=== PATIENT | male | born 1950 | race American Indian/Alaskan Native ===

== ENCOUNTER 2018-12-19 00:31 | Inpatient (IN) | payer MEDICARE ==
[2018-12-19 01:25] LABS: Basophils % (Auto) 0.4 % (0.0-1.8); Hematocrit 41.3 % (35.5-45.6); Hemoglobin 13.7 gm/dl (11.8-15.2); Lymphocytes # (Auto) 0.9 K/mm3 (1.2-5.4); Lymphocytes % (Auto) 10.7 % (13.4-35.0); Mean Corpuscular HGB Conc 33 % (32-34); Mean Corpuscular Volume 82 fl (84-94); Monocytes # (Auto) 0.4 K/mm3 (0.0-0.8); Monocytes % (Auto) 4.8 % (0.0-7.3); Platelet Count 153 K/mm3 (140-440); Red Blood Count 5.05 M/mm3 (3.65-5.03); Red Cell Distribution Width 17.5 % (13.2-15.2)
--- NOTE | 2018-12-19 01:34 | Cat Scan Report ---
FINAL REPORT PROCEDURE: CT HEAD/BRAIN WO CON TECHNIQUE: Computerized tomography of the head was performed without contrast material. HISTORY: ams htn COMPARISON: No prior studies are available for comparison. FINDINGS: Skull and scalp: Normal. Paranasal sinuses: Normal. Ventricles and subarachnoid spaces: There is age-appropriate central and cortical atrophy. There is n o hydrocephalus. There is a cavum septum pellucidum.. Cerebrum: No evidence of hemorrhage, acute infarction or mass. There is chronic periventricular deep white matter ischemic gliosis. Cerebellum and brainstem: No evidence of hemorrhage, acute infarction or mass. Vasculature: Normal. 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 IMPRESSION: There is age-appropriate central and cortical atrophy. There is no hydrocephalus. There is a cavum se ptum pellucidum.. There is no intracranial hemorrhage, edema, mass effect or midline shift. There is chronic periventri cular deep white matter ischemic gliosis. 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
--- NOTE | 2018-12-19 01:36 | XRay Report ---
FINAL REPORT PROCEDURE: XR CHEST 1V AP TECHNIQUE: Chest radiograph anteroposterior view. CPT 83740 HISTORY: ams htn COMPARISON: No prior studies are available for comparison. FINDINGS: Heart: Normal. Mediastinum/Vessels: Normal. Lungs/Pleural space: Lungs are expanded. There are mild fibrotic changes. There are no acute infiltra kelton. There is no pleural effusion or pneumothorax.. Bony thorax: No acute osseous abnormality. Life support devices: None. IMPRESSION: No acute cardiopulmonary abnormality.
--- NOTE | 2018-12-19 01:48 | Emergency Department Report ---
ED General Adult HPI - General Chief complaint: Altered Mental Status Stated complaint: DISORIENTED WEIGHT LOSS Time Seen by Provider: 12/19/18 01:47 Source: patient, family Mode of arrival: Ambulatory Limitations: Other (patient is a poor historian) - History of Present Illness Initial comments: This is a 68-year-old gentleman who is not known to this provider previously. He is accompanied by his brother Joshua Hauser; [phone] History is obtained by speaking to the brother and the brother's . The patient has no complaints. As per the patient's brother, the patient has been experiencing a gradual cognitive decline since June. There is no trauma, and the patient is forgetful, and sometimes acts bizarrely. Yesterday, the zara ent's brother went to the patient's house and knocked on his door, and noted the patient to be sitting on a couch, not answering questions, and not moving. He was making bizarre gestures. Apparently, the patient's house was filled with refuse and garbage, and the patient has on more than one occasion urinated or defecated on himself. The patient will not go to a doctor as per the family. There is no headache, loss of consciousness, chest pain, abdominal pain, or urinary symptoms. The patient has no complaints at this point in time. Apparently, the patient has 2 other siblings, and 2 children, one apparently in [facility], and one living in the [facility]. Power of trust and estates attorney thus far has not been established as far as the family knows. Goals of care, care home care, advanced directives also not established. -: Gradual, month(s) Severity scale (0 -10): 0 Consistency: constant Improves with: none Worsens with: none Associated Symptoms: confusion - Related Data Home Medications Medication Instructions Recorded Confirmed Last Taken No Known Home Medications [No 12/19/18 12/19/18 Unknown Reported Home Medications] Allergies Allergy/AdvReac Type Severity Reaction Status Date / Time No Known Allergies Allergy Unverified 12/19/18 00:49 ED Review of Systems ROS: Stated complaint: DISORIENTED WEIGHT LOSS Other details as noted in HPI Comment: as per family Constitutional: denies: fever Eyes: denies: eye discharge ENT: denies: epistaxis Respiratory: denies: cough Cardiovascular: denies: chest pain Gastrointestinal: denies: abdominal pain Genitourinary: denies: dysuria Musculoskeletal: denies: back pain Skin: denies: lesions Neurological: weakness, confusion ED Past Medical Hx - Past Medical History Hx Hypertension: Yes - Surgical History Past Surgical History?: No - Social History Smoking Status: Never Smoker Substance Use Type: Marijuana - Medications Home Medications: Home Medications Medication Instructions Recorded Confirmed Last Taken Type No Known Home Medications [No 12/19/18 12/19/18 Unknown History Reported Home Medications] ED Physical Exam - General Limitations: Other (patient is a poor historian. Questionable dementia) General appearance: alert, in no apparent distress - Head Head exam: Present: atraumatic, normocephalic - Eye Eye exam: Present: normal appearance, EOMI, other (visual acuity intact to finger counting, color perception, reading at a close distance). Absent: nystagmus - ENT ENT exam: Present: normal exam, normal orophraynx, mucous membranes moist, normal external ear exam - Neck Neck exam: Present: normal inspection, full ROM. Absent: tenderness, meningismus - Respiratory Respiratory exam: Present: normal lung sounds bilaterally. Absent: respiratory distress - Cardiovascular Cardiovascular Exam: Present: regular rate, normal rhythm, normal heart sounds. Absent: bradycardia, tachycardia, irregular rhythm, systolic murmur, diastolic murmur, rubs, gallop - GI/Abdominal GI/Abdominal exam: Present: soft. Absent: distended, tenderness, guarding, rebound, rigid, pulsatile mass - Rectal Rectal exam: Present: deferred - Extremities Exam Extremities exam: Present: normal inspection, full ROM, other (2+ pulses noted in the bilateral upper, lower extremities. Compartments soft. No long bony tenderness. The pelvis is stable.). Absent: pedal edema, joint swelling, calf tenderness - Back Exam Back exam: Present: normal inspection, full ROM. Absent: tenderness, CVA tenderness (R), paraspinal tenderness, vertebral tenderness - Neurological Exam Neurological exam: Present: alert (patient able to recall 2 out of 3 words at 0 minutes and 5 minutes. Alert to name, location, and is able to recognize family members.), normal gait, other (Extraocular movements intact. Tongue midline. No facial droop. Facial sensation intact to light touch in the V1, V2, V3 distribution bilaterally. 5 and 5 strength in 4 extremities.. Sensation is intact to light touch in 4 extremities.). Absent: motor sensory deficit - Psychiatric Psychiatric exam: Present: flat affect - Skin Skin exam: Present: warm, dry, intact, normal color. Absent: rash ED Course Vital Signs 12/19/18 12/19/18 00:38 01:42 Temperature 97.9 F 98.3 F Pulse Rate 81 75 Respiratory 16 18 Rate Blood Pressure 218/133 Blood Pressure 226/139 [Right] O2 Sat by Pulse 96 98 Oximetry - Reevaluation(s) Reevaluation #1: 12/19/18 02:28 Differential diagnosis, including but not limited to: Thyroid derangement, pneumonia, urinary tract infection, dementia, anemia Assessment and plan: 68-year-old gentleman brought to the hospital by family for gradual cognitive decline over a span of months. The patient does not see a primary care doctor, and does not have formal medical conditions that he or the family is aware. Patient most likely experiencing early onset dementia. He is afebrile, with reassuring vital signs with the exception of hypertension and elevated blood pressure. He is pleasant, calm and cooperative, and makes no complaint of homicidality or suicidality. CT scan of the brain was negative, x-ray of the chest unremarkable, screening laboratory studies pending at this time. Elevated blood pressure reviewed and appreciated, this is most likely a chronic medical condition, poorly managed secondary to lack of outpatient follow-up. Patient will be given IV fluids, hydralazine, and we will await for laboratory studies to result. Reevaluation #2: 12/19/18 02:46 Laboratory studies show renal insufficiency, lactic acidosis, and bacteriuria. Patient also has glucose urea. Based off of the history and physical, I do not suspect invasive or systemic bacterial illness, lactic acidosis may be secondary to renal insufficiency, and or tourniquet time. We will give the patient IV fluids, hydralazine for blood pressure control, and start on Macrobid for bacteriuria. Case presented to the Hospital physician, Dr. Stevens, who accepts the patient to the medical service. Discussed laboratory findings with patient's family, who verbalized understanding. ED Medical Decision Making - Lab Data Result diagrams: 12/19/18 00:57 12/19/18 00:57 Vital Signs 12/19/18 12/19/18 00:38 01:42 Temperature 97.9 F 98.3 F Pulse Rate 81 75 Respiratory 16 18 Rate Blood Pressure 218/133 Blood Pressure 226/139 [Right] O2 Sat by Pulse 96 98 Oximetry Lab Results 12/19/18 12/19/18 12/19/18 Range/Units 00:57 00:57 00:57 WBC 8.5 (4.5-11.0) K/mm3 RBC 5.05 H (3.65-5.03) M/mm3 Hgb 13.7 (11.8-15.2) gm/dl Hct 41.3 (35.5-45.6) % MCV 82 L (84-94) fl MCH 27 L (28-32) pg MCHC 33 (32-34) % RDW 17.5 H (13.2-15.2) % Plt Count 153 (140-440) K/mm3 Lymph % (Auto) 10.7 L (13.4-35.0) % [place] % (Auto) 4.8 (0.0-7.3) % Eos % (Auto) 0.0 (0.0-4.3) % Baso % (Auto) 0.4 (0.0-1.8) % Lymph # 0.9 L (1.2-5.4) K/mm3 [place] # 0.4 (0.0-0.8) K/mm3 Eos # 0.0 (0.0-0.4) K/mm3 Baso # 0.0 (0.0-0.1) K/mm3 Seg Neutrophils % 84.1 H (40.0-70.0) % Seg Neutrophils # 7.1 (1.8-7.7) K/mm3 POC Glucose (70-105) Ammonia 23.0 L (25-60) umol/L Plasma/Serum Alcohol < 0.01 (0-0.07) % 12/19/18 Range/Units 00:58 WBC (4.5-11.0) K/mm3 RBC (3.65-5.03) M/mm3 Hgb (11.8-15.2) gm/dl Hct (35.5-45.6) % MCV (84-94) fl MCH (28-32) pg MCHC (32-34) % RDW (13.2-15.2) % Plt Count (140-440) K/mm3 Lymph % (Auto) (13.4-35.0) % [place] % (Auto) (0.0-7.3) % Eos % (Auto) (0.0-4.3) % Baso % (Auto) (0.0-1.8) % Lymph # (1.2-5.4) K/mm3 [place] # (0.0-0.8) K/mm3 Eos # (0.0-0.4) K/mm3 Baso # (0.0-0.1) K/mm3 Seg Neutrophils % (40.0-70.0) % Seg Neutrophils # (1.8-7.7) K/mm3 POC Glucose 110 H (70-105) Ammonia (25-60) umol/L Plasma/Serum Alcohol (0-0.07) % Lab Results 12/19/18 12/19/18 12/19/18 Range/Units 00:57 00:57 00:57 WBC 8.5 (4.5-11.0) K/mm3 RBC 5.05 H (3.65-5.03) M/mm3 Hgb 13.7 (11.8-15.2) gm/dl Hct 41.3 (35.5-45.6) % MCV 82 L (84-94) fl MCH 27 L (28-32) pg MCHC 33 (32-34) % RDW 17.5 H (13.2-15.2) % Plt Count 153 (140-440) K/mm3 Lymph % (Auto) 10.7 L (13.4-35.0) % [place] % (Auto) 4.8 (0.0-7.3) % Eos % (Auto) 0.0 (0.0-4.3) % Baso % (Auto) 0.4 (0.0-1.8) % Lymph # 0.9 L (1.2-5.4) K/mm3 [place] # 0.4 (0.0-0.8) K/mm3 Eos # 0.0 (0.0-0.4) K/mm3 Baso # 0.0 (0.0-0.1) K/mm3 Seg Neutrophils % 84.1 H (40.0-70.0) % Seg Neutrophils # 7.1 (1.8-7.7) K/mm3 POC Glucose (70-105) Lactic Acid (0.7-2.0) mmol/L Ammonia (25-60) umol/L TSH 3.190 (0.270-4.200) mlU/mL Salicylates (2.8-20.0) mg/dL Acetaminophen (10.0-30.0) ug/mL Plasma/Serum Alcohol < 0.01 (0-0.07) % 12/19/18 12/19/18 12/19/18 Range/Units 00:57 00:57 00:57 WBC (4.5-11.0) K/mm3 RBC (3.65-5.03) M/mm3 Hgb (11.8-15.2) gm/dl Hct (35.5-45.6) % MCV (84-94) fl MCH (28-32) pg MCHC (32-34) % RDW (13.2-15.2) % Plt Count (140-440) K/mm3 Lymph % (Auto) (13.4-35.0) % [place] % (Auto) (0.0-7.3) % Eos % (Auto) (0.0-4.3) % Baso % (Auto) (0.0-1.8) % Lymph # (1.2-5.4) K/mm3 [place] # (0.0-0.8) K/mm3 Eos # (0.0-0.4) K/mm3 Baso # (0.0-0.1) K/mm3 Seg Neutrophils % (40.0-70.0) % Seg Neutrophils # (1.8-7.7) K/mm3 POC Glucose (70-105) Lactic Acid 2.30 H* (0.7-2.0) mmol/L Ammonia 23.0 L (25-60) umol/L TSH (0.270-4.200) mlU/mL Salicylates < 0.3 L (2.8-20.0) mg/dL Acetaminophen (10.0-30.0) ug/mL Plasma/Serum Alcohol (0-0.07) % 12/19/18 12/19/18 Range/Units 00:57 00:58 WBC (4.5-11.0) K/mm3 RBC (3.65-5.03) M/mm3 Hgb (11.8-15.2) gm/dl Hct (35.5-45.6) % MCV (84-94) fl MCH (28-32) pg MCHC (32-34) % RDW (13.2-15.2) % Plt Count (140-440) K/mm3 Lymph % (Auto) (13.4-35.0) % [place] % (Auto) (0.0-7.3) % Eos % (Auto) (0.0-4.3) % Baso % (Auto) (0.0-1.8) % Lymph # (1.2-5.4) K/mm3 [place] # (0.0-0.8) K/mm3 Eos # (0.0-0.4) K/mm3 Baso # (0.0-0.1) K/mm3 Seg Neutrophils % (40.0-70.0) % Seg Neutrophils # (1.8-7.7) K/mm3 POC Glucose 110 H (70-105) Lactic Acid (0.7-2.0) mmol/L Ammonia (25-60) umol/L TSH (0.270-4.200) mlU/mL Salicylates (2.8-20.0) mg/dL Acetaminophen < 5.0 L (10.0-30.0) ug/mL Plasma/Serum Alcohol (0-0.07) % - EKG Data EKG shows normal: sinus rhythm Rate: normal - EKG Data When compared to previous EKG there are: previous EKG unavailable 12/19/18 02:30 Sinus, 72 bpm, borderline leftward axis, left anterior fascicular block, left v entricular hypertrophy, atrial enlargement, not having chest pain, abnormal EKG, not consistent with ST elevation myocardial infarction. - Radiology Data Radiology results: report reviewed, image reviewed Referring Physician: GLO HERNANDEZ Patient Name: YULI HAUSER Date of : 1950 Sex: Male Report Date: 2018-12-19 Report Status: [place] [address] Cat Scan Report Signed Patient: YULI HAUSER MR#: [id number] : 1950 Acct:[id number] Age/Sex: 68 / M ADM Date: 12/19/18 Loc: ED Attending Dr: Ordering Physician: GLO HERNANDEZ MD Date of Service: 12/19/18 Procedure(s): CT head/brain wo con Accession Number(s): [id number] cc: GLO HERNANDEZ MD FINAL REPORT PROCEDURE: CT HEAD/BRAIN WO CON TECHNIQUE: Computerized tomography of the head was performed without contrast material. HISTORY: ams htn COMPARISON: No prior studies are available for comparison. FINDINGS: Skull and scalp: Normal. Paranasal sinuses: Normal. Ventricles and subarachnoid spaces: There is age-appropriate central and cortical atrophy. There is no hydrocephalus. There is a cavum septum pellucidum.. Cerebrum: No evidence of hemorrhage, acute infarction or mass. There is chronic periventricular deep white matter ischemic gliosis. Cerebellum and brainstem: No evidence of hemorrhage, acute infarction or mass. Vasculature: Normal. 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 IMPRESSION: There is age-appropriate central and cortical atrophy. There is no hydrocephalus. There is a cavum septum pellucidum.. There is no intracranial hemorrhage, edema, mass effect or midline shift. There is chronic periventricular deep white matter ischemic gliosis. 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 Transcribed By: CO Dictated By: LIZETH SWANSON MD Electronically Authenticated By: LIZETH SWANSON MD Signed Date/Time: 12/19/18 0134 Critical care attestation.: If time is entered above; I have spent that time in minutes in the direct care of this critically ill patient, excluding procedure time. ED Disposition Clinical Impression: CATRACHITO (acute kidney injury), Hypertensive urgency, Cognitive decline Disposition: OP ADMIT IP TO THIS HOSP Is pt being admited?: Yes Does the pt Need Aspirin: No Condition: Good Referrals: TRICIA BISHOP MD [Primary Care Provider] - 3-5 Days
[2018-12-19] MEDS ORDERED: APRESOLINE IV ONE ×2 (02:20→03:04)
[2018-12-19] MEDS ORDERED: NACL 0.9% 500 ML 500 ML IV ONE (02:20)
[2018-12-19 02:36] LABS: Albumin 4.9 g/dL (3.9-5); Calcium 10.1 mg/dL (8.4-10.2)
[2018-12-19 02:41] LABS: Amorphous Crystals,Urine 1+; Bacteria,Urine 1+ /HPF (Negative); Bilirubin,Urine NEG (Negative); Blood,Urine NEG (Negative); Color,Urine Amber (Yellow); Hyaline Casts,Urine 8 /LPF; Mucus,Urine FEW /HPF
[2018-12-19 02:42] LABS: Protein,Urine >500 mg/dL (Negative)
[2018-12-19 02:43] LABS: Amphetamine Screen,Urine PRESUMPTIVE NEGATIVE; Benzodiazepines Screen,Urine PRESUMPTIVE NEGATIVE; Cocaine Screen,Urine PRESUMPTIVE NEGATIVE; Methadone Screen,Urine PRESUMPTIVE NEGATIVE; Opiate Screen,Urine PRESUMPTIVE NEGATIVE
[2018-12-19] MEDS ORDERED: NACL 0.9% 1000 ML 1,000 ML IV ONE (02:45)
[2018-12-19] MEDS ORDERED: MACROBID PO ONE (02:46)
[2018-12-19 03:01] LABS: Cannabinoid Screen,Urine PRESUMPTIVE POSITIVE
[2018-12-19] MEDS ORDERED: TYLENOL PO PRN (03:06)
[2018-12-19] MEDS ORDERED: SODIUM CHLORIDE FLUSH SYRINGE 10 ML IV PRN (03:06)
[2018-12-19] MEDS ORDERED: ZOFRAN IV PRN (03:06)
--- NOTE | 2018-12-19 03:06 | History and Physical Report ---
History of Present Illness Date of examination: 12/19/18 History of present illness: 68-year-old man with history of hypertension, have not seen a physician in over a year, heavy alcohol use was brought to the emergency room by family for evaluation. He's been having memory decline over the last 6 months but it has worsened over the last 2 months. They usually take him out to eat 3 times a week, this evening the left is swollen in the car, the family went to return it. They saw the patient fidgeting with the couch, took him 45 minutes to the door, he had urinated on himself. His refrigerator as Sudafed and it that day is given to him, he has not even it. Family thinks that he's been drinking too much to eat, he has lost weight. They're concerned about him living alone Review of systems Constitutional: no weight loss, chills, fever Ears, eyes, nose, mouth and throat: no nasal congestion, no nasal discharge, no sinus pressure, no vision change, no red eye. Neck: No neck pain or rigidity. Cardiovascular: no palpitations, chest pain Respiratory: no cough, shortness of breath Gastrointestinal: no hematochezia, abdominal pain Genitourinary : no frequency , no hematuria Musculoskeletal: no joint swelling or muscle ache Integumentary: no rash, no pruritis Neurological: no parathesias, no focal weakness Endocrine: no cold or heat intolerance, no polyuria or polydipsia Hematologic/Lymphatic: no easy bruising, no easy bleeding, no gland swelling Allergic/Immunologic: no urticaria, no angioedema. PAST MEDICAL HISTORY:hypertension, PAST SURGICAL HISTORY: None SOCIAL HISTORY:+alcohol, + marijuana, no tobacco FAMILY HISTORY: Hypertension Medications and Allergies Allergies Allergy/AdvReac Type Severity Reaction Status Date / Time No Known Allergies Allergy Verified 12/19/18 03:17 Home Medications Medication Instructions Recorded Confirmed Last Taken Type No Known Home Medications [No 12/19/18 12/19/18 Unknown History Reported Home Medications] Active Meds: Active Medications Sodium Chloride (Nacl 0.9% 1000 Ml) 1,000 mls @ 999 mls/hr IV BOLUS ONE Stop: 12/19/18 03:45 Exam - Physical Exam Narrative exam: General Apperance: The patient lying in bed, breathing comfortable HEENT: Normocephalic, atraumatic. Pupils equally round and reactive to light, EOMI, no sclericterus or JVD or thyromegaly or nodule. , no carotid bruit, mucous membranes moist, no exudate or erythema Heart: S1-S2, regular is rhythm Lungs: Clear to auscultation bilaterally, breathing comfortable Abdomen: Positive bowel sounds, soft, nontender, nondistended, no organomegaly Extremities: No edema cyanosis clubbing Skin: no rash, nodule, warm and dry Neuro: cranial nerves 2-12 intact, speech is fluent, motor/sensory intact - Constitutional Vitals: Temp Pulse Resp BP Pulse Ox 98.3 F 80 18 215/139 96 12/19/18 01:42 12/19/18 02:46 12/19/18 01:42 12/19/18 02:46 12/19/18 02:00 Results - Labs CBC & Chem 7: 01/03/19 05:50 01/03/19 05:50 Labs: Abnormal lab results 12/19/18 12/19/18 12/19/18 Range/Units 00:57 00:57 00:57 RBC 5.05 H (3.65-5.03) M/mm3 MCV 82 L (84-94) fl MCH 27 L (28-32) pg RDW 17.5 H (13.2-15.2) % Lymph % (Auto) 10.7 L (13.4-35.0) % Lymph # 0.9 L (1.2-5.4) K/mm3 Seg Neutrophils % 84.1 H (40.0-70.0) % Creatinine 2.2 H (0.8-1.5) mg/dL POC Glucose (70-105) Lactic Acid 2.30 H* (0.7-2.0) mmol/L Total Bilirubin 1.60 H (0.1-1.2) mg/dL Ammonia (25-60) umol/L Salicylates (2.8-20.0) mg/dL Acetaminophen (10.0-30.0) ug/mL 12/19/18 12/19/18 12/19/18 Range/Units 00:57 00:57 00:57 RBC (3.65-5.03) M/mm3 MCV (84-94) fl MCH (28-32) pg RDW (13.2-15.2) % Lymph % (Auto) (13.4-35.0) % Lymph # (1.2-5.4) K/mm3 Seg Neutrophils % (40.0-70.0) % Creatinine (0.8-1.5) mg/dL POC Glucose (70-105) Lactic Acid (0.7-2.0) mmol/L Total Bilirubin (0.1-1.2) mg/dL Ammonia 23.0 L (25-60) umol/L Salicylates < 0.3 L (2.8-20.0) mg/dL Acetaminophen < 5.0 L (10.0-30.0) ug/mL 12/19/18 Range/Units 00:58 RBC (3.65-5.03) M/mm3 MCV (84-94) fl MCH (28-32) pg RDW (13.2-15.2) % Lymph % (Auto) (13.4-35.0) % Lymph # (1.2-5.4) K/mm3 Seg Neutrophils % (40.0-70.0) % Creatinine (0.8-1.5) mg/dL POC Glucose 110 H (70-105) Lactic Acid (0.7-2.0) mmol/L Total Bilirubin (0.1-1.2) mg/dL Ammonia (25-60) umol/L Salicylates (2.8-20.0) mg/dL Acetaminophen (10.0-30.0) ug/mL - Imaging and Cardiology Chest x-ray: report reviewed CT Scan - head: report reviewed Assessment and Plan Assessment Acute renal failure Hypertension malignant Memory decline most likely dementia Alcohol abuse Plan Start IV hydralazine, Lopressor Start IV hydration, monitor kidney function Start CIWA protocol with IV Ativan DVT prophylaxis
[2018-12-19] MEDS ORDERED: ATIVAN IV PRN ×2 (03:09)
[2018-12-19] MEDS: LOPRESSOR PO SCH ×2 (04:00→09:25)
[2018-12-19] MEDS: APRESOLINE IV PRN ×2 (05:26→13:40)
[2018-12-19 07:04] LABS: Basophils # (Auto) 0.1 K/mm3 (0.0-0.1); Basophils % (Auto) 0.7 % (0.0-1.8); Hematocrit 37.9 % (35.5-45.6); Hemoglobin 12.6 gm/dl (11.8-15.2); Lymphocytes # (Auto) 1.2 K/mm3 (1.2-5.4); Lymphocytes % (Auto) 10.5 % (13.4-35.0); Mean Corpuscular HGB Conc 33 % (32-34); Mean Corpuscular Volume 81 fl (84-94); Monocytes # (Auto) 0.6 K/mm3 (0.0-0.8); Platelet Count 144 K/mm3 (140-440); Red Blood Count 4.67 M/mm3 (3.65-5.03)
[2018-12-19 07:29] LABS: Calcium 9.1 mg/dL (8.4-10.2)
[2018-12-19] MEDS: LOVENOX SUB-Q SCH (09:25)
[2018-12-19] MEDS: NACL 0.45% 1000 ML 1,000 ML IV SCH ×2 (09:26→19:29)
[2018-12-19] MEDS: SODIUM CHLORIDE FLUSH SYRINGE 10 ML IV SCH ×2 (09:26→22:50)
--- NOTE | 2018-12-19 10:40 | Consultation ---
History of Present Illness - Reason for Consult Consult date: 12/19/18 acute renal failure, hypokalemia, accelerated hypertension Requesting physician: PATRICIA CABALLERO - History of Present Illness History is obtained by speaking to the brother and the brother's . The patient has no complaints. As per the patient's brother, the patient has been experiencing a gradual cognitive decline since June. There is no trauma, and the patient is forgetful, and sometimes acts bizarrely. Yesterday, the patient's brother went to the patient's house and knocked on his door, and noted the patient to be sitting on a couch, not answering questions, and not moving. He was making bizarre gestures. Apparently, the patient's house was filled with refuse and garbage, and the patient has on more than one occasion urinated or defecated on himself. The patient will not go to a doctor as per the family. There is no headache, loss of consciousness, chest pain, abdominal pain, or urinary symptoms. The patient has no complaints at this point in time. Apparently, the patient has 2 other siblings, and 2 children, one apparently in [facility], and one living in the [facility]. Power of civil litigation attorney thus far has not been established as far as the family knows. Goals of care, group home care, advanced directives also not established. -: Gradual, month(s) Severity scale (0 -10): 0 Consistency: constant Improves with: none Worsens with: none Associated Symptoms: confusion ROS: Stated complaint: DISORIENTED WEIGHT LOSS Other details as noted in HPI Comment: as per family Constitutional: denies: fever Eyes: denies: eye discharge ENT: denies: epistaxis Respiratory: denies: cough Cardiovascular: denies: chest pain Gastrointestinal: denies: abdominal pain Genitourinary: denies: dysuria Musculoskeletal: denies: back pain Skin: denies: lesions Neurological: weakness, confusion - Past Medical History Hx Hypertension: Yes - Surgical History Past Surgical History?: No - Social History Smoking Status: Never Smoker Substance Use Type: Marijuana Medications and Allergies Allergies Allergy/AdvReac Type Severity Reaction Status Date / Time No Known Allergies Allergy Verified 12/19/18 03:17 Home Medications Medication Instructions Recorded Confirmed Last Taken Type No Known Home Medications [No 12/19/18 12/19/18 Unknown History Reported Home Medications] Active Meds: Active Medications Acetaminophen (Tylenol) 650 mg PO Q4H PRN PRN Reason: Pain MILD(1-3)/Fever >100.5/M[place]OUGH Enoxaparin Sodium (Lovenox) 30 mg SUB-Q QDAY [facility] Last Admin: 12/19/18 09:25 Dose: 30 mg Documented by: Hydralazine HCl (Apresoline) 5 mg IV Q6H PRN PRN Reason: Hypertension Last Admin: 12/19/18 05:26 Dose: 5 mg Documented by: Sodium Chloride (Nacl 0.45% 1000 Ml) 1,000 mls @ 100 mls/hr IV DIRECT [facility] Last Admin: 12/19/18 09:26 Dose: 100 mls/hr Documented by: Lorazepam (Ativan) 2 mg IV Q1HR PRN PRN Reason: CIWA-Ar 8-15 Lorazepam (Ativan) 4 mg IV Q1HR PRN PRN Reason: CIWA-Ar 16-25 Metoprolol Tartrate (Lopressor) 25 mg PO BID [facility] Last Admin: 12/19/18 09:25 Dose: 25 mg Documented by: Ondansetron HCl (Zofran) 4 mg IV Q8H PRN PRN Reason: Nausea And Vomiting Sodium Chloride (Sodium Chloride Flush Syringe 10 Ml) 10 ml IV BID [facility] Last Admin: 12/19/18 09:26 Dose: 10 ml Documented by: Sodium Chloride (Sodium Chloride Flush Syringe 10 Ml) 10 ml IV PRN PRN PRN Reason: LINE FLUSH Exam - Vital Signs Vital signs: Vital Signs Temp Pulse Resp BP Pulse Ox 97.9 F 81 16 218/133 96 12/19/18 00:38 12/19/18 00:38 12/19/18 00:38 12/19/18 00:38 12/19/18 00:38 - Physical Exam Narrative exam: - General Limitations: Other (patient is a poor historian. Questionable dementia) General appearance: alert, in no apparent distress - Head Head exam: Present: atraumatic, normocephalic - Eye Eye exam: Present: normal appearance, EOMI, other (visual acuity intact to finger counting, color perception, reading at a close distance). Absent: nystagmus - ENT ENT exam: Present: normal exam, normal orophraynx, mucous membranes moist, normal external ear exam - Neck Neck exam: Present: normal inspection, full ROM. Absent: tenderness, meningismus - Respiratory Respiratory exam: Present: normal lung sounds bilaterally. Absent: respiratory distress - Cardiovascular Cardiovascular Exam: Present: regular rate, normal rhythm, normal heart sounds. Absent: bradycardia, tachycardia, irregular rhythm, systolic murmur, diastolic murmur, rubs, gallop - GI/Abdominal GI/Abdominal exam: Present: soft. Absent: distended, tenderness, guarding, rebound, rigid, pulsatile mass - Rectal Rectal exam: Present: deferred - Extremities Exam Extremities exam: Present: normal inspection, full ROM, other (2+ pulses noted in the bilateral upper, lower extremities. Compartments soft. No long bony tenderness. The pelvis is stable.). Absent: pedal edema, joint swelling, calf tenderness - Back Exam Back exam: Present: normal inspection, full ROM. Absent: tenderness, CVA tenderness (R), paraspinal tenderness, vertebral tenderness - Neurological Exam Neurological exam: Present: alert (patient able to recall 2 out of 3 words at 0 minutes and 5 minutes. Alert to name, location, and is able to recognize family members.), normal gait, other (Extraocular movements intact. Tongue midline. No facial droop. Facial sensation intact to light touch in the V1, V2, V3 distribution bilaterally. 5 and 5 strength in 4 extremities.. Sensation is intact to light touch in 4 extremities.). Absent: motor sensory deficit - Psychiatric Psychiatric exam: Present: flat affect - Skin Skin exam: Present: warm, dry, intact, normal color. Absent: rash Results - Lab Results 12/19/18 06:49 12/19/18 06:49 Most recent lab results Calcium 9.1 mg/dL (8.4-10.2) 12/19/18 06:49 Assessment and Plan Assessment * Acute renal failure * Hypertension malignant * Hypokalemia--r/o hyperaldosteronism * Alcohol abuse Plan: * madalyn with likely ckd due to htn, rule out hyperaldosteronism * control bp, amends meds prn * follow renal us * avoid nephrotoxins * strict i/os, daily lytes * no indication for drafter cartographic
--- NOTE | 2018-12-19 11:22 | Event Note ---
Date: 12/19/18 Patient seen and examined. This is a follow-up from an admission earlier this morning. Nephrology has been consulted. We will continue the plan as outlined in H&P. Total time equals 25 minutes with greater than 50% spent on correlation of care and counseling.
[2018-12-19] MEDS: NORMODYNE PO SCH ×2 (12:24→22:50)
--- NOTE | 2018-12-19 15:37 | Ultrasound Report ---
ULTRASOUND RENAL BILATERAL HISTORY: Renal failure. TECHNIQUE: transabdominal ultrasound with color Doppler interrogation. FINDINGS: The right kidney measures 11.7 x 6.2 x 4.8cm. Right renal cortex: 1.2cm. The left kidney measures 10.2 x 6.8 x 6.2cm. Left renal cortex: 1.4cm. The renal parenchyma is echogenic bilaterally consistent with nonspecific renal parenchymal disease. There is moderate right hydronephrosis. No left hydronephrosis. A 2.3 x 2.7 cm cyst is identified at the inferior pole left kidney. No evidence for renal mass or shadowing calculus. The bladder is partially empty but unremarkable. IMPRESSION: Echogenic kidneys consistent with nonspecific renal parenchymal disease. Right hydronephrosis. Left renal cyst.
[2018-12-19] MEDS: CATAPRES PO SCH ×2 (17:16→22:50)
[2018-12-19] MEDS: APRESOLINE PO SCH (19:28)
[2018-12-19] MEDS: ALDACTONE PO SCH (22:50)
[2018-12-20 01:32] LABS: Creatinine,Urine 157.1 mg/dL (0.1-20.0); Protein/Creatinine Ratio,Urine 0.36
[2018-12-20 05:44] LABS: Basophils % (Auto) 0.3 % (0.0-1.8); Eosinophils % (Auto) 0.4 % (0.0-4.3); Hematocrit 36.3 % (35.5-45.6); Lymphocytes # (Auto) 1.9 K/mm3 (1.2-5.4); Lymphocytes % (Auto) 23.1 % (13.4-35.0); Mean Corpuscular HGB Conc 33 % (32-34); Mean Corpuscular Volume 82 fl (84-94); Monocytes # (Auto) 0.7 K/mm3 (0.0-0.8); Monocytes % (Auto) 7.8 % (0.0-7.3); Platelet Count 133 K/mm3 (140-440); Red Blood Count 4.45 M/mm3 (3.65-5.03); Red Cell Distribution Width 17.5 % (13.2-15.2)
[2018-12-20 06:41] LABS: Albumin 3.8 g/dL (3.9-5); Calcium 9.4 mg/dL (8.4-10.2)
[2018-12-20] MEDS: NORMODYNE PO SCH ×2 (10:04→21:09)
[2018-12-20] MEDS: CATAPRES PO SCH ×2 (10:04→21:09)
[2018-12-20] MEDS: LOVENOX SUB-Q SCH (10:05)
[2018-12-20] MEDS: SODIUM CHLORIDE FLUSH SYRINGE 10 ML IV SCH ×2 (10:05→21:16)
[2018-12-20] MEDS: APRESOLINE PO SCH ×3 (10:05→21:08)
[2018-12-20] MEDS: ALDACTONE PO SCH ×2 (10:05→21:08)
[2018-12-20] MEDS ORDERED: MAGNESIUM SULFATE 2GM/50ML 2 GM/50 ML BAG IV PRN (10:11)
--- NOTE | 2018-12-20 10:12 | Progress Note ---
Assessment and Plan Assessment * Acute renal failure * right hydronephrosis * obstructive uropathy * Hypertension malignant * Hypokalemia--r/o hyperaldosteronism * Alcohol abuse Plan: * madalyn with likely ckd due to htn, rule out hyperaldosteronism * ?baseline cr * control bp, amends meds prn * replete k and mag prn * follow up renal us noted--right hydronephrosis * rec urology consultation * place raza cath * avoid nephrotoxins * strict i/os, daily lytes * no indication for pharmacy technician trainee Subjective Date of service: 12/20/18 Principal diagnosis: madalyn on ckd Interval history: resting in bed today Objective - Exam Narrative Exam: - General Limitations: Other (patient is a poor historian. Questionable dementia) General appearance: alert, in no apparent distress - Head Head exam: Present: atraumatic, normocephalic - Eye Eye exam: Present: normal appearance, EOMI, other (visual acuity intact to finger counting, color perception, reading at a close distance). Absent: nystagmus - ENT ENT exam: Present: normal exam, normal orophraynx, mucous membranes moist, normal external ear exam - Neck Neck exam: Present: normal inspection, full ROM. Absent: tenderness, meningismus - Respiratory Respiratory exam: Present: normal lung sounds bilaterally. Absent: respiratory distress - Cardiovascular Cardiovascular Exam: Present: regular rate, normal rhythm, normal heart sounds. Absent: bradycardia, tachycardia, irregular rhythm, systolic murmur, diastolic murmur, rubs, gallop - GI/Abdominal GI/Abdominal exam: Present: soft. Absent: distended, tenderness, guarding, rebound, rigid, pulsatile mass - Rectal Rectal exam: Present: deferred - Extremities Exam Extremities exam: Present: normal inspection, full ROM, other (2+ pulses noted in the bilateral upper, lower extremities. Compartments soft. No long bony tenderness. The pelvis is stable.). Absent: pedal edema, joint swelling, calf tenderness - Back Exam Back exam: Present: normal inspection, full ROM. Absent: tenderness, CVA tenderness (R), paraspinal tenderness, vertebral tenderness - Neurological Exam Neurological exam: Present: alert (patient able to recall 2 out of 3 words at 0 minutes and 5 minutes. Alert to name, location, and is able to recognize family members.), normal gait, other (Extraocular movements intact. Tongue midline. No facial droop. Facial sensation intact to light touch in the V1, V2, V3 distribution bilaterally. 5 and 5 strength in 4 extremities.. Sensation is intact to light touch in 4 extremities.). Absent: motor sensory deficit - Psychiatric Psychiatric exam: Present: flat affect - Skin Skin exam: Present: warm, dry, intact, normal color. Absent: rash - Vital Signs Vital signs: Vital Signs - 12hr 12/19/18 12/19/18 12/19/18 22:50 23:42 23:45 Temperature 98.6 F Pulse Rate 69 73 77 Respiratory 16 Rate Blood Pressure 175/98 159/103 O2 Sat by Pulse 97 100 Oximetry 12/20/18 12/20/18 12/20/18 04:00 04:28 05:29 Temperature 98.2 F Pulse Rate 66 66 Respiratory 20 Rate Blood Pressure 149/95 O2 Sat by Pulse 97 Oximetry 12/20/18 07:21 Temperature 98.3 F Pulse Rate Respiratory 19 Rate Blood Pressure 177/104 O2 Sat by Pulse Oximetry - Lab 12/20/18 05:15 12/20/18 05:15 Most recent lab results Calcium 9.4 mg/dL (8.4-10.2) 12/20/18 05:15 Urine Creatinine 157.1 mg/dL (0.1-20.0) H 12/20/18 00:30 Urine Sodium 105 mmol/L 12/20/18 00:30 Urine Total Protein 57 mg/dL (5-11.8) H 12/20/18 00:30 Medications & Allergies - Medications Allergies/Adverse Reactions: Allergies No Known Allergies Allergy (Verified 12/19/18 03:17) Home Medications: Home Medications Medication Instructions Recorded Confirmed Last Taken Type No Known Home Medications [No 12/19/18 12/19/18 Unknown History Reported Home Medications] Active Medications: Generic Name Dose Route Start Last Admin Trade Name Freq PRN Reason Stop Dose Admin Acetaminophen 650 mg 12/19/18 03:06 Tylenol PO Q4H PRN Pain MILD(1-3)/Fever >100.5/[place]OUGH Clonidine HCl 0.1 mg 12/19/18 16:00 12/20/18 10:04 Catapres PO 0.1 mg Q12HR MANOJ Administration Enoxaparin Sodium 30 mg 12/19/18 10:00 02/22/19 10:05 Lovenox SUB-Q 30 mg QDAY MANOJ Administration Hydralazine HCl 5 mg 12/19/18 03:12 12/19/18 13:40 Apresoline IV 5 mg Q6H PRN Administration Hypertension Hydralazine HCl 100 mg 12/19/18 20:00 12/20/18 10:05 Apresoline PO 100 mg TID MANOJ Administration Sodium Chloride 1,000 mls @ 100 mls/hr 12/19/18 04:00 12/19/18 19:29 Nacl 0.45% 1000 Ml IV 100 mls/hr DIRECT MANOJ Administration Labetalol HCl 200 mg 12/19/18 12:00 12/20/18 10:04 Normodyne PO 200 mg BID MANOJ Administration Lorazepam 2 mg 12/19/18 03:09 Ativan IV Q1HR PRN CIWA-Ar 8-15 Lorazepam 4 mg 12/19/18 03:09 Ativan IV Q1HR PRN CIWA-Ar 16-25 Ondansetron HCl 4 mg 12/19/18 03:06 Zofran IV Q8H PRN Nausea And Vomiting Sodium Chloride 10 ml 12/19/18 10:00 12/20/18 10:05 Sodium Chloride Flush Syringe 10 Ml IV 10 ml BID MANOJ Administration Sodium Chloride 10 ml 12/19/18 03:06 Sodium Chloride Flush Syringe 10 Ml IV PRN PRN LINE FLUSH Spironolactone 50 mg 12/19/18 22:00 12/20/18 10:05 Aldactone PO 50 mg BID MANOJ Administration
[2018-12-20] MEDS: NACL 0.45% 1000 ML 1,000 ML IV SCH (12:53)
--- NOTE | 2018-12-20 15:42 | Progress Note ---
Assessment and Plan Assessment and plan: Acute renal failure. Etiology secondary to madalyn with likely ckd due to htn, rule out hyperaldosteronism. Baseline Cr unknown. Right hydronephrosis. Obstructive uropathy. CT scan. Peraza placed. Urology consult. Accel Htn. Cont meds ETOH abuse. Cont. CIWA Acute encephalopathy. History Interval history: No new issues overnight Hospitalist Physical - Constitutional Vitals: Temp Pulse Resp BP Pulse Ox 98.6 F 66 18 154/88 100 12/20/18 11:43 12/20/18 05:29 12/20/18 11:43 12/20/18 11:43 12/20/18 11:18 General appearance: Present: no acute distress, well-nourished - EENT Eyes: Present: PERRL, EOM intact ENT: hearing intact, clear oral mucosa, dentition normal - Neck Neck: Present: supple, normal ROM - Respiratory Respiratory effort: normal Respiratory: bilateral: CTA - Cardiovascular Rhythm: regular Heart Sounds: Present: S1 & S2. Absent: gallop, rub - Extremities Extremities: no ischemia, No edema, Full ROM - Abdominal General gastrointestinal: soft, non-tender, non-distended, normal bowel sounds - Integumentary Integumentary: Present: clear, warm, dry - Neurologic Neurologic: CNII-XII intact, moves all extremities Results - Labs CBC & Chem 7: 12/20/18 05:15 12/20/18 05:15 Labs: Laboratory Last Values WBC 8.4 K/mm3 (4.5-11.0) 12/20/18 05:15 RBC 4.45 M/mm3 (3.65-5.03) 12/20/18 05:15 Hgb 12.0 gm/dl (11.8-15.2) 12/20/18 05:15 Hct 36.3 % (35.5-45.6) 12/20/18 05:15 MCV 82 fl (84-94) L 12/20/18 05:15 MCH 27 pg (28-32) L 12/20/18 05:15 MCHC 33 % (32-34) 12/20/18 05:15 RDW 17.5 % (13.2-15.2) H 12/20/18 05:15 Plt Count 133 K/mm3 (140-440) L 12/20/18 05:15 Lymph % (Auto) 23.1 % (13.4-35.0) 12/20/18 05:15 [place] % (Auto) 7.8 % (0.0-7.3) H 12/20/18 05:15 Eos % (Auto) 0.4 % (0.0-4.3) 12/20/18 05:15 Baso % (Auto) 0.3 % (0.0-1.8) 12/20/18 05:15 Lymph # 1.9 K/mm3 (1.2-5.4) 12/20/18 05:15 [place] # 0.7 K/mm3 (0.0-0.8) 12/20/18 05:15 Eos # 0.0 K/mm3 (0.0-0.4) 12/20/18 05:15 Baso # 0.0 K/mm3 (0.0-0.1) 12/20/18 05:15 Seg Neutrophils % 68.4 % (40.0-70.0) 12/20/18 05:15 Seg Neutrophils # 5.7 K/mm3 (1.8-7.7) 12/20/18 05:15 Sodium 143 mmol/L (137-145) 12/20/18 05:15 Potassium 3.5 mmol/L (3.6-5.0) L 12/20/18 05:15 Chloride 102.8 mmol/L (98-107) 12/20/18 05:15 Carbon Dioxide 26 mmol/L (22-30) 12/20/18 05:15 Anion Gap 18 mmol/L 12/20/18 05:15 BUN 15 mg/dL (9-20) 12/20/18 05:15 Creatinine 2.1 mg/dL (0.8-1.5) H 12/20/18 05:15 Estimated GFR 38 ml/min 12/20/18 05:15 BUN/Creatinine Ratio 7 % 12/20/18 05:15 Glucose 109 mg/dL (75-100) H 12/20/18 05:15 POC Glucose 101 (70-105) 12/20/18 11:45 Lactic Acid 1.30 mmol/L (0.7-2.0) 12/19/18 06:49 Calcium 9.4 mg/dL (8.4-10.2) 12/20/18 05:15 Magnesium 1.60 mg/dL (1.7-2.3) L 12/20/18 05:15 Total Bilirubin 1.50 mg/dL (0.1-1.2) H 12/20/18 05:15 AST 17 units/L (5-40) 12/20/18 05:15 ALT 7 units/L (7-56) 12/20/18 05:15 Alkaline Phosphatase 72 units/L (35-129) 12/20/18 05:15 Ammonia 23.0 umol/L (25-60) L 12/19/18 00:57 Total Protein 6.2 g/dL (6.3-8.2) L D 12/20/18 05:15 Albumin 3.8 g/dL (3.9-5) L 12/20/18 05:15 Albumin/Globulin Ratio 1.6 % 12/20/18 05:15 TSH 3.190 mlU/mL (0.270-4.200) 12/19/18 00:57 Urine Color Carmen (Yellow) 12/19/18 02:27 Urine Turbidity Slightly-cloudy (Clear) 12/19/18 02:27 Urine pH 5.0 (5.0-7.0) 12/19/18 02:27 Ur Specific [place] 1.024 (1.003-1.030) 12/19/18 02:27 Urine Protein >500 mg/dL (Negative) 12/19/18 02:27 Urine Glucose (UA) Neg mg/dL (Negative) 12/19/18 02:27 Urine Ketones Neg mg/dL (Negative) 12/19/18 02:27 Urine Blood Neg (Negative) 12/19/18 02:27 Urine Nitrite Neg (Negative) 12/19/18 02:27 Urine Bilirubin Neg (Negative) 12/19/18 02:27 Urine Urobilinogen 4.0 mg/dL (<2.0) 12/19/18 02:27 Ur Leukocyte Esterase Neg (Negative) 12/19/18 02:27 Urine WBC (Auto) 4.0 /HPF (0.0-6.0) 12/19/18 02:27 Urine RBC (Auto) 2.0 /HPF (0.0-6.0) 12/19/18 02:27 U Epithel Cells (Auto) < 1.0 /HPF (0-13.0) 12/19/18 02:27 Urine Bacteria (Auto) 1+ /HPF (Negative) 12/19/18 02:27 Amorphous Crystals 1+ 12/19/18 02:27 Hyaline Casts 8 /LPF 12/19/18 02:27 Urine Mucus Few /HPF 12/19/18 02:27 Urine Eosinophils None seen (None Seen) 12/20/18 00:30 Urine Creatinine 157.1 mg/dL (0.1-20.0) H 12/20/18 00:30 Protein/Creatinin Ratio 0.36 12/20/18 00:30 Urine Sodium 105 mmol/L 12/20/18 00:30 Urine Total Protein 57 mg/dL (5-11.8) H 12/20/18 00:30 Salicylates < 0.3 mg/dL (2.8-20.0) L 12/19/18 00:57 Urine Opiates Screen Presumptive negative 12/19/18 02:27 Urine Methadone Screen Presumptive negative 12/19/18 02:27 Acetaminophen < 5.0 ug/mL (10.0-30.0) L 12/19/18 00:57 Ur Barbiturates Screen Presumptive negative 12/19/18 02:27 Ur Phencyclidine Scrn Presumptive negative 12/19/18 02:27 Ur Amphetamines Screen Presumptive negative 12/19/18 02:27 U Benzodiazepines Scrn Presumptive negative 12/19/18 02:27 Urine Cocaine Screen Presumptive negative 12/19/18 02:27 U Marijuana (THC) Screen Presumptive positive 12/19/18 02:27 Drugs of Abuse Note Disclamer 12/19/18 02:27 Plasma/Serum Alcohol < 0.01 % (0-0.07) 12/19/18 00:57
[2018-12-20] MEDS ORDERED: SODIUM CHLORIDE FLUSH SYRINGE 10 ML IV PRN (16:47)
[2018-12-20] MEDS ORDERED: ASPIRIN PO ONE (17:00)
--- NOTE | 2018-12-20 17:34 | Cat Scan Report ---
FINAL REPORT EXAM: CT HEAD/BRAIN WO CON HISTORY: possible stroke TECHNIQUE: CT of the head was performed without intravenous contrast. PRIORS: 12/18/2018. FINDINGS: The ventricles are normal in shape and position. The ventricles are nondilated. No intracranial hemo rrhage, mass, mass effect, midline shift or evidence of acute ischemic infarct. The basilar cisterns are patent. Unchanged colloid cyst. Unchanged diffuse cerebral volume loss and findings of chronic mi crovascular ischemic disease. The paranasal sinuses are clear. The extracranial soft tissues demonstrate no abnormality. The calvar ium is intact. The orbits are intact. The mastoid air cells are clear. IMPRESSION: No acute intracranial abnormality.
--- NOTE | 2018-12-20 17:46 | Consultation ---
History of Present Illness - Reason for Consult Consult date: 12/20/18 - History of Present Illness This is a 68-year-old gentleman who is not known to this provider previously. He is accompanied by his brother Joshua Rojo; [phone] History from chart review. ( As per the patient's brother) the patient has been experiencing a gradual cognitive decline since June. There is no trauma, and the patient is forgetful, and sometimes acts bizarrely. Yesterday, the patient's brother went to the patient's house and knocked on his door, and noted the patient to be sitting on a couch, not answering questions, and not moving. He was making bizarre gestures. Apparently, the patient's house was filled with refuse and garbage, and the patient has on more than one occasion urinated or defecated on himself. brother & female at bedside pt not responsive (in no acute distress) abd soft 16F raza placed by me---no problem---charlee colored urine CTAP (12-20-18) A/P renal insuff left renal cyst---simple rt hydro (appears chronic---creatinine 2.1) no further gu intervention at this time Medications and Allergies Allergies Allergy/AdvReac Type Severity Reaction Status Date / Time No Known Allergies Allergy Verified 12/19/18 03:17 Home Medications Medication Instructions Recorded Confirmed Last Taken Type No Known Home Medications [No 12/19/18 12/19/18 Unknown History Reported Home Medications] Active Meds: Active Medications Acetaminophen (Tylenol) 650 mg PO Q4H PRN PRN Reason: Pain MILD(1-3)/Fever >100.5/[place]OUGH Atorvastatin Calcium (Lipitor) 40 mg PO QHS MANOJ Clonidine HCl (Catapres) 0.1 mg PO Q12HR [facility] Last Admin: 12/20/18 10:04 Dose: 0.1 mg Documented by: Enoxaparin Sodium (Lovenox) 30 mg SUB-Q QDAY MANOJ Last Admin: 12/20/18 10:05 Dose: 30 mg Documented by: Hydralazine HCl (Apresoline) 5 mg IV Q6H PRN PRN Reason: Hypertension Last Admin: 12/19/18 13:40 Dose: 5 mg Documented by: Hydralazine HCl (Apresoline) 100 mg PO TID [facility] Last Admin: 12/20/18 10:05 Dose: 100 mg Documented by: Sodium Chloride (Nacl 0.45% 1000 Ml) 1,000 mls @ 100 mls/hr IV DIRECT [facility] Last Admin: 12/20/18 12:53 Dose: 100 mls/hr Documented by: Magnesium Sulfate (Magnesium Sulfate 2gm/50ml) 2 gm in 50 mls @ 25 mls/hr IV ONCE PRN PRN Reason: SEE COMMENTS Stop: 12/20/18 23:00 Labetalol HCl (Normodyne) 200 mg PO BID [facility] Last Admin: 12/20/18 10:04 Dose: 200 mg Documented by: Lorazepam (Ativan) 2 mg IV Q1HR PRN PRN Reason: CIWA-Ar 8-15 Lorazepam (Ativan) 4 mg IV Q1HR PRN PRN Reason: CIWA-Ar 16-25 Ondansetron HCl (Zofran) 4 mg IV Q8H PRN PRN Reason: Nausea And Vomiting Sodium Chloride (Sodium Chloride Flush Syringe 10 Ml) 10 ml IV BID [facility] Last Admin: 12/20/18 10:05 Dose: 10 ml Documented by: Sodium Chloride (Sodium Chloride Flush Syringe 10 Ml) 10 ml IV PRN PRN PRN Reason: LINE FLUSH Sodium Chloride (Sodium Chloride Flush Syringe 10 Ml) 10 ml IV PRN PRN PRN Reason: LINE FLUSH Spironolactone (Aldactone) 50 mg PO BID [facility] Last Admin: 12/20/18 10:05 Dose: 50 mg Documented by: Exam - Constitutional Vitals: Temp Pulse Resp BP Pulse Ox 98.3 F 66 18 176/93 100 12/20/18 15:49 12/20/18 05:29 12/20/18 15:49 12/20/18 15:49 12/20/18 11:18 Results - Labs CBC & Chem 7: 12/20/18 05:15 12/20/18 05:15 Labs: Abnormal lab results 12/20/18 12/20/18 12/20/18 Range/Units 00:30 05:15 05:15 MCV 82 L (84-94) fl MCH 27 L (28-32) pg RDW 17.5 H (13.2-15.2) % Plt Count 133 L (140-440) K/mm3 [place] % (Auto) 7.8 H (0.0-7.3) % Potassium 3.5 L (3.6-5.0) mmol/L Creatinine 2.1 H (0.8-1.5) mg/dL Glucose 109 H (75-100) mg/dL POC Glucose (70-105) Magnesium (1.7-2.3) mg/dL Total Bilirubin 1.50 H (0.1-1.2) mg/dL Total Protein 6.2 L D (6.3-8.2) g/dL Albumin 3.8 L (3.9-5) g/dL Urine Creatinine 157.1 H (0.1-20.0) mg/dL Urine Total Protein 57 H (5-11.8) mg/dL 12/20/18 12/20/18 Range/Units 05:15 16:46 MCV (84-94) fl MCH (28-32) pg RDW (13.2-15.2) % Plt Count (140-440) K/mm3 [place] % (Auto) (0.0-7.3) % Potassium (3.6-5.0) mmol/L Creatinine (0.8-1.5) mg/dL Glucose (75-100) mg/dL POC Glucose 109 H (70-105) Magnesium 1.60 L (1.7-2.3) mg/dL Total Bilirubin (0.1-1.2) mg/dL Total Protein (6.3-8.2) g/dL Albumin (3.9-5) g/dL Urine Creatinine (0.1-20.0) mg/dL Urine Total Protein (5-11.8) mg/dL
--- NOTE | 2018-12-20 17:50 | Cat Scan Report ---
FINAL REPORT EXAM: CT ABDOMEN PELVIS WO CON HISTORY: hydronephrosis TECHNIQUE: CT of the abdomen and pelvis was performed without intravenous contrast. Reconstructions were included in the coronal and sagittal planes. PRIORS: None. FINDINGS: Lower thorax: Small bilateral pleural effusions. Ground-glass opacities are seen within both lower lo bes. Mild coronary artery calculi are seen. Multi chamber cardiac enlargement is seen. Liver: The liver is normal in attenuation. No intrahepatic biliary duct dilation. Multiple simple and probable simple hepatic cysts are seen. Gallbladder/ biliary system: No cholelithiasis. The common bile duct appears nondilated. Spleen: No splenic lesions are seen. Pancreas: No pancreatic lesions are seen. No pancreatic duct dilation. Kidneys: There is severe right hydronephrosis. No hydroureter. There is a simple left superior pole r enal cyst. There is a simple left inferior pole renal cyst. No renal or ureteral calcifications. Adrenal glands: No adrenal masses. Vasculature: The abdominal aorta is nondilated. Aortic calculi are seen. Lymph nodes: No enlarged lymph nodes are seen in the abdomen or pelvis. Bowel, mesentery, peritoneum: No bowel obstruction. No free fluid or free air. The appendix was not s een. No colonic diverticulosis. No bowel wall thickening. Urinary bladder: No filling defects are seen. Pelvis: There is a small volume of free fluid in the pelvis. Abdominal wall: There is a small fat containing anterior abdominal wall hernia. Bones: Degenerative changes are seen in the spine. Dextroconvex scoliosis of the lumbar spine is seen . IMPRESSION: 1. Severe right hydronephrosis without hydroureter may represent ureteropelvic junction obstruction. 2. Simple left renal cysts. 3. Several simple and probable simple hepatic cysts. 4. Small bilateral pleural effusions with bibasilar opacities which may reflect atelectasis versus pn eumonia. 5. Small volume of free fluid in the pelvis. 6. Cardiomegaly. Mild coronary artery calculi.
--- NOTE | 2018-12-20 18:31 | Vascular Lab Report ---
FINAL REPORT EXAM: VL CAROTID DUPLEX BILAT HISTORY: stroke TECHNIQUE: Ultrasound carotid arteries with pulsed and color Doppler evaluation PRIORS: None. FINDINGS: Right common carotid artery demonstrates normal sonographic appearance and flow velocity peak systoli c velocity 80 centimeters/second and end-diastolic velocity 15 centimeters/second There is some plaque at the right carotid bulb and proximal ICA with peak systolic velocity 98 centim eters/second and end-diastolic velocity 21 centimeters/second. Distal right ICA demonstrates peak sys tolic velocity 46 centimeters/second with end-diastolic velocity 14 centimeters/second. The right ECA is patent. The right vertebral artery demonstrates antegrade flow Normal sonographic appearance of the left common carotid artery peak systolic velocity 56 centimeters /second end-diastolic velocity 13 centimeters/second There is some plaque seen at the proximal left ICA. Peak systolic velocity 105 centimeters/second end -diastolic velocity 34 centimeters/second There is antegrade flow within the left vertebral artery. Left ECA is patent. IMPRESSION: Some plaque seen within the proximal ICAs bilaterally estimated degree of stenosis less than 50 perce nt
[2018-12-20] MEDS ORDERED: ASPIRIN ONE (21:00)
[2018-12-21] MEDS: NACL 0.45% 1000 ML 1,000 ML IV SCH ×3 (05:17→21:43)
[2018-12-21 06:27] LABS: Basophils % (Auto) 0.3 % (0.0-1.8); Eosinophils % (Auto) 0.5 % (0.0-4.3); Hematocrit 34.2 % (35.5-45.6); Hemoglobin 11.4 gm/dl (11.8-15.2); Lymphocytes # (Auto) 1.4 K/mm3 (1.2-5.4); Lymphocytes % (Auto) 18.4 % (13.4-35.0); Mean Corpuscular HGB Conc 33 % (32-34); Mean Corpuscular Volume 82 fl (84-94); Monocytes # (Auto) 0.6 K/mm3 (0.0-0.8); Monocytes % (Auto) 7.5 % (0.0-7.3); Platelet Count 130 K/mm3 (140-440); Red Blood Count 4.18 M/mm3 (3.65-5.03); Red Cell Distribution Width 17.8 % (13.2-15.2)
[2018-12-21 06:46] LABS: Albumin 3.4 g/dL (3.9-5); Calcium 8.8 mg/dL (8.4-10.2)
[2018-12-21] MEDS: CATAPRES PO SCH ×2 (10:54→21:45)
[2018-12-21] MEDS: LOVENOX SUB-Q SCH (10:55)
[2018-12-21] MEDS: APRESOLINE PO SCH ×3 (10:55→21:47)
[2018-12-21] MEDS: NORMODYNE PO SCH ×2 (10:55→21:47)
[2018-12-21] MEDS: SODIUM CHLORIDE FLUSH SYRINGE 10 ML IV SCH ×2 (10:56→21:49)
[2018-12-21] MEDS: ALDACTONE PO SCH ×2 (10:56→21:48)
--- NOTE | 2018-12-21 12:56 | Progress Note ---
Subjective Date of service: 12/21/18 Principal diagnosis: madalyn on ckd Interval history: see my dicated note on this patient suspect kidney issues and possible Wernicke Krsakoff based on briother hx of very heavy vodka drinking thiamine ordered I have reviewed the CT's of head please see my comments in the dictated note- see orders spoke to the brother Objective - Vital Sign Vital Signs - 12hr 12/21/18 12/21/18 12/21/18 04:58 07:47 10:54 Temperature 97.5 F L 97.0 F L Pulse Rate 55 L 57 L 63 Respiratory 18 20 Rate Blood Pressure 157/94 164/99 195/116 O2 Sat by Pulse 100 100 Oximetry 12/21/18 12/21/18 10:55 10:56 Temperature Pulse Rate 63 63 Respiratory Rate Blood Pressure 195/116 195/116 O2 Sat by Pulse Oximetry - Laboratory Findings CBC and BMP: 12/21/18 04:27 12/21/18 04:27 Abnormal Lab Findings: Abnormal Labs 12/19/18 12/19/18 12/19/18 00:57 00:57 00:57 WBC RBC 5.05 H Hgb Hct MCV 82 L MCH 27 L RDW 17.5 H Plt Count Lymph % (Auto) 10.7 L Green % (Auto) Lymph # 0.9 L Seg Neutrophils % 84.1 H Seg Neutrophils # Potassium Creatinine 2.2 H Glucose POC Glucose Lactic Acid 2.30 H* Magnesium Total Bilirubin 1.60 H ALT Ammonia Total Protein Albumin Urine Creatinine Urine Total Protein Salicylates Acetaminophen 12/19/18 12/19/18 12/19/18 00:57 00:57 00:57 WBC RBC Hgb Hct MCV MCH RDW Plt Count Lymph % (Auto) Green % (Auto) Lymph # Seg Neutrophils % Seg Neutrophils # Potassium Creatinine Glucose POC Glucose Lactic Acid Magnesium Total Bilirubin ALT Ammonia 23.0 L Total Protein Albumin Urine Creatinine Urine Total Protein Salicylates < 0.3 L Acetaminophen < 5.0 L 12/19/18 12/19/18 12/19/18 00:58 06:49 06:49 WBC 11.7 H RBC Hgb Hct MCV 81 L MCH 27 L RDW 18.0 H Plt Count Lymph % (Auto) 10.5 L Green % (Auto) Lymph # Seg Neutrophils % 83.8 H Seg Neutrophils # 9.8 H Potassium 3.4 L Creatinine 2.0 H Glucose 105 H POC Glucose 110 H Lactic Acid Magnesium Total Bilirubin ALT Ammonia Total Protein Albumin Urine Creatinine Urine Total Protein Salicylates Acetaminophen 12/20/18 12/20/18 12/20/18 00:30 05:15 05:15 WBC RBC Hgb Hct MCV 82 L MCH 27 L RDW 17.5 H Plt Count 133 L Lymph % (Auto) Green % (Auto) 7.8 H Lymph # Seg Neutrophils % Seg Neutrophils # Potassium 3.5 L Creatinine 2.1 H Glucose 109 H POC Glucose Lactic Acid Magnesium Total Bilirubin 1.50 H ALT Ammonia Total Protein 6.2 L D Albumin 3.8 L Urine Creatinine 157.1 H Urine Total Protein 57 H Salicylates Acetaminophen 12/20/18 12/20/18 12/20/18 05:15 16:46 20:38 WBC RBC Hgb Hct MCV MCH RDW Plt Count Lymph % (Auto) Green % (Auto) Lymph # Seg Neutrophils % Seg Neutrophils # Potassium Creatinine Glucose POC Glucose 109 H 110 H Lactic Acid Magnesium 1.60 L Total Bilirubin ALT Ammonia Total Protein Albumin Urine Creatinine Urine Total Protein Salicylates Acetaminophen 12/21/18 12/21/18 04:27 04:27 WBC RBC Hgb 11.4 L Hct 34.2 L MCV 82 L MCH 27 L RDW 17.8 H Plt Count 130 L Lymph % (Auto) Green % (Auto) 7.5 H Lymph # Seg Neutrophils % 73.3 H Seg Neutrophils # Potassium Creatinine 1.9 H Glucose 102 H POC Glucose Lactic Acid Magnesium Total Bilirubin 1.30 H ALT 6 L Ammonia Total Protein 5.7 L Albumin 3.4 L Urine Creatinine Urine Total Protein Salicylates Acetaminophen
[2018-12-21] MEDS ORDERED: VITAMIN B-1 100 MG in NACL 0.9% 50 ML IV SCH (14:00)
[2018-12-21] MEDS: VITAMIN B-1 PO SCH (14:20)
--- NOTE | 2018-12-21 15:05 | Progress Note ---
Assessment and Plan Assessment * Acute kidney injury secondary obstructive uropathy vs underlying CKD secondary to hypertensive nephrosclerosis * Right hydronephrosis * Hypertension malignant * Hypokalemia--r/o hyperaldosteronism * Alcohol abuse Plan: * Renal function is stable * Titrate antiHTN medications as needed * Continue Aldactone 50mg BID - monitor SCr and K * Urology recommendations noted * Continue raza catheter * Avoid nephrotoxins * Dose medications for renal function * Replete lytes prn Subjective Date of service: 12/21/18 Principal diagnosis: madalyn on ckd Interval history: No acute events overnight. Objective - Vital Signs Vital signs: Vital Signs - 12hr 12/21/18 12/21/18 12/21/18 04:58 07:47 10:54 Temperature 97.5 F L 97.0 F L Pulse Rate 55 L 57 L 63 Respiratory 18 20 Rate Blood Pressure 157/94 164/99 195/116 Blood Pressure [Left] O2 Sat by Pulse 100 100 Oximetry 12/21/18 12/21/18 12/21/18 10:55 10:56 14:00 Temperature 97.8 F Pulse Rate 63 63 59 L Respiratory 20 Rate Blood Pressure 195/116 195/116 Blood Pressure 141/77 [Left] O2 Sat by Pulse 99 Oximetry - General Appearance General appearance: well-developed EENT: ATNC Respiratory: Present: Clear to Ascultation Cardiology: regular, S1S2 Gastrointestinal: no tenderness, no distended Integumentary: warm and dry Musculoskeletal: other (no edema) Psychiatric: cooperative - Lab 12/21/18 04:27 12/21/18 04:27 Most recent lab results Calcium 8.8 mg/dL (8.4-10.2) 12/21/18 04:27 Magnesium 2.20 mg/dL (1.7-2.3) 12/21/18 04:27 Urine Creatinine 157.1 mg/dL (0.1-20.0) H 12/20/18 00:30 Urine Sodium 105 mmol/L 12/20/18 00:30 Urine Total Protein 57 mg/dL (5-11.8) H 12/20/18 00:30 Medications & Allergies - Medications Allergies/Adverse Reactions: Allergies No Known Allergies Allergy (Verified 12/19/18 03:17) Home Medications: Home Medications Medication Instructions Recorded Confirmed Last Taken Type No Known Home Medications [No 12/19/18 12/19/18 Unknown History Reported Home Medications] Active Medications: Generic Name Dose Route Start Last Admin Trade Name Freq PRN Reason Stop Dose Admin Acetaminophen 650 mg 12/19/18 03:06 Tylenol PO Q4H PRN Pain MILD(1-3)/Fever >100.5/MCC[place]OUGH Atorvastatin Calcium 40 mg 12/20/18 22:00 12/20/18 21:08 Lipitor PO 40 mg QHS MANOJ Administration Clonidine HCl 0.1 mg 12/19/18 16:00 12/21/18 10:54 Catapres PO 0.1 mg Q12HR MANOJ Administration Enoxaparin Sodium 30 mg 12/19/18 10:00 12/21/18 10:55 Lovenox SUB-Q 30 mg QDAY MANOJ Administration Hydralazine HCl 5 mg 12/19/18 03:12 12/19/18 13:40 Apresoline IV 5 mg Q6H PRN Administration Hypertension Hydralazine HCl 100 mg 12/19/18 20:00 12/21/18 14:20 Apresoline PO 100 mg TID MANOJ Administration Sodium Chloride 1,000 mls @ 100 mls/hr 12/19/18 04:00 12/21/18 10:52 Nacl 0.45% 1000 Ml IV 100 mls/hr DIRECT MANOJ Administration Labetalol HCl 200 mg 12/19/18 12:00 12/21/18 10:55 Normodyne PO 200 mg BID MANOJ Administration Lorazepam 2 mg 12/19/18 03:09 Ativan IV Q1HR PRN CIWA-Ar 8-15 Lorazepam 4 mg 12/19/18 03:09 Ativan IV Q1HR PRN CIWA-Ar 16-25 Ondansetron HCl 4 mg 12/19/18 03:06 Zofran IV Q8H PRN Nausea And Vomiting Sodium Chloride 10 ml 12/19/18 10:00 12/21/18 10:56 Sodium Chloride Flush Syringe 10 Ml IV 10 ml BID MANOJ Administration Sodium Chloride 10 ml 12/19/18 03:06 Sodium Chloride Flush Syringe 10 Ml IV PRN PRN LINE FLUSH Sodium Chloride 10 ml 12/20/18 16:47 Sodium Chloride Flush Syringe 10 Ml IV PRN PRN LINE FLUSH Spironolactone 50 mg 12/19/18 22:00 12/21/18 10:56 Aldactone PO 50 mg BID MANOJ Administration Thiamine HCl 100 mg 12/21/18 14:00 12/21/18 14:20 Vitamin B-1 PO 100 mg QDAY MANOJ Administration
--- NOTE | 2018-12-21 15:19 | Progress Note ---
Assessment and Plan Assessment and plan: Acute renal failure. Etiology secondary to madalyn with likely ckd due to htn, rule out hyperaldosteronism. Baseline Cr unknown. Right hydronephrosis. Obstructive uropathy. CT scan. Peraza placed. Urology consulted Accel Htn. Cont meds ETOH abuse. Cont. CIWA Acute encephalopathy. ? Wernicke Krsakoff, neuro following History Interval history: No new issues overnight Hospitalist Physical - Constitutional Vitals: Temp Pulse Resp BP Pulse Ox 97.8 F 59 L 20 141/77 99 12/21/18 14:00 12/21/18 14:00 12/21/18 14:00 12/21/18 14:00 12/21/18 14:00 General appearance: Present: no acute distress, well-nourished - EENT Eyes: Present: PERRL, EOM intact ENT: hearing intact, clear oral mucosa, dentition normal - Neck Neck: Present: supple, normal ROM - Respiratory Respiratory effort: normal Respiratory: bilateral: CTA - Cardiovascular Rhythm: regular Heart Sounds: Present: S1 & S2. Absent: gallop, rub - Extremities Extremities: no ischemia, No edema, Full ROM - Abdominal General gastrointestinal: soft, non-tender, non-distended, normal bowel sounds - Integumentary Integumentary: Present: clear, warm, dry - Neurologic Neurologic: CNII-XII intact, moves all extremities Results - Labs CBC & Chem 7: 12/21/18 04:27 12/21/18 04:27 Labs: Laboratory Last Values WBC 7.5 K/mm3 (4.5-11.0) 12/21/18 04:27 RBC 4.18 M/mm3 (3.65-5.03) 12/21/18 04:27 Hgb 11.4 gm/dl (11.8-15.2) L 12/21/18 04:27 Hct 34.2 % (35.5-45.6) L 12/21/18 04:27 MCV 82 fl (84-94) L 12/21/18 04:27 MCH 27 pg (28-32) L 12/21/18 04:27 MCHC 33 % (32-34) 12/21/18 04:27 RDW 17.8 % (13.2-15.2) H 12/21/18 04:27 Plt Count 130 K/mm3 (140-440) L 12/21/18 04:27 Lymph % (Auto) 18.4 % (13.4-35.0) 12/21/18 04:27 Reagan % (Auto) 7.5 % (0.0-7.3) H 12/21/18 04:27 Eos % (Auto) 0.5 % (0.0-4.3) 12/21/18 04:27 Baso % (Auto) 0.3 % (0.0-1.8) 12/21/18 04:27 Lymph # 1.4 K/mm3 (1.2-5.4) 12/21/18 04:27 Reagan # 0.6 K/mm3 (0.0-0.8) 12/21/18 04:27 Eos # 0.0 K/mm3 (0.0-0.4) 12/21/18 04:27 Baso # 0.0 K/mm3 (0.0-0.1) 12/21/18 04:27 Seg Neutrophils % 73.3 % (40.0-70.0) H 12/21/18 04:27 Seg Neutrophils # 5.5 K/mm3 (1.8-7.7) 12/21/18 04:27 Sodium 137 mmol/L (137-145) 12/21/18 04:27 Potassium 3.7 mmol/L (3.6-5.0) 12/21/18 04:27 Chloride 102.3 mmol/L (98-107) 12/21/18 04:27 Carbon Dioxide 23 mmol/L (22-30) 12/21/18 04:27 Anion Gap 15 mmol/L 12/21/18 04:27 BUN 13 mg/dL (9-20) 12/21/18 04:27 Creatinine 1.9 mg/dL (0.8-1.5) H 12/21/18 04:27 Estimated GFR 43 ml/min 12/21/18 04:27 BUN/Creatinine Ratio 7 % 12/21/18 04:27 Glucose 102 mg/dL (75-100) H 12/21/18 04:27 POC Glucose 95 (70-105) 12/21/18 07:52 Lactic Acid 1.30 mmol/L (0.7-2.0) 12/19/18 06:49 Calcium 8.8 mg/dL (8.4-10.2) 12/21/18 04:27 Magnesium 2.20 mg/dL (1.7-2.3) 12/21/18 04:27 Total Bilirubin 1.30 mg/dL (0.1-1.2) H 12/21/18 04:27 AST 13 units/L (5-40) 12/21/18 04:27 ALT 6 units/L (7-56) L 12/21/18 04:27 Alkaline Phosphatase 64 units/L (35-129) 12/21/18 04:27 Ammonia 23.0 umol/L (25-60) L 12/19/18 00:57 Total Protein 5.7 g/dL (6.3-8.2) L 12/21/18 04:27 Albumin 3.4 g/dL (3.9-5) L 12/21/18 04:27 Albumin/Globulin Ratio 1.5 % 12/21/18 04:27 TSH 3.190 mlU/mL (0.270-4.200) 12/19/18 00:57 Urine Color Carmen (Yellow) 12/19/18 02:27 Urine Turbidity Slightly-cloudy (Clear) 12/19/18 02:27 Urine pH 5.0 (5.0-7.0) 12/19/18 02:27 Ur Specific Costa 1.024 (1.003-1.030) 12/19/18 02:27 Urine Protein >500 mg/dL (Negative) 12/19/18 02:27 Urine Glucose (UA) Neg mg/dL (Negative) 12/19/18 02:27 Urine Ketones Neg mg/dL (Negative) 12/19/18 02:27 Urine Blood Neg (Negative) 12/19/18 02:27 Urine Nitrite Neg (Negative) 12/19/18 02:27 Urine Bilirubin Neg (Negative) 12/19/18 02:27 Urine Urobilinogen 4.0 mg/dL (<2.0) 12/19/18 02:27 Ur Leukocyte Esterase Neg (Negative) 12/19/18 02:27 Urine WBC (Auto) 4.0 /HPF (0.0-6.0) 12/19/18 02:27 Urine RBC (Auto) 2.0 /HPF (0.0-6.0) 12/19/18 02:27 U Epithel Cells (Auto) < 1.0 /HPF (0-13.0) 12/19/18 02:27 Urine Bacteria (Auto) 1+ /HPF (Negative) 12/19/18 02:27 Amorphous Crystals 1+ 12/19/18 02:27 Hyaline Casts 8 /LPF 12/19/18 02:27 Urine Mucus Few /HPF 12/19/18 02:27 Urine Eosinophils None seen (None Seen) 12/20/18 00:30 Urine Creatinine 157.1 mg/dL (0.1-20.0) H 12/20/18 00:30 Protein/Creatinin Ratio 0.36 12/20/18 00:30 Urine Sodium 105 mmol/L 12/20/18 00:30 Urine Total Protein 57 mg/dL (5-11.8) H 12/20/18 00:30 Salicylates < 0.3 mg/dL (2.8-20.0) L 12/19/18 00:57 Urine Opiates Screen Presumptive negative 12/19/18 02:27 Urine Methadone Screen Presumptive negative 12/19/18 02:27 Acetaminophen < 5.0 ug/mL (10.0-30.0) L 12/19/18 00:57 Ur Barbiturates Screen Presumptive negative 12/19/18 02:27 Ur Phencyclidine Scrn Presumptive negative 12/19/18 02:27 Ur Amphetamines Screen Presumptive negative 12/19/18 02:27 U Benzodiazepines Scrn Presumptive negative 12/19/18 02:27 Urine Cocaine Screen Presumptive negative 12/19/18 02:27 U Marijuana (THC) Screen Presumptive positive 12/19/18 02:27 Drugs of Abuse Note Disclamer 12/19/18 02:27 Plasma/Serum Alcohol < 0.01 % (0-0.07) 12/19/18 00:57
--- NOTE | 2018-12-21 21:43 | Consultation ---
HISTORY OF PRESENT ILLNESS: A 68-year-old black male admitted to [facility] on 12/19/2018. This patient was admitted initially with a history of acute confusion, disorientation. He presented to the Emergency Room after being brought by his brother, Joshua, I spoke with at length. Joshua stated that he had gone out with his brother. He apparently had been drinking quite heavily. He found almost a quart of vodka that has been drunk by the patient in the intervening several days. At the time of presentation to the Emergency Room, blood pressure was markedly elevated at 218/133. His hematocrit on presentation was 41, his white blood count 8500. His glucose is 110. He was initially felt to have acute kidney injury with hypertensive cognitive decline, had renal insufficiency with a creatinine of 2.2. He was profoundly confused at the time of admission, not speaking and TSH level is 3.1. Blood alcohol level on admission was 0.01. 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 The remainder of the repeat CAT scan done the following day showed no acute abnormalities or shift. I reviewed the studies and there is to my view an old small stroke in the internal capsule adjacent to the globus pallidus in the right hemisphere. This is extremely chronic, does not any way appear to be acute. PHYSICAL EXAMINATION: Reveals the patient to be completely alert with his gaze to the right. He moves both upper extremities entirely normal. No focal weakness is otherwise noted. He moves both legs well. Motor and sensory examination otherwise unremarkable. No focal weaknesses is otherwise present. Motor and sensory examination otherwise did not show any abnormalities. Face is symmetrical. He does not speak at all. Does not agitated, does not have any tremulousness, does not have any focal seizure activity. IMPRESSION: There is certainly an old area in the right hemisphere adjacent to the caudate nucleus, which is present on two sets of CT scans, this may represent an area of atrophy and/or an old ischemic stroke, getting an MRI might be useful. I do not think this is in any way is related to the reported colloid cyst in the third ventricle or more importantly, the issue with alcohol intake is interesting, he may have Wernicke-Korsakoff syndrome acutely, I would recommend giving IV thiamine. There is no evidence of any abnormality surgically on his carotid artery ultrasound, which I did review. PLAN: Followup, start on thiamine therapy. JOB# [id number] JESSICA/NTS
[2018-12-22] MEDS ORDERED: NORMODYNE IV ONE (05:01)
[2018-12-22 05:47] LABS: Basophils % (Auto) 0.4 % (0.0-1.8); Eosinophils # (Auto) 0.1 K/mm3 (0.0-0.4); Eosinophils % (Auto) 0.8 % (0.0-4.3); Hematocrit 34.3 % (35.5-45.6); Hemoglobin 11.3 gm/dl (11.8-15.2); Lymphocytes # (Auto) 1.5 K/mm3 (1.2-5.4); Lymphocytes % (Auto) 20.6 % (13.4-35.0); Mean Corpuscular HGB Conc 33 % (32-34); Mean Corpuscular Volume 83 fl (84-94); Monocytes # (Auto) 0.5 K/mm3 (0.0-0.8); Monocytes % (Auto) 7.7 % (0.0-7.3); Platelet Count 147 K/mm3 (140-440); Red Blood Count 4.12 M/mm3 (3.65-5.03)
[2018-12-22 06:03] LABS: Calcium 9.1 mg/dL (8.4-10.2)
[2018-12-22 06:09] LABS: Albumin 3.4 g/dL (3.9-5); Calcium 8.8 mg/dL (8.4-10.2)
[2018-12-22] MEDS ORDERED: CALAN IV ONE (06:29)
[2018-12-22] MEDS ORDERED: CATAPRES-TTS PATCH TD NR (06:30)
[2018-12-22] MEDS: NACL 0.45% 1000 ML 1,000 ML IV SCH (08:10)
[2018-12-22] MEDS: APRESOLINE IV PRN ×2 (12:02→17:51)
[2018-12-22] MEDS: SODIUM CHLORIDE FLUSH SYRINGE 10 ML IV SCH ×2 (12:11→22:53)
--- NOTE | 2018-12-22 14:16 | Progress Note ---
Assessment and Plan Assessment * Acute kidney injury secondary obstructive uropathy vs underlying CKD secondary to hypertensive nephrosclerosis * Right hydronephrosis * Hypertension malignant * Hypokalemia--r/o hyperaldosteronism * Alcohol abuse Plan: * Note increase in SCr - monitor closely * Adjust antiHTN medications as needed - will add Amlodipine * Continue Aldactone 50mg BID - monitor SCr and K * Urology recommendations noted * Continue raza catheter - mgmt per urology * Avoid nephrotoxins * Dose medications for renal function * Replete lytes prn * Brother at bedside Subjective Date of service: 12/22/18 Principal diagnosis: madalyn on ckd Interval history: No acute events overnight Objective - Vital Signs Vital signs: Vital Signs - 12hr 12/22/18 12/22/18 12/22/18 03:30 04:49 05:20 Temperature 98.7 F Pulse Rate 65 65 65 Respiratory 17 Rate Blood Pressure 180/118 180/118 O2 Sat by Pulse 98 Oximetry 12/22/18 12/22/18 12/22/18 06:41 06:42 08:11 Temperature 97.6 F Pulse Rate 65 65 73 Respiratory 18 Rate Blood Pressure 188/118 188/118 123/92 O2 Sat by Pulse 100 Oximetry 12/22/18 12/22/18 08:59 12:02 Temperature 98.5 F Pulse Rate 64 62 Respiratory Rate Blood Pressure 198/117 O2 Sat by Pulse 97 Oximetry - General Appearance General appearance: well-developed, well-nourished EENT: ATNC Respiratory: Present: Clear to Ascultation Cardiology: regular, S1S2 Gastrointestinal: normal, no tenderness, no distended Integumentary: warm and dry Musculoskeletal: other (no edema) Psychiatric: cooperative - Lab 12/22/18 04:25 12/22/18 04:25 Most recent lab results Calcium 9.1 mg/dL (8.4-10.2) 12/22/18 04:25 Magnesium 2.20 mg/dL (1.7-2.3) 12/21/18 04:27 Urine Creatinine 157.1 mg/dL (0.1-20.0) H 12/20/18 00:30 Urine Sodium 105 mmol/L 12/20/18 00:30 Urine Total Protein 57 mg/dL (5-11.8) H 12/20/18 00:30 Medications & Allergies - Medications Allergies/Adverse Reactions: Allergies No Known Allergies Allergy (Verified 12/19/18 03:17) Home Medications: Home Medications Medication Instructions Recorded Confirmed Last Taken Type No Known Home Medications [No 12/19/18 12/19/18 Unknown History Reported Home Medications] Active Medications: Generic Name Dose Route Start Last Admin Trade Name Freq PRN Reason Stop Dose Admin Acetaminophen 650 mg 12/19/18 03:06 Tylenol PO Q4H PRN Pain MILD(1-3)/Fever >100.5/[place] Atorvastatin Calcium 40 mg 12/20/18 22:00 12/21/18 21:48 Lipitor PO Not Given QHS MANOJ Clonidine HCl 0.1 mg 12/19/18 16:00 12/21/18 21:45 Catapres PO Not Given Q12HR MANOJ Enoxaparin Sodium 30 mg 12/19/18 10:00 12/21/18 10:55 Lovenox SUB-Q 30 mg QDAY MANOJ Administration Hydralazine HCl 5 mg 12/19/18 03:12 12/22/18 12:02 Apresoline IV 5 mg Q6H PRN Administration Hypertension Hydralazine HCl 100 mg 12/19/18 20:00 12/21/18 21:47 Apresoline PO Not Given TID MANOJ Sodium Chloride 1,000 mls @ 100 mls/hr 12/19/18 04:00 12/22/18 08:10 Nacl 0.45% 1000 Ml IV 100 mls/hr DIRECT MANOJ Administration Labetalol HCl 200 mg 12/19/18 12:00 12/21/18 21:47 Normodyne PO Not Given BID MANOJ Lorazepam 2 mg 12/19/18 03:09 Ativan IV Q1HR PRN CIWA-Ar 8-15 Lorazepam 4 mg 12/19/18 03:09 Ativan IV Q1HR PRN CIWA-Ar 16-25 Ondansetron HCl 4 mg 12/19/18 03:06 Zofran IV Q8H PRN Nausea And Vomiting Sodium Chloride 10 ml 12/19/18 10:00 12/22/18 12:11 Sodium Chloride Flush Syringe 10 Ml IV 10 ml BID MANOJ Administration Sodium Chloride 10 ml 12/19/18 03:06 Sodium Chloride Flush Syringe 10 Ml IV PRN PRN LINE FLUSH Sodium Chloride 10 ml 02/22/19 16:47 Sodium Chloride Flush Syringe 10 Ml IV PRN PRN LINE FLUSH Spironolactone 50 mg 12/19/18 22:00 12/21/18 21:48 Aldactone PO Not Given BID MANOJ Thiamine HCl 100 mg 12/21/18 14:00 12/21/18 14:20 Vitamin B-1 PO 100 mg QDAY MANOJ Administration
--- NOTE | 2018-12-22 15:22 | Progress Note ---
Assessment and Plan Assessment and plan: Acute encephalopathy. ? Wernicke Korsakoff, neuro following. F/U EEG and MRI. Acute renal failure. Etiology secondary to madalyn with likely ckd due to htn, Baseline Cr unknown. Hypokalemia. rule out hyperaldosteronism. Right hydronephrosis. Urology consulted and believes it is chronic. Peraza p laced. Obstructive uropathy. Accel Htn. Increase Labetalol, cont clonidine and hydralazine ETOH abuse. Cont. CIWA History Interval history: No new issues overnight Hospitalist Physical - Constitutional Vitals: Temp Pulse Resp BP Pulse Ox 98.5 F 62 18 198/117 97 12/22/18 08:59 12/22/18 12:02 12/22/18 08:11 12/22/18 12:02 12/22/18 08:59 General appearance: Present: no acute distress, well-nourished - EENT Eyes: Present: PERRL, EOM intact ENT: hearing intact, clear oral mucosa, dentition normal - Neck Neck: Present: supple, normal ROM - Respiratory Respiratory effort: normal Respiratory: bilateral: CTA - Cardiovascular Rhythm: regular Heart Sounds: Present: S1 & S2. Absent: gallop, rub - Extremities Extremities: no ischemia, No edema, Full ROM - Abdominal General gastrointestinal: soft, non-tender, non-distended, normal bowel sounds - Integumentary Integumentary: Present: clear, warm, dry - Neurologic Neurologic: CNII-XII intact, moves all extremities Results - Labs CBC & Chem 7: 12/22/18 04:25 12/22/18 04:25 Labs: Laboratory Last Values WBC 7.1 K/mm3 (4.5-11.0) 12/22/18 04:25 RBC 4.12 M/mm3 (3.65-5.03) 12/22/18 04:25 Hgb 11.3 gm/dl (11.8-15.2) L 12/22/18 04:25 Hct 34.3 % (35.5-45.6) L 12/22/18 04:25 MCV 83 fl (84-94) L 12/22/18 04:25 MCH 27 pg (28-32) L 12/22/18 04:25 MCHC 33 % (32-34) 12/22/18 04:25 RDW 18.0 % (13.2-15.2) H 12/22/18 04:25 Plt Count 147 K/mm3 (140-440) 12/22/18 04:25 Lymph % (Auto) 20.6 % (13.4-35.0) 12/22/18 04:25 [place] % (Auto) 7.7 % (0.0-7.3) H 12/22/18 04:25 Eos % (Auto) 0.8 % (0.0-4.3) 12/22/18 04:25 Baso % (Auto) 0.4 % (0.0-1.8) 12/22/18 04:25 Lymph # 1.5 K/mm3 (1.2-5.4) 12/22/18 04:25 [place] # 0.5 K/mm3 (0.0-0.8) 12/22/18 04:25 Eos # 0.1 K/mm3 (0.0-0.4) 12/22/18 04:25 Baso # 0.0 K/mm3 (0.0-0.1) 12/22/18 04:25 Seg Neutrophils % 70.5 % (40.0-70.0) H 12/22/18 04:25 Seg Neutrophils # 5.0 K/mm3 (1.8-7.7) 12/22/18 04:25 Sodium 137 mmol/L (137-145) 12/22/18 04:25 Potassium 3.7 mmol/L (3.6-5.0) 12/22/18 04:25 Chloride 100.8 mmol/L (98-107) 12/22/18 04:25 Carbon Dioxide 22 mmol/L (22-30) 12/22/18 04:25 Anion Gap 18 mmol/L 12/22/18 04:25 BUN 14 mg/dL (9-20) 12/22/18 04:25 Creatinine 2.4 mg/dL (0.8-1.5) H 12/22/18 04:25 Estimated GFR 33 ml/min 12/22/18 04:25 BUN/Creatinine Ratio 6 % 12/22/18 04:25 Glucose 93 mg/dL (75-100) 12/22/18 04:25 POC Glucose 84 (70-105) 12/22/18 04:54 Lactic Acid 1.30 mmol/L (0.7-2.0) 12/19/18 06:49 Calcium 9.1 mg/dL (8.4-10.2) 12/22/18 04:25 Magnesium 2.20 mg/dL (1.7-2.3) 12/21/18 04:27 Total Bilirubin 1.20 mg/dL (0.1-1.2) 12/22/18 04:25 AST 12 units/L (5-40) 12/22/18 04:25 ALT 6 units/L (7-56) L 12/22/18 04:25 Alkaline Phosphatase 68 units/L (35-129) 12/22/18 04:25 Ammonia 23.0 umol/L (25-60) L 12/19/18 00:57 Total Protein 6.0 g/dL (6.3-8.2) L 12/22/18 04:25 Albumin 3.4 g/dL (3.9-5) L 12/22/18 04:25 Albumin/Globulin Ratio 1.3 % 12/22/18 04:25 TSH 3.190 mlU/mL (0.270-4.200) 12/19/18 00:57 Urine Color [place] (Yellow) 12/19/18 02:27 Urine Turbidity Slightly-cloudy (Clear) 12/19/18 02:27 Urine pH 5.0 (5.0-7.0) 12/19/18 02:27 Ur Specific [place] 1.024 (1.003-1.030) 12/19/18 02:27 Urine Protein >500 mg/dL (Negative) 12/19/18 02:27 Urine Glucose (UA) Neg mg/dL (Negative) 12/19/18 02:27 Urine Ketones Neg mg/dL (Negative) 12/19/18 02:27 Urine Blood Neg (Negative) 12/19/18 02:27 Urine Nitrite Neg (Negative) 12/19/18 02:27 Urine Bilirubin Neg (Negative) 12/19/18 02:27 Urine Urobilinogen 4.0 mg/dL (<2.0) 12/19/18 02:27 Ur Leukocyte Esterase Neg (Negative) 12/19/18 02:27 Urine WBC (Auto) 4.0 /HPF (0.0-6.0) 12/19/18 02:27 Urine RBC (Auto) 2.0 /HPF (0.0-6.0) 12/19/18 02:27 U Epithel Cells (Auto) < 1.0 /HPF (0-13.0) 12/19/18 02:27 Urine Bacteria (Auto) 1+ /HPF (Negative) 12/19/18 02:27 Amorphous Crystals 1+ 12/19/18 02:27 Hyaline Casts 8 /LPF 12/19/18 02:27 Urine Mucus Few /HPF 12/19/18 02:27 Urine Eosinophils None seen (None Seen) 12/20/18 00:30 Urine Creatinine 157.1 mg/dL (0.1-20.0) H 12/20/18 00:30 Protein/Creatinin Ratio 0.36 12/20/18 00:30 Urine Sodium 105 mmol/L 12/20/18 00:30 Urine Total Protein 57 mg/dL (5-11.8) H 12/20/18 00:30 Salicylates < 0.3 mg/dL (2.8-20.0) L 12/19/18 00:57 Urine Opiates Screen Presumptive negative 12/19/18 02:27 Urine Methadone Screen Presumptive negative 12/19/18 02:27 Acetaminophen < 5.0 ug/mL (10.0-30.0) L 12/19/18 00:57 Ur Barbiturates Screen Presumptive negative 12/19/18 02:27 Ur Phencyclidine Scrn Presumptive negative 12/19/18 02:27 Ur Amphetamines Screen Presumptive negative 12/19/18 02:27 U Benzodiazepines Scrn Presumptive negative 12/19/18 02:27 Urine Cocaine Screen Presumptive negative 12/19/18 02:27 U Marijuana (THC) Screen Presumptive positive 12/19/18 02:27 Drugs of Abuse Note Disclamer 12/19/18 02:27 Plasma/Serum Alcohol < 0.01 % (0-0.07) 12/19/18 00:57
[2018-12-22] MEDS: VITAMIN B-1 PO SCH (15:51)
[2018-12-22] MEDS: APRESOLINE PO SCH ×3 (15:51→22:45)
[2018-12-22] MEDS: ALDACTONE PO SCH ×2 (15:51→22:45)
[2018-12-22] MEDS: LOVENOX SUB-Q SCH (17:50)
[2018-12-22] MEDS: CATAPRES PO SCH ×2 (17:50→22:45)
[2018-12-22] MEDS: NORVASC PO SCH (17:57)
[2018-12-22] MEDS: D5/0.45NS 1,000 ML IV SCH (20:00)
[2018-12-22] MEDS: NORMODYNE PO SCH ×2 (20:20→22:45)
[2018-12-22] MEDS: NORMODYNE IV PRN (22:53)
[2018-12-22] MEDS: LOPRESSOR IV PRN (23:55)
[2018-12-23] MEDS ORDERED: CARDIZEM IV ONE (00:36)
[2018-12-23] MEDS: NORMODYNE IV PRN ×2 (04:51→11:02)
[2018-12-23 05:40] LABS: Basophils % (Auto) 0.5 % (0.0-1.8); Eosinophils # (Auto) 0.1 K/mm3 (0.0-0.4); Eosinophils % (Auto) 1.1 % (0.0-4.3); Hematocrit 33.7 % (35.5-45.6); Hemoglobin 11.3 gm/dl (11.8-15.2); Lymphocytes # (Auto) 1.3 K/mm3 (1.2-5.4); Lymphocytes % (Auto) 18.8 % (13.4-35.0); Mean Corpuscular HGB Conc 33 % (32-34); Mean Corpuscular Volume 83 fl (84-94); Monocytes # (Auto) 0.6 K/mm3 (0.0-0.8); Monocytes % (Auto) 8.2 % (0.0-7.3); Platelet Count 155 K/mm3 (140-440); Red Blood Count 4.09 M/mm3 (3.65-5.03); Red Cell Distribution Width 17.5 % (13.2-15.2)
[2018-12-23 05:59] LABS: Albumin 3.3 g/dL (3.9-5)
[2018-12-23] MEDS: LOPRESSOR IV PRN ×2 (06:32→16:44)
--- NOTE | 2018-12-23 10:06 | Progress Note ---
Subjective Principal diagnosis: madalyn on ckd Interval history: Patient was seen today for follow-up on multiple renal related issues Events of this hospitalization noted Family at bedside Patient denies having any chest pain pressure or shortness of breath Vitals labs intake output medications were reviewed Social history: Reviewed Allergies: Reviewed Family history: Reviewed Physical examination HEENT: Oral mucosa moist no pallor or icterus Neck: Supple no JVD Chest: Clear to auscultation anteriorly CVS: Regular rate and rhythm S1 and S2 heard Abdomen: Soft nontender no suprapubic masses no organomegaly appreciable Extremity: Dry skin less than 1+ peripheral edema Musculoskeletal: No joint effusion noted in knees and ankle Neurological: Alert awake Dermatology: No petechial rashes Psychiatry: No evidence of any agitation and aggression noted Assessment and plan Acute kidney injury, in a patient who has been admitted here with uncontrolled hypertension right-sided hydronephrosis and has been noted to have obstructive uropathy Patient does have some risk factors for underlying chronic kidney disease and hence will need to be monitored, creatinine is currently stable at 2.4 which was 2.2 upon arrival Will order for 24-hour urinary studies today Will order for immunofixation/follow-up on aldosteronoma and plasma renin level Uncontrolled hypertension with hypokalemia suspicious for secondary hyper tension: Rule out syndromes of aldosteronoma excess Alcohol abuse: Patient does need counseling and ongoing follow-up Blood pressure remains uncontrolled, will place the patient on clonidine patch 0.3, discontinue labetalol, start the patient on minoxidil Obstructive uropathy continue with [place] catheter patient needs to be seen and followed by urology Renal ultrasonogram obtained December 19 shows evidence of echogenic kidney with right-sided hydronephrosis Left renal cyst: Will need a follow-up ultrasonogram in 3-6 months and urological follow-up Renal prognosis in general appears to be guarded to poor Patient was adequately counseled and educated regarding multiple renal related issues Pertinent lab findings were discussed with patient, patient does exhibit good understanding of renal issues We'll continue to follow and make recommendation from renal standpoint Objective - Vital Signs Vital signs: Vital Signs - 12hr 12/22/18 12/22/18 12/22/18 22:52 22:53 23:29 Temperature Pulse Rate 68 82 73 Respiratory Rate Blood Pressure 205/113 191/107 205/122 O2 Sat by Pulse 100 99 Oximetry 12/22/18 12/23/1812/23/19 23:55 00:28 00:30 Temperature Pulse Rate 68 69 Respiratory Rate Blood Pressure 205/122 215/135 211/127 O2 Sat by Pulse 99 Oximetry 12/23/18 12/23/18 12/23/18 00:54 01:37 02:31 Temperature Pulse Rate 68 68 67 Respiratory Rate Blood Pressure 205/122 181/120 194/117 O2 Sat by Pulse 98 96 Oximetry 12/23/18 12/23/18 12/23/18 04:37 04:51 06:32 Temperature 98.7 F Pulse Rate 68 68 71 Respiratory 17 Rate Blood Pressure 206/123 206/123 203/123 O2 Sat by Pulse 100 Oximetry - Lab 12/24/18 06:25 12/24/18 06:25 Most recent lab results Calcium 9.0 mg/dL (8.4-10.2) 12/23/18 04:41 Magnesium 2.20 mg/dL (1.7-2.3) 12/21/18 04:27 Urine Creatinine 157.1 mg/dL (0.1-20.0) H 12/20/18 00:30 Urine Sodium 105 mmol/L 12/20/18 00:30 Urine Total Protein 57 mg/dL (5-11.8) H 12/20/18 00:30 Medications & Allergies - Medications Allergies/Adverse Reactions: Allergies No Known Allergies Allergy (Verified 12/19/18 03:17) Home Medications: Home Medications Medication Instructions Recorded Confirmed Last Taken Type No Known Home Medications [No 12/19/18 12/19/18 Unknown History Reported Home Medications] Active Medications: Generic Name Dose Route Start Last Admin Trade Name Freq PRN Reason Stop Dose Admin Acetaminophen 650 mg 12/19/18 03:06 Tylenol PO Q4H PRN Pain MILD(1-3)/Fever >100.5/[place]OUGH Amlodipine Besylate 10 mg 12/22/18 16:00 12/22/18 17:57 Norvasc PO Not Given QDAY [facility] Atorvastatin Calcium 40 mg 12/20/18 22:00 12/22/18 22:46 Lipitor PO Not Given QHS MANOJ Clonidine HCl 0.3 mg 12/30/18 10:00 Catapres-Tts Patch TD QWEEK [facility] Enoxaparin Sodium 30 mg 12/19/18 10:00 12/22/18 17:50 Lovenox SUB-Q 30 mg QDAY MANOJ Administration Hydralazine HCl 100 mg 12/19/18 20:00 12/22/18 22:45 Apresoline PO Not Given TID [facility] Dextrose/Sodium Chloride 1,000 mls @ 75 mls/hr 12/22/18 20:00 12/22/18 20:00 D5/0.45ns IV 75 mls/hr DIRECT MANOJ Administration Labetalol HCl 10 mg 12/22/18 18:30 12/23/18 04:51 Normodyne IV 10 mg Q6HR PRN Administration Blood Pressure Lorazepam 2 mg 12/19/18 03:09 Ativan IV Q1HR PRN CIWA-Ar 8-15 Lorazepam 4 mg 12/19/18 03:09 Ativan IV Q1HR PRN CIWA-Ar 16-25 Metoprolol Tartrate 5 mg 12/22/18 23:38 12/23/18 06:32 Lopressor IV 5 mg Q6H PRN Administration elevated BP. Hold for HR <60 Minoxidil 5 mg 12/23/18 22:00 Loniten PO BID [facility] Ondansetron HCl 4 mg 12/19/18 03:06 Zofran IV Q8H PRN Nausea And Vomiting Sodium Chloride 10 ml 12/19/18 10:00 12/22/18 22:53 Sodium Chloride Flush Syringe 10 Ml IV 10 ml BID MANOJ Administration Sodium Chloride 10 ml 12/19/18 03:06 Sodium Chloride Flush Syringe 10 Ml IV PRN PRN LINE FLUSH Sodium Chloride 10 ml 12/20/18 16:47 Sodium Chloride Flush Syringe 10 Ml IV PRN PRN LINE FLUSH Spironolactone 50 mg 12/19/18 22:00 12/22/18 22:45 Aldactone PO Not Given BID [facility] Thiamine HCl 100 mg 12/21/18 14:00 12/22/18 15:51 Vitamin B-1 PO Not Given QDAY [facility]
[2018-12-23] MEDS: LOVENOX SUB-Q SCH (10:54)
[2018-12-23] MEDS: APRESOLINE PO SCH ×3 (10:54→21:48)
[2018-12-23] MEDS: ALDACTONE PO SCH ×2 (10:54→21:47)
[2018-12-23] MEDS: NORVASC PO SCH (10:54)
[2018-12-23] MEDS: VITAMIN B-1 PO SCH (10:54)
[2018-12-23] MEDS: SODIUM CHLORIDE FLUSH SYRINGE 10 ML IV SCH ×2 (10:54→21:49)
[2018-12-23] MEDS ORDERED: LONITEN PO ONE (12:30)
[2018-12-23] MEDS: NORMODYNE PO SCH (13:30)
[2018-12-23] MEDS: CATAPRES PO SCH (13:31)
--- NOTE | 2018-12-23 14:01 | Magnetic Resonance Report ---
MRI OF THE BRAIN WITHOUT CONTRAST: HISTORY: Stroke PROCEDURE: Multiplanar, multisequence MR imaging of the brain without IV contrast was performed. FINDINGS: Compared to the CT scan dated 12/20/16. MRI demonstrates numerous tiny foci of fusion restriction throughout both cerebral hemispheres. These foci measure less than 1 cm in diameter and appear to follow the watershed distributions of both cerebral hemispheres. There are approximately 10-15 foci of diffusion restriction bilaterally. Mild cortical volume loss and severe abnormal T2 signal in the white matter is identified. Pericallosal lesions are identified in the body of the corpus callosum which may represent areas of demyelination. Please correlate with the patient's clinical history. Chronic focal infarct in the right anterior basal ganglia measures 1 cm. The midline structures are central. The basal cisterns are patent. Normal ventricular size. The orbital cavities and sella turcica demonstrate no abnormality. The visualized paranasal sinuses and mastoid air cells are adequately aerated. IMPRESSION: There are numerous foci of diffusion restriction throughout both cerebral hemispheres as described. This pattern suggests an embolic process or hypoperfusion episode such as cardiac arrest. Please correlate with the patient's clinical presentation. Volume loss. Severe, advanced chronic white matter changes. Pericallosal lesions are identified which could be related to ischemia or demyelination.
--- NOTE | 2018-12-23 14:01 | Magnetic Resonance Report ---
MRA HEAD WITHOUT CONTRAST HISTORY: Stroke. [id number] imaging with MIP reformations of the [place] of [place] is submitted. The arteries appear widely patent and free of hemodynamically significant stenosis, aneurysm or dissection. IMPRESSION: Unremarkable MRA head.
--- NOTE | 2018-12-23 16:05 | Progress Note ---
Assessment and Plan Assessment and plan: Acute Metabolic encephalopathy. ? Wernicke Korsakoff, neuro following. F/U EEG and MRI. Acute on chronic renal failure likely vasomotor. Hypokalemia; corrected Right hydronephrosis. Urology consulted and believes it is chronic. Peraza placed. Obstructive uropathy. Hypertensive urgency; continue minoxidil, clonidine, hydralazine, Norvasc. Monitor and adjusted as needed ETOH abuse. Cont. CIWA History Interval history: Patient was seen and evaluated this morning, have discussed with his family members and answered all the questions. Hospitalist Physical - Physical exam Narrative exam: Not in cardiopulmonary distress. The patient appeared well nourished and normally developed. Vital signs as documented. Head exam is unremarkable. No scleral icterus . Neck is without jugular venous distension, thyromegaly, or carotid bruits. Lungs are clear to auscultation. Cardiac exam reveals regular rate and Rhythm. First and second heart sounds normal. No murmurs, rubs or gallops. Abdominal exam reveals normal bowel sounds, no masses, no organomegaly and no aortic enlargement. Extremities are nonedematous and both femoral and pedal pulses are normal. [employer]: lethargic. - Constitutional Vitals: Temp Pulse Resp BP Pulse Ox 98.7 F 71 17 227/131 100 12/23/18 04:37 12/23/18 06:32 12/23/18 04:37 12/23/18 11:02 12/23/18 04:37 General appearance: Present: no acute distress, well-nourished Results - Labs CBC & Chem 7: 12/23/18 04:41 12/23/18 04:41 Labs: Laboratory Last Values WBC 6.9 K/mm3 (4.5-11.0) 12/23/18 04:41 RBC 4.09 M/mm3 (3.65-5.03) 12/23/18 04:41 Hgb 11.3 gm/dl (11.8-15.2) L 12/23/18 04:41 Hct 33.7 % (35.5-45.6) L 12/23/18 04:41 MCV 83 fl (84-94) L 12/23/18 04:41 MCH 28 pg (28-32) 12/23/18 04:41 MCHC 33 % (32-34) 12/23/18 04:41 RDW 17.5 % (13.2-15.2) H 12/23/18 04:41 Plt Count 155 K/mm3 (140-440) 12/23/18 04:41 Lymph % (Auto) 18.8 % (13.4-35.0) 12/23/18 04:41 [place] % (Auto) 8.2 % (0.0-7.3) H 12/23/18 04:41 Eos % (Auto) 1.1 % (0.0-4.3) 12/23/18 04:41 Baso % (Auto) 0.5 % (0.0-1.8) 12/23/18 04:41 Lymph # 1.3 K/mm3 (1.2-5.4) 12/23/18 04:41 [place] # 0.6 K/mm3 (0.0-0.8) 12/23/18 04:41 Eos # 0.1 K/mm3 (0.0-0.4) 12/23/18 04:41 Baso # 0.0 K/mm3 (0.0-0.1) 12/23/18 04:41 Seg Neutrophils % 71.4 % (40.0-70.0) H 12/23/18 04:41 Seg Neutrophils # 4.9 K/mm3 (1.8-7.7) 12/23/18 04:41 Sodium 140 mmol/L (137-145) 12/23/18 04:41 Potassium 3.9 mmol/L (3.6-5.0) 12/23/18 04:41 Chloride 105.6 mmol/L (98-107) 12/23/18 04:41 Carbon Dioxide 24 mmol/L (22-30) 12/23/18 04:41 Anion Gap 14 mmol/L 12/23/18 04:41 BUN 15 mg/dL (9-20) 12/23/18 04:41 Creatinine 2.4 mg/dL (0.8-1.5) H 12/23/18 04:41 Estimated GFR 33 ml/min 12/23/18 04:41 BUN/Creatinine Ratio 6 % 12/23/18 04:41 Glucose 98 mg/dL (75-100) 12/23/18 04:41 POC Glucose 98 (70-105) 12/23/18 04:40 Lactic Acid 1.30 mmol/L (0.7-2.0) 12/19/18 06:49 Calcium 9.0 mg/dL (8.4-10.2) 12/23/18 04:41 Magnesium 2.20 mg/dL (1.7-2.3) 12/21/18 04:27 Total Bilirubin 1.00 mg/dL (0.1-1.2) 12/23/18 04:41 AST 12 units/L (5-40) 12/23/18 04:41 ALT 6 units/L (7-56) L 12/23/18 04:41 Alkaline Phosphatase 69 units/L (35-129) 12/23/18 04:41 Ammonia 23.0 umol/L (25-60) L 12/19/18 00:57 Total Protein 6.1 g/dL (6.3-8.2) L 12/23/18 04:41 Albumin 3.3 g/dL (3.9-5) L 12/23/18 04:41 Albumin/Globulin Ratio 1.2 % 12/23/18 04:41 TSH 3.190 mlU/mL (0.270-4.200) 12/19/18 00:57 Urine Color [place] (Yellow) 12/19/18 02:27 Urine Turbidity Slightly-cloudy (Clear) 12/19/18 02:27 Urine pH 5.0 (5.0-7.0) 12/19/18 02:27 Ur Specific [place] 1.024 (1.003-1.030) 12/19/18 02:27 Urine Protein >500 mg/dL (Negative) 12/19/18 02:27 Urine Glucose (UA) Neg mg/dL (Negative) 12/19/18 02:27 Urine Ketones Neg mg/dL (Negative) 12/19/18 02:27 Urine Blood Neg (Negative) 12/19/18 02:27 Urine Nitrite Neg (Negative) 12/19/18 02:27 Urine Bilirubin Neg (Negative) 12/19/18 02:27 Urine Urobilinogen 4.0 mg/dL (<2.0) 12/19/18 02:27 Ur Leukocyte Esterase Neg (Negative) 12/19/18 02:27 Urine WBC (Auto) 4.0 /HPF (0.0-6.0) 12/19/18 02:27 Urine RBC (Auto) 2.0 /HPF (0.0-6.0) 12/19/18 02:27 U Epithel Cells (Auto) < 1.0 /HPF (0-13.0) 12/19/18 02:27 Urine Bacteria (Auto) 1+ /HPF (Negative) 12/19/18 02:27 Amorphous Crystals 1+ 12/19/18 02:27 Hyaline Casts 8 /LPF 12/19/18 02:27 Urine Mucus Few /HPF 12/19/18 02:27 Urine Eosinophils None seen (None Seen) 12/20/18 00:30 Urine Creatinine 157.1 mg/dL (0.1-20.0) H 12/20/18 00:30 Protein/Creatinin Ratio 0.36 12/20/18 00:30 Urine Sodium 105 mmol/L 12/20/18 00:30 Urine Total Protein 57 mg/dL (5-11.8) H 12/20/18 00:30 Salicylates < 0.3 mg/dL (2.8-20.0) L 12/19/18 00:57 Urine Opiates Screen Presumptive negative 12/19/18 02:27 Urine Methadone Screen Presumptive negative 12/19/18 02:27 Acetaminophen < 5.0 ug/mL (10.0-30.0) L 12/19/18 00:57 Ur Barbiturates Screen Presumptive negative 12/19/18 02:27 Ur Phencyclidine Scrn Presumptive negative 12/19/18 02:27 Ur Amphetamines Screen Presumptive negative 12/19/18 02:27 U Benzodiazepines Scrn Presumptive negative 12/19/18 02:27 Urine Cocaine Screen Presumptive negative 12/19/18 02:27 U Marijuana (THC) Screen Presumptive positive 12/19/18 02:27 Drugs of Abuse Note Disclamer 12/19/18 02:27 Plasma/Serum Alcohol < 0.01 % (0-0.07) 12/19/18 00:57
[2018-12-23] MEDS: CATAPRES PO PRN (16:41)
[2018-12-23] MEDS: LONITEN PO SCH (21:47)
[2018-12-23] MEDS ORDERED: LOPRESSOR IV SCH (22:00)
[2018-12-24] MEDS: D5/0.45NS 1,000 ML IV SCH ×2 (04:07→19:29)
[2018-12-24 07:11] LABS: Basophils % (Auto) 0.4 % (0.0-1.8); Eosinophils # (Auto) 0.1 K/mm3 (0.0-0.4); Hematocrit 36.1 % (35.5-45.6); Hemoglobin 12.1 gm/dl (11.8-15.2); Lymphocytes # (Auto) 1.3 K/mm3 (1.2-5.4); Lymphocytes % (Auto) 20.4 % (13.4-35.0); Mean Corpuscular HGB Conc 34 % (32-34); Mean Corpuscular Volume 82 fl (84-94); Monocytes # (Auto) 0.6 K/mm3 (0.0-0.8); Monocytes % (Auto) 8.5 % (0.0-7.3); Platelet Count 174 K/mm3 (140-440); Red Blood Count 4.41 M/mm3 (3.65-5.03)
[2018-12-24 07:28] LABS: Albumin 3.5 g/dL (3.9-5); Calcium 9.1 mg/dL (8.4-10.2)
--- NOTE | 2018-12-24 09:13 | Progress Note ---
Subjective Principal diagnosis: madalyn on ckd Interval history: Patient was seen today for follow-up on multiple renal related issues Events of this hospitalization noted His blood pressure appears to be much better controlled today Renal function appears to be stable creatinine 2.1 Patient has responded well to the current regimen of medication for blood pressure Patient denies having any chest pain pressure or shortness of breath Vitals labs intake output medications were reviewed Social history: Reviewed Allergies: Reviewed Family history: Reviewed Physical examination HEENT: Oral mucosa moist no pallor or icterus Neck: Supple no JVD Chest: Clear to auscultation anteriorly CVS: Regular rate and rhythm S1 and S2 heard Abdomen: Soft nontender no suprapubic masses no organomegaly appreciable Extremity: Dry skin less than 1+ peripheral edema Musculoskeletal: No joint effusion noted in knees and ankle Neurological: Alert awake Dermatology: No petechial rashes Psychiatry: No evidence of any agitation and aggression noted Assessment and plan Chronic kidney disease likely patient's creatinine was 2.1 on December 20 current creatinine 2.1 Uncontrolled hypertension: Blood pressure appears to be better controlled Will follow-up on the neli and plasma renin level continue the current regimen for now, Will order for 24-hour urinary studies today Will order for immunofixation/follow-up on aldosteronoma and plasma renin level Uncontrolled hypertension with hypokalemia suspicious for secondary hypert ension: Rule out syndromes of aldosteronoma excess, follow-up on the pending level Alcohol abuse: Patient does need counseling and ongoing follow-up, prognosis guarded to poor Blood pressure remains uncontrolled, continue the current regimen of medication for now and follow-up on the blood pressure Obstructive uropathy continue with [place] catheter patient needs to be seen and followed by urology Renal ultrasonogram obtained December 19 shows evidence of echogenic kidney with right-sided hydronephrosis Left renal cyst: Will need a follow-up ultrasonogram in 3-6 months and urological follow-up Renal prognosis in general appears to be guarded to poor Patient was adequately counseled and educated regarding multiple renal related issues His renal prognosis appears to be poor due to multiple comorbidities history of uncontrolled hypertension he'll be prone to progression of renal failure over time to end-stage renal disease Pertinent lab findings were discussed with patient, patient does exhibit good understanding of renal issues We'll continue to follow and make recommendation from renal standpoint Objective - Vital Signs Vital signs: Vital Signs - 12hr 12/23/18 12/24/18 12/24/18 22:00 00:24 03:42 Temperature 98.1 F 98.3 F Pulse Rate 73 76 Respiratory 22 18 18 Rate Blood Pressure 145/85 141/86 O2 Sat by Pulse 99 98 Oximetry 12/24/18 12/24/18 07:16 07:17 Temperature 97.9 F Pulse Rate 81 78 Respiratory 18 Rate Blood Pressure 146/85 O2 Sat by Pulse 98 99 Oximetry - Lab 12/24/18 06:25 12/24/18 06:25 Most recent lab results Calcium 9.1 mg/dL (8.4-10.2) 12/24/18 06:25 Magnesium 2.20 mg/dL (1.7-2.3) 12/21/18 04:27 Urine Creatinine 157.1 mg/dL (0.1-20.0) H 12/20/18 00:30 Urine Sodium 105 mmol/L 12/20/18 00:30 Urine Total Protein 57 mg/dL (5-11.8) H 12/20/18 00:30 Medications & Allergies - Medications Allergies/Adverse Reactions: Allergies No Known Allergies Allergy (Verified 12/19/18 03:17) Home Medications: Home Medications Medication Instructions Recorded Confirmed Last Taken Type No Known Home Medications [No 12/19/18 12/19/18 Unknown History Reported Home Medications] Active Medications: Generic Name Dose Route Start Last Admin Trade Name Freq PRN Reason Stop Dose Admin Acetaminophen 650 mg 12/19/18 03:06 Tylenol PO Q4H PRN Pain MILD(1-3)/Fever >100.5/[place]OUGH Amlodipine Besylate 10 mg 12/22/18 16:00 12/23/18 10:54 Norvasc PO 10 mg QDAY MANOJ Administration Atorvastatin Calcium 40 mg 12/20/18 22:00 12/23/18 21:47 Lipitor PO 40 mg QHS MANOJ Administration Clonidine HCl 0.3 mg 12/30/18 10:00 Catapres-Tts Patch TD Mo MANOJ Clonidine HCl 0.2 mg 12/23/18 12:04 12/23/18 16:41 Catapres PO 0.2 mg Q4H PRN Administration HTN SBP>160 Enoxaparin Sodium 30 mg 12/19/18 10:00 12/23/18 10:54 Lovenox SUB-Q 30 mg QDAY MANOJ Administration Hydralazine HCl 100 mg 12/19/18 20:00 12/23/18 21:48 Apresoline PO 100 mg TID MANOJ Administration Dextrose/Sodium Chloride 1,000 mls @ 75 mls/hr 12/22/18 20:00 12/24/18 04:07 D5/0.45ns IV 75 mls/hr DIRECT MANOJ Administration Labetalol HCl 10 mg 12/22/18 18:30 12/23/18 11:02 Normodyne IV 10 mg Q6HR PRN Administration Blood Pressure Lorazepam 2 mg 12/19/18 03:09 Ativan IV Q1HR PRN CIWA-Ar 8-15 Lorazepam 4 mg 12/19/18 03:09 Ativan IV Q1HR PRN CIWA-Ar 16-25 Metoprolol Tartrate 5 mg 12/22/18 23:38 12/23/18 16:44 Lopressor IV 5 mg Q6H PRN Administration elevated BP. Hold for HR <60 Minoxidil 5 mg 12/23/18 22:00 12/23/18 21:47 Loniten PO 5 mg BID MANOJ Administration Ondansetron HCl 4 mg 12/19/18 03:06 Zofran IV Q8H PRN Nausea And Vomiting Sodium Chloride 10 ml 12/19/18 10:00 12/23/18 21:49 Sodium Chloride Flush Syringe 10 Ml IV 10 ml BID MANOJ Administration Sodium Chloride 10 ml 12/19/18 03:06 Sodium Chloride Flush Syringe 10 Ml IV PRN PRN LINE FLUSH Spironolactone 50 mg 12/19/18 22:00 12/23/18 21:47 Aldactone PO 50 mg BID MANOJ Administration Thiamine HCl 100 mg 12/21/18 14:00 12/23/18 10:54 Vitamin B-1 PO 100 mg QDAY MANOJ Administration
[2018-12-24] MEDS: LOVENOX SUB-Q SCH (09:32)
[2018-12-24] MEDS: NORVASC PO SCH (09:32)
[2018-12-24] MEDS: LONITEN PO SCH ×2 (09:33→21:54)
[2018-12-24] MEDS: VITAMIN B-1 PO SCH (09:33)
[2018-12-24] MEDS: ALDACTONE PO SCH ×2 (09:33→21:51)
[2018-12-24] MEDS: APRESOLINE PO SCH ×3 (09:33→21:52)
--- NOTE | 2018-12-24 14:10 | Progress Note ---
Subjective Date of service: 12/24/18 Principal diagnosis: madalyn on ckd Interval history: I have looked at the MRA it si normal the MRI shows a diffuse pattern of small vessel infarct still could be vasculatis did not seee source of embolii on the ECHO that would expalin multiple small infarcts as seen on MRI the pattern is very diffuse and somewhat non anatomical like seen in TTP or ITP coma like state persist no speech prognosis not good and brother is being spoken to about hospice this is good option as patient shows no sign of recovery Objective - Vital Sign Vital Signs - 12hr 12/24/18 12/24/18 12/24/18 03:42 07:16 07:17 Temperature 98.3 F 97.9 F Pulse Rate 76 81 78 Respiratory 18 18 Rate Blood Pressure 141/86 146/85 O2 Sat by Pulse 98 98 99 Oximetry 12/24/18 12/24/18 12/24/18 09:32 09:33 11:10 Temperature 97.3 F L Pulse Rate 81 81 84 Respiratory 18 Rate Blood Pressure 146/85 146/85 137/75 O2 Sat by Pulse 97 Oximetry - Laboratory Findings CBC and BMP: 12/24/18 06:25 12/24/18 06:25 Abnormal Lab Findings: Abnormal Labs 12/19/18 12/19/18 12/19/18 00:57 00:57 00:57 WBC RBC 5.05 H Hgb Hct MCV 82 L MCH 27 L RDW 17.5 H Plt Count Lymph % (Auto) 10.7 L [place] % (Auto) Lymph # 0.9 L Seg Neutrophils % 84.1 H Seg Neutrophils # Potassium Creatinine 2.2 H Glucose POC Glucose Lactic Acid 2.30 H* Magnesium Total Bilirubin 1.60 H ALT Ammonia Total Protein Albumin Urine Creatinine Urine Total Protein Salicylates Acetaminophen 12/19/18 12/19/18 12/19/18 00:57 00:57 00:57 WBC RBC Hgb Hct MCV MCH RDW Plt Count Lymph % (Auto) [place] % (Auto) Lymph # Seg Neutrophils % Seg Neutrophils # Potassium Creatinine Glucose POC Glucose Lactic Acid Magnesium Total Bilirubin ALT Ammonia 23.0 L Total Protein Albumin Urine Creatinine Urine Total Protein Salicylates < 0.3 L Acetaminophen < 5.0 L 12/19/18 12/19/18 12/19/18 00:58 06:49 06:49 WBC 11.7 H RBC Hgb Hct MCV 81 L MCH 27 L RDW 18.0 H Plt Count Lymph % (Auto) 10.5 L [place] % (Auto) Lymph # Seg Neutrophils % 83.8 H Seg Neutrophils # 9.8 H Potassium 3.4 L Creatinine 2.0 H Glucose 105 H POC Glucose 110 H Lactic Acid Magnesium Total Bilirubin ALT Ammonia Total Protein Albumin Urine Creatinine Urine Total Protein Salicylates Acetaminophen 12/20/18 12/20/18 12/20/18 00:30 05:15 05:15 WBC RBC Hgb Hct MCV 82 L MCH 27 L RDW 17.5 H Plt Count 133 L Lymph % (Auto) [place] % (Auto) 7.8 H Lymph # Seg Neutrophils % Seg Neutrophils # Potassium 3.5 L Creatinine 2.1 H Glucose 109 H POC Glucose Lactic Acid Magnesium Total Bilirubin 1.50 H ALT Ammonia Total Protein 6.2 L D Albumin 3.8 L Urine Creatinine 157.1 H Urine Total Protein 57 H Salicylates Acetaminophen 12/20/18 12/20/18 12/20/18 05:15 16:46 20:38 WBC RBC Hgb Hct MCV MCH RDW Plt Count Lymph % (Auto) [place] % (Auto) Lymph # Seg Neutrophils % Seg Neutrophils # Potassium Creatinine Glucose POC Glucose 109 H 110 H Lactic Acid Magnesium 1.60 L Total Bilirubin ALT Ammonia Total Protein Albumin Urine Creatinine Urine Total Protein Salicylates Acetaminophen 12/21/18 12/21/18 12/22/18 04:27 04:27 04:25 WBC RBC Hgb 11.4 L 11.3 L Hct 34.2 L 34.3 L MCV 82 L 83 L MCH 27 L 27 L RDW 17.8 H 18.0 H Plt Count 130 L Lymph % (Auto) [place] % (Auto) 7.5 H 7.7 H Lymph # Seg Neutrophils % 73.3 H 70.5 H Seg Neutrophils # Potassium Creatinine 1.9 H Glucose 102 H POC Glucose Lactic Acid Magnesium Total Bilirubin 1.30 H ALT 6 L Ammonia Total Protein 5.7 L Albumin 3.4 L Urine Creatinine Urine Total Protein Salicylates Acetaminophen 12/22/18 12/22/18 12/23/18 04:25 04:25 04:41 WBC RBC Hgb 11.3 L Hct 33.7 L MCV 83 L MCH RDW 17.5 H Plt Count Lymph % (Auto) [place] % (Auto) 8.2 H Lymph # Seg Neutrophils % 71.4 H Seg Neutrophils # Potassium Creatinine 2.4 H 2.4 H Glucose POC Glucose Lactic Acid Magnesium Total Bilirubin ALT 6 L Ammonia Total Protein 6.0 L Albumin 3.4 L Urine Creatinine Urine Total Protein Salicylates Acetaminophen 12/23/18 12/24/18 12/24/18 04:41 06:25 06:25 WBC RBC Hgb Hct MCV 82 L MCH 27 L RDW 18.0 H Plt Count Lymph % (Auto) [place] % (Auto) 8.5 H Lymph # Seg Neutrophils % Seg Neutrophils # Potassium Creatinine 2.4 H 2.1 H Glucose 109 H POC Glucose Lactic Acid Magnesium Total Bilirubin ALT 6 L 6 L Ammonia Total Protein 6.1 L Albumin 3.3 L 3.5 L Urine Creatinine Urine Total Protein Salicylates Acetaminophen
[2018-12-24] MEDS: SODIUM CHLORIDE FLUSH SYRINGE 10 ML IV SCH ×2 (15:17→21:54)
--- NOTE | 2018-12-24 19:06 | Progress Note ---
Assessment and Plan Assessment and plan: Acute Metabolic encephalopathy. ? Wernicke Korsakoff, neuro following. MRI showed MRI diffuse small vessel infarct discussed with neurologist and he explained to the families and recommend Hospice care Acute on chronic renal failure likely vasomotor - Cr today is 2.1 Hypokalemia; corrected Right hydronephrosis. Urology consulted and believes it is chronic. [place]aza placed. Obstructive uropathy. Hypertensive urgency; continue minoxidil, clonidine, hydralazine, Norvasc. Monitor and adjusted as needed ETOH abuse. Cont. CIWA Prognosis; poor History Interval history: Patient was seen and evaluated this morning, have discussed with his family members and answered all the questions. Patient didn't show any improvement, he doesn't communicate. Hospitalist Physical - Physical exam Narrative exam: Not in cardiopulmonary distress. The patient appeared well nourished and normally developed. Vital signs as documented. Head exam is unremarkable. No scleral icterus . Neck is without jugular venous distension, thyromegaly, or carotid bruits. Lungs are clear to auscultation. Cardiac exam reveals regular rate and Rhythm. First and second heart sounds normal. No murmurs, rubs or gallops. Abdominal exam reveals normal bowel sounds, no masses, no organomegaly and no aortic enlargement. Extremities are nonedematous and both femoral and pedal pulses are normal. 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 - Constitutional Vitals: Temp Pulse Resp BP Pulse Ox 98.0 F 89 18 129/78 96 12/24/18 15:08 12/24/18 15:08 12/24/18 15:08 12/24/18 15:08 12/24/18 15:08 General appearance: Present: no acute distress, well-nourished Results - Labs CBC & Chem 7: 12/24/18 06:25 12/24/18 06:25 Labs: Laboratory Last Values WBC 6.6 K/mm3 (4.5-11.0) 12/24/18 06:25 RBC 4.41 M/mm3 (3.65-5.03) 12/24/18 06:25 Hgb 12.1 gm/dl (11.8-15.2) 12/24/18 06:25 Hct 36.1 % (35.5-45.6) 12/24/18 06:25 MCV 82 fl (84-94) L 12/24/18 06:25 MCH 27 pg (28-32) L 12/24/18 06:25 MCHC 34 % (32-34) 12/24/18 06:25 RDW 18.0 % (13.2-15.2) H 12/24/18 06:25 Plt Count 174 K/mm3 (140-440) 12/24/18 06:25 Lymph % (Auto) 20.4 % (13.4-35.0) 12/24/18 06:25 [place] % (Auto) 8.5 % (0.0-7.3) H 12/24/18 06:25 Eos % (Auto) 1.0 % (0.0-4.3) 12/24/18 06:25 Baso % (Auto) 0.4 % (0.0-1.8) 12/24/18 06:25 Lymph # 1.3 K/mm3 (1.2-5.4) 12/24/18 06:25 [place] # 0.6 K/mm3 (0.0-0.8) 12/24/18 06:25 Eos # 0.1 K/mm3 (0.0-0.4) 12/24/18 06:25 Baso # 0.0 K/mm3 (0.0-0.1) 12/24/18 06:25 Seg Neutrophils % 69.7 % (40.0-70.0) 12/24/18 06:25 Seg Neutrophils # 4.6 K/mm3 (1.8-7.7) 12/24/18 06:25 Sodium 139 mmol/L (137-145) 12/24/18 06:25 Potassium 3.8 mmol/L (3.6-5.0) 12/24/18 06:25 Chloride 103.3 mmol/L (98-107) 12/24/18 06:25 Carbon Dioxide 23 mmol/L (22-30) 12/24/18 06:25 Anion Gap 17 mmol/L 12/24/18 06:25 BUN 16 mg/dL (9-20) 12/24/18 06:25 Creatinine 2.1 mg/dL (0.8-1.5) H 12/24/18 06:25 Estimated GFR 38 ml/min 12/24/18 06:25 BUN/Creatinine Ratio 8 % 12/24/18 06:25 Glucose 109 mg/dL (75-100) H 12/24/18 06:25 POC Glucose 88 (70-105) 12/24/18 05:47 Lactic Acid 1.30 mmol/L (0.7-2.0) 12/19/18 06:49 Calcium 9.1 mg/dL (8.4-10.2) 12/24/18 06:25 Magnesium 2.20 mg/dL (1.7-2.3) 12/21/18 04:27 Total Bilirubin 0.80 mg/dL (0.1-1.2) 12/24/18 06:25 AST 16 units/L (5-40) 12/24/18 06:25 ALT 6 units/L (7-56) L 12/24/18 06:25 Alkaline Phosphatase 72 units/L (35-129) 12/24/18 06:25 Ammonia 23.0 umol/L (25-60) L 12/19/18 00:57 Total Protein 6.4 g/dL (6.3-8.2) 12/24/18 06:25 Albumin 3.5 g/dL (3.9-5) L 12/24/18 06:25 Albumin/Globulin Ratio 1.2 % 12/24/18 06:25 Renin 0.10 ng/mL/h (0.25-5.82) L 12/19/18 10:56 Aldosterone <1 ng/dL () 12/19/18 10:56 Aldosterone/Renin Dir see below 12/19/18 10:56 TSH 3.190 mlU/mL (0.270-4.200) 12/19/18 00:57 Urine Color [place] (Yellow) 12/19/18 02:27 Urine Turbidity Slightly-cloudy (Clear) 12/19/18 02:27 Urine pH 5.0 (5.0-7.0) 12/19/18 02:27 Ur Specific [place] 1.024 (1.003-1.030) 12/19/18 02:27 Urine Protein >500 mg/dL (Negative) 12/19/18 02:27 Urine Glucose (UA) Neg mg/dL (Negative) 12/19/18 02:27 Urine Ketones Neg mg/dL (Negative) 12/19/18 02:27 Urine Blood Neg (Negative) 12/19/18 02:27 Urine Nitrite Neg (Negative) 12/19/18 02:27 Urine Bilirubin Neg (Negative) 12/19/18 02:27 Urine Urobilinogen 4.0 mg/dL (<2.0) 12/19/18 02:27 Ur Leukocyte Esterase Neg (Negative) 12/19/18 02:27 Urine WBC (Auto) 4.0 /HPF (0.0-6.0) 12/19/18 02:27 Urine RBC (Auto) 2.0 /HPF (0.0-6.0) 12/19/18 02:27 U Epithel Cells (Auto) < 1.0 /HPF (0-13.0) 12/19/18 02:27 Urine Bacteria (Auto) 1+ /HPF (Negative) 12/19/18 02:27 Amorphous Crystals 1+ 12/19/18 02:27 Hyaline Casts 8 /LPF 12/19/18 02:27 Urine Mucus Few /HPF 12/19/18 02:27 Urine Eosinophils None seen (None Seen) 12/20/18 00:30 Urine Creatinine 157.1 mg/dL (0.1-20.0) H 12/20/18 00:30 Protein/Creatinin Ratio 0.36 12/20/18 00:30 Urine Sodium 105 mmol/L 12/20/18 00:30 Urine Total Protein 57 mg/dL (5-11.8) H 12/20/18 00:30 Salicylates < 0.3 mg/dL (2.8-20.0) L 12/19/18 00:57 Urine Opiates Screen Presumptive negative 12/19/18 02:27 Urine Methadone Screen Presumptive negative 12/19/18 02:27 Acetaminophen < 5.0 ug/mL (10.0-30.0) L 12/19/18 00:57 Ur Barbiturates Screen Presumptive negative 12/19/18 02:27 Ur Phencyclidine Scrn Presumptive negative 12/19/18 02:27 Ur Amphetamines Screen Presumptive negative 12/19/18 02:27 U Benzodiazepines Scrn Presumptive negative 12/19/18 02:27 Urine Cocaine Screen Presumptive negative 12/19/18 02:27 U Marijuana (THC) Screen Presumptive positive 12/19/18 02:27 Drugs of Abuse Note Disclamer 12/19/18 02:27 Plasma/Serum Alcohol < 0.01 % (0-0.07) 12/19/18 00:57
[2018-12-24 21:30] LABS: Creatinine,Urine 37.1 mg/dL (0.1-20.0)
[2018-12-24 21:38] LABS: Creatinine,Urine 39.2 mg/dL (0.1-20.0)
[2018-12-24 22:43] LABS: Creatinine 24 Hour,Urine 0.2 (0.8-2.8)
[2018-12-25] MEDS: D5/0.45NS 1,000 ML IV SCH ×2 (06:44→21:38)
[2018-12-25 06:47] LABS: Basophils % (Auto) 0.5 % (0.0-1.8); Eosinophils % (Auto) 0.2 % (0.0-4.3); Hematocrit 35.1 % (35.5-45.6); Hemoglobin 11.5 gm/dl (11.8-15.2); Lymphocytes # (Auto) 1.2 K/mm3 (1.2-5.4); Mean Corpuscular HGB Conc 33 % (32-34); Mean Corpuscular Volume 83 fl (84-94); Monocytes # (Auto) 0.7 K/mm3 (0.0-0.8); Monocytes % (Auto) 10.1 % (0.0-7.3); Platelet Count 203 K/mm3 (140-440); Red Blood Count 4.24 M/mm3 (3.65-5.03); Red Cell Distribution Width 17.7 % (13.2-15.2)
[2018-12-25 07:02] LABS: Albumin 3.6 g/dL (3.9-5); Calcium 9.1 mg/dL (8.4-10.2)
[2018-12-25] MEDS: APRESOLINE PO SCH ×3 (08:00→23:07)
--- NOTE | 2018-12-25 09:09 | Progress Note ---
Subjective Principal diagnosis: madalyn on ckd Interval history: Patient was seen today for follow-up on multiple renal related issues noted to have altered mental status Being followed by neurology Blood pressure remains elevated Vitals labs intake output medications were reviewed Social history: Reviewed Allergies: Reviewed Family history: Reviewed Physical examination HEENT: Oral mucosa moist no pallor or icterus Neck: Supple no JVD Chest: Clear to auscultation anteriorly CVS: Regular rate and rhythm S1 and S2 heard Abdomen: Soft nontender no suprapubic masses no organomegaly appreciable Extremity: Dry skin less than 1+ peripheral edema Musculoskeletal: No joint effusion noted in knees and ankle Neurological: encephalopathic Dermatology: No petechial rashes Psychiatry: No evidence of any agitation and aggression noted Assessment and plan Chronic kidney disease likely patient's creatinine was 2.1 on December 20 current creatinine 2.1 Creatinine clearance was incorrect, creatinine remains stable around mid to Aldosterone and plasma renin level was not done will order again Follow-up on the pending labs Renal ultrasonogram showed echogenic kidneys Right-sided hydronephrosis, left renal cysts: Patient has seen urology and will need to follow-up with Dr. Casas in the outpatient setting Accelerated hypertension blood pressure between 150-170 systolic heart rate around 101 will adjust blood pressure medication further and follow-up Will increase clonidine to 0.4 and follow Encephalopathic: Multifactorial etiology, being followed by neurology,? hypertension related being worked up by primary team Anemia in chronic kidney disease current hemoglobin stable at 11.5 platelet c ount normal Brother at bed side , made aware about renal related problems We'll continue to follow and make recommendation from renal standpoint Objective - Vital Signs Vital signs: Vital Signs - 12hr 12/24/18 12/24/18 12/24/18 21:51 22:00 23:30 Temperature 32.1 F L Pulse Rate 80 87 87 Respiratory 18 Rate Blood Pressure 131/75 138/76 Blood Pressure [Left] O2 Sat by Pulse 96 Oximetry 12/25/18 12/25/18 12/25/18 00:00 04:14 04:52 Temperature 98.6 F 99.2 F Pulse Rate 94 H 97 H Respiratory 18 Rate Blood Pressure Blood Pressure 152/79 [Left] O2 Sat by Pulse 97 97 Oximetry 12/25/18 08:15 Temperature 98.6 F Pulse Rate 101 H Respiratory 18 Rate Blood Pressure 170/83 Blood Pressure [Left] O2 Sat by Pulse 99 Oximetry - Lab 12/25/18 05:32 12/25/18 05:32 Most recent lab results Calcium 9.1 mg/dL (8.4-10.2) 12/25/18 05:32 Magnesium 2.20 mg/dL (1.7-2.3) 12/21/18 04:27 Urine Creatinine 39.2 mg/dL (0.1-20.0) H 12/23/18 Unknown Ur Total Protein 24 Hr 60.00 mg/dL (2-200) 12/23/18 Unknown Urine Sodium 105 mmol/L 12/20/18 00:30 Urine Total Protein 12 mg/dL (5-11.8) H 12/23/18 Unknown Medications & Allergies - Medications Allergies/Adverse Reactions: Allergies No Known Allergies Allergy (Verified 12/19/18 03:17) Home Medications: Home Medications Medication Instructions Recorded Confirmed Last Taken Type No Known Home Medications [No 12/19/18 12/19/18 Unknown History Reported Home Medications] Active Medications: Generic Name Dose Route Start Last Admin Trade Name Freq PRN Reason Stop Dose Admin Acetaminophen 650 mg 12/19/18 03:06 Tylenol PO Q4H PRN Pain MILD(1-3)/Fever >100.5/M[place]OUGH Amlodipine Besylate 10 mg 12/22/18 16:00 12/24/18 09:32 Norvasc PO 10 mg QDAY MANOJ Administration Atorvastatin Calcium 40 mg 12/20/18 22:00 12/24/18 21:51 Lipitor PO 40 mg QHS MANOJ Administration Clonidine HCl 0.2 mg 12/23/18 12:04 12/23/18 16:41 Catapres PO 0.2 mg Q4H PRN Administration HTN SBP>160 Enoxaparin Sodium 30 mg 12/19/18 10:00 12/24/18 09:32 Lovenox SUB-Q 30 mg QDAY MANOJ Administration Hydralazine HCl 100 mg 12/19/18 20:00 12/24/18 21:52 Apresoline PO 100 mg TID MANOJ Administration Dextrose/Sodium Chloride 1,000 mls @ 75 mls/hr 12/22/18 20:00 12/25/18 06:44 D5/0.45ns IV 75 mls/hr DIRECT MANOJ Administration Labetalol HCl 10 mg 12/22/18 18:30 12/23/18 11:02 Normodyne IV 10 mg Q6HR PRN Administration Blood Pressure Lorazepam 2 mg 12/19/18 03:09 Ativan IV Q1HR PRN CIWA-Ar 8-15 Lorazepam 4 mg 12/19/18 03:09 Ativan IV Q1HR PRN CIWA-Ar 16-25 Metoprolol Tartrate 5 mg 12/22/18 23:38 12/23/18 16:44 Lopressor IV 5 mg Q6H PRN Administration elevated BP. Hold for HR <60 Minoxidil 5 mg 12/23/18 22:00 12/24/18 21:54 Loniten PO 5 mg BID MANOJ Administration Ondansetron HCl 4 mg 12/19/18 03:06 Zofran IV Q8H PRN Nausea And Vomiting Sodium Chloride 10 ml 12/19/18 10:00 12/24/18 21:54 Sodium Chloride Flush Syringe 10 Ml IV 10 ml BID MANOJ Administration Sodium Chloride 10 ml 12/19/18 03:06 Sodium Chloride Flush Syringe 10 Ml IV PRN PRN LINE FLUSH Spironolactone 50 mg 12/19/18 22:00 12/24/18 21:51 Aldactone PO 50 mg BID MANOJ Administration Thiamine HCl 100 mg 12/21/18 14:00 12/24/18 09:33 Vitamin B-1 PO 100 mg QDAY MANOJ Administration
[2018-12-25] MEDS: SODIUM CHLORIDE FLUSH SYRINGE 10 ML IV SCH ×2 (10:00→21:39)
[2018-12-25] MEDS: ALDACTONE PO SCH ×2 (10:00→23:08)
[2018-12-25] MEDS: LONITEN PO SCH ×2 (10:00→23:09)
[2018-12-25] MEDS: NORVASC PO SCH (10:00)
[2018-12-25] MEDS: VITAMIN B-1 PO SCH (10:00)
[2018-12-25] MEDS: LOVENOX SUB-Q SCH (10:59)
[2018-12-25] MEDS: APRESOLINE IV PRN ×2 (16:00→21:39)
--- NOTE | 2018-12-25 16:06 | Progress Note ---
Assessment and Plan Assessment and plan: Acute Metabolic encephalopathy. ? Wernicke Korsakoff, neuro following. MRI showed MRI diffuse small vessel infarct discussed with neurologist and he explained to the families and recommend Hospice care Acute on chronic renal failure likely vasomotor - Cr today is 2.4 Hypokalemia; corrected Right hydronephrosis. Urology consulted and believes it is chronic. Peraza placed. Obstructive uropathy. Hypertensive urgency; continue minoxidil, clonidine, hydralazine, Norvasc. Monitor and adjusted as needed. Controlled ETOH abuse. Cont. CIWA Prognosis; poor disposition; pending family decision for home hospice. History Interval history: Patient was seen and evaluated this morning. Patient didn't show any improvement, he doesn't communicate. Has a long discussion with his brother and he like to have home hospice. Waiting a call from his sister to have a final decision. Hospitalist Physical - Physical exam Narrative exam: Not in cardiopulmonary distress. The patient appeared well nourished and normally developed. Vital signs as documented. Head exam is unremarkable. No scleral icterus . Neck is without jugular venous distension, thyromegaly, or carotid bruits. Lungs are clear to auscultation. Cardiac exam reveals regular rate and Rhythm. First and second heart sounds normal. No murmurs, rubs or gallops. Abdominal exam reveals normal bowel sounds, no masses, no organomegaly and no aortic enlargement. Extremities are nonedematous and both femoral and pedal pulses are normal. 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 Not communicative. - Constitutional Vitals: Temp Pulse Resp BP Pulse Ox 98.6 F 101 H 18 170/83 99 12/25/18 08:15 12/25/18 08:15 12/25/18 08:15 12/25/18 08:15 12/25/18 08:15 General appearance: Present: no acute distress, well-nourished Results - Labs CBC & Chem 7: 12/25/18 05:32 12/25/18 05:32 Labs: Laboratory Last Values WBC 6.4 K/mm3 (4.5-11.0) 12/25/18 05:32 RBC 4.24 M/mm3 (3.65-5.03) 12/25/18 05:32 Hgb 11.5 gm/dl (11.8-15.2) L 12/25/18 05:32 Hct 35.1 % (35.5-45.6) L 12/25/18 05:32 MCV 83 fl (84-94) L 12/25/18 05:32 MCH 27 pg (28-32) L 12/25/18 05:32 MCHC 33 % (32-34) 12/25/18 05:32 RDW 17.7 % (13.2-15.2) H 12/25/18 05:32 Plt Count 203 K/mm3 (140-440) 12/25/18 05:32 Lymph % (Auto) 18.0 % (13.4-35.0) 12/25/18 05:32 [place] % (Auto) 10.1 % (0.0-7.3) H 12/25/18 05:32 Eos % (Auto) 0.2 % (0.0-4.3) 12/25/18 05:32 Baso % (Auto) 0.5 % (0.0-1.8) 12/25/18 05:32 Lymph # 1.2 K/mm3 (1.2-5.4) 12/25/18 05:32 [place] # 0.7 K/mm3 (0.0-0.8) 12/25/18 05:32 Eos # 0.0 K/mm3 (0.0-0.4) 12/25/18 05:32 Baso # 0.0 K/mm3 (0.0-0.1) 12/25/18 05:32 Seg Neutrophils % 71.2 % (40.0-70.0) H 12/25/18 05:32 Seg Neutrophils # 4.6 K/mm3 (1.8-7.7) 12/25/18 05:32 Sodium 139 mmol/L (137-145) 12/25/18 05:32 Potassium 3.8 mmol/L (3.6-5.0) 12/25/18 05:32 Chloride 103.7 mmol/L (98-107) 12/25/18 05:32 Carbon Dioxide 23 mmol/L (22-30) 12/25/18 05:32 Anion Gap 16 mmol/L 12/25/18 05:32 BUN 18 mg/dL (9-20) 12/25/18 05:32 Creatinine 2.4 mg/dL (0.8-1.5) H 12/25/18 05:32 Estimated GFR 33 ml/min 12/25/18 05:32 BUN/Creatinine Ratio 8 % 12/25/18 05:32 Glucose 113 mg/dL (75-100) H 12/25/18 05:32 POC Glucose 88 (70-105) 12/24/18 05:47 Lactic Acid 1.30 mmol/L (0.7-2.0) 12/19/18 06:49 Calcium 9.1 mg/dL (8.4-10.2) 12/25/18 05:32 Magnesium 2.20 mg/dL (1.7-2.3) 12/21/18 04:27 Total Bilirubin 0.80 mg/dL (0.1-1.2) 12/25/18 05:32 AST 16 units/L (5-40) 12/25/18 05:32 ALT 6 units/L (7-56) L 12/25/18 05:32 Alkaline Phosphatase 69 units/L (35-129) 12/25/18 05:32 Ammonia 23.0 umol/L (25-60) L 12/19/18 00:57 Total Protein 6.3 g/dL (6.3-8.2) 12/25/18 05:32 Albumin 3.6 g/dL (3.9-5) L 12/25/18 05:32 Albumin/Globulin Ratio 1.3 % 12/25/18 05:32 Renin 0.10 ng/mL/h (0.25-5.82) L 12/19/18 10:56 Aldosterone <1 ng/dL () 12/19/18 10:56 Aldosterone/Renin Dir see below 12/19/18 10:56 TSH 3.190 mlU/mL (0.270-4.200) 12/19/18 00:57 Urine Color [place] (Yellow) 12/19/18 02:27 Urine Turbidity Slightly-cloudy (Clear) 12/19/18 02:27 Urine pH 5.0 (5.0-7.0) 12/19/18 02:27 Ur Specific [place] 1.024 (1.003-1.030) 12/19/18 02:27 Urine Protein >500 mg/dL (Negative) 12/19/18 02:27 Urine Glucose (UA) Neg mg/dL (Negative) 12/19/18 02:27 Urine Ketones Neg mg/dL (Negative) 12/19/18 02:27 Urine Blood Neg (Negative) 12/19/18 02:27 Urine Nitrite Neg (Negative) 12/19/18 02:27 Urine Bilirubin Neg (Negative) 12/19/18 02:27 Urine Urobilinogen 4.0 mg/dL (<2.0) 12/19/18 02:27 Ur Leukocyte Esterase Neg (Negative) 12/19/18 02:27 Urine WBC (Auto) 4.0 /HPF (0.0-6.0) 12/19/18 02:27 Urine RBC (Auto) 2.0 /HPF (0.0-6.0) 12/19/18 02:27 U Epithel Cells (Auto) < 1.0 /HPF (0-13.0) 12/19/18 02:27 Urine Bacteria (Auto) 1+ /HPF (Negative) 12/19/18 02:27 Amorphous Crystals 1+ 12/19/18 02:27 Hyaline Casts 8 /LPF 12/19/18 02:27 Urine Mucus Few /HPF 12/19/18 02:27 Urine Eosinophils None seen (None Seen) 12/20/18 00:30 Urine Total Volume 500 ml 12/23/18 Unknown Urine Creatinine 39.2 mg/dL (0.1-20.0) H 12/23/18 Unknown Ur Creatinine 24 Hour 0.2 (0.8-2.8) L 12/23/18 Unknown Height (in) 72.0 inches 12/23/18 Unknown Weight (lb) 160.0 lbs 12/23/18 Unknown Creatinine Clearance 4 12/23/18 Unknown Ur Total Protein 24 Hr 60.00 mg/dL (2-200) 12/23/18 Unknown Protein/Creatinin Ratio 0.36 12/20/18 00:30 Urine Sodium 105 mmol/L 12/20/18 00:30 Urine Total Protein 12 mg/dL (5-11.8) H 12/23/18 Unknown Salicylates < 0.3 mg/dL (2.8-20.0) L 12/19/18 00:57 Urine Opiates Screen Presumptive negative 12/19/18 02:27 Urine Methadone Screen Presumptive negative 12/19/18 02:27 Acetaminophen < 5.0 ug/mL (10.0-30.0) L 12/19/18 00:57 Ur Barbiturates Screen Presumptive negative 12/19/18 02:27 Ur Phencyclidine Scrn Presumptive negative 12/19/18 02:27 Ur Amphetamines Screen Presumptive negative 12/19/18 02:27 U Benzodiazepines Scrn Presumptive negative 12/19/18 02:27 Urine Cocaine Screen Presumptive negative 12/19/18 02:27 U Marijuana (THC) Screen Presumptive positive 12/19/18 02:27 Drugs of Abuse Note Disclamer 12/19/18 02:27 Plasma/Serum Alcohol < 0.01 % (0-0.07) 12/19/18 00:57
[2018-12-26] MEDS ORDERED: TYLENOL PR PRN (04:59)
[2018-12-26] MEDS: NORMODYNE IV PRN (05:09)
[2018-12-26 05:36] LABS: Basophils % (Auto) 0.7 % (0.0-1.8); Eosinophils % (Auto) 0.2 % (0.0-4.3); Hematocrit 32.9 % (35.5-45.6); Hemoglobin 10.9 gm/dl (11.8-15.2); Lymphocytes # (Auto) 1.3 K/mm3 (1.2-5.4); Lymphocytes % (Auto) 21.7 % (13.4-35.0); Mean Corpuscular HGB Conc 33 % (32-34); Mean Corpuscular Volume 82 fl (84-94); Monocytes # (Auto) 0.9 K/mm3 (0.0-0.8); Monocytes % (Auto) 14.9 % (0.0-7.3); Platelet Count 201 K/mm3 (140-440); Red Blood Count 4.03 M/mm3 (3.65-5.03); Red Cell Distribution Width 17.2 % (13.2-15.2)
[2018-12-26 05:56] LABS: Albumin 3.3 g/dL (3.9-5)
--- NOTE | 2018-12-26 08:40 | Progress Note ---
Subjective Principal diagnosis: madalyn on ckd Interval history: Patient was seen today for follow-up on multiple renal related issues family is at bedside Patient is alert awake blood pressure is improving Vitals labs intake output medications were reviewed Social history: Reviewed Allergies: Reviewed Family history: Reviewed Physical examination HEENT: Oral mucosa moist no pallor or icterus Neck: Supple no JVD Chest: Clear to auscultation anteriorly CVS: Regular rate and rhythm S1 and S2 heard Abdomen: Soft nontender no suprapubic masses no organomegaly appreciable Extremity: Dry skin less than 1+ peripheral edema Musculoskeletal: No joint effusion noted in knees and ankle Neurological:patient is alert awake Dermatology: No petechial rashes Psychiatry: No evidence of any agitation and aggression noted Assessment and plan Altered mental status patient is much more alert awake today his brother is at the bedside, being followed by neurology Hypertension: Continue to monitor and adjust blood pressure medication follow-up on aldosterone as well as plasma renin level, this has been reordered Chronic kidney disease: Continue to monitor renal function current creatinine 2.1 stable at this time likely stage III CKD estimated GFR around 38 Malnutrition: Multifactorial patient must be seen and followed by nutrition service Anemia and chronic kidney disease, we'll abstain from erythropoietin for now due to stroke Gradual reduction in blood pressures required Encephalopathy: Could have been due to hypertensive, patient is waking up for family is following commands Renal ultrasonogram showed echogenic kidneys Right-sided hydronephrosis, left renal cysts: Patient has seen urology and will need to follow-up with Dr. Casas in the outpatient setting [id number] and Brother at bed side , made aware about renal related problems We'll continue to follow and make recommendation from renal standpoint Objective - Vital Signs Vital signs: Vital Signs - 12hr 12/25/18 12/25/18 12/25/18 21:39 22:00 23:08 Temperature Pulse Rate 95 H 86 95 H Respiratory Rate Blood Pressure 163/83 163/83 O2 Sat by Pulse 100 Oximetry 12/25/18 12/26/18 12/26/18 23:18 04:43 05:09 Temperature 98.0 F 102.4 F H Pulse Rate 95 H 92 H 90 Respiratory 18 18 20 Rate Blood Pressure 169/82 197/96 197/96 O2 Sat by Pulse 98 99 Oximetry 12/26/18 07:48 Temperature 98.7 F Pulse Rate 76 Respiratory 20 Rate Blood Pressure 158/86 O2 Sat by Pulse 99 Oximetry - Lab 12/26/18 05:18 12/26/18 05:18 Most recent lab results Calcium 9.0 mg/dL (8.4-10.2) 12/26/18 05:18 Magnesium 2.20 mg/dL (1.7-2.3) 12/21/18 04:27 Urine Creatinine 39.2 mg/dL (0.1-20.0) H 12/23/18 Unknown Ur Total Protein 24 Hr 60.00 mg/dL (2-200) 12/23/18 Unknown Urine Sodium 105 mmol/L 12/20/18 00:30 Urine Total Protein 12 mg/dL (5-11.8) H 12/23/18 Unknown Medications & Allergies - Medications Allergies/Adverse Reactions: Allergies No Known Allergies Allergy (Verified 12/19/18 03:17) Home Medications: Home Medications Medication Instructions Recorded Confirmed Last Taken Type No Known Home Medications [No 12/19/18 12/19/18 Unknown History Reported Home Medications] Active Medications: Generic Name Dose Route Start Last Admin Trade Name Freq PRN Reason Stop Dose Admin Acetaminophen 650 mg 12/19/18 03:06 Tylenol PO Q4H PRN Pain MILD(1-3)/Fever >100.5/M[place]OUGH Acetaminophen 650 mg 12/26/18 04:59 12/26/18 05:09 Tylenol [place] 650 mg Q4H PRN Administration Pain, Mild (1-3) Amlodipine Besylate 10 mg 12/22/18 16:00 12/25/18 10:00 Norvasc PO Not Given QDAY MANOJ Atorvastatin Calcium 40 mg 12/20/18 22:00 12/25/18 23:09 Lipitor PO Not Given QHS MANOJ Clonidine HCl 0.2 mg 12/23/18 12:04 12/23/18 16:41 Catapres PO 0.2 mg Q4H PRN Administration HTN SBP>160 Clonidine HCl 0.2 mg 12/30/18 10:00 Catapres-Tts Patch TD Mo MANOJ Enoxaparin Sodium 30 mg 12/19/18 10:00 12/25/18 10:59 Lovenox SUB-Q 30 mg QDAY MANOJ Administration Hydralazine HCl 100 mg 12/19/18 20:00 12/25/18 23:07 Apresoline PO Not Given TID MANOJ Hydralazine HCl 20 mg 12/25/18 11:36 12/25/18 21:39 Apresoline IV 20 mg Q4HR PRN Administration Hypertension Dextrose/Sodium Chloride 1,000 mls @ 75 mls/hr 12/22/18 20:00 12/25/18 21:38 D5/0.45ns IV 75 mls/hr DIRECT MANOJ Administration Labetalol HCl 10 mg 12/22/18 18:30 12/26/18 05:09 Normodyne IV 10 mg Q6HR PRN Administration Blood Pressure Lorazepam 2 mg 12/19/18 03:09 Ativan IV Q1HR PRN CIWA-Ar 8-15 Lorazepam 4 mg 12/19/18 03:09 Ativan IV Q1HR PRN CIWA-Ar 16-25 Metoprolol Tartrate 5 mg 12/22/18 23:38 12/23/18 16:44 Lopressor IV 5 mg Q6H PRN Administration elevated BP. Hold for HR <60 Minoxidil 5 mg 12/23/18 22:00 12/25/18 23:09 Loniten PO Not Given BID MANOJ Ondansetron HCl 4 mg 12/19/18 03:06 Zofran IV Q8H PRN Nausea And Vomiting Sodium Chloride 10 ml 12/19/18 10:00 12/25/18 21:39 Sodium Chloride Flush Syringe 10 Ml IV 10 ml BID MANOJ Administration Sodium Chloride 10 ml 12/19/18 03:06 Sodium Chloride Flush Syringe 10 Ml IV PRN PRN LINE FLUSH Spironolactone 50 mg 12/19/18 22:00 12/25/18 23:08 Aldactone PO Not Given BID MANOJ Thiamine HCl 100 mg 12/21/18 14:00 12/25/18 10:00 Vitamin B-1 PO Not Given QDAY MANOJ
[2018-12-26] MEDS: APRESOLINE PO SCH ×4 (08:50→21:44)
[2018-12-26] MEDS: VITAMIN B-1 PO SCH ×2 (10:44→11:19)
[2018-12-26] MEDS: LOVENOX SUB-Q SCH ×2 (10:44→11:18)
[2018-12-26] MEDS: NORVASC PO SCH ×2 (10:50→11:18)
[2018-12-26] MEDS: ALDACTONE PO SCH ×3 (10:50→21:44)
[2018-12-26] MEDS: SODIUM CHLORIDE FLUSH SYRINGE 10 ML IV SCH ×3 (10:51→21:45)
[2018-12-26] MEDS: LONITEN PO SCH ×3 (10:51→21:43)
[2018-12-26] MEDS: D5/0.45NS 1,000 ML IV SCH (13:37)
--- NOTE | 2018-12-26 16:56 | Progress Note ---
Assessment and Plan Assessment and plan: Acute Metabolic encephalopathy. ? Wernicke Korsakoff, neuro following. MRI showed MRI diffuse small vessel infarct discussed with neurologist and he explained to the families and recommend Hospice care Acute on chronic renal failure likely vasomotor - Cr today is 2.4 Hypokalemia; corrected Right hydronephrosis. Urology consulted and believes it is chronic. [place] placed. Obstructive uropathy. Hypertensive urgency; continue minoxidil, clonidine, hydralazine, Norvasc. Monitor and adjusted as needed. Controlled ETOH abuse. Cont. CIWA Prognosis; poor disposition; pending family decision for home hospice. History Interval history: Patient was seen and evaluated this morning. Patient didn't show any improvement, he doesn't communicate. Has a long discussion with his brother yesterday and he like to have home hospice. Discussed with sister in-law- to call her and ask him about hospice. Waiting a call from his sister to have a final decision. Hospitalist Physical - Physical exam Narrative exam: Not in cardiopulmonary distress. The patient appeared well nourished and normally developed. Vital signs as documented. Head exam is unremarkable. No scleral icterus . Neck is without jugular venous distension, thyromegaly, or carotid bruits. Lungs are clear to auscultation. Cardiac exam reveals regular rate and Rhythm. First and second heart sounds no rmal. No murmurs, rubs or gallops. Abdominal exam reveals normal bowel sounds, no masses, no organomegaly and no aortic enlargement. Extremities are nonedematous and both femoral and pedal pulses are normal. [employer]: Somnolent. Not communicative. - Constitutional Vitals: Temp Pulse Resp BP Pulse Ox 98.2 F 78 18 130/72 2 L 12/26/18 11:24 12/26/18 11:24 12/26/18 11:24 12/26/18 11:24 12/26/18 11:24 General appearance: Present: no acute distress, well-nourished Results - Labs CBC & Chem 7: 12/26/18 05:18 12/26/18 05:18 Labs: Laboratory Last Values WBC 5.8 K/mm3 (4.5-11.0) 12/26/18 05:18 RBC 4.03 M/mm3 (3.65-5.03) 12/26/18 05:18 Hgb 10.9 gm/dl (11.8-15.2) L 12/26/18 05:18 Hct 32.9 % (35.5-45.6) L 12/26/18 05:18 MCV 82 fl (84-94) L 12/26/18 05:18 MCH 27 pg (28-32) L 12/26/18 05:18 MCHC 33 % (32-34) 12/26/18 05:18 RDW 17.2 % (13.2-15.2) H 12/26/18 05:18 Plt Count 201 K/mm3 (140-440) 12/26/18 05:18 Lymph % (Auto) 21.7 % (13.4-35.0) 12/26/18 05:18 [place] % (Auto) 14.9 % (0.0-7.3) H 12/26/18 05:18 Eos % (Auto) 0.2 % (0.0-4.3) 12/26/18 05:18 Baso % (Auto) 0.7 % (0.0-1.8) 12/26/18 05:18 Lymph # 1.3 K/mm3 (1.2-5.4) 12/26/18 05:18 [place] # 0.9 K/mm3 (0.0-0.8) H 12/26/18 05:18 Eos # 0.0 K/mm3 (0.0-0.4) 12/26/18 05:18 Baso # 0.0 K/mm3 (0.0-0.1) 12/26/18 05:18 Seg Neutrophils % 62.5 % (40.0-70.0) 12/26/18 05:18 Seg Neutrophils # 3.6 K/mm3 (1.8-7.7) 12/26/18 05:18 Sodium 140 mmol/L (137-145) 12/26/18 05:18 Potassium 4.0 mmol/L (3.6-5.0) 12/26/18 05:18 Chloride 105.6 mmol/L (98-107) 12/26/18 05:18 Carbon Dioxide 21 mmol/L (22-30) L 12/26/18 05:18 Anion Gap 17 mmol/L 12/26/18 05:18 BUN 19 mg/dL (9-20) 12/26/18 05:18 Creatinine 2.1 mg/dL (0.8-1.5) H 12/26/18 05:18 Estimated GFR 38 ml/min 12/26/18 05:18 BUN/Creatinine Ratio 9 % 12/26/18 05:18 Glucose 111 mg/dL (75-100) H 12/26/18 05:18 POC Glucose 88 (70-105) 12/24/18 05:47 Lactic Acid 1.30 mmol/L (0.7-2.0) 12/19/18 06:49 Calcium 9.0 mg/dL (8.4-10.2) 12/26/18 05:18 Magnesium 2.20 mg/dL (1.7-2.3) 12/21/18 04:27 Total Bilirubin 0.80 mg/dL (0.1-1.2) 12/26/18 05:18 AST 20 units/L (5-40) 12/26/18 05:18 ALT 7 units/L (7-56) 12/26/18 05:18 Alkaline Phosphatase 65 units/L (35-129) 12/26/18 05:18 Ammonia 23.0 umol/L (25-60) L 12/19/18 00:57 Total Protein 6.3 g/dL (6.3-8.2) 12/26/18 05:18 Albumin 3.3 g/dL (3.9-5) L 12/26/18 05:18 Albumin/Globulin Ratio 1.1 % 12/26/18 05:18 Renin 0.10 ng/mL/h (0.25-5.82) L 12/19/18 10:56 Aldosterone <1 ng/dL () 12/19/18 10:56 Aldosterone/Renin Dir see below 12/19/18 10:56 TSH 3.190 mlU/mL (0.270-4.200) 12/19/18 00:57 Urine Color [place] (Yellow) 12/19/18 02:27 Urine Turbidity Slightly-cloudy (Clear) 12/19/18 02:27 Urine pH 5.0 (5.0-7.0) 12/19/18 02:27 Ur Specific [place] 1.024 (1.003-1.030) 12/19/18 02:27 Urine Protein >500 mg/dL (Negative) 12/19/18 02:27 Urine Glucose (UA) Neg mg/dL (Negative) 12/19/18 02:27 Urine Ketones Neg mg/dL (Negative) 12/19/18 02:27 Urine Blood Neg (Negative) 12/19/18 02:27 Urine Nitrite Neg (Negative) 12/19/18 02:27 Urine Bilirubin Neg (Negative) 12/19/18 02:27 Urine Urobilinogen 4.0 mg/dL (<2.0) 12/19/18 02:27 Ur Leukocyte Esterase Neg (Negative) 12/19/18 02:27 Urine WBC (Auto) 4.0 /HPF (0.0-6.0) 12/19/18 02:27 Urine RBC (Auto) 2.0 /HPF (0.0-6.0) 12/19/18 02:27 U Epithel Cells (Auto) < 1.0 /HPF (0-13.0) 12/19/18 02:27 Urine Bacteria (Auto) 1+ /HPF (Negative) 12/19/18 02:27 Amorphous Crystals 1+ 12/19/18 02:27 Hyaline Casts 8 /LPF 12/19/18 02:27 Urine Mucus Few /HPF 12/19/18 02:27 Urine Eosinophils None seen (None Seen) 12/20/18 00:30 Urine Total Volume 500 ml 12/23/18 Unknown Urine Creatinine 39.2 mg/dL (0.1-20.0) H 12/23/18 Unknown Ur Creatinine 24 Hour 0.2 (0.8-2.8) L 12/23/18 Unknown Height (in) 72.0 inches 12/23/18 Unknown Weight (lb) 160.0 lbs 12/23/18 Unknown Creatinine Clearance 4 12/23/18 Unknown Ur Total Protein 24 Hr 60.00 mg/dL (2-200) 12/23/18 Unknown Protein/Creatinin Ratio 0.36 12/20/18 00:30 Urine Sodium 105 mmol/L 12/20/18 00:30 Urine Total Protein 12 mg/dL (5-11.8) H 12/23/18 Unknown Salicylates < 0.3 mg/dL (2.8-20.0) L 12/19/18 00:57 Urine Opiates Screen Presumptive negative 12/19/18 02:27 Urine Methadone Screen Presumptive negative 12/19/18 02:27 Acetaminophen < 5.0 ug/mL (10.0-30.0) L 12/19/18 00:57 Ur Barbiturates Screen Presumptive negative 12/19/18 02:27 Ur Phencyclidine Scrn Presumptive negative 12/19/18 02:27 Ur Amphetamines Screen Presumptive negative 12/19/18 02:27 U Benzodiazepines Scrn Presumptive negative 12/19/18 02:27 Urine Cocaine Screen Presumptive negative 12/19/18 02:27 U Marijuana (THC) Screen Presumptive positive 12/19/18 02:27 Drugs of Abuse Note Disclamer 12/19/18 02:27 Plasma/Serum Alcohol < 0.01 % (0-0.07) 12/19/18 00:57 Immunofix Electrophor see below 12/23/18 10:46 Nutrition/Malnutrition Assess - Dietary Evaluation Nutrition/Malnutrition Findings: Nutrition Notes Start: 12/26/18 10:58 Freq: Status: Active Protocol: Document 12/26/18 10:58 LOLA (Rec: 12/26/18 11:16 LOLA [email or web address]) Co-Sign 12/26/18 10:58 LP Nutrition Notes Need for Assessment generated from: LOS Initial or Follow up Assessment Current Diagnosis Acute Kidney Injury CKD(stage I-IV) Hypertension Other Pertinent Diagnosis Wernicke Korsakoff, heavy EtOH use, boil on L upper back, AMS Current Diet Mechanical soft Labs/Tests Reviewed Pertinent Medications Reviewed Height 6 ft Weight 77.4 kg Usual Body Weight 90.9 kg [place] Body Weight (kg) 80.90 BMI 23.1 Intake Prior to Admission Poor Weight change and time frame Wt. obtianed [facility] bed[facility]. 15 % BW loss over unknown time period. Weight Status Appropriate Subjective/Other Information Pt. seen for LOS. Pt. AMS and asleep, so pt. brother answered questions. Brother stated pt. intakes have been poor, and has only had bites of food since last Sunday. This AM pt. only consumed applesauce with medication. Pt . brother stated he had to work very hard to get pt. to consume food. Observed pt. tray with no food eaten. Pt. brother agreed to have pt. try Ensure Enlive. Pt. brother stated he bought pt. a pack of Boost at home, but pt. did not drink them on his own. Pt. brother denied N/V/C/D. Video News Editor noticed signs of clavicle muscle wasting. Percent of energy/protein needs met: <25%/25% Burn Absent Trauma Absent GI Symptoms None Difficulty In Swallowing Food Allergy No Current % PO Negligible Minimum of two criteria Yes Energy Intake (severe) < or equal to 50% Estimated Energy Requirement > or equal to 5 days Muscle Mass Mild Depletion (non-severe) #1 Nutrition Diagnosis Malnutrition Etiology AMS As Evidenced by Signs and Symptoms Muscle wasting, consumption of less than 50% of needs over last 5 days Is patient on ventilator? No Is Patient Ambulatory and/or Out of Bed No REE-([facility]-confined to bed) [phone] Calculation Used for Recommendations [facility] Additional Notes Pro needs: 94-118g/day (1.2-1. 5 g/kg BW) Fluid needs: 1 ml/kcal Nutrition Intervention Change Diet Order: Continue mechanical soft diet Add Supplement/Snack (indicate name/kcal Ensure Enlive daily /protein ) Provides kCal: 350 Provides Protein (gm) 20 Goal #1 ONS toleration Goal #2 Weight maintenance Anticipated Discharge Needs: Mechanical Soft with regular liquids Follow-Up By: 12/31/18 Additional Comments F/u for PO intakes, ONS tolerance, need for additional supplementation
[2018-12-27] MEDS: D5/0.45NS 1,000 ML IV SCH ×2 (02:29→15:31)
[2018-12-27] MEDS: APRESOLINE PO SCH ×3 (08:21→21:35)
[2018-12-27] MEDS: VITAMIN B-1 PO SCH (11:21)
[2018-12-27] MEDS: NORVASC PO SCH (11:22)
[2018-12-27] MEDS: ALDACTONE PO SCH ×2 (11:22→21:35)
[2018-12-27] MEDS: LONITEN PO SCH ×2 (11:22→21:34)
[2018-12-27] MEDS: LOVENOX SUB-Q SCH (11:23)
[2018-12-27] MEDS: SODIUM CHLORIDE FLUSH SYRINGE 10 ML IV SCH ×2 (11:23→21:42)
--- NOTE | 2018-12-27 13:39 | Progress Note ---
Subjective Principal diagnosis: madalyn on ckd Interval history: Patient was seen today for follow-up on multiple renal related issues blood pressure is better, Brother at bedside Renal function stable Vitals labs intake output medications were reviewed Social history: Reviewed Allergies: Reviewed Family history: Reviewed Physical examination HEENT: Oral mucosa moist no pallor or icterus Neck: Supple no JVD Chest: Clear to auscultation anteriorly CVS: Regular rate and rhythm S1 and S2 heard Abdomen: Soft nontender no suprapubic masses no organomegaly appreciable Extremity: Dry skin less than 1+ peripheral edema Musculoskeletal: No joint effusion noted in knees and ankle Neurological:patient is alert awake, now Dermatology: No petechial rashes Psychiatry: No evidence of any agitation and aggression noted Assessment and plan Chronic kidney disease: Stable renal function; family has been educated about all the renal related issues Accelerated hypertension much better controlled, follow-up on aldosterone Anemia and chronic kidney disease to monitor and follow. Immunofixation normal Protein creatinine ratio 0.36, likely due to hypertension Encephalopathy,, being followed by primary , and neurology Anemia and chronic kidney disease, we'll abstain from erythropoietin for now due to stroke Renal ultrasonogram showed echogenic kidneys Right-sided hydronephrosis, left renal cysts: Patient has seen urology and will need to follow-up with Dr. Casas in the outpatient setting discussed with Brother at bed side , made aware about renal related problems We'll continue to follow and make recommendation from renal standpoint Objective - Vital Signs Vital signs: Vital Signs - 12hr 12/27/18 12/27/18 12/27/18 04:28 07:32 11:15 Temperature 98.9 F 98.0 F 98.4 F Pulse Rate 92 H 90 86 Respiratory 17 18 18 Rate Blood Pressure 148/80 149/79 Blood Pressure 153/76 [Left] O2 Sat by Pulse 100 97 99 Oximetry 12/27/18 11:22 Temperature Pulse Rate 81 Respiratory Rate Blood Pressure 153/76 Blood Pressure [Left] O2 Sat by Pulse Oximetry - Lab 12/26/18 05:18 12/26/18 05:18 Most recent lab results Calcium 9.0 mg/dL (8.4-10.2) 12/26/18 05:18 Magnesium 2.20 mg/dL (1.7-2.3) 12/21/18 04:27 Urine Creatinine 39.2 mg/dL (0.1-20.0) H 12/23/18 Unknown Ur Total Protein 24 Hr 60.00 mg/dL (2-200) 12/23/18 Unknown Urine Sodium 105 mmol/L 12/20/18 00:30 Urine Total Protein 12 mg/dL (5-11.8) H 12/23/18 Unknown Medications & Allergies - Medications Allergies/Adverse Reactions: Allergies No Known Allergies Allergy (Verified 12/19/18 03:17) Home Medications: Home Medications Medication Instructions Recorded Confirmed Last Taken Type No Known Home Medications [No 12/19/18 12/19/18 Unknown History Reported Home Medications] Active Medications: Generic Name Dose Route Start Last Admin Trade Name Freq PRN Reason Stop Dose Admin Acetaminophen 650 mg 12/19/18 03:06 Tylenol PO Q4H PRN Pain MILD(1-3)/Fever >100.5/[place] Acetaminophen 650 mg 12/26/18 04:59 12/26/18 05:09 Tylenol [place] 650 mg Q4H PRN Administration Pain, Mild (1-3) Amlodipine Besylate 10 mg 12/22/18 16:00 12/27/18 11:22 Norvasc PO 10 mg QDAY MANOJ Administration Atorvastatin Calcium 40 mg 12/20/18 22:00 12/26/18 21:44 Lipitor PO 40 mg QHS MANOJ Administration Clonidine HCl 0.2 mg 12/23/18 12:04 12/23/18 16:41 Catapres PO 0.2 mg Q4H PRN Administration HTN SBP>160 Clonidine HCl 0.2 mg 12/30/18 10:00 Catapres-Tts Patch TD Mo MANOJ Enoxaparin Sodium 30 mg 12/19/18 10:00 12/27/18 11:23 Lovenox SUB-Q 30 mg QDAY MANOJ Administration Hydralazine HCl 100 mg 12/19/18 20:00 12/27/18 08:21 Apresoline PO 100 mg TID MANOJ Administration Hydralazine HCl 20 mg 12/25/18 11:36 12/25/18 21:39 Apresoline IV 20 mg Q4HR PRN Administration Hypertension Dextrose/Sodium Chloride 1,000 mls @ 75 mls/hr 12/22/18 20:00 12/27/18 02:29 D5/0.45ns IV 75 mls/hr DIRECT MANOJ Administration Labetalol HCl 10 mg 12/22/18 18:30 12/26/18 05:09 Normodyne IV 10 mg Q6HR PRN Administration Blood Pressure Lorazepam 2 mg 12/19/18 03:09 Ativan IV Q1HR PRN CIWA-Ar 8-15 Lorazepam 4 mg 12/19/18 03:09 Ativan IV Q1HR PRN CIWA-Ar 16-25 Metoprolol Tartrate 5 mg 12/22/18 23:38 12/23/18 16:44 Lopressor IV 5 mg Q6H PRN Administration elevated BP. Hold for HR <60 Minoxidil 5 mg 12/23/18 22:00 12/27/18 11:22 Loniten PO 5 mg BID MANOJ Administration Ondansetron HCl 4 mg 12/19/18 03:06 Zofran IV Q8H PRN Nausea And Vomiting Sodium Chloride 10 ml 12/19/18 10:00 12/27/18 11:23 Sodium Chloride Flush Syringe 10 Ml IV 10 ml BID MANOJ Administration Sodium Chloride 10 ml 12/19/18 03:06 Sodium Chloride Flush Syringe 10 Ml IV PRN PRN LINE FLUSH Spironolactone 50 mg 12/19/18 22:00 12/27/18 11:22 Aldactone PO 50 mg BID MANOJ Administration Thiamine HCl 100 mg 12/21/18 14:00 12/27/18 11:21 Vitamin B-1 PO 100 mg QDAY MANOJ Administration
--- NOTE | 2018-12-27 15:09 | Progress Note ---
Assessment and Plan Assessment and plan: Acute Metabolic encephalopathy. ? Wernicke Korsakoff, neuro following. 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 Urology consulted and believes it is chronic. Peraza placed. Obstructive uropathy. Hypertensive urgency; continue minoxidil, clonidine, hydralazine, Norvasc. Monitor and adjusted as needed. Controlled ETOH abuse. Cont. CIWA patient had episode of fever and blood culture ordered Nutrition; patient can drink sips, will put an order for ensure. Prognosis; poor disposition; pending family decision for home hospice. History Interval history: Patient was seen and evaluated this morning. Patient didn't show any improvement, he doesn't communicate. Has a long discussion with his brother yesterday and he like to have home hospice. The brother said he does't want to take him today, will get back to me after he talk with hospice people. Patient drink juice this morning. Hospitalist Physical - Physical exam Narrative exam: Not in cardiopulmonary distress. The patient appeared well nourished and normally developed. Vital signs as documented. Head exam is unremarkable. No scleral icterus . Neck is without jugular venous distension, thyromegaly, or carotid bruits. Lungs are clear to auscultation. Cardiac exam reveals regular rate and Rhythm. First and second heart sounds normal. No murmurs, rubs or gallops. Abdominal exam reveals normal bowel sounds, no masses, no organomegaly and no aortic enlargement. Extremities are nonedematous and both femoral and pedal pulses are normal. CONDENSER CLEANER: Somnolent. Not communicative. - Constitutional Vitals: Temp Pulse Resp BP Pulse Ox 98.4 F 81 18 153/76 99 12/27/18 11:15 12/27/18 11:22 12/27/18 11:15 12/27/18 11:22 12/27/18 11:15 General appearance: Present: no acute distress, well-nourished Results - Labs CBC & Chem 7: 12/26/18 05:18 12/26/18 05:18 Labs: Laboratory Last Values WBC 5.8 K/mm3 (4.5-11.0) 12/26/18 05:18 RBC 4.03 M/mm3 (3.65-5.03) 12/26/18 05:18 Hgb 10.9 gm/dl (11.8-15.2) L 12/26/18 05:18 Hct 32.9 % (35.5-45.6) L 12/26/18 05:18 MCV 82 fl (84-94) L 12/26/18 05:18 MCH 27 pg (28-32) L 12/26/18 05:18 MCHC 33 % (32-34) 12/26/18 05:18 RDW 17.2 % (13.2-15.2) H 12/26/18 05:18 Plt Count 201 K/mm3 (140-440) 12/26/18 05:18 Lymph % (Auto) 21.7 % (13.4-35.0) 12/26/18 05:18 [place] % (Auto) 14.9 % (0.0-7.3) H 12/26/18 05:18 Eos % (Auto) 0.2 % (0.0-4.3) 12/26/18 05:18 Baso % (Auto) 0.7 % (0.0-1.8) 12/26/18 05:18 Lymph # 1.3 K/mm3 (1.2-5.4) 12/26/18 05:18 [place] # 0.9 K/mm3 (0.0-0.8) H 12/26/18 05:18 Eos # 0.0 K/mm3 (0.0-0.4) 12/26/18 05:18 Baso # 0.0 K/mm3 (0.0-0.1) 12/26/18 05:18 Seg Neutrophils % 62.5 % (40.0-70.0) 12/26/18 05:18 Seg Neutrophils # 3.6 K/mm3 (1.8-7.7) 12/26/18 05:18 Sodium 140 mmol/L (137-145) 12/26/18 05:18 Potassium 4.0 mmol/L (3.6-5.0) 12/26/18 05:18 Chloride 105.6 mmol/L (98-107) 12/26/18 05:18 Carbon Dioxide 21 mmol/L (22-30) L 12/26/18 05:18 Anion Gap 17 mmol/L 12/26/18 05:18 BUN 19 mg/dL (9-20) 12/26/18 05:18 Creatinine 2.1 mg/dL (0.8-1.5) H 12/26/18 05:18 Estimated GFR 38 ml/min 12/26/18 05:18 BUN/Creatinine Ratio 9 % 12/26/18 05:18 Glucose 111 mg/dL (75-100) H 12/26/18 05:18 POC Glucose 88 (70-105) 12/24/18 05:47 Lactic Acid 1.30 mmol/L (0.7-2.0) 12/19/18 06:49 Calcium 9.0 mg/dL (8.4-10.2) 12/26/18 05:18 Magnesium 2.20 mg/dL (1.7-2.3) 12/21/18 04:27 Total Bilirubin 0.80 mg/dL (0.1-1.2) 12/26/18 05:18 AST 20 units/L (5-40) 12/26/18 05:18 ALT 7 units/L (7-56) 12/26/18 05:18 Alkaline Phosphatase 65 units/L (35-129) 12/26/18 05:18 Ammonia 23.0 umol/L (25-60) L 12/19/18 00:57 Total Protein 6.3 g/dL (6.3-8.2) 12/26/18 05:18 Albumin 3.3 g/dL (3.9-5) L 12/26/18 05:18 Albumin/Globulin Ratio 1.1 % 12/26/18 05:18 Renin 0.10 ng/mL/h (0.25-5.82) L 12/19/18 10:56 Aldosterone <1 ng/dL () 12/19/18 10:56 Aldosterone/Renin Dir see below 12/19/18 10:56 TSH 3.190 mlU/mL (0.270-4.200) 12/19/18 00:57 Urine Color Carmen (Yellow) 12/19/18 02:27 Urine Turbidity Slightly-cloudy (Clear) 12/19/18 02:27 Urine pH 5.0 (5.0-7.0) 12/19/18 02:27 Ur Specific [place] 1.024 (1.003-1.030) 12/19/18 02:27 Urine Protein >500 mg/dL (Negative) 12/19/18 02:27 Urine Glucose (UA) Neg mg/dL (Negative) 12/19/18 02:27 Urine Ketones Neg mg/dL (Negative) 12/19/18 02:27 Urine Blood Neg (Negative) 12/19/18 02:27 Urine Nitrite Neg (Negative) 12/19/18 02:27 Urine Bilirubin Neg (Negative) 12/19/18 02:27 Urine Urobilinogen 4.0 mg/dL (<2.0) 12/19/18 02:27 Ur Leukocyte Esterase Neg (Negative) 12/19/18 02:27 Urine WBC (Auto) 4.0 /HPF (0.0-6.0) 12/19/18 02:27 Urine RBC (Auto) 2.0 /HPF (0.0-6.0) 12/19/18 02:27 U Epithel Cells (Auto) < 1.0 /HPF (0-13.0) 12/19/18 02:27 Urine Bacteria (Auto) 1+ /HPF (Negative) 12/19/18 02:27 Amorphous Crystals 1+ 12/19/18 02:27 Hyaline Casts 8 /LPF 12/19/18 02:27 Urine Mucus Few /HPF 12/19/18 02:27 Urine Eosinophils None seen (None Seen) 12/20/18 00:30 Urine Total Volume 500 ml 12/23/18 Unknown Urine Creatinine 39.2 mg/dL (0.1-20.0) H 12/23/18 Unknown Ur Creatinine 24 Hour 0.2 (0.8-2.8) L 12/23/18 Unknown Height (in) 72.0 inches 12/23/18 Unknown Weight (lb) 160.0 lbs 12/23/18 Unknown Creatinine Clearance 4 12/23/18 Unknown Ur Total Protein 24 Hr 60.00 mg/dL (2-200) 12/23/18 Unknown Protein/Creatinin Ratio 0.36 12/20/18 00:30 Urine Sodium 105 mmol/L 12/20/18 00:30 Urine Total Protein 12 mg/dL (5-11.8) H 12/23/18 Unknown Salicylates < 0.3 mg/dL (2.8-20.0) L 12/19/18 00:57 Urine Opiates Screen Presumptive negative 12/19/18 02:27 Urine Methadone Screen Presumptive negative 12/19/18 02:27 Acetaminophen < 5.0 ug/mL (10.0-30.0) L 12/19/18 00:57 Ur Barbiturates Screen Presumptive negative 12/19/18 02:27 Ur Phencyclidine Scrn Presumptive negative 12/19/18 02:27 Ur Amphetamines Screen Presumptive negative 12/19/18 02:27 U Benzodiazepines Scrn Presumptive negative 12/19/18 02:27 Urine Cocaine Screen Presumptive negative 12/19/18 02:27 U Marijuana (THC) Screen Presumptive positive 12/19/18 02:27 Drugs of Abuse Note Disclamer 12/19/18 02:27 Plasma/Serum Alcohol < 0.01 % (0-0.07) 12/19/18 00:57 Immunofix Electrophor see below 12/23/18 10:46 Nutrition/Malnutrition Assess - Dietary Evaluation Nutrition/Malnutrition Findings: Nutrition Notes Start: 12/26/18 10:58 Freq: Status: Active Protocol: Document 12/26/18 10:58 KH (Rec: 12/26/18 11:16 LOLA [email or web address]) Co-Sign 12/26/18 10:58 LP Nutrition Notes Need for Assessment generated from: LOS Initial or Follow up Assessment Current Diagnosis Acute Kidney Injury CKD(stage I-IV) Hypertension Other Pertinent Diagnosis Wernicke Korsakoff, heavy EtOH use, boil on L upper back, AMS Current Diet Mechanical soft Labs/Tests Reviewed Pertinent Medications Reviewed Height 6 ft Weight 77.4 kg Usual Body Weight 90.9 kg [place] Body Weight (kg) 80.90 BMI 23.1 Intake Prior to Admission Poor Weight change and time frame Wt. obtianed [facility] bedscale. 15 % BW loss over unknown time period. Weight Status Appropriate Subjective/Other Information Pt. seen for LOS. Pt. AMS and asleep, so pt. brother answered questions. Brother stated pt. intakes have been poor, and has only had bites of food since last Sunday. This AM pt. only consumed applesauce with medication. Pt . brother stated he had to work very hard to get pt. to consume food. Observed pt. tray with no food eaten. Pt. brother agreed to have pt. try Ensure Enlive. Pt. brother stated he bought pt. a pack of Boost at home, but pt. did not drink them on his own. Pt. brother denied N/V/C/D. Resident Intern noticed signs of clavicle muscle wasting. Percent of energy/protein needs met: <25%/25% Burn Absent Trauma Absent GI Symptoms None Difficulty In Swallowing Food Allergy No Current % PO Negligible Minimum of two criteria Yes Energy Intake (severe) < or equal to 50% Estimated Energy Requirement > or equal to 5 days Muscle Mass Mild Depletion (non-severe) #1 Nutrition Diagnosis Malnutrition Etiology AMS As Evidenced by Signs and Symptoms Muscle wasting, consumption of less than 50% of needs over last 5 days Is patient on ventilator? No Is Patient Ambulatory and/or Out of Bed No REE-([facility]-confined to bed) 4046.836 Calculation Used for Recommendations [facility] Additional Notes Pro needs: 94-118g/day (1.2-1. 5 g/kg BW) Fluid needs: 1 ml/kcal Nutrition Intervention Change Diet Order: Continue mechanical soft diet Add Supplement/Snack (indicate name/kcal Ensure Enlive daily /protein ) Provides kCal: 350 Provides Protein (gm) 20 Goal #1 ONS toleration Goal #2 Weight maintenance Anticipated Discharge Needs: Mechanical Soft with regular liquids Follow-Up By: 12/31/18 Additional Comments F/u for PO intakes, ONS tolerance, need for additional supplementation
[2018-12-28] MEDS: D5/0.45NS 1,000 ML IV SCH (04:04)
[2018-12-28 05:51] LABS: Basophils % (Auto) 0.4 % (0.0-1.8); Eosinophils % (Auto) 0.5 % (0.0-4.3); Hematocrit 32.1 % (35.5-45.6); Hemoglobin 10.7 gm/dl (11.8-15.2); Lymphocytes # (Auto) 1.2 K/mm3 (1.2-5.4); Lymphocytes % (Auto) 15.7 % (13.4-35.0); Mean Corpuscular HGB Conc 33 % (32-34); Mean Corpuscular Volume 81 fl (84-94); Monocytes # (Auto) 0.9 K/mm3 (0.0-0.8); Monocytes % (Auto) 11.1 % (0.0-7.3); Platelet Count 210 K/mm3 (140-440); Red Blood Count 3.96 M/mm3 (3.65-5.03); Red Cell Distribution Width 16.8 % (13.2-15.2)
[2018-12-28 06:38] LABS: Calcium 9.1 mg/dL (8.4-10.2)
[2018-12-28] MEDS: APRESOLINE PO SCH ×3 (10:00→20:52)
[2018-12-28] MEDS: LOVENOX SUB-Q SCH (11:06)
[2018-12-28] MEDS: LONITEN PO SCH ×2 (11:06→22:48)
[2018-12-28] MEDS: NORVASC PO SCH (11:06)
[2018-12-28] MEDS: VITAMIN B-1 PO SCH (11:07)
[2018-12-28] MEDS: ALDACTONE PO SCH ×2 (11:07→22:48)
[2018-12-28] MEDS: SODIUM CHLORIDE FLUSH SYRINGE 10 ML IV SCH ×2 (11:08→22:49)
--- NOTE | 2018-12-28 13:07 | Progress Note ---
Assessment and Plan Impression * Acute on chronic renal failure * Altered mental status * Obstructive uropathy * Hypertension Recommendations * His renal function seems to be slowly improving * He currently has indwelling Peraza catheter in place and being followed by urology * Continue gentle hydration * Avoid nephrotoxins * Patient is stable for discharge from renal standpoint * Discussed with the patient's brother at bedside Subjective Date of service: 12/28/18 Principal diagnosis: madalyn on ckd Interval history: Patient sleeping comfortably at this time. Doing well per his brother at bedside Objective - Vital Signs Vital signs: Vital Signs - 12hr 12/28/18 12/28/18 04:30 08:30 Temperature 99.2 F 98.1 F Pulse Rate 89 81 Respiratory 16 16 Rate Blood Pressure 168/83 149/79 O2 Sat by Pulse 100 98 Oximetry - General Appearance General appearance: well-developed, well-nourished, appears stated age EENT: PERRL, mucous membranes moist Neck: no JVD, no thyromegaly, no carotid bruit, supple Respiratory: Present: Clear to Ascultation Cardiology: regular, normal heart rate, S1S2, no murmurs Gastrointestinal: normal, normoactive bowel sounds Integumentary: no rash, other (no edema) - Lab 12/28/18 04:58 12/28/18 04:58 Most recent lab results Calcium 9.1 mg/dL (8.4-10.2) 12/28/18 04:58 Magnesium 2.20 mg/dL (1.7-2.3) 12/21/18 04:27 Urine Creatinine 39.2 mg/dL (0.1-20.0) H 12/23/18 Unknown Ur Total Protein 24 Hr 60.00 mg/dL (2-200) 12/23/18 Unknown Urine Sodium 105 mmol/L 12/20/18 00:30 Urine Total Protein 12 mg/dL (5-11.8) H 12/23/18 Unknown Medications & Allergies - Medications Allergies/Adverse Reactions: Allergies No Known Allergies Allergy (Verified 12/19/18 03:17) Home Medications: Home Medications Medication Instructions Recorded Confirmed Last Taken Type No Known Home Medications [No 12/19/18 12/19/18 Unknown History Reported Home Medications] Active Medications: Generic Name Dose Route Start Last Admin Trade Name Freq PRN Reason Stop Dose Admin Acetaminophen 650 mg 12/19/18 03:06 Tylenol PO Q4H PRN Pain MILD(1-3)/Fever >100.5/[place] Acetaminophen 650 mg 12/26/18 04:59 12/26/18 05:09 Tylenol NE 650 mg Q4H PRN Administration Pain, Mild (1-3) Amlodipine Besylate 10 mg 12/22/18 16:00 12/28/18 11:06 Norvasc PO 10 mg QDAY MANOJ Administration Atorvastatin Calcium 40 mg 12/20/18 22:00 12/27/18 21:35 Lipitor PO 40 mg QHS MANOJ Administration Clonidine HCl 0.2 mg 12/23/18 12:04 12/23/18 16:41 Catapres PO 0.2 mg Q4H PRN Administration HTN SBP>160 Clonidine HCl 0.2 mg 12/30/18 10:00 Catapres-Tts Patch TD Mo MANOJ Enoxaparin Sodium 40 mg 12/28/18 10:00 12/28/18 11:06 Lovenox SUB-Q 40 mg QDAY@1000 MANOJ Administration Hydralazine HCl 100 mg 12/19/18 20:00 12/27/18 21:35 Apresoline PO 100 mg TID MANOJ Administration Hydralazine HCl 20 mg 12/25/18 11:36 12/25/18 21:39 Apresoline IV 20 mg Q4HR PRN Administration Hypertension Dextrose/Sodium Chloride 1,000 mls @ 75 mls/hr 12/22/18 20:00 12/28/18 04:04 D5/0.45ns IV 75 mls/hr DIRECT MANOJ Administration Labetalol HCl 10 mg 12/22/18 18:30 12/26/18 05:09 Normodyne IV 10 mg Q6HR PRN Administration Blood Pressure Lorazepam 2 mg 12/19/18 03:09 Ativan IV Q1HR PRN CIWA-Ar 8-15 Lorazepam 4 mg 12/19/18 03:09 Ativan IV Q1HR PRN CIWA-Ar 16-25 Metoprolol Tartrate 5 mg 12/22/18 23:38 12/23/18 16:44 Lopressor IV 5 mg Q6H PRN Administration elevated BP. Hold for HR <60 Minoxidil 5 mg 12/23/18 22:00 12/28/18 11:06 Loniten PO 5 mg BID MANOJ Administration Ondansetron HCl 4 mg 12/19/18 03:06 Zofran IV Q8H PRN Nausea And Vomiting Sodium Chloride 10 ml 12/19/18 10:00 12/28/18 11:08 Sodium Chloride Flush Syringe 10 Ml IV 10 ml BID MANOJ Administration Sodium Chloride 10 ml 12/19/18 03:06 Sodium Chloride Flush Syringe 10 Ml IV PRN PRN LINE FLUSH Spironolactone 50 mg 12/19/18 22:00 12/28/18 11:07 Aldactone PO 50 mg BID MANOJ Administration Thiamine HCl 100 mg 12/21/18 14:00 12/28/18 11:07 Vitamin B-1 PO 100 mg QDAY MANOJ Administration
--- NOTE | 2018-12-28 14:03 | Progress Note ---
Subjective Date of service: 12/28/18 Principal diagnosis: madalyn on ckd Interval history: eyes open no speech perhaps visual tracking but still semi-comatose state spoke to brother re multiple strokes Objective - Vital Sign Vital Signs - 12hr 12/28/18 12/28/18 04:30 08:30 Temperature 99.2 F 98.1 F Pulse Rate 89 81 Respiratory 16 16 Rate Blood Pressure 168/83 149/79 O2 Sat by Pulse 100 98 Oximetry - Laboratory Findings CBC and BMP: 12/28/18 04:58 12/28/18 04:58 Abnormal Lab Findings: Abnormal Labs 12/19/18 12/19/18 12/19/18 00:57 00:57 00:57 WBC RBC 5.05 H Hgb Hct MCV 82 L MCH 27 L RDW 17.5 H Plt Count Lymph % (Auto) 10.7 L [place] % (Auto) Lymph # 0.9 L [place] # Seg Neutrophils % 84.1 H Seg Neutrophils # Potassium Carbon Dioxide BUN Creatinine 2.2 H Glucose POC Glucose Lactic Acid 2.30 H* Magnesium Total Bilirubin 1.60 H ALT Ammonia Total Protein Albumin Renin Urine Creatinine Ur Creatinine 24 Hour Urine Total Protein Salicylates Acetaminophen 12/19/18 12/19/18 12/19/18 00:57 00:57 00:57 WBC RBC Hgb Hct MCV MCH RDW Plt Count Lymph % (Auto) [place] % (Auto) Lymph # [place] # Seg Neutrophils % Seg Neutrophils # Potassium Carbon Dioxide BUN Creatinine Glucose POC Glucose Lactic Acid Magnesium Total Bilirubin ALT Ammonia 23.0 L Total Protein Albumin Renin Urine Creatinine Ur Creatinine 24 Hour Urine Total Protein Salicylates < 0.3 L Acetaminophen < 5.0 L 12/19/18 12/19/18 12/19/18 00:58 06:49 06:49 WBC 11.7 H RBC Hgb Hct MCV 81 L MCH 27 L RDW 18.0 H Plt Count Lymph % (Auto) 10.5 L [place] % (Auto) Lymph # [place] # Seg Neutrophils % 83.8 H Seg Neutrophils # 9.8 H Potassium 3.4 L Carbon Dioxide BUN Creatinine 2.0 H Glucose 105 H POC Glucose 110 H Lactic Acid Magnesium Total Bilirubin ALT Ammonia Total Protein Albumin Renin Urine Creatinine Ur Creatinine 24 Hour Urine Total Protein Salicylates Acetaminophen 12/19/18 12/20/18 12/20/18 10:56 00:30 05:15 WBC RBC Hgb Hct MCV 82 L MCH 27 L RDW 17.5 H Plt Count 133 L Lymph % (Auto) [place] % (Auto) 7.8 H Lymph # [place] # Seg Neutrophils % Seg Neutrophils # Potassium Carbon Dioxide BUN Creatinine Glucose POC Glucose Lactic Acid Magnesium Total Bilirubin ALT Ammonia Total Protein Albumin Renin 0.10 L Urine Creatinine 157.1 H Ur Creatinine 24 Hour Urine Total Protein 57 H Salicylates Acetaminophen 12/20/18 12/20/18 12/20/18 05:15 05:15 16:46 WBC RBC Hgb Hct MCV MCH RDW Plt Count Lymph % (Auto) [place] % (Auto) Lymph # [place] # Seg Neutrophils % Seg Neutrophils # Potassium 3.5 L Carbon Dioxide BUN Creatinine 2.1 H Glucose 109 H POC Glucose 109 H Lactic Acid Magnesium 1.60 L Total Bilirubin 1.50 H ALT Ammonia Total Protein 6.2 L D Albumin 3.8 L Renin Urine Creatinine Ur Creatinine 24 Hour Urine Total Protein Salicylates Acetaminophen 12/20/18 12/21/18 12/21/18 20:38 04:27 04:27 WBC RBC Hgb 11.4 L Hct 34.2 L MCV 82 L MCH 27 L RDW 17.8 H Plt Count 130 L Lymph % (Auto) [place] % (Auto) 7.5 H Lymph # [place] # Seg Neutrophils % 73.3 H Seg Neutrophils # Potassium Carbon Dioxide BUN Creatinine 1.9 H Glucose 102 H POC Glucose 110 H Lactic Acid Magnesium Total Bilirubin 1.30 H ALT 6 L Ammonia Total Protein 5.7 L Albumin 3.4 L Renin Urine Creatinine Ur Creatinine 24 Hour Urine Total Protein Salicylates Acetaminophen 12/22/18 12/22/18 12/22/18 04:25 04:25 04:25 WBC RBC Hgb 11.3 L Hct 34.3 L MCV 83 L MCH 27 L RDW 18.0 H Plt Count Lymph % (Auto) [place] % (Auto) 7.7 H Lymph # [place] # Seg Neutrophils % 70.5 H Seg Neutrophils # Potassium Carbon Dioxide BUN Creatinine 2.4 H 2.4 H Glucose POC Glucose Lactic Acid Magnesium Total Bilirubin ALT 6 L Ammonia Total Protein 6.0 L Albumin 3.4 L Renin Urine Creatinine Ur Creatinine 24 Hour Urine Total Protein Salicylates Acetaminophen 12/23/18 12/23/18 12/23/18 04:41 04:41 Unknown WBC RBC Hgb 11.3 L Hct 33.7 L MCV 83 L MCH RDW 17.5 H Plt Count Lymph % (Auto) [place] % (Auto) 8.2 H Lymph # [place] # Seg Neutrophils % 71.4 H Seg Neutrophils # Potassium Carbon Dioxide BUN Creatinine 2.4 H Glucose POC Glucose Lactic Acid Magnesium Total Bilirubin ALT 6 L Ammonia Total Protein 6.1 L Albumin 3.3 L Renin Urine Creatinine 39.2 H Ur Creatinine 24 Hour 0.2 L Urine Total Protein 12 H Salicylates Acetaminophen 12/23/18 12/24/18 12/24/18 Unknown 06:25 06:25 WBC RBC Hgb Hct MCV 82 L MCH 27 L RDW 18.0 H Plt Count Lymph % (Auto) [place] % (Auto) 8.5 H Lymph # [place] # Seg Neutrophils % Seg Neutrophils # Potassium Carbon Dioxide BUN Creatinine 2.1 H Glucose 109 H POC Glucose Lactic Acid Magnesium Total Bilirubin ALT 6 L Ammonia Total Protein Albumin 3.5 L Renin Urine Creatinine 37.1 H Ur Creatinine 24 Hour Urine Total Protein Salicylates Acetaminophen 12/25/18 12/25/18 12/26/18 05:32 05:32 05:18 WBC RBC Hgb 11.5 L 10.9 L Hct 35.1 L 32.9 L MCV 83 L 82 L MCH 27 L 27 L RDW 17.7 H 17.2 H Plt Count Lymph % (Auto) [place] % (Auto) 10.1 H 14.9 H Lymph # [place] # 0.9 H Seg Neutrophils % 71.2 H Seg Neutrophils # Potassium Carbon Dioxide BUN Creatinine 2.4 H Glucose 113 H POC Glucose Lactic Acid Magnesium Total Bilirubin ALT 6 L Ammonia Total Protein Albumin 3.6 L Renin Urine Creatinine Ur Creatinine 24 Hour Urine Total Protein Salicylates Acetaminophen 12/26/18 12/28/18 12/28/18 05:18 04:58 04:58 WBC RBC Hgb 10.7 L Hct 32.1 L MCV 81 L MCH 27 L RDW 16.8 H Plt Count Lymph % (Auto) [place] % (Auto) 11.1 H Lymph # [place] # 0.9 H Seg Neutrophils % 72.3 H Seg Neutrophils # Potassium Carbon Dioxide 21 L BUN 26 H Creatinine 2.1 H 1.9 H Glucose 111 H 111 H POC Glucose Lactic Acid Magnesium Total Bilirubin ALT Ammonia Total Protein Albumin 3.3 L [place] Urine Creatinine Ur Creatinine 24 Hour Urine Total Protein Salicylates Acetaminophen
--- NOTE | 2018-12-28 16:07 | Progress Note ---
Assessment and Plan - Patient Problems (1) Acute kidney injury superimposed on chronic kidney disease Current Visit: Yes Status: Acute Plan to address problem: Acute kidney injury seems to be improving with IV fluids and Peraza catheter placement. Continue to follow nephrotoxic agents. (2) CATRACHITO (acute kidney injury) Current Visit: Yes Status: Acute (3) Cognitive decline Current Visit: Yes Status: Acute Plan to address problem: Cognitive: Decline most likely multifactorial due to infarct dementia and Wernicke Korsakoff syndrome. At present she is some improvement. Patient has a PPS of about 20 weight has changes of improving or be more chronic. We'll suggest acute rehabilitation facility. (4) Hypertensive urgency Current Visit: Yes Status: Acute Plan to address problem: Resolved with current antihypertensives. (5) Alcohol abuse Current Visit: Yes Status: Acute Plan to address problem: No seizure. On CIWA protocol. And vitamin replacement. Tolerating weaning. History Interval history: Patient is a pleasant seems to follow me with his eyes. Attempts to get up. Remains encephalopathic. Family and fianc states patient was much more alert yesterday. Was still show signs of improvement. Patient was able to eat mashed potatoes. Hospitalist Physical - Constitutional Vitals: Temp Pulse Resp BP Pulse Ox 98.1 F 81 16 149/79 98 12/28/18 08:30 12/28/18 08:30 12/28/18 08:30 12/28/18 08:30 12/28/18 08:30 General appearance: Present: no acute distress, well-nourished - EENT Eyes: Present: PERRL, EOM intact ENT: hearing intact, clear oral mucosa, dentition normal, other (anterior congestion) - Neck Neck: Present: supple, normal ROM - Respiratory Respiratory: bilateral: CTA - Cardiovascular Rhythm: regular Heart Sounds: Present: S1 & S2 - Extremities Extremities: no ischemia, pulses intact, pulses symmetrical, No edema, normal temperature, normal color Peripheral Pulses: within normal limits - Abdominal General gastrointestinal: soft, non-tender, non-distended - Psychiatric Psychiatric: other (poor judgment and encephalopathic) - Neurologic Neurologic: focal deficits - Allied Health Allied health notes reviewed: OT Results - Labs CBC & Chem 7: 12/28/18 04:58 12/28/18 04:58 Labs: Laboratory Last Values WBC 7.7 K/mm3 (4.5-11.0) 12/28/18 04:58 RBC 3.96 M/mm3 (3.65-5.03) 12/28/18 04:58 Hgb 10.7 gm/dl (11.8-15.2) L 12/28/18 04:58 Hct 32.1 % (35.5-45.6) L 12/28/18 04:58 MCV 81 fl (84-94) L 12/28/18 04:58 MCH 27 pg (28-32) L 12/28/18 04:58 MCHC 33 % (32-34) 12/28/18 04:58 RDW 16.8 % (13.2-15.2) H 12/28/18 04:58 Plt Count 210 K/mm3 (140-440) 12/28/18 04:58 Lymph % (Auto) 15.7 % (13.4-35.0) 12/28/18 04:58 [place] % (Auto) 11.1 % (0.0-7.3) H 12/28/18 04:58 Eos % (Auto) 0.5 % (0.0-4.3) 12/28/18 04:58 Baso % (Auto) 0.4 % (0.0-1.8) 12/28/18 04:58 Lymph # 1.2 K/mm3 (1.2-5.4) 12/28/18 04:58 [place] # 0.9 K/mm3 (0.0-0.8) H 12/28/18 04:58 Eos # 0.0 K/mm3 (0.0-0.4) 12/28/18 04:58 Baso # 0.0 K/mm3 (0.0-0.1) 12/28/18 04:58 Seg Neutrophils % 72.3 % (40.0-70.0) H 12/28/18 04:58 Seg Neutrophils # 5.6 K/mm3 (1.8-7.7) 12/28/18 04:58 Sodium 140 mmol/L (137-145) 12/28/18 04:58 Potassium 4.2 mmol/L (3.6-5.0) 12/28/18 04:58 Chloride 103.4 mmol/L (98-107) 12/28/18 04:58 Carbon Dioxide 22 mmol/L (22-30) 12/28/18 04:58 Anion Gap 19 mmol/L 12/28/18 04:58 BUN 26 mg/dL (9-20) H 12/28/18 04:58 Creatinine 1.9 mg/dL (0.8-1.5) H 12/28/18 04:58 Estimated GFR 43 ml/min 12/28/18 04:58 BUN/Creatinine Ratio 14 % 12/28/18 04:58 Glucose 111 mg/dL (75-100) H 12/28/18 04:58 POC Glucose 88 (70-105) 12/24/18 05:47 Lactic Acid 1.30 mmol/L (0.7-2.0) 12/19/18 06:49 Calcium 9.1 mg/dL (8.4-10.2) 12/28/18 04:58 Magnesium 2.20 mg/dL (1.7-2.3) 12/21/18 04:27 Total Bilirubin 0.80 mg/dL (0.1-1.2) 12/26/18 05:18 AST 20 units/L (5-40) 12/26/18 05:18 ALT 7 units/L (7-56) 12/26/18 05:18 Alkaline Phosphatase 65 units/L (35-129) 12/26/18 05:18 Ammonia 23.0 umol/L (25-60) L 12/19/18 00:57 Total Protein 6.3 g/dL (6.3-8.2) 12/26/18 05:18 Albumin 3.3 g/dL (3.9-5) L 12/26/18 05:18 Albumin/Globulin Ratio 1.1 % 12/26/18 05:18 Renin 0.10 ng/mL/h (0.25-5.82) L 12/19/18 10:56 Aldosterone <1 ng/dL () 12/19/18 10:56 Aldosterone/Renin Dir see below 12/19/18 10:56 TSH 3.190 mlU/mL (0.270-4.200) 12/19/18 00:57 Urine Color [place] (Yellow) 12/19/18 02:27 Urine Turbidity Slightly-cloudy (Clear) 12/19/18 02:27 Urine pH 5.0 (5.0-7.0) 12/19/18 02:27 Ur Specific [place] 1.024 (1.003-1.030) 12/19/18 02:27 Urine Protein >500 mg/dL (Negative) 12/19/18 02:27 Urine Glucose (UA) Neg mg/dL (Negative) 12/19/18 02:27 Urine Ketones Neg mg/dL (Negative) 12/19/18 02:27 Urine Blood Neg (Negative) 12/19/18 02:27 Urine Nitrite Neg (Negative) 12/19/18 02:27 Urine Bilirubin Neg (Negative) 12/19/18 02:27 Urine Urobilinogen 4.0 mg/dL (<2.0) 12/19/18 02:27 Ur Leukocyte Esterase Neg (Negative) 12/19/18 02:27 Urine WBC (Auto) 4.0 /HPF (0.0-6.0) 12/19/18 02:27 Urine RBC (Auto) 2.0 /HPF (0.0-6.0) 12/19/18 02:27 U Epithel Cells (Auto) < 1.0 /HPF (0-13.0) 12/19/18 02:27 Urine Bacteria (Auto) 1+ /HPF (Negative) 12/19/18 02:27 Amorphous Crystals 1+ 12/19/18 02:27 Hyaline Casts 8 /LPF 12/19/18 02:27 Urine Mucus Few /HPF 12/19/18 02:27 Urine Eosinophils None seen (None Seen) 12/20/18 00:30 Urine Total Volume 500 ml 12/23/18 Unknown Urine Creatinine 39.2 mg/dL (0.1-20.0) H 12/23/18 Unknown Ur Creatinine 24 Hour 0.2 (0.8-2.8) L 12/23/18 Unknown Height (in) 72.0 inches 12/23/18 Unknown Weight (lb) 160.0 lbs 12/23/18 Unknown Creatinine Clearance 4 12/23/18 Unknown Ur Total Protein 24 Hr 60.00 mg/dL (2-200) 12/23/18 Unknown Protein/Creatinin Ratio 0.36 12/20/18 00:30 Urine Sodium 105 mmol/L 12/20/18 00:30 Urine Total Protein 12 mg/dL (5-11.8) H 12/23/18 Unknown Salicylates < 0.3 mg/dL (2.8-20.0) L 12/19/18 00:57 Urine Opiates Screen Presumptive negative 12/19/18 02:27 Urine Methadone Screen Presumptive negative 12/19/18 02:27 Acetaminophen < 5.0 ug/mL (10.0-30.0) L 12/19/18 00:57 Ur Barbiturates Screen Presumptive negative 12/19/18 02:27 Ur Phencyclidine Scrn Presumptive negative 12/19/18 02:27 Ur Amphetamines Screen Presumptive negative 12/19/18 02:27 U Benzodiazepines Scrn Presumptive negative 12/19/18 02:27 Urine Cocaine Screen Presumptive negative 12/19/18 02:27 U Marijuana (THC) Screen Presumptive positive 12/19/18 02:27 Drugs of Abuse Note Disclamer 12/19/18 02:27 Plasma/Serum Alcohol < 0.01 % (0-0.07) 12/19/18 00:57 Immunofix Electrophor see below 12/23/18 10:46 Nutrition/Malnutrition Assess - Dietary Evaluation Nutrition/Malnutrition Findings: Nutrition Notes Start: 12/26/18 10:58 Freq: Status: Active Protocol: Document 12/26/18 10:58 LOLA (Rec: 12/26/18 11:16 LOLA [email or web address]) Co-Sign 12/26/18 10:58 LP Nutrition Notes Need for Assessment generated from: LOS Initial or Follow up Assessment Current Diagnosis Acute Kidney Injury CKD(stage I-IV) Hypertension Other Pertinent Diagnosis Wernicke Korsakoff, heavy EtOH use, boil on L upper back, AMS Current Diet Mechanical soft Labs/Tests Reviewed Pertinent Medications Reviewed Height 6 ft Weight 77.4 kg Usual Body Weight 90.9 kg [place] Body Weight (kg) 80.90 BMI 23.1 Intake Prior to Admission Poor Weight change and time frame [facility]t. [facility] 15 % BW loss over unknown time period. Weight Status Appropriate Subjective/Other Information Pt. seen for LOS. Pt. AMS and asleep, so pt. brother answered questions. Brother stated pt. intakes have been poor, and has only had bites of food since last Sunday. This AM pt. only consumed applesauce with medication. Pt . brother stated he had to work very hard to get pt. to consume food. Observed pt. tray with no food eaten. Pt. brother agreed to have pt. try Ensure Enlive. Pt. brother stated he bought pt. a pack of Boost at home, but pt. did not drink them on his own. Pt. brother denied N/V/C/D. Mold Holder noticed signs of clavicle muscle wasting. Percent of energy/protein needs met: <25%/25% Burn Absent Trauma Absent GI Symptoms None Difficulty In Swallowing Food Allergy No Current % PO Negligible Minimum of two criteria Yes Energy Intake (severe) < or equal to 50% Estimated Energy Requirement > or equal to 5 days Muscle Mass Mild Depletion (non-severe) #1 Nutrition Diagnosis Malnutrition Etiology AMS As Evidenced by Signs and Symptoms Muscle wasting, consumption of less than 50% of needs over last 5 days Is patient on ventilator? No Is Patient Ambulatory and/or Out of Bed No REE-([facility]-confined to bed) 9026.067 Calculation Used for Recommendations [facility] Additional Notes Pro needs: 94-118g/day (1.2-1. 5 g/kg BW) Fluid needs: 1 ml/kcal Nutrition Intervention Change Diet Order: Continue mechanical soft diet Add Supplement/Snack (indicate name/kcal Ensure Enlive daily /protein ) Provides kCal: 350 Provides Protein (gm) 20 Goal #1 ONS toleration Goal #2 Weight maintenance Anticipated Discharge Needs: Mechanical Soft with regular liquids Follow-Up By: 12/31/18 Additional Comments F/u for PO intakes, ONS tolerance, need for additional supplementation
[2018-12-29] MEDS: D5/0.45NS 1,000 ML IV SCH ×2 (05:29→20:02)
[2018-12-29 07:56] LABS: Calcium 9.2 mg/dL (8.4-10.2)
[2018-12-29] MEDS: APRESOLINE PO SCH ×3 (08:20→20:47)
--- NOTE | 2018-12-29 10:37 | Progress Note ---
Subjective Date of service: 12/29/18 Principal diagnosis: madalyn on ckd Interval history: EYES OPEN AND MORE AWAKE DOES SEEM IMPROVED YET NO SPEECH WILL CHECK LATER eeg ORDERED Objective - Vital Sign Vital Signs - 12hr 12/28/18 12/28/18 12/29/18 22:48 23:14 04:08 Temperature 98.5 F 98.8 F Pulse Rate 80 82 82 Respiratory 20 18 Rate Blood Pressure 151/88 140/86 156/77 O2 Sat by Pulse 97 98 Oximetry 12/29/18 08:06 Temperature 98.3 F Pulse Rate 79 Respiratory 18 Rate Blood Pressure 152/79 O2 Sat by Pulse 98 Oximetry - Laboratory Findings CBC and BMP: 12/28/18 04:58 12/29/18 06:41 Abnormal Lab Findings: Abnormal Labs 12/19/18 12/19/18 12/19/18 00:57 00:57 00:57 WBC RBC 5.05 H Hgb Hct MCV 82 L MCH 27 L RDW 17.5 H Plt Count Lymph % (Auto) 10.7 L [place] % (Auto) Lymph # 0.9 L [place] # Seg Neutrophils % 84.1 H Seg Neutrophils # Potassium Carbon Dioxide BUN Creatinine 2.2 H Glucose POC Glucose Lactic Acid 2.30 H* Magnesium Total Bilirubin 1.60 H ALT Ammonia Total Protein Albumin [place] Urine Creatinine Ur Creatinine 24 Hour Urine Total Protein Salicylates Acetaminophen 12/19/18 12/19/18 12/19/18 00:57 00:57 00:57 WBC RBC Hgb Hct MCV MCH RDW Plt Count Lymph % (Auto) [place] % (Auto) Lymph # [place] # Seg Neutrophils % Seg Neutrophils # Potassium Carbon Dioxide BUN Creatinine Glucose POC Glucose Lactic Acid Magnesium Total Bilirubin ALT Ammonia 23.0 L Total Protein Albumin [place] Urine Creatinine Ur Creatinine 24 Hour Urine Total Protein Salicylates < 0.3 L Acetaminophen < 5.0 L 12/19/18 12/19/18 12/19/18 00:58 06:49 06:49 WBC 11.7 H RBC Hgb Hct MCV 81 L MCH 27 L RDW 18.0 H Plt Count Lymph % (Auto) 10.5 L [place] % (Auto) Lymph # [place] # Seg Neutrophils % 83.8 H Seg Neutrophils # 9.8 H Potassium 3.4 L Carbon Dioxide BUN Creatinine 2.0 H Glucose 105 H POC Glucose 110 H Lactic Acid Magnesium Total Bilirubin ALT Ammonia Total Protein Albumin [place] Urine Creatinine Ur Creatinine 24 Hour Urine Total Protein Salicylates Acetaminophen 12/19/18 12/20/18 12/20/18 10:56 00:30 05:15 WBC RBC Hgb Hct MCV 82 L MCH 27 L RDW 17.5 H Plt Count 133 L Lymph % (Auto) [place] % (Auto) 7.8 H Lymph # [place] # Seg Neutrophils % Seg Neutrophils # Potassium Carbon Dioxide BUN Creatinine Glucose POC Glucose Lactic Acid Magnesium Total Bilirubin ALT Ammonia Total Protein Albumin [place] 0.10 L Urine Creatinine 157.1 H Ur Creatinine 24 Hour Urine Total Protein 57 H Salicylates Acetaminophen 12/20/18 12/20/18 12/20/18 05:15 05:15 16:46 WBC RBC Hgb Hct MCV MCH RDW Plt Count Lymph % (Auto) [place] % (Auto) Lymph # [place] # Seg Neutrophils % Seg Neutrophils # Potassium 3.5 L Carbon Dioxide BUN Creatinine 2.1 H Glucose 109 H POC Glucose 109 H Lactic Acid Magnesium 1.60 L Total Bilirubin 1.50 H ALT Ammonia Total Protein 6.2 L D Albumin 3.8 L [place]in Urine Creatinine Ur Creatinine 24 Hour Urine Total Protein Salicylates Acetaminophen 12/20/18 12/21/18 12/21/18 20:38 04:27 04:27 WBC RBC Hgb 11.4 L Hct 34.2 L MCV 82 L MCH 27 L RDW 17.8 H Plt Count 130 L Lymph % (Auto) [place] % (Auto) 7.5 H Lymph # [place] # Seg Neutrophils % 73.3 H Seg Neutrophils # Potassium Carbon Dioxide BUN Creatinine 1.9 H Glucose 102 H POC Glucose 110 H Lactic Acid Magnesium Total Bilirubin 1.30 H ALT 6 L Ammonia Total Protein 5.7 L Albumin 3.4 L Renin Urine Creatinine Ur Creatinine 24 Hour Urine Total Protein Salicylates Acetaminophen 12/22/18 12/22/18 12/22/18 04:25 04:25 04:25 WBC RBC Hgb 11.3 L Hct 34.3 L MCV 83 L MCH 27 L RDW 18.0 H Plt Count Lymph % (Auto) [place] % (Auto) 7.7 H Lymph # [place] # Seg Neutrophils % 70.5 H Seg Neutrophils # Potassium Carbon Dioxide BUN Creatinine 2.4 H 2.4 H Glucose POC Glucose Lactic Acid Magnesium Total Bilirubin ALT 6 L Ammonia Total Protein 6.0 L Albumin 3.4 L [place] Urine Creatinine Ur Creatinine 24 Hour Urine Total Protein Salicylates Acetaminophen 12/23/18 12/23/18 12/23/18 04:41 04:41 Unknown WBC RBC Hgb 11.3 L Hct 33.7 L MCV 83 L MCH RDW 17.5 H Plt Count Lymph % (Auto) [place] % (Auto) 8.2 H Lymph # [place] # Seg Neutrophils % 71.4 H Seg Neutrophils # Potassium Carbon Dioxide BUN Creatinine 2.4 H Glucose POC Glucose Lactic Acid Magnesium Total Bilirubin ALT 6 L Ammonia Total Protein 6.1 L Albumin 3.3 L [place] Urine Creatinine 39.2 H Ur Creatinine 24 Hour 0.2 L Urine Total Protein 12 H Salicylates Acetaminophen 12/23/18 12/24/18 12/24/18 Unknown 06:25 06:25 WBC RBC Hgb Hct MCV 82 L MCH 27 L RDW 18.0 H Plt Count Lymph % (Auto) [place] % (Auto) 8.5 H Lymph # [place] # Seg Neutrophils % Seg Neutrophils # Potassium Carbon Dioxide BUN Creatinine 2.1 H Glucose 109 H POC Glucose Lactic Acid Magnesium Total Bilirubin ALT 6 L Ammonia Total Protein Albumin 3.5 L [place] Urine Creatinine 37.1 H Ur Creatinine 24 Hour Urine Total Protein Salicylates Acetaminophen 12/25/18 12/25/18 12/26/18 05:32 05:32 05:18 WBC RBC Hgb 11.5 L 10.9 L Hct 35.1 L 32.9 L MCV 83 L 82 L MCH 27 L 27 L RDW 17.7 H 17.2 H Plt Count Lymph % (Auto) [place] % (Auto) 10.1 H 14.9 H Lymph # [place] # 0.9 H Seg Neutrophils % 71.2 H Seg Neutrophils # Potassium Carbon Dioxide BUN Creatinine 2.4 H Glucose 113 H POC Glucose Lactic Acid Magnesium Total Bilirubin ALT 6 L Ammonia Total Protein Albumin 3.6 L [place] Urine Creatinine Ur Creatinine 24 Hour Urine Total Protein Salicylates Acetaminophen 12/26/18 12/28/18 12/28/18 05:18 04:58 04:58 WBC RBC Hgb 10.7 L Hct 32.1 L MCV 81 L MCH 27 L RDW 16.8 H Plt Count Lymph % (Auto) [place] % (Auto) 11.1 H Lymph # [place] # 0.9 H Seg Neutrophils % 72.3 H Seg Neutrophils # Potassium Carbon Dioxide 21 L BUN 26 H Creatinine 2.1 H 1.9 H Glucose 111 H 111 H POC Glucose Lactic Acid Magnesium Total Bilirubin ALT Ammonia Total Protein Albumin 3.3 L [place] Urine Creatinine Ur Creatinine 24 Hour Urine Total Protein Salicylates Acetaminophen 12/29/18 06:41 WBC RBC Hgb Hct MCV MCH RDW Plt Count Lymph % (Auto) [place] % (Auto) Lymph # [place] # Seg Neutrophils % Seg Neutrophils # Potassium Carbon Dioxide 21 L BUN 26 H Creatinine 2.0 H Glucose 111 H POC Glucose Lactic Acid Magnesium Total Bilirubin ALT Ammonia Total Protein Albumin [place]in Urine Creatinine Ur Creatinine 24 Hour Urine Total Protein Salicylates Acetaminophen
--- NOTE | 2018-12-29 11:25 | Progress Note ---
Assessment and Plan Impression * Acute on chronic renal failure * Altered mental status * Obstructive uropathy * Hypertension Recommendations * His renal function seems to be slowly improving * He currently has indwelling Peraza catheter in place and being followed by urology * Continue gentle hydration * Avoid nephrotoxins * Neurology notes appreciated Subjective Date of service: 12/29/18 Principal diagnosis: madalyn on ckd Interval history: Patient is awake and alert. Not answering any questions appropriately. Objective - Vital Signs Vital signs: Vital Signs - 12hr 12/29/18 12/29/18 04:08 08:06 Temperature 98.8 F 98.3 F Pulse Rate 82 79 Respiratory 18 18 Rate Blood Pressure 156/77 152/79 O2 Sat by Pulse 98 98 Oximetry - General Appearance General appearance: well-developed, well-nourished, appears stated age EENT: PERRL, mucous membranes moist Neck: no JVD, no thyromegaly, no carotid bruit, supple Respiratory: Present: Clear to Ascultation Cardiology: regular, normal heart rate, S1S2, no murmurs Gastrointestinal: normal, normoactive bowel sounds Integumentary: no rash, other (no edema) - Lab 12/28/18 04:58 12/29/18 06:41 Most recent lab results Calcium 9.2 mg/dL (8.4-10.2) 12/29/18 06:41 Magnesium 2.20 mg/dL (1.7-2.3) 12/21/18 04:27 Urine Creatinine 39.2 mg/dL (0.1-20.0) H 12/23/18 Unknown Ur Total Protein 24 Hr 60.00 mg/dL (2-200) 12/23/18 Unknown Urine Sodium 105 mmol/L 12/20/18 00:30 Urine Total Protein 12 mg/dL (5-11.8) H 12/23/18 Unknown Medications & Allergies - Medications Allergies/Adverse Reactions: Allergies No Known Allergies Allergy (Verified 12/19/18 03:17) Home Medications: Home Medications Medication Instructions Recorded Confirmed Last Taken Type No Known Home Medications [No 12/19/18 12/19/18 Unknown History Reported Home Medications] Active Medications: Generic Name Dose Route Start Last Admin Trade Name Freq PRN Reason Stop Dose Admin Acetaminophen 650 mg 12/19/18 03:06 Tylenol PO Q4H PRN Pain MILD(1-3)/Fever >100.5/[place] Acetaminophen 650 mg 12/26/18 04:59 12/26/18 05:09 Tylenol [place] 650 mg Q4H PRN Administration Pain, Mild (1-3) Amlodipine Besylate 10 mg 12/22/18 16:00 12/28/18 11:06 Norvasc PO 10 mg QDAY MANOJ Administration Atorvastatin Calcium 40 mg 12/20/18 22:00 12/28/18 22:49 Lipitor PO 40 mg QHS MANOJ Administration Clonidine HCl 0.2 mg 12/23/18 12:04 12/23/18 16:41 Catapres PO 0.2 mg Q4H PRN Administration HTN SBP>160 Clonidine HCl 0.2 mg 12/30/18 10:00 Catapres-Tts Patch TD Mo MANOJ Enoxaparin Sodium 40 mg 12/28/18 10:00 12/28/18 11:06 Lovenox SUB-Q 40 mg QDAY@1000 MANOJ Administration Hydralazine HCl 100 mg 12/19/18 20:00 12/28/18 20:52 Apresoline PO 100 mg TID MANOJ Administration Hydralazine HCl 20 mg 12/25/18 11:36 12/25/18 21:39 Apresoline IV 20 mg Q4HR PRN Administration Hypertension Dextrose/Sodium Chloride 1,000 mls @ 75 mls/hr 12/22/18 20:00 12/29/18 05:29 D5/0.45ns IV 75 mls/hr DIRECT MANOJ Administration Labetalol HCl 10 mg 12/22/18 18:30 12/26/18 05:09 Normodyne IV 10 mg Q6HR PRN Administration Blood Pressure Lorazepam 2 mg 12/19/18 03:09 Ativan IV Q1HR PRN CIWA-Ar 8-15 Lorazepam 4 mg 12/19/18 03:09 Ativan IV Q1HR PRN CIWA-Ar 16-25 Metoprolol Tartrate 5 mg 12/22/18 23:38 12/23/18 16:44 Lopressor IV 5 mg Q6H PRN Administration elevated BP. Hold for HR <60 Minoxidil 5 mg 12/23/18 22:00 12/28/18 22:48 Loniten PO 5 mg BID MANOJ Administration Ondansetron HCl 4 mg 12/19/18 03:06 Zofran IV Q8H PRN Nausea And Vomiting Sodium Chloride 10 ml 12/19/18 10:00 12/28/18 22:49 Sodium Chloride Flush Syringe 10 Ml IV 10 ml BID MANOJ Administration Sodium Chloride 10 ml 12/19/18 03:06 Sodium Chloride Flush Syringe 10 Ml IV PRN PRN LINE FLUSH Spironolactone 50 mg 12/19/18 22:00 12/28/18 22:48 Aldactone PO 50 mg BID MANOJ Administration Thiamine HCl 100 mg 12/21/18 14:00 12/28/18 11:07 Vitamin B-1 PO 100 mg QDAY MANOJ Administration
--- NOTE | 2018-12-29 11:39 | Progress Note ---
Assessment and Plan - Patient Problems (1) Acute kidney injury superimposed on chronic kidney disease Current Visit: Yes Status: Acute Plan to address problem: acute on chronic kidney disease seems to be improving with gentle hydration and indwelling Peraza catheter. Continue present management avoid nephrotoxic agents. (2) CATRACHITO (acute kidney injury) Current Visit: Yes Status: Acute (3) Cognitive decline Current Visit: Yes Status: Acute Plan to address problem: Cognitive: Decline most likely multifactorial due to infarct dementia and Wernicke Korsakoff syndrome. At present she is some improvement. Patient has some improvement of his functional status. Attempts to lift himself up and get out of bed. We'll suggest acute rehabilitation facility. (4) Hypertensive urgency Current Visit: Yes Status: Acute Plan to address problem: fair but is suboptimal control. If remains elevated will add PO labetalol tomorrow at 200 mg one tab PO twice daily. (5) Alcohol abuse Current Visit: Yes Status: Acute Plan to address problem: No seizure. On CIWA protocol. And vitamin replacement. Tolerating weaning. History Interval history: patient is at baseline that he was yesterday. Patient has attempted to get up while appeared to have some agitation. Able to squeeze my hand at request. Response to verbal and tactile stimulus. Hospitalist Physical - Constitutional Vitals: Temp Pulse Resp BP Pulse Ox 98.3 F 79 18 152/79 98 12/29/18 08:06 12/29/18 08:06 12/29/18 08:06 12/29/18 08:06 12/29/18 08:06 General appearance: Present: no acute distress, well-nourished - EENT Eyes: Present: PERRL, EOM intact ENT: hearing intact, clear oral mucosa, dentition normal - Neck Neck: Present: supple, normal ROM - Respiratory Respiratory effort: normal Respiratory: bilateral: diminished (poor inspiratory effort), rhonchi (few rhonchi anteriorly) - Cardiovascular Rhythm: regular - Extremities Extremities: no ischemia, pulses intact, pulses symmetrical, No edema, normal temperature Peripheral Pulses: within normal limits - Abdominal General gastrointestinal: soft, non-tender, non-distended, normal bowel sounds - Psychiatric Psychiatric: other (remains encephalopathic ) - Neurologic Neurologic: focal deficits Results - Labs CBC & Chem 7: 12/28/18 04:58 12/29/18 06:41 Labs: Laboratory Last Values WBC 7.7 K/mm3 (4.5-11.0) 12/28/18 04:58 RBC 3.96 M/mm3 (3.65-5.03) 12/28/18 04:58 Hgb 10.7 gm/dl (11.8-15.2) L 12/28/18 04:58 Hct 32.1 % (35.5-45.6) L 12/28/18 04:58 MCV 81 fl (84-94) L 12/28/18 04:58 MCH 27 pg (28-32) L 12/28/18 04:58 MCHC 33 % (32-34) 12/28/18 04:58 RDW 16.8 % (13.2-15.2) H 12/28/18 04:58 Plt Count 210 K/mm3 (140-440) 12/28/18 04:58 Lymph % (Auto) 15.7 % (13.4-35.0) 12/28/18 04:58 Hodgeman % (Auto) 11.1 % (0.0-7.3) H 12/28/18 04:58 Eos % (Auto) 0.5 % (0.0-4.3) 12/28/18 04:58 Baso % (Auto) 0.4 % (0.0-1.8) 12/28/18 04:58 Lymph # 1.2 K/mm3 (1.2-5.4) 12/28/18 04:58 Hodgeman # 0.9 K/mm3 (0.0-0.8) H 12/28/18 04:58 Eos # 0.0 K/mm3 (0.0-0.4) 12/28/18 04:58 Baso # 0.0 K/mm3 (0.0-0.1) 12/28/18 04:58 Seg Neutrophils % 72.3 % (40.0-70.0) H 12/28/18 04:58 Seg Neutrophils # 5.6 K/mm3 (1.8-7.7) 12/28/18 04:58 Sodium 139 mmol/L (137-145) 12/29/18 06:41 Potassium 4.2 mmol/L (3.6-5.0) 12/29/18 06:41 Chloride 102.6 mmol/L (98-107) 12/29/18 06:41 Carbon Dioxide 21 mmol/L (22-30) L 12/29/18 06:41 Anion Gap 20 mmol/L 12/29/18 06:41 BUN 26 mg/dL (9-20) H 12/29/18 06:41 Creatinine 2.0 mg/dL (0.8-1.5) H 12/29/18 06:41 Estimated GFR 41 ml/min 12/29/18 06:41 BUN/Creatinine Ratio 13 % 12/29/18 06:41 Glucose 111 mg/dL (75-100) H 12/29/18 06:41 POC Glucose 88 (70-105) 12/24/18 05:47 Lactic Acid 1.30 mmol/L (0.7-2.0) 12/19/18 06:49 Calcium 9.2 mg/dL (8.4-10.2) 12/29/18 06:41 Magnesium 2.20 mg/dL (1.7-2.3) 12/21/18 04:27 Total Bilirubin 0.80 mg/dL (0.1-1.2) 12/26/18 05:18 AST 20 units/L (5-40) 12/26/18 05:18 ALT 7 units/L (7-56) 12/26/18 05:18 Alkaline Phosphatase 65 units/L (35-129) 12/26/18 05:18 Ammonia 23.0 umol/L (25-60) L 12/19/18 00:57 Total Protein 6.3 g/dL (6.3-8.2) 12/26/18 05:18 Albumin 3.3 g/dL (3.9-5) L 12/26/18 05:18 Albumin/Globulin Ratio 1.1 % 12/26/18 05:18 Renin 0.10 ng/mL/h (0.25-5.82) L 12/19/18 10:56 Aldosterone <1 ng/dL () 12/19/18 10:56 Aldosterone/Renin Dir see below 12/19/18 10:56 TSH 3.190 mlU/mL (0.270-4.200) 12/19/18 00:57 Urine Color Carmen (Yellow) 12/19/18 02:27 Urine Turbidity Slightly-cloudy (Clear) 12/19/18 02:27 Urine pH 5.0 (5.0-7.0) 12/19/18 02:27 Ur Specific [place] 1.024 (1.003-1.030) 12/19/18 02:27 Urine Protein >500 mg/dL (Negative) 12/19/18 02:27 Urine Glucose (UA) Neg mg/dL (Negative) 12/19/18 02:27 Urine Ketones Neg mg/dL (Negative) 12/19/18 02:27 Urine Blood Neg (Negative) 12/19/18 02:27 Urine Nitrite Neg (Negative) 12/19/18 02:27 Urine Bilirubin Neg (Negative) 12/19/18 02:27 Urine Urobilinogen 4.0 mg/dL (<2.0) 12/19/18 02:27 Ur Leukocyte Esterase Neg (Negative) 12/19/18 02:27 Urine WBC (Auto) 4.0 /HPF (0.0-6.0) 12/19/18 02:27 Urine RBC (Auto) 2.0 /HPF (0.0-6.0) 12/19/18 02:27 U Epithel Cells (Auto) < 1.0 /HPF (0-13.0) 12/19/18 02:27 Urine Bacteria (Auto) 1+ /HPF (Negative) 12/19/18 02:27 Amorphous Crystals 1+ 12/19/18 02:27 Hyaline Casts 8 /LPF 12/19/18 02:27 Urine Mucus Few /HPF 12/19/18 02:27 Urine Eosinophils None seen (None Seen) 12/20/18 00:30 Urine Total Volume 500 ml 12/23/18 Unknown Urine Creatinine 39.2 mg/dL (0.1-20.0) H 12/23/18 Unknown Ur Creatinine 24 Hour 0.2 (0.8-2.8) L 12/23/18 Unknown Height (in) 72.0 inches 12/23/18 Unknown Weight (lb) 160.0 lbs 12/23/18 Unknown Creatinine Clearance 4 12/23/18 Unknown Ur Total Protein 24 Hr 60.00 mg/dL (2-200) 12/23/18 Unknown Protein/Creatinin Ratio 0.36 12/20/18 00:30 Urine Sodium 105 mmol/L 12/20/18 00:30 Urine Total Protein 12 mg/dL (5-11.8) H 12/23/18 Unknown Salicylates < 0.3 mg/dL (2.8-20.0) L 12/19/18 00:57 Urine Opiates Screen Presumptive negative 12/19/18 02:27 Urine Methadone Screen Presumptive negative 12/19/18 02:27 Acetaminophen < 5.0 ug/mL (10.0-30.0) L 12/19/18 00:57 Ur Barbiturates Screen Presumptive negative 12/19/18 02:27 Ur Phencyclidine Scrn Presumptive negative 12/19/18 02:27 Ur Amphetamines Screen Presumptive negative 12/19/18 02:27 U Benzodiazepines Scrn Presumptive negative 12/19/18 02:27 Urine Cocaine Screen Presumptive negative 12/19/18 02:27 U Marijuana (THC) Screen Presumptive positive 12/19/18 02:27 Drugs of Abuse Note Disclamer 12/19/18 02:27 Plasma/Serum Alcohol < 0.01 % (0-0.07) 12/19/18 00:57 Immunofix Electrophor see below 12/23/18 10:46 Nutrition/Malnutrition Assess - Dietary Evaluation Nutrition/Malnutrition Findings: Nutrition Notes Start: 12/26/18 10:58 Freq: Status: Active Protocol: Document 12/26/18 10:58 LOLA (Rec: 12/26/18 11:16 LOLA [email or web address]) Co-Sign 12/26/18 10:58 LP Nutrition Notes Need for Assessment generated from: LOS Initial or Follow up Assessment Current Diagnosis Acute Kidney Injury CKD(stage I-IV) Hypertension Other Pertinent Diagnosis Wernicke Korsakoff, heavy EtOH use, boil on L upper back, AMS Current Diet Mechanical soft Labs/Tests Reviewed Pertinent Medications Reviewed Height 6 ft Weight 77.4 kg Usual Body Weight 90.9 kg [place] Body Weight (kg) 80.90 BMI 23.1 Intake Prior to Admission Poor Weight change and time frame Wt. obtianed mr bedscale. 15 % BW loss over unknown time period. Weight Status Appropriate Subjective/Other Information Pt. seen for LOS. Pt. AMS and asleep, so pt. brother answered questions. Brother stated pt. intakes have been poor, and has only had bites of food since last Sunday. This AM pt. only consumed applesauce with medication. Pt . brother stated he had to work very hard to get pt. to consume food. Observed pt. tray with no food eaten. Pt. brother agreed to have pt. try Ensure Enlive. Pt. brother stated he bought pt. a pack of Boost at home, but pt. did not drink them on his own. Pt. brother denied N/V/C/D. [employer] noticed signs of clavicle muscle wasting. Percent of energy/protein needs met: <25%/25% Burn Absent Trauma Absent GI Symptoms None Difficulty In Swallowing Food Allergy No Current % PO Negligible Minimum of two criteria Yes Energy Intake (severe) < or equal to 50% Estimated Energy Requirement > or equal to 5 days Muscle Mass Mild Depletion (non-severe) #1 Nutrition Diagnosis Malnutrition Etiology AMS As Evidenced by Signs and Symptoms Muscle wasting, consumption of less than 50% of needs over last 5 days Is patient on ventilator? No Is Patient Ambulatory and/or Out of Bed No REE-([facility]-confined to bed) 3956.657 Calculation Used for Recommendations [facility] Additional Notes Pro needs: 94-118g/day (1.2-1. 5 g/kg BW) Fluid needs: 1 ml/kcal Nutrition Intervention Change Diet Order: Continue mechanical soft diet Add Supplement/Snack (indicate name/kcal Ensure Enlive daily /protein ) Provides kCal: 350 Provides Protein (gm) 20 Goal #1 ONS toleration Goal #2 Weight maintenance Anticipated Discharge Needs: Mechanical Soft with regular liquids Follow-Up By: 12/31/18 Additional Comments F/u for PO intakes, ONS tolerance, need for additional supplementation
[2018-12-29] MEDS: LOVENOX SUB-Q SCH (11:51)
[2018-12-29] MEDS: LONITEN PO SCH ×2 (11:52→21:38)
[2018-12-29] MEDS: NORVASC PO SCH (12:09)
[2018-12-29] MEDS: SODIUM CHLORIDE FLUSH SYRINGE 10 ML IV SCH ×2 (12:10→21:39)
[2018-12-29] MEDS: VITAMIN B-1 PO SCH (12:10)
[2018-12-29] MEDS: ALDACTONE PO SCH ×2 (18:28→21:37)
[2018-12-30] MEDS: D5/0.45NS 1,000 ML IV SCH (08:15)
--- NOTE | 2018-12-30 08:17 | Progress Note ---
Subjective Date of service: 12/30/18 Principal diagnosis: madalyn on ckd Interval history: wanted to check the EEG patient as eyes open more as yet no speech spoke to the brother about prognosis if from WK syndrome unpredictable Objective - Vital Sign Vital Signs - 12hr 12/29/18 12/29/18 12/29/18 21:37 23:12 23:23 Temperature 98.2 F Pulse Rate 78 76 85 Respiratory 16 Rate Blood Pressure 149/80 154/78 O2 Sat by Pulse 98 Oximetry 12/30/18 04:11 Temperature 99.6 F Pulse Rate 89 Respiratory 18 Rate Blood Pressure 147/85 O2 Sat by Pulse 97 Oximetry - Laboratory Findings CBC and BMP: 12/28/18 04:58 12/30/18 05:39 Abnormal Lab Findings: Abnormal Labs 12/19/18 12/19/18 12/19/18 00:57 00:57 00:57 WBC RBC 5.05 H Hgb Hct MCV 82 L MCH 27 L RDW 17.5 H Plt Count Lymph % (Auto) 10.7 L Mitchell % (Auto) Lymph # 0.9 L Mitchell # Seg Neutrophils % 84.1 H Seg Neutrophils # Sodium Potassium Carbon Dioxide BUN Creatinine 2.2 H Glucose POC Glucose Lactic Acid 2.30 H* Magnesium Total Bilirubin 1.60 H ALT Ammonia Total Protein Albumin Renin Urine Creatinine Ur Creatinine 24 Hour Urine Total Protein Salicylates Acetaminophen 12/19/18 12/19/18 12/19/18 00:57 00:57 00:57 WBC RBC Hgb Hct MCV MCH RDW Plt Count Lymph % (Auto) Mitchell % (Auto) Lymph # Mitchell # Seg Neutrophils % Seg Neutrophils # Sodium Potassium Carbon Dioxide BUN Creatinine Glucose POC Glucose Lactic Acid Magnesium Total Bilirubin ALT Ammonia 23.0 L Total Protein Albumin Renin Urine Creatinine Ur Creatinine 24 Hour Urine Total Protein Salicylates < 0.3 L Acetaminophen < 5.0 L 12/19/18 12/19/18 12/19/18 00:58 06:49 06:49 WBC 11.7 H RBC Hgb Hct MCV 81 L MCH 27 L RDW 18.0 H Plt Count Lymph % (Auto) 10.5 L Mitchell % (Auto) Lymph # Mitchell # Seg Neutrophils % 83.8 H Seg Neutrophils # 9.8 H Sodium Potassium 3.4 L Carbon Dioxide BUN Creatinine 2.0 H Glucose 105 H POC Glucose 110 H Lactic Acid Magnesium Total Bilirubin ALT Ammonia Total Protein Albumin Renin Urine Creatinine Ur Creatinine 24 Hour Urine Total Protein Salicylates Acetaminophen 12/19/18 12/20/18 12/20/18 10:56 00:30 05:15 WBC RBC Hgb Hct MCV 82 L MCH 27 L RDW 17.5 H Plt Count 133 L Lymph % (Auto) Mitchell % (Auto) 7.8 H Lymph # Mitchell # Seg Neutrophils % Seg Neutrophils # Sodium Potassium Carbon Dioxide BUN Creatinine Glucose POC Glucose Lactic Acid Magnesium Total Bilirubin ALT Ammonia Total Protein Albumin Renin 0.10 L Urine Creatinine 157.1 H Ur Creatinine 24 Hour Urine Total Protein 57 H Salicylates Acetaminophen 12/20/18 12/20/18 12/20/18 05:15 05:15 16:46 WBC RBC Hgb Hct MCV MCH RDW Plt Count Lymph % (Auto) Mitchell % (Auto) Lymph # Mitchell # Seg Neutrophils % Seg Neutrophils # Sodium Potassium 3.5 L Carbon Dioxide BUN Creatinine 2.1 H Glucose 109 H POC Glucose 109 H Lactic Acid Magnesium 1.60 L Total Bilirubin 1.50 H ALT Ammonia Total Protein 6.2 L D Albumin 3.8 L Renin Urine Creatinine Ur Creatinine 24 Hour Urine Total Protein Salicylates Acetaminophen 12/20/18 12/21/18 12/21/18 20:38 04:27 04:27 WBC RBC Hgb 11.4 L Hct 34.2 L MCV 82 L MCH 27 L RDW 17.8 H Plt Count 130 L Lymph % (Auto) Mitchell % (Auto) 7.5 H Lymph # Mitchell # Seg Neutrophils % 73.3 H Seg Neutrophils # Sodium Potassium Carbon Dioxide BUN Creatinine 1.9 H Glucose 102 H POC Glucose 110 H Lactic Acid Magnesium Total Bilirubin 1.30 H ALT 6 L Ammonia Total Protein 5.7 L Albumin 3.4 L Renin Urine Creatinine Ur Creatinine 24 Hour Urine Total Protein Salicylates Acetaminophen 12/22/18 12/22/18 12/22/18 04:25 04:25 04:25 WBC RBC Hgb 11.3 L Hct 34.3 L MCV 83 L MCH 27 L RDW 18.0 H Plt Count Lymph % (Auto) Mitchell % (Auto) 7.7 H Lymph # Mitchell # Seg Neutrophils % 70.5 H Seg Neutrophils # Sodium Potassium Carbon Dioxide BUN Creatinine 2.4 H 2.4 H Glucose POC Glucose Lactic Acid Magnesium Total Bilirubin ALT 6 L Ammonia Total Protein 6.0 L Albumin 3.4 L Renin Urine Creatinine Ur Creatinine 24 Hour Urine Total Protein Salicylates Acetaminophen 12/23/18 12/23/18 12/23/18 04:41 04:41 Unknown WBC RBC Hgb 11.3 L Hct 33.7 L MCV 83 L MCH RDW 17.5 H Plt Count Lymph % (Auto) Mitchell % (Auto) 8.2 H Lymph # Mitchell # Seg Neutrophils % 71.4 H Seg Neutrophils # Sodium Potassium Carbon Dioxide BUN Creatinine 2.4 H Glucose POC Glucose Lactic Acid Magnesium Total Bilirubin ALT 6 L Ammonia Total Protein 6.1 L Albumin 3.3 L Renin Urine Creatinine 39.2 H Ur Creatinine 24 Hour 0.2 L Urine Total Protein 12 H Salicylates Acetaminophen 12/23/18 12/24/18 12/24/18 Unknown 06:25 06:25 WBC RBC Hgb Hct MCV 82 L MCH 27 L RDW 18.0 H Plt Count Lymph % (Auto) Mitchell % (Auto) 8.5 H Lymph # Mitchell # Seg Neutrophils % Seg Neutrophils # Sodium Potassium Carbon Dioxide BUN Creatinine 2.1 H Glucose 109 H POC Glucose Lactic Acid Magnesium Total Bilirubin ALT 6 L Ammonia Total Protein Albumin 3.5 L Renin Urine Creatinine 37.1 H Ur Creatinine 24 Hour Urine Total Protein Salicylates Acetaminophen 12/25/18 12/25/18 12/26/18 05:32 05:32 05:18 WBC RBC Hgb 11.5 L 10.9 L Hct 35.1 L 32.9 L MCV 83 L 82 L MCH 27 L 27 L RDW 17.7 H 17.2 H Plt Count Lymph % (Auto) Mitchell % (Auto) 10.1 H 14.9 H Lymph # Mitchell # 0.9 H Seg Neutrophils % 71.2 H Seg Neutrophils # Sodium Potassium Carbon Dioxide BUN Creatinine 2.4 H Glucose 113 H POC Glucose Lactic Acid Magnesium Total Bilirubin ALT 6 L Ammonia Total Protein Albumin 3.6 L Renin Urine Creatinine Ur Creatinine 24 Hour Urine Total Protein Salicylates Acetaminophen 12/26/18 12/28/18 12/28/18 05:18 04:58 04:58 WBC RBC Hgb 10.7 L Hct 32.1 L MCV 81 L MCH 27 L RDW 16.8 H Plt Count Lymph % (Auto) Mitchell % (Auto) 11.1 H Lymph # Mitchell # 0.9 H Seg Neutrophils % 72.3 H Seg Neutrophils # Sodium Potassium Carbon Dioxide 21 L BUN 26 H Creatinine 2.1 H 1.9 H Glucose 111 H 111 H POC Glucose Lactic Acid Magnesium Total Bilirubin ALT Ammonia Total Protein Albumin 3.3 L Renin Urine Creatinine Ur Creatinine 24 Hour Urine Total Protein Salicylates Acetaminophen 12/29/18 12/30/18 06:41 05:39 WBC RBC Hgb Hct MCV MCH RDW Plt Count Lymph % (Auto) Mitchell % (Auto) Lymph # Mitchell # Seg Neutrophils % Seg Neutrophils # Sodium 135 L Potassium Carbon Dioxide 21 L BUN 26 H 30 H Creatinine 2.0 H 1.8 H Glucose 111 H 112 H POC Glucose Lactic Acid Magnesium Total Bilirubin ALT Ammonia Total Protein Albumin Renin Urine Creatinine Ur Creatinine 24 Hour Urine Total Protein Salicylates Acetaminophen
[2018-12-30] MEDS: APRESOLINE PO SCH ×3 (08:45→21:15)
--- NOTE | 2018-12-30 09:18 | Progress Note ---
Assessment and Plan Impression * Acute on chronic renal failure * Altered mental status * Obstructive uropathy * Hypertension Recommendations * His renal function seems to be slowly improving * He currently has indwelling Peraza catheter in place and being followed by urology * Continue gentle hydration * Avoid nephrotoxins * Neurology notes appreciated Subjective Date of service: 12/30/18 Principal diagnosis: madalyn on ckd Interval history: Patient appears comfortable. No shortness of breath. Objective - Vital Signs Vital signs: Vital Signs - 12hr 12/29/18 12/29/18 12/29/18 21:37 23:12 23:23 Temperature 98.2 F Pulse Rate 78 76 85 Respiratory 16 Rate Blood Pressure 149/80 154/78 O2 Sat by Pulse 98 Oximetry 12/30/18 12/30/18 04:11 07:26 Temperature 99.6 F 99.2 F Pulse Rate 89 81 Respiratory 18 20 Rate Blood Pressure 147/85 145/73 O2 Sat by Pulse 97 100 Oximetry - General Appearance General appearance: well-developed, well-nourished, appears stated age EENT: PERRL, mucous membranes moist Neck: no JVD, no thyromegaly, no carotid bruit, supple Respiratory: Present: Clear to Ascultation Cardiology: regular, normal heart rate, S1S2, no murmurs Gastrointestinal: normal, normoactive bowel sounds Integumentary: no rash, other (no edema) - Lab 12/28/18 04:58 12/30/18 05:39 Most recent lab results Calcium 9.0 mg/dL (8.4-10.2) 12/30/18 05:39 Magnesium 2.20 mg/dL (1.7-2.3) 12/21/18 04:27 Urine Creatinine 39.2 mg/dL (0.1-20.0) H 12/23/18 Unknown Ur Total Protein 24 Hr 60.00 mg/dL (2-200) 12/23/18 Unknown Urine Sodium 105 mmol/L 12/20/18 00:30 Urine Total Protein 12 mg/dL (5-11.8) H 12/23/18 Unknown Medications & Allergies - Medications Allergies/Adverse Reactions: Allergies No Known Allergies Allergy (Verified 12/19/18 03:17) Home Medications: Home Medications Medication Instructions Recorded Confirmed Last Taken Type No Known Home Medications [No 12/19/18 12/19/18 Unknown History Reported Home Medications] Active Medications: Generic Name Dose Route Start Last Admin Trade Name Freq PRN Reason Stop Dose Admin Acetaminophen 650 mg 12/19/18 03:06 Tylenol PO Q4H PRN Pain MILD(1-3)/Fever >100.5/[place] Acetaminophen 650 mg 12/26/18 04:59 12/26/18 05:09 Tylenol MI 650 mg Q4H PRN Administration Pain, Mild (1-3) Amlodipine Besylate 10 mg 12/22/18 16:00 12/29/18 12:09 Norvasc PO 10 mg QDAY MANOJ Administration Atorvastatin Calcium 40 mg 12/20/18 22:00 12/29/18 21:38 Lipitor PO 40 mg QHS MANOJ Administration Clonidine HCl 0.2 mg 12/23/18 12:04 12/23/18 16:41 Catapres PO 0.2 mg Q4H PRN Administration HTN SBP>160 Clonidine HCl 0.2 mg 12/30/18 10:00 Catapres-Tts Patch TD Mo MANOJ Enoxaparin Sodium 40 mg 12/28/18 10:00 12/29/18 11:51 Lovenox SUB-Q 40 mg QDAY@1000 MANOJ Administration Hydralazine HCl 100 mg 12/19/18 20:00 12/30/18 08:45 Apresoline PO Not Given TID MANOJ Hydralazine HCl 20 mg 12/25/18 11:36 12/25/18 21:39 Apresoline IV 20 mg Q4HR PRN Administration Hypertension Dextrose/Sodium Chloride 1,000 mls @ 75 mls/hr 12/22/18 20:00 12/30/18 08:15 D5/0.45ns IV 75 mls/hr DIRECT MANOJ Administration Labetalol HCl 10 mg 12/22/18 18:30 12/26/18 05:09 Normodyne IV 10 mg Q6HR PRN Administration Blood Pressure Lorazepam 2 mg 12/19/18 03:09 12/30/18 01:43 Ativan IV 2 mg Q1HR PRN Administration CIWA-Ar 8-15 Lorazepam 4 mg 12/19/18 03:09 Ativan IV Q1HR PRN CIWA-Ar 16-25 Metoprolol Tartrate 5 mg 12/22/18 23:38 12/23/18 16:44 Lopressor IV 5 mg Q6H PRN Administration elevated BP. Hold for HR <60 Minoxidil 5 mg 12/23/18 22:00 12/29/18 21:38 Loniten PO 5 mg BID MANOJ Administration Ondansetron HCl 4 mg 12/19/18 03:06 Zofran IV Q8H PRN Nausea And Vomiting Sodium Chloride 10 ml 12/19/18 10:00 12/29/18 21:39 Sodium Chloride Flush Syringe 10 Ml IV 10 ml BID MANOJ Administration Sodium Chloride 10 ml 12/19/18 03:06 Sodium Chloride Flush Syringe 10 Ml IV PRN PRN LINE FLUSH Spironolactone 50 mg 12/19/18 22:00 12/29/18 21:37 Aldactone PO Not Given BID MANOJ Thiamine HCl 100 mg 12/21/18 14:00 12/29/18 12:10 Vitamin B-1 PO 100 mg QDAY MANOJ Administration
[2018-12-30] MEDS ORDERED: CATAPRES-TTS PATCH TD SCH ×3 (10:00)
[2018-12-30] MEDS: LOVENOX SUB-Q SCH (10:13)
[2018-12-30] MEDS: SODIUM CHLORIDE FLUSH SYRINGE 10 ML IV SCH ×2 (10:14→22:47)
[2018-12-30] MEDS: ALDACTONE PO SCH ×2 (10:30→22:45)
[2018-12-30] MEDS: LONITEN PO SCH ×2 (10:32→22:46)
[2018-12-30] MEDS: NORVASC PO SCH (10:33)
[2018-12-30] MEDS: VITAMIN B-1 PO SCH (10:35)
[2018-12-30] MEDS: APRESOLINE IV PRN (12:42)
[2018-12-30 15:33] LABS: Aldo/Plasma Renin Act Ratio 0.8 Ratio (0.9-28.9)
--- NOTE | 2018-12-30 15:53 | Progress Note ---
Assessment and Plan Assessment and plan: Acute Metabolic encephalopathy. ? Wernicke Korsakoff, neuro following. 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 Urology consulted and believes it is chronic. Peraza placed. Obstructive uropathy. Hypertensive urgency; continue minoxidil, clonidine, hydralazine, Norvasc. Monitor and adjusted as needed. Controlled ETOH abuse. Cont. CIWA patient had episode of fever and blood culture ordered Nutrition; patient can drink sips, will put an order for ensure. Prognosis; poor disposition; pending family decision for home hospice. History Interval history: Patient was seen and evaluated this morning. patient didn't respond. Hospitalist Physical - Physical exam Narrative exam: Not in cardiopulmonary distress. The patient appeared well nourished and normally developed. Vital signs as documented. Head exam is unremarkable. No scleral icterus . Neck is without jugular venous distension, thyromegaly, or carotid bruits. Lungs are clear to auscultation. Cardiac exam reveals regular rate and Rhythm. First and second heart sounds normal. No murmurs, rubs or gallops. Abdominal exam reveals normal bowel sounds, no masses, no organomegaly and no aortic enlargement. Extremities are nonedematous and both femoral and pedal pulses are normal. CUSTOMER ADVOCACY MANAGER: Somnolent. Not communicative. - Constitutional Vitals: Temp Pulse Resp BP Pulse Ox 97.3 F L 84 18 170/90 100 12/30/18 11:23 12/30/18 12:42 12/30/18 12:03 12/30/18 12:42 12/30/18 12:03 General appearance: Present: no acute distress, well-nourished Results - Labs CBC & Chem 7: 12/28/18 04:58 12/30/18 05:39 Labs: Laboratory Last Values WBC 7.7 K/mm3 (4.5-11.0) 12/28/18 04:58 RBC 3.96 M/mm3 (3.65-5.03) 12/28/18 04:58 Hgb 10.7 gm/dl (11.8-15.2) L 12/28/18 04:58 Hct 32.1 % (35.5-45.6) L 12/28/18 04:58 MCV 81 fl (84-94) L 12/28/18 04:58 MCH 27 pg (28-32) L 12/28/18 04:58 MCHC 33 % (32-34) 12/28/18 04:58 RDW 16.8 % (13.2-15.2) H 12/28/18 04:58 Plt Count 210 K/mm3 (140-440) 12/28/18 04:58 Lymph % (Auto) 15.7 % (13.4-35.0) 12/28/18 04:58 [place] % (Auto) 11.1 % (0.0-7.3) H 12/28/18 04:58 Eos % (Auto) 0.5 % (0.0-4.3) 12/28/18 04:58 Baso % (Auto) 0.4 % (0.0-1.8) 12/28/18 04:58 Lymph # 1.2 K/mm3 (1.2-5.4) 12/28/18 04:58 [place] # 0.9 K/mm3 (0.0-0.8) H 12/28/18 04:58 Eos # 0.0 K/mm3 (0.0-0.4) 12/28/18 04:58 Baso # 0.0 K/mm3 (0.0-0.1) 12/28/18 04:58 Seg Neutrophils % 72.3 % (40.0-70.0) H 12/28/18 04:58 Seg Neutrophils # 5.6 K/mm3 (1.8-7.7) 12/28/18 04:58 Sodium 135 mmol/L (137-145) L 12/30/18 05:39 Potassium 4.4 mmol/L (3.6-5.0) 12/30/18 05:39 Chloride 100.5 mmol/L (98-107) 12/30/18 05:39 Carbon Dioxide 22 mmol/L (22-30) 12/30/18 05:39 Anion Gap 17 mmol/L 12/30/18 05:39 BUN 30 mg/dL (9-20) H 12/30/18 05:39 Creatinine 1.8 mg/dL (0.8-1.5) H 12/30/18 05:39 Estimated GFR 46 ml/min 12/30/18 05:39 BUN/Creatinine Ratio 17 % 12/30/18 05:39 Glucose 112 mg/dL (75-100) H 12/30/18 05:39 POC Glucose 88 (70-105) 12/24/18 05:47 Lactic Acid 1.30 mmol/L (0.7-2.0) 12/19/18 06:49 Calcium 9.0 mg/dL (8.4-10.2) 12/30/18 05:39 Magnesium 2.20 mg/dL (1.7-2.3) 12/21/18 04:27 Total Bilirubin 0.80 mg/dL (0.1-1.2) 12/26/18 05:18 AST 20 units/L (5-40) 12/26/18 05:18 ALT 7 units/L (7-56) 12/26/18 05:18 Alkaline Phosphatase 65 units/L (35-129) 12/26/18 05:18 Ammonia 23.0 umol/L (25-60) L 12/19/18 00:57 Total Protein 6.3 g/dL (6.3-8.2) 12/26/18 05:18 Albumin 3.3 g/dL (3.9-5) L 12/26/18 05:18 Albumin/Globulin Ratio 1.1 % 12/26/18 05:18 Renin 3.91 ng/mL/h (0.25-5.82) 12/25/18 11:55 Aldosterone 3 ng/dL () 12/25/18 11:55 Aldosterone/Renin Dir 0.8 Ratio (0.9-28.9) L 12/25/18 11:55 TSH 3.190 mlU/mL (0.270-4.200) 12/19/18 00:57 Urine Color Carmen (Yellow) 12/19/18 02:27 Urine Turbidity Slightly-cloudy (Clear) 12/19/18 02:27 Urine pH 5.0 (5.0-7.0) 12/19/18 02:27 Ur Specific [place] 1.024 (1.003-1.030) 12/19/18 02:27 Urine Protein >500 mg/dL (Negative) 12/19/18 02:27 Urine Glucose (UA) Neg mg/dL (Negative) 12/19/18 02:27 Urine Ketones Neg mg/dL (Negative) 12/19/18 02:27 Urine Blood Neg (Negative) 12/19/18 02:27 Urine Nitrite Neg (Negative) 12/19/18 02:27 Urine Bilirubin Neg (Negative) 12/19/18 02:27 Urine Urobilinogen 4.0 mg/dL (<2.0) 12/19/18 02:27 Ur Leukocyte Esterase Neg (Negative) 12/19/18 02:27 Urine WBC (Auto) 4.0 /HPF (0.0-6.0) 12/19/18 02:27 Urine RBC (Auto) 2.0 /HPF (0.0-6.0) 12/19/18 02:27 U Epithel Cells (Auto) < 1.0 /HPF (0-13.0) 12/19/18 02:27 Urine Bacteria (Auto) 1+ /HPF (Negative) 12/19/18 02:27 Amorphous Crystals 1+ 12/19/18 02:27 Hyaline Casts 8 /LPF 12/19/18 02:27 Urine Mucus Few /HPF 12/19/18 02:27 Urine Eosinophils None seen (None Seen) 12/20/18 00:30 Urine Total Volume 500 ml 12/23/18 Unknown Urine Creatinine 39.2 mg/dL (0.1-20.0) H 12/23/18 Unknown Ur Creatinine 24 Hour 0.2 (0.8-2.8) L 12/23/18 Unknown Height (in) 72.0 inches 12/23/18 Unknown Weight (lb) 160.0 lbs 12/23/18 Unknown Creatinine Clearance 4 12/23/18 Unknown Ur Total Protein 24 Hr 60.00 mg/dL (2-200) 12/23/18 Unknown Protein/Creatinin Ratio 0.36 12/20/18 00:30 Urine Sodium 105 mmol/L 12/20/18 00:30 Urine Total Protein 12 mg/dL (5-11.8) H 12/23/18 Unknown Salicylates < 0.3 mg/dL (2.8-20.0) L 12/19/18 00:57 Urine Opiates Screen Presumptive negative 12/19/18 02:27 Urine Methadone Screen Presumptive negative 12/19/18 02:27 Acetaminophen < 5.0 ug/mL (10.0-30.0) L 12/19/18 00:57 Ur Barbiturates Screen Presumptive negative 12/19/18 02:27 Ur Phencyclidine Scrn Presumptive negative 12/19/18 02:27 Ur Amphetamines Screen Presumptive negative 12/19/18 02:27 U Benzodiazepines Scrn Presumptive negative 12/19/18 02:27 Urine Cocaine Screen Presumptive negative 12/19/18 02:27 U Marijuana (THC) Screen Presumptive positive 12/19/18 02:27 Drugs of Abuse Note Disclamer 12/19/18 02:27 Plasma/Serum Alcohol < 0.01 % (0-0.07) 12/19/18 00:57 Immunofix Electrophor see below 12/23/18 10:46 Nutrition/Malnutrition Assess - Dietary Evaluation Nutrition/Malnutrition Findings: Nutrition Notes Start: 12/26/18 10:58 Freq: Status: Active Protocol: Document 12/26/18 10:58 LOLA (Rec: 12/26/18 11:16 LOLA [email or web address]) Co-Sign 12/26/18 10:58 LP Nutrition Notes Need for Assessment generated from: LOS Initial or Follow up Assessment Current Diagnosis Acute Kidney Injury CKD(stage I-IV) Hypertension Other Pertinent Diagnosis Wernicke Korsakoff, heavy EtOH use, boil on L upper back, AMS Current Diet Mechanical soft Labs/Tests Reviewed Pertinent Medications Reviewed Height 6 ft Weight 77.4 kg Usual Body Weight 90.9 kg [place] Body Weight (kg) 80.90 BMI 23.1 Intake Prior to Admission Poor Weight change and time frame Wt. obtianed [facility] bedscale. 15 % BW loss over unknown time period. Weight Status Appropriate Subjective/Other Information Pt. seen for LOS. Pt. AMS and asleep, so pt. brother answered questions. Brother stated pt. intakes have been poor, and has only had bites of food since last Sunday. This AM pt. only consumed applesauce with medication. Pt . brother stated he had to work very hard to get pt. to consume food. Observed pt. tray with no food eaten. Pt. brother agreed to have pt. try Ensure Enlive. Pt. brother stated he bought pt. a pack of Boost at home, but pt. did not drink them on his own. Pt. brother denied N/V/C/D. Oil And Gas Field Technician noticed signs of clavicle muscle wasting. Percent of energy/protein needs met: <25%/25% Burn Absent Trauma Absent GI Symptoms None Difficulty In Swallowing Food Allergy No Current % PO Negligible Minimum of two criteria Yes Energy Intake (severe) < or equal to 50% Estimated Energy Requirement > or equal to 5 days Muscle Mass Mild Depletion (non-severe) #1 Nutrition Diagnosis Malnutrition Etiology AMS As Evidenced by Signs and Symptoms Muscle wasting, consumption of less than 50% of needs over last 5 days Is patient on ventilator? No Is Patient Ambulatory and/or Out of Bed No REE-([facility]-confined to bed) 4415.913 Calculation Used for Recommendations [facility] Additional Notes Pro needs: 94-118g/day (1.2-1. 5 g/kg BW) Fluid needs: 1 ml/kcal Nutrition Intervention Change Diet Order: Continue mechanical soft diet Add Supplement/Snack (indicate name/kcal Ensure Enlive daily /protein ) Provides kCal: 350 Provides Protein (gm) 20 Goal #1 ONS toleration Goal #2 Weight maintenance Anticipated Discharge Needs: Mechanical Soft with regular liquids Follow-Up By: 12/31/18 Additional Comments F/u for PO intakes, ONS tolerance, need for additional supplementation
[2018-12-31] MEDS: APRESOLINE IV PRN (06:01)
[2018-12-31 07:37] LABS: Calcium 9.4 mg/dL (8.4-10.2)
--- NOTE | 2018-12-31 08:58 | Progress Note ---
Assessment and Plan Impression * Acute on chronic renal failure * Altered mental status * Obstructive uropathy * Hypertension Recommendations * His serum creatinine seems to be leveling off . Probably his baseline * He currently has indwelling Peraza catheter in place and being followed by urology * His oral intake is extremely poor according to his brother . Continue gentle hydration * Avoid nephrotoxins * Neurology notes appreciated Subjective Date of service: 12/31/18 Principal diagnosis: madalyn on ckd Interval history: Patient clinically about the same. Appears comfortable. Patient's brother at bedside. Objective - Vital Signs Vital signs: Vital Signs - 12hr 12/30/18 12/30/18 12/31/18 22:00 22:45 00:26 Temperature 98.0 F Pulse Rate 79 79 87 Respiratory 20 Rate Blood Pressure 166/89 171/71 Blood Pressure [Left] O2 Sat by Pulse 95 Oximetry 12/31/18 12/31/18 12/31/18 02:32 04:10 06:01 Temperature 98.0 F Pulse Rate 82 85 81 Respiratory 18 Rate Blood Pressure 164/79 164/89 Blood Pressure 155/76 [Left] O2 Sat by Pulse 99 Oximetry 12/31/18 08:40 Temperature Pulse Rate Respiratory 18 Rate Blood Pressure Blood Pressure [Left] O2 Sat by Pulse Oximetry - General Appearance General appearance: well-developed, well-nourished, appears stated age EENT: PERRL, mucous membranes moist Neck: no JVD, no thyromegaly, no carotid bruit, supple Respiratory: Present: Clear to Ascultation Cardiology: regular, normal heart rate, S1S2, no murmurs Gastrointestinal: normal, normoactive bowel sounds Integumentary: no rash, other (no edema) - Lab 12/28/18 04:58 12/31/18 05:48 Most recent lab results Calcium 9.4 mg/dL (8.4-10.2) 12/31/18 05:48 Magnesium 2.20 mg/dL (1.7-2.3) 12/21/18 04:27 Urine Creatinine 39.2 mg/dL (0.1-20.0) H 12/23/18 Unknown Ur Total Protein 24 Hr 60.00 mg/dL (2-200) 12/23/18 Unknown Urine Sodium 105 mmol/L 12/20/18 00:30 Urine Total Protein 12 mg/dL (5-11.8) H 12/23/18 Unknown Medications & Allergies - Medications Allergies/Adverse Reactions: Allergies No Known Allergies Allergy (Verified 12/19/18 03:17) Home Medications: Home Medications Medication Instructions Recorded Confirmed Last Taken Type No Known Home Medications [No 12/19/18 12/19/18 Unknown History Reported Home Medications] Active Medications: Generic Name Dose Route Start Last Admin Trade Name Freq PRN Reason Stop Dose Admin Acetaminophen 650 mg 12/19/18 03:06 Tylenol PO Q4H PRN Pain MILD(1-3)/Fever >100.5/[place] Acetaminophen 650 mg 12/26/18 04:59 12/26/18 05:09 Tylenol NE 650 mg Q4H PRN Administration Pain, Mild (1-3) Amlodipine Besylate 10 mg 12/22/18 16:00 12/30/18 10:33 Norvasc PO Not Given QDAY MANOJ Atorvastatin Calcium 40 mg 12/20/18 22:00 12/30/18 22:45 Lipitor PO 40 mg QHS MANOJ Administration Clonidine HCl 0.2 mg 12/23/18 12:04 12/23/18 16:41 Catapres PO 0.2 mg Q4H PRN Administration HTN SBP>160 Clonidine HCl 0.2 mg 12/30/18 10:00 12/30/18 10:13 Catapres-Tts Patch TD 0.2 mg Mo MANOJ Administration Enoxaparin Sodium 40 mg 12/28/18 10:00 12/30/18 10:13 Lovenox SUB-Q 40 mg QDAY@1000 MANOJ Administration Hydralazine HCl 100 mg 12/19/18 20:00 12/30/18 21:15 Apresoline PO 100 mg TID MANOJ Administration Hydralazine HCl 20 mg 12/25/18 11:36 12/31/18 06:01 Apresoline IV 20 mg Q4HR PRN Administration Hypertension Dextrose/Sodium Chloride 1,000 mls @ 75 mls/hr 12/22/18 20:00 12/30/18 08:15 D5/0.45ns IV 75 mls/hr DIRECT MANOJ Administration Labetalol HCl 10 mg 12/22/18 18:30 12/26/18 05:09 Normodyne IV 10 mg Q6HR PRN Administration Blood Pressure Lorazepam 2 mg 12/19/18 03:09 12/30/18 01:43 Ativan IV 2 mg Q1HR PRN Administration CIWA-Ar 8-15 Lorazepam 4 mg 12/19/18 03:09 Ativan IV Q1HR PRN CIWA-Ar 16-25 Metoprolol Tartrate 5 mg 12/22/18 23:38 12/23/18 16:44 Lopressor IV 5 mg Q6H PRN Administration elevated BP. Hold for HR <60 Minoxidil 5 mg 12/23/18 22:00 12/30/18 22:46 Loniten PO 5 mg BID MANOJ Administration Ondansetron HCl 4 mg 12/19/18 03:06 Zofran IV Q8H PRN Nausea And Vomiting Sodium Chloride 10 ml 12/19/18 10:00 12/30/18 22:47 Sodium Chloride Flush Syringe 10 Ml IV 10 ml BID MANOJ Administration Sodium Chloride 10 ml 12/19/18 03:06 Sodium Chloride Flush Syringe 10 Ml IV PRN PRN LINE FLUSH Spironolactone 50 mg 12/19/18 22:00 12/30/18 22:45 Aldactone PO 50 mg BID MANOJ Administration Thiamine HCl 100 mg 12/21/18 14:00 12/30/18 10:35 Vitamin B-1 PO Not Given QDAY MANOJ
[2018-12-31] MEDS: ALDACTONE PO SCH ×2 (10:52→22:55)
[2018-12-31] MEDS: NORVASC PO SCH (10:52)
[2018-12-31] MEDS: LOVENOX SUB-Q SCH (10:52)
[2018-12-31] MEDS: VITAMIN B-1 PO SCH (10:53)
[2018-12-31] MEDS: APRESOLINE PO SCH ×3 (10:53→22:55)
[2018-12-31] MEDS: LONITEN PO SCH ×2 (10:53→22:55)
[2018-12-31] MEDS: SODIUM CHLORIDE FLUSH SYRINGE 10 ML IV SCH ×2 (10:53→22:55)
--- NOTE | 2018-12-31 13:42 | Progress Note ---
Assessment and Plan Assessment and plan: Acute Metabolic encephalopathy. ? Wernicke Korsakoff, neuro following. 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 Urology consulted and believes it is chronic. Peraza placed. Obstructive uropathy. Hypertensive urgency; continue minoxidil, clonidine, hydralazine, Norvasc. Monitor and adjusted as needed. Controlled ETOH abuse. Cont. CIWA Prognosis; poor Disposition; family does not want to pursue hospice at this time. Physical therapy is recommending subacute rehabilitation. History Interval history: No new issues overnight Hospitalist Physical - Constitutional Vitals: Temp Pulse Resp BP Pulse Ox 97.9 F 83 14 163/88 95 12/31/18 12:46 12/31/18 12:46 12/31/18 12:46 12/31/18 12:46 12/31/18 12:46 General appearance: Present: no acute distress, well-nourished - EENT Eyes: Present: PERRL, EOM intact ENT: hearing intact, clear oral mucosa, dentition normal - Neck Neck: Present: supple, normal ROM - Respiratory Respiratory effort: normal Respiratory: bilateral: CTA - Cardiovascular Rhythm: regular Heart Sounds: Present: S1 & S2. Absent: gallop, rub - Extremities Extremities: no ischemia, No edema, Full ROM - Abdominal General gastrointestinal: soft, non-tender, non-distended, normal bowel sounds - Integumentary Integumentary: Present: clear, warm, dry - Neurologic Neurologic: CNII-XII intact, moves all extremities Results - Labs CBC & Chem 7: 12/28/18 04:58 12/31/18 05:48 Labs: Laboratory Last Values WBC 7.7 K/mm3 (4.5-11.0) 12/28/18 04:58 RBC 3.96 M/mm3 (3.65-5.03) 12/28/18 04:58 Hgb 10.7 gm/dl (11.8-15.2) L 12/28/18 04:58 Hct 32.1 % (35.5-45.6) L 12/28/18 04:58 MCV 81 fl (84-94) L 12/28/18 04:58 MCH 27 pg (28-32) L 12/28/18 04:58 MCHC 33 % (32-34) 12/28/18 04:58 RDW 16.8 % (13.2-15.2) H 12/28/18 04:58 Plt Count 210 K/mm3 (140-440) 12/28/18 04:58 Lymph % (Auto) 15.7 % (13.4-35.0) 12/28/18 04:58 [place] % (Auto) 11.1 % (0.0-7.3) H 12/28/18 04:58 Eos % (Auto) 0.5 % (0.0-4.3) 12/28/18 04:58 Baso % (Auto) 0.4 % (0.0-1.8) 12/28/18 04:58 Lymph # 1.2 K/mm3 (1.2-5.4) 12/28/18 04:58 [place] # 0.9 K/mm3 (0.0-0.8) H 12/28/18 04:58 Eos # 0.0 K/mm3 (0.0-0.4) 12/28/18 04:58 Baso # 0.0 K/mm3 (0.0-0.1) 12/28/18 04:58 Seg Neutrophils % 72.3 % (40.0-70.0) H 12/28/18 04:58 Seg Neutrophils # 5.6 K/mm3 (1.8-7.7) 12/28/18 04:58 Sodium 139 mmol/L (137-145) 12/31/18 05:48 Potassium 4.4 mmol/L (3.6-5.0) 12/31/18 05:48 Chloride 103.0 mmol/L (98-107) 12/31/18 05:48 Carbon Dioxide 21 mmol/L (22-30) L 12/31/18 05:48 Anion Gap 19 mmol/L 12/31/18 05:48 BUN 30 mg/dL (9-20) H 12/31/18 05:48 Creatinine 2.0 mg/dL (0.8-1.5) H 12/31/18 05:48 Estimated GFR 41 ml/min 12/31/18 05:48 BUN/Creatinine Ratio 15 % 12/31/18 05:48 Glucose 109 mg/dL (75-100) H 12/31/18 05:48 POC Glucose 88 (70-105) 12/24/18 05:47 Lactic Acid 1.30 mmol/L (0.7-2.0) 12/19/18 06:49 Calcium 9.4 mg/dL (8.4-10.2) 12/31/18 05:48 Magnesium 2.20 mg/dL (1.7-2.3) 12/21/18 04:27 Total Bilirubin 0.80 mg/dL (0.1-1.2) 12/26/18 05:18 AST 20 units/L (5-40) 12/26/18 05:18 ALT 7 units/L (7-56) 12/26/18 05:18 Alkaline Phosphatase 65 units/L (35-129) 12/26/18 05:18 Ammonia 23.0 umol/L (25-60) L 12/19/18 00:57 Total Protein 6.3 g/dL (6.3-8.2) 12/26/18 05:18 Albumin 3.3 g/dL (3.9-5) L 12/26/18 05:18 Albumin/Globulin Ratio 1.1 % 12/26/18 05:18 Renin 3.91 ng/mL/h (0.25-5.82) 12/25/18 11:55 Aldosterone 3 ng/dL () 12/25/18 11:55 Aldosterone/Renin Dir 0.8 Ratio (0.9-28.9) L 12/25/18 11:55 TSH 3.190 mlU/mL (0.270-4.200) 12/19/18 00:57 Urine Color Carmen (Yellow) 12/19/18 02:27 Urine Turbidity Slightly-cloudy (Clear) 12/19/18 02:27 Urine pH 5.0 (5.0-7.0) 12/19/18 02:27 Ur Specific [place] 1.024 (1.003-1.030) 12/19/18 02:27 Urine Protein >500 mg/dL (Negative) 12/19/18 02:27 Urine Glucose (UA) Neg mg/dL (Negative) 12/19/18 02:27 Urine Ketones Neg mg/dL (Negative) 12/19/18 02:27 Urine Blood Neg (Negative) 12/19/18 02:27 Urine Nitrite Neg (Negative) 12/19/18 02:27 Urine Bilirubin Neg (Negative) 12/19/18 02:27 Urine Urobilinogen 4.0 mg/dL (<2.0) 12/19/18 02:27 Ur Leukocyte Esterase Neg (Negative) 12/19/18 02:27 Urine WBC (Auto) 4.0 /HPF (0.0-6.0) 12/19/18 02:27 Urine RBC (Auto) 2.0 /HPF (0.0-6.0) 12/19/18 02:27 U Epithel Cells (Auto) < 1.0 /HPF (0-13.0) 12/19/18 02:27 Urine Bacteria (Auto) 1+ /HPF (Negative) 12/19/18 02:27 Amorphous Crystals 1+ 12/19/18 02:27 Hyaline Casts 8 /LPF 12/19/18 02:27 Urine Mucus Few /HPF 12/19/18 02:27 Urine Eosinophils None seen (None Seen) 12/20/18 00:30 Urine Total Volume 500 ml 12/23/18 Unknown Urine Creatinine 39.2 mg/dL (0.1-20.0) H 12/23/18 Unknown Ur Creatinine 24 Hour 0.2 (0.8-2.8) L 12/23/18 Unknown Height (in) 72.0 inches 12/23/18 Unknown Weight (lb) 160.0 lbs 12/23/18 Unknown Creatinine Clearance 4 12/23/18 Unknown Ur Total Protein 24 Hr 60.00 mg/dL (2-200) 12/23/18 Unknown Protein/Creatinin Ratio 0.36 12/20/18 00:30 Urine Sodium 105 mmol/L 12/20/18 00:30 Urine Total Protein 12 mg/dL (5-11.8) H 12/23/18 Unknown Salicylates < 0.3 mg/dL (2.8-20.0) L 12/19/18 00:57 Urine Opiates Screen Presumptive negative 12/19/18 02:27 Urine Methadone Screen Presumptive negative 12/19/18 02:27 Acetaminophen < 5.0 ug/mL (10.0-30.0) L 12/19/18 00:57 Ur Barbiturates Screen Presumptive negative 12/19/18 02:27 Ur Phencyclidine Scrn Presumptive negative 12/19/18 02:27 Ur Amphetamines Screen Presumptive negative 12/19/18 02:27 U Benzodiazepines Scrn Presumptive negative 12/19/18 02:27 Urine Cocaine Screen Presumptive negative 12/19/18 02:27 U Marijuana (THC) Screen Presumptive positive 12/19/18 02:27 Drugs of Abuse Note Disclamer 12/19/18 02:27 Plasma/Serum Alcohol < 0.01 % (0-0.07) 12/19/18 00:57 Immunofix Electrophor see below 12/23/18 10:46 Nutrition/Malnutrition Assess - Dietary Evaluation Nutrition/Malnutrition Findings: Nutrition Notes Start: 12/26/18 10:58 Freq: Status: Active Protocol: Document 12/26/18 10:58 LOLA (Rec: 12/26/18 11:16 LOLA [email or web address]) Co-Sign 12/26/18 10:58 LP Nutrition Notes Need for Assessment generated from: LOS Initial or Follow up Assessment Current Diagnosis Acute Kidney Injury CKD(stage I-IV) Hypertension Other Pertinent Diagnosis Wernicke Korsakoff, heavy EtOH use, boil on L upper back, AMS Current Diet Mechanical soft Labs/Tests Reviewed Pertinent Medications Reviewed Height 6 ft Weight 77.4 kg Usual Body Weight 90.9 kg [place] Body Weight (kg) 80.90 BMI 23.1 Intake Prior to Admission Poor Weight change and time frame Wt. obtianed mr bedscale. 15 % BW loss over unknown time period. Weight Status Appropriate Subjective/Other Information Pt. seen for LOS. Pt. AMS and asleep, so pt. brother answered questions. Brother stated pt. intakes have been poor, and has only had bites of food since last Sunday. This AM pt. only consumed applesauce with medication. Pt . brother stated he had to work very hard to get pt. to consume food. Observed pt. tray with no food eaten. Pt. brother agreed to have pt. try Ensure Enlive. Pt. brother stated he bought pt. a pack of Boost at home, but pt. did not drink them on his own. Pt. brother denied N/V/C/D. Tailings Man noticed signs of clavicle muscle wasting. Percent of energy/protein needs met: <25%/25% Burn Absent Trauma Absent GI Symptoms None Difficulty In Swallowing Food Allergy No Current % PO Negligible Minimum of two criteria Yes Energy Intake (severe) < or equal to 50% Estimated Energy Requirement > or equal to 5 days Muscle Mass Mild Depletion (non-severe) #1 Nutrition Diagnosis Malnutrition Etiology AMS As Evidenced by Signs and Symptoms Muscle wasting, consumption of less than 50% of needs over last 5 days Is patient on ventilator? No Is Patient Ambulatory and/or Out of Bed No REE-([facility]-confined to bed) [phone] Calculation Used for Recommendations [facility] Additional Notes Pro needs: 94-118g/day (1.2-1. 5 g/kg BW) Fluid needs: 1 ml/kcal Nutrition Intervention Change Diet Order: Continue mechanical soft diet Add Supplement/Snack (indicate name/kcal Ensure Enlive daily /protein ) Provides kCal: 350 Provides Protein (gm) 20 Goal #1 ONS toleration Goal #2 Weight maintenance Anticipated Discharge Needs: Mechanical Soft with regular liquids Follow-Up By: 12/31/18 Additional Comments F/u for PO intakes, ONS tolerance, need for additional supplementation
[2019-01-01 07:28] LABS: BUN/Creatinine Ratio 17; Blood Urea Nitrogen 33 mg/dL (9-20); Calcium 9.4 mg/dL (8.4-10.2)
[2019-01-01] MEDS: NORVASC PO SCH (10:25)
[2019-01-01] MEDS: VITAMIN B-1 PO SCH (10:25)
[2019-01-01] MEDS: SODIUM CHLORIDE FLUSH SYRINGE 10 ML IV SCH ×2 (10:25→21:35)
[2019-01-01] MEDS: LOVENOX SUB-Q SCH (10:25)
[2019-01-01] MEDS: LONITEN PO SCH ×2 (10:25→21:34)
[2019-01-01] MEDS: ALDACTONE PO SCH ×2 (10:26→21:33)
[2019-01-01] MEDS: APRESOLINE PO SCH ×3 (10:26→20:00)
--- NOTE | 2019-01-01 11:26 | Progress Note ---
Assessment and Plan Assessment and plan: Acute Metabolic encephalopathy. ? Wernicke Korsakoff, neuro following. MRI showed dffuse small vessel infarcts discussed with neurologist and he explained to the families and recommended Hospice care Patient showed no improvement since admission. Acute on chronic renal failure likely vasomotor - nephrology is following Hypokalemia; corrected Right hydronephrosis. Urology consulted and believes it is chronic. Peraza placed. Obstructive uropathy. Hypertension. Controlled. Continue minoxidil, clonidine, hydralazine, Norvasc. Monitor and adjusted as needed. ETOH abuse. Cont. CIWA Prognosis poor Cachexia. Dietitian consult. Patient with poor by mouth intake. Patient may need PEG placement. Disposition; family does not want to pursue hospice at this time. I discussed the case in detail with the brother. Physical therapy is recommending subacute rehabilitation. History Interval history: No new issues overnight. Patient remains confused. Hospitalist Physical - Constitutional Vitals: Temp Pulse Resp BP Pulse Ox 98.8 F 79 20 161/92 98 01/01/19 04:04 01/01/19 10:14 01/01/19 10:14 01/01/19 10:14 01/01/19 10:14 General appearance: Present: no acute distress, well-nourished - EENT Eyes: Present: PERRL, EOM intact ENT: hearing intact, clear oral mucosa, dentition normal - Neck Neck: Present: supple, normal ROM - Respiratory Respiratory effort: normal Respiratory: bilateral: CTA - Cardiovascular Rhythm: regular Heart Sounds: Present: S1 & S2. Absent: gallop, rub - Extremities Extremities: no ischemia, No edema, Full ROM - Abdominal General gastrointestinal: soft, non-tender, non-distended, normal bowel sounds - Integumentary Integumentary: Present: clear, warm, dry - Neurologic Neurologic: CNII-XII intact, moves all extremities Results - Labs CBC & Chem 7: 12/28/18 04:58 01/01/19 05:57 Labs: Laboratory Last Values WBC 7.7 K/mm3 (4.5-11.0) 12/28/18 04:58 RBC 3.96 M/mm3 (3.65-5.03) 12/28/18 04:58 Hgb 10.7 gm/dl (11.8-15.2) L 12/28/18 04:58 Hct 32.1 % (35.5-45.6) L 12/28/18 04:58 MCV 81 fl (84-94) L 12/28/18 04:58 MCH 27 pg (28-32) L 12/28/18 04:58 MCHC 33 % (32-34) 12/28/18 04:58 RDW 16.8 % (13.2-15.2) H 12/28/18 04:58 Plt Count 210 K/mm3 (140-440) 12/28/18 04:58 Lymph % (Auto) 15.7 % (13.4-35.0) 12/28/18 04:58 [place] % (Auto) 11.1 % (0.0-7.3) H 12/28/18 04:58 Eos % (Auto) 0.5 % (0.0-4.3) 12/28/18 04:58 Baso % (Auto) 0.4 % (0.0-1.8) 12/28/18 04:58 Lymph # 1.2 K/mm3 (1.2-5.4) 12/28/18 04:58 Snyder # 0.9 K/mm3 (0.0-0.8) H 12/28/18 04:58 Eos # 0.0 K/mm3 (0.0-0.4) 12/28/18 04:58 Baso # 0.0 K/mm3 (0.0-0.1) 12/28/18 04:58 Seg Neutrophils % 72.3 % (40.0-70.0) H 12/28/18 04:58 Seg Neutrophils # 5.6 K/mm3 (1.8-7.7) 12/28/18 04:58 Sodium 137 mmol/L (137-145) 01/01/19 05:57 Potassium 4.4 mmol/L (3.6-5.0) 01/01/19 05:57 Chloride 102.0 mmol/L (98-107) 01/01/19 05:57 Carbon Dioxide 20 mmol/L (22-30) L 01/01/19 05:57 Anion Gap 19 mmol/L 01/01/19 05:57 BUN 33 mg/dL (9-20) H 01/01/19 05:57 Creatinine 1.9 mg/dL (0.8-1.5) H 01/01/19 05:57 Estimated GFR 43 ml/min 01/01/19 05:57 BUN/Creatinine Ratio 17 % 01/01/19 05:57 Glucose 110 mg/dL (75-100) H 01/01/19 05:57 POC Glucose 88 (70-105) 12/24/18 05:47 Lactic Acid 1.30 mmol/L (0.7-2.0) 12/19/18 06:49 Calcium 9.4 mg/dL (8.4-10.2) 01/01/19 05:57 Magnesium 2.20 mg/dL (1.7-2.3) 12/21/18 04:27 Total Bilirubin 0.80 mg/dL (0.1-1.2) 12/26/18 05:18 AST 20 units/L (5-40) 12/26/18 05:18 ALT 7 units/L (7-56) 12/26/18 05:18 Alkaline Phosphatase 65 units/L (35-129) 12/26/18 05:18 Ammonia 23.0 umol/L (25-60) L 12/19/18 00:57 Total Protein 6.3 g/dL (6.3-8.2) 12/26/18 05:18 Albumin 3.3 g/dL (3.9-5) L 12/26/18 05:18 Albumin/Globulin Ratio 1.1 % 12/26/18 05:18 Renin 3.91 ng/mL/h (0.25-5.82) 12/25/18 11:55 Aldosterone 3 ng/dL () 12/25/18 11:55 Aldosterone/Renin Dir 0.8 Ratio (0.9-28.9) L 12/25/18 11:55 TSH 3.190 mlU/mL (0.270-4.200) 12/19/18 00:57 Urine Color Carmen (Yellow) 12/19/18 02:27 Urine Turbidity Slightly-cloudy (Clear) 12/19/18 02:27 Urine pH 5.0 (5.0-7.0) 12/19/18 02:27 Ur Specific [place] 1.024 (1.003-1.030) 12/19/18 02:27 Urine Protein >500 mg/dL (Negative) 12/19/18 02:27 Urine Glucose (UA) Neg mg/dL (Negative) 12/19/18 02:27 Urine Ketones Neg mg/dL (Negative) 12/19/18 02:27 Urine Blood Neg (Negative) 12/19/18 02:27 Urine Nitrite Neg (Negative) 12/19/18 02:27 Urine Bilirubin Neg (Negative) 12/19/18 02:27 Urine Urobilinogen 4.0 mg/dL (<2.0) 12/19/18 02:27 Ur Leukocyte Esterase Neg (Negative) 12/19/18 02:27 Urine WBC (Auto) 4.0 /HPF (0.0-6.0) 12/19/18 02:27 Urine RBC (Auto) 2.0 /HPF (0.0-6.0) 12/19/18 02:27 U Epithel Cells (Auto) < 1.0 /HPF (0-13.0) 12/19/18 02:27 Urine Bacteria (Auto) 1+ /HPF (Negative) 12/19/18 02:27 Amorphous Crystals 1+ 12/19/18 02:27 Hyaline Casts 8 /LPF 12/19/18 02:27 Urine Mucus Few /HPF 12/19/18 02:27 Urine Eosinophils None seen (None Seen) 12/20/18 00:30 Urine Total Volume 500 ml 12/23/18 Unknown Urine Creatinine 39.2 mg/dL (0.1-20.0) H 12/23/18 Unknown Ur Creatinine 24 Hour 0.2 (0.8-2.8) L 12/23/18 Unknown Height (in) 72.0 inches 12/23/18 Unknown Weight (lb) 160.0 lbs 12/23/18 Unknown Creatinine Clearance 4 12/23/18 Unknown Ur Total Protein 24 Hr 60.00 mg/dL (2-200) 12/23/18 Unknown Protein/Creatinin Ratio 0.36 12/20/18 00:30 Urine Sodium 105 mmol/L 12/20/18 00:30 Urine Total Protein 12 mg/dL (5-11.8) H 12/23/18 Unknown Salicylates < 0.3 mg/dL (2.8-20.0) L 12/19/18 00:57 Urine Opiates Screen Presumptive negative 12/19/18 02:27 Urine Methadone Screen Presumptive negative 12/19/18 02:27 Acetaminophen < 5.0 ug/mL (10.0-30.0) L 12/19/18 00:57 Ur Barbiturates Screen Presumptive negative 12/19/18 02:27 Ur Phencyclidine Scrn Presumptive negative 12/19/18 02:27 Ur Amphetamines Screen Presumptive negative 12/19/18 02:27 U Benzodiazepines Scrn Presumptive negative 12/19/18 02:27 Urine Cocaine Screen Presumptive negative 12/19/18 02:27 U Marijuana (THC) Screen Presumptive positive 12/19/18 02:27 Drugs of Abuse Note Disclamer 12/19/18 02:27 Plasma/Serum Alcohol < 0.01 % (0-0.07) 12/19/18 00:57 Immunofix Electrophor see below 12/23/18 10:46 Nutrition/Malnutrition Assess - Dietary Evaluation Nutrition/Malnutrition Findings: Nutrition Notes Start: 12/26/18 10:58 Freq: Status: Active Protocol: Document 12/31/18 16:00 (Rec: 12/31/18 16:09 [id number]) Nutrition Notes Initial or Follow up Reassessment Current Diagnosis Acute Kidney Injury,CKD(stage I-IV),Hypertension Other Pertinent Diagnosis Wernicke Korsakoff, heavy EtOH use, boil on L upper back, AMS Current Diet Mechanical soft w/Ensure Enlive BID Labs/Tests Reviewed Pertinent Medications Reviewed Height 6 ft Weight 77.2 kg [place] Body Weight (kg) 80.90 BMI 23.1 Subjective/Other Information Pt and pt relative in room at time of visit. Pt confused at time of visit. Pt relative spoke on behalf of pt. Stated that pt is not eating much but he drinks the Ensure Enlive sometimes. Noted lunch at bedside w/none eaten and one mostly drunk Ensure Enlive and a second unopened Ensure Enlive. Percent of energy/protein needs met: 14%/16% Burn Absent Trauma Absent #1 Nutrition Diagnosis Malnutrition Diagnosis Progress(for reassessment Continues documentation) Is patient on ventilator? No Is Patient Ambulatory and/or Out of Bed No REE-([place]-St. Jeor-confined to bed) [phone] Calculation Used for Recommendations [place] Jeor Additional Notes Pro needs: 94-118g/day (1.2-1. 5 g/kg BW) Fluid needs: 1 ml/kcal Nutrition Intervention Change Diet Order: TF consult if pt intake has not improved or has worsened by next visit Add Supplement/Snack (indicate name/kcal Ensure Enlive BID /protein ) Provides kCal: 700 Provides Protein (gm) 40 Goal #1 Meet at least 75% of calorie and protein needs via PO and ONS intakes Goal #2 Weight maintenance Anticipated Discharge Needs: Mechanical Soft with regular liquids Follow-Up By: 01/02/19 Additional Comments Follow for PO and ONS intakes
[2019-01-01] MEDS: D5/0.45NS 1,000 ML IV SCH (17:28)
[2019-01-01] MEDS: APRESOLINE IV PRN (17:56)
--- NOTE | 2019-01-01 22:35 | Progress Note ---
Assessment and Plan - Patient Problems (1) Acute kidney injury superimposed on chronic kidney disease Current Visit: Yes Status: Acute Plan to address problem: Acute kidney injury superimposed on CKD - BASELINE creatinine unknown - I reviewed renal ultrasound with severe right hydronephrosis and simple renal cysts. - etiology appears secondary to obstructive uropathy , per urology this appears to be chronic - Raza was placed by urology - Will repeat renal US to reevalute hydronephrosis - remains on fluid hydration - limited fluid intake. - Avoid nephrotoxic medications. (2) Alcohol abuse Current Visit: Yes Status: Acute Plan to address problem: History of Alcohol Abuse - - has some encephalopathy - Fall precautions. (3) Obstructive uropathy Current Visit: Yes Status: Acute Plan to address problem: Obstructive uropathy - severe right hydronephrosis with obstruction with simple renal cysts - maintain raza in place, was placed by urology - Appreciate urology evaluation - Per urology obstruction appears to be chronic - Follow up with Dr. Casas on discharge . (4) Metabolic acidosis Current Visit: Yes Status: Acute Plan to address problem: Metabolic Acidosis 2/2 Acute kidney injury - Hco3 : 20 Will add sodium bicarb 1300mg bid (5) HTN (hypertension) Current Visit: Yes Status: Acute Qualifiers: Hypertension type: essential hypertension Qualified Code(s): I10 - Essential (primary) hypertension Plan to address problem: HTN : uncontrolled. Will add Labetalol 100mg bid uptitrate as tolerated. Subjective Principal diagnosis: madalyn on ckd Interval history: 68 year old with medical history of HTN controlled, Alcohol abuse, admitted with Acute kidney injury in the setting of obstructive uropathy Patient seen today , mostly non verbal review of systems is severely limited due to clinical status Raza catheter in place. Objective - Vital Signs Vital signs: Vital Signs - 12hr 01/01/19 01/01/19 01/01/19 17:40 17:41 17:56 Temperature 98.3 F Pulse Rate 81 Respiratory 18 Rate Blood Pressure 171/96 171/96 Blood Pressure [Left] O2 Sat by Pulse 97 Oximetry 01/01/19 01/01/19 20:00 21:33 Temperature 98.8 F Pulse Rate 88 88 Respiratory Rate Blood Pressure 159/65 Blood Pressure 159/65 [Left] O2 Sat by Pulse Oximetry - General Appearance General appearance: well-developed, chronically ill EENT: ATNC, PERRL, mucous membranes dry Neck: no JVD, no thyromegaly Respiratory: Present: Clear to Ascultation, Normal Exam Cardiology: regular, S1S2 Gastrointestinal: normal, normoactive bowel sounds Integumentary: no rash, warm and dry Neurologic: confused Musculoskeletal: deferred Psychiatric: mood/affect appropriate - Lab 12/28/18 04:58 01/01/19 05:57 Most recent lab results Calcium 9.4 mg/dL (8.4-10.2) 01/01/19 05:57 Magnesium 2.20 mg/dL (1.7-2.3) 12/21/18 04:27 Urine Creatinine 39.2 mg/dL (0.1-20.0) H 12/23/18 Unknown Ur Total Protein 24 Hr 60.00 mg/dL (2-200) 12/23/18 Unknown Urine Sodium 105 mmol/L 12/20/18 00:30 Urine Total Protein 12 mg/dL (5-11.8) H 12/23/18 Unknown - Imaging Kidney/bladder ultrasound: other Medications & Allergies - Medications Allergies/Adverse Reactions: Allergies No Known Allergies Allergy (Verified 12/19/18 03:17) Home Medications: Home Medications Medication Instructions Recorded Confirmed Last Taken Type No Known Home Medications [No 12/19/18 12/19/18 Unknown History Reported Home Medications] Active Medications: Generic Name Dose Route Start Last Admin Trade Name Freq PRN Reason Stop Dose Admin Acetaminophen 650 mg 12/19/18 03:06 Tylenol PO Q4H PRN Pain MILD(1-3)/Fever >100.5/[place] Acetaminophen 650 mg 12/26/18 04:59 12/26/18 05:09 Tylenol [place] 650 mg Q4H PRN Administration Pain, Mild (1-3) Amlodipine Besylate 10 mg 12/22/18 16:00 01/01/19 10:25 Norvasc PO 10 mg QDAY MANOJ Administration Atorvastatin Calcium 40 mg 12/20/18 22:00 01/01/19 21:33 Lipitor PO 40 mg QHS MANOJ Administration Clonidine HCl 0.2 mg 12/23/18 12:04 12/23/18 16:41 Catapres PO 0.2 mg Q4H PRN Administration HTN SBP>160 Clonidine HCl 0.2 mg 12/30/18 10:00 12/30/18 10:13 Catapres-Tts Patch TD 0.2 mg Mo MANOJ Administration Enoxaparin Sodium 40 mg 12/28/18 10:00 01/01/19 10:25 Lovenox SUB-Q 40 mg QDAY@1000 MANOJ Administration Hydralazine HCl 100 mg 12/19/18 20:00 01/01/19 20:00 Apresoline PO 100 mg TID MANOJ Administration Hydralazine HCl 20 mg 12/25/18 11:36 01/01/19 17:56 Apresoline IV 20 mg Q4HR PRN Administration Hypertension Dextrose/Sodium Chloride 1,000 mls @ 75 mls/hr 12/22/18 20:00 01/01/19 17:28 D5/0.45ns IV 75 mls/hr DIRECT MANOJ Administration Labetalol HCl 10 mg 12/22/18 18:30 12/26/18 05:09 Normodyne IV 10 mg Q6HR PRN Administration Blood Pressure Lorazepam 2 mg 12/19/18 03:09 12/30/18 01:43 Ativan IV 2 mg Q1HR PRN Administration CIWA-Ar 8-15 Lorazepam 4 mg 12/19/18 03:09 Ativan IV Q1HR PRN CIWA-Ar 16-25 Metoprolol Tartrate 5 mg 12/22/18 23:38 12/23/18 16:44 Lopressor IV 5 mg Q6H PRN Administration elevated BP. Hold for HR <60 Minoxidil 5 mg 12/23/18 22:00 01/01/19 21:34 Loniten PO 5 mg BID MANOJ Administration Ondansetron HCl 4 mg 12/19/18 03:06 Zofran IV Q8H PRN Nausea And Vomiting Sodium Chloride 10 ml 12/19/18 10:00 01/01/19 21:35 Sodium Chloride Flush Syringe 10 Ml IV 10 ml BID MANOJ Administration Sodium Chloride 10 ml 12/19/18 03:06 Sodium Chloride Flush Syringe 10 Ml IV PRN PRN LINE FLUSH Spironolactone 50 mg 12/19/18 22:00 01/01/19 21:33 Aldactone PO 50 mg BID MANOJ Administration Thiamine HCl 100 mg 12/21/18 14:00 01/01/19 10:25 Vitamin B-1 PO 100 mg QDAY MANOJ Administration
[2019-01-01] MEDS: SODIUM BICARBONATE PO SCH (23:30)
[2019-01-02] MEDS: D5/0.45NS 1,000 ML IV SCH (06:25)
[2019-01-02 07:18] LABS: Calcium 9.6 mg/dL (8.4-10.2)
[2019-01-02] MEDS ORDERED: NACL 0.9% 1000 ML 1,000 ML IV SCH (08:00)
[2019-01-02] MEDS: APRESOLINE PO SCH ×4 (08:38→20:00)
[2019-01-02] MEDS: SODIUM CHLORIDE FLUSH SYRINGE 10 ML IV SCH (10:30)
[2019-01-02] MEDS: LOVENOX SUB-Q SCH (11:18)
[2019-01-02] MEDS: NORVASC PO SCH (11:18)
[2019-01-02] MEDS: NORMODYNE PO SCH ×3 (11:19→22:00)
[2019-01-02] MEDS: ALDACTONE PO SCH ×3 (11:19→22:00)
[2019-01-02] MEDS: LONITEN PO SCH ×3 (11:19→22:00)
[2019-01-02] MEDS: VITAMIN B-1 PO SCH (11:19)
[2019-01-02] MEDS: SODIUM BICARBONATE PO SCH ×3 (11:20→22:00)
--- NOTE | 2019-01-02 11:22 | Progress Note ---
Assessment and Plan Assessment and plan: Acute Metabolic encephalopathy. ? Wernicke Korsakoff, neuro following. MRI showed dffuse small vessel infarcts discussed with neurologist and he explained to the families and recommended Hospice care Patient showed no improvement since admission. Acute on chronic renal failure likely vasomotor - nephrology is following Hypokalemia; corrected Right hydronephrosis. Urology consulted and believes it is chronic. Peraza placed. Obstructive uropathy. Hypertension. Controlled. Continue minoxidil, clonidine, hydralazine, Norvasc. Monitor and adjusted as needed. ETOH abuse. Cont. CIWA Prognosis poor Cachexia. Dietitian consulted. Patient with poor by mouth intake. Patient will likely need PEG placement. GI consultation. Disposition; family does not want to pursue hospice at this time. I discussed the case in detail as well as the poor nutritional status with the brother. Physical therapy is recommending subacute rehabilitation. History Interval history: No new issues overnight. Patient remains confused. Hospitalist Physical - Constitutional Vitals: Temp Pulse Resp BP Pulse Ox 98.9 F 78 18 170/82 97 01/02/19 08:22 01/02/19 11:19 01/02/19 08:22 01/02/19 11:19 01/01/19 17:40 General appearance: Present: no acute distress, well-nourished - EENT Eyes: Present: PERRL, EOM intact ENT: hearing intact, clear oral mucosa, dentition normal - Neck Neck: Present: supple, normal ROM - Respiratory Respiratory effort: normal Respiratory: bilateral: CTA - Cardiovascular Rhythm: regular Heart Sounds: Present: S1 & S2. Absent: gallop, rub - Extremities Extremities: no ischemia, No edema, Full ROM - Abdominal General gastrointestinal: soft, non-tender, non-distended, normal bowel sounds - Integumentary Integumentary: Present: clear, warm, dry - Neurologic Neurologic: CNII-XII intact, moves all extremities Results - Labs CBC & Chem 7: 12/28/18 04:58 01/02/19 06:34 Labs: Laboratory Last Values WBC 7.7 K/mm3 (4.5-11.0) 12/28/18 04:58 RBC 3.96 M/mm3 (3.65-5.03) 12/28/18 04:58 Hgb 10.7 gm/dl (11.8-15.2) L 12/28/18 04:58 Hct 32.1 % (35.5-45.6) L 12/28/18 04:58 MCV 81 fl (84-94) L 12/28/18 04:58 MCH 27 pg (28-32) L 12/28/18 04:58 MCHC 33 % (32-34) 12/28/18 04:58 RDW 16.8 % (13.2-15.2) H 12/28/18 04:58 Plt Count 210 K/mm3 (140-440) 12/28/18 04:58 Lymph % (Auto) 15.7 % (13.4-35.0) 12/28/18 04:58 [place] % (Auto) 11.1 % (0.0-7.3) H 12/28/18 04:58 Eos % (Auto) 0.5 % (0.0-4.3) 12/28/18 04:58 Baso % (Auto) 0.4 % (0.0-1.8) 12/28/18 04:58 Lymph # 1.2 K/mm3 (1.2-5.4) 12/28/18 04:58 [place] # 0.9 K/mm3 (0.0-0.8) H 12/28/18 04:58 Eos # 0.0 K/mm3 (0.0-0.4) 12/28/18 04:58 Baso # 0.0 K/mm3 (0.0-0.1) 12/28/18 04:58 Seg Neutrophils % 72.3 % (40.0-70.0) H 12/28/18 04:58 Seg Neutrophils # 5.6 K/mm3 (1.8-7.7) 12/28/18 04:58 Sodium 140 mmol/L (137-145) 01/02/19 06:34 Potassium 4.5 mmol/L (3.6-5.0) 01/02/19 06:34 Chloride 104.1 mmol/L (98-107) 01/02/19 06:34 Carbon Dioxide 22 mmol/L (22-30) 01/02/19 06:34 Anion Gap 18 mmol/L 01/02/19 06:34 BUN 36 mg/dL (9-20) H 01/02/19 06:34 Creatinine 2.1 mg/dL (0.8-1.5) H 01/02/19 06:34 Estimated GFR 38 ml/min 01/02/19 06:34 BUN/Creatinine Ratio 17 % 01/02/19 06:34 Glucose 106 mg/dL (75-100) H 01/02/19 06:34 POC Glucose 88 (70-105) 12/24/18 05:47 Lactic Acid 1.30 mmol/L (0.7-2.0) 12/19/18 06:49 Calcium 9.6 mg/dL (8.4-10.2) 01/02/19 06:34 Magnesium 2.20 mg/dL (1.7-2.3) 12/21/18 04:27 Total Bilirubin 0.80 mg/dL (0.1-1.2) 12/26/18 05:18 AST 20 units/L (5-40) 12/26/18 05:18 ALT 7 units/L (7-56) 12/26/18 05:18 Alkaline Phosphatase 65 units/L (35-129) 12/26/18 05:18 Ammonia 23.0 umol/L (25-60) L 12/19/18 00:57 Total Protein 6.3 g/dL (6.3-8.2) 12/26/18 05:18 Albumin 3.3 g/dL (3.9-5) L 12/26/18 05:18 Albumin/Globulin Ratio 1.1 % 12/26/18 05:18 Renin 3.91 ng/mL/h (0.25-5.82) 12/25/18 11:55 Aldosterone 3 ng/dL () 12/25/18 11:55 Aldosterone/Renin Dir 0.8 Ratio (0.9-28.9) L 12/25/18 11:55 TSH 3.190 mlU/mL (0.270-4.200) 12/19/18 00:57 Urine Color Carm[place] (Yellow) 12/19/18 02:27 Urine Turbidity Slightly-cloudy (Clear) 12/19/18 02:27 Urine pH 5.0 (5.0-7.0) 12/19/18 02:27 Ur Specific [place] 1.024 (1.003-1.030) 12/19/18 02:27 Urine Protein >500 mg/dL (Negative) 12/19/18 02:27 Urine Glucose (UA) Neg mg/dL (Negative) 12/19/18 02:27 Urine Ketones Neg mg/dL (Negative) 12/19/18 02:27 Urine Blood Neg (Negative) 12/19/18 02:27 Urine Nitrite Neg (Negative) 12/19/18 02:27 Urine Bilirubin Neg (Negative) 12/19/18 02:27 Urine Urobilinogen 4.0 mg/dL (<2.0) 12/19/18 02:27 Ur Leukocyte Esterase Neg (Negative) 12/19/18 02:27 Urine WBC (Auto) 4.0 /HPF (0.0-6.0) 12/19/18 02:27 Urine RBC (Auto) 2.0 /HPF (0.0-6.0) 12/19/18 02:27 U Epithel Cells (Auto) < 1.0 /HPF (0-13.0) 12/19/18 02:27 Urine Bacteria (Auto) 1+ /HPF (Negative) 12/19/18 02:27 Amorphous Crystals 1+ 12/19/18 02:27 Hyaline Casts 8 /LPF 12/19/18 02:27 Urine Mucus Few /HPF 12/19/18 02:27 Urine Eosinophils None seen (None Seen) 12/20/18 00:30 Urine Total Volume 500 ml 12/23/18 Unknown Urine Creatinine 39.2 mg/dL (0.1-20.0) H 12/23/18 Unknown Ur Creatinine 24 Hour 0.2 (0.8-2.8) L 12/23/18 Unknown Height (in) 72.0 inches 12/23/18 Unknown Weight (lb) 160.0 lbs 12/23/18 Unknown Creatinine Clearance 4 12/23/18 Unknown Ur Total Protein 24 Hr 60.00 mg/dL (2-200) 12/23/18 Unknown Protein/Creatinin Ratio 0.36 12/20/18 00:30 Urine Sodium 105 mmol/L 12/20/18 00:30 Urine Total Protein 12 mg/dL (5-11.8) H 12/23/18 Unknown Salicylates < 0.3 mg/dL (2.8-20.0) L 12/19/18 00:57 Urine Opiates Screen Presumptive negative 12/19/18 02:27 Urine Methadone Screen Presumptive negative 12/19/18 02:27 Acetaminophen < 5.0 ug/mL (10.0-30.0) L 12/19/18 00:57 Ur Barbiturates Screen Presumptive negative 12/19/18 02:27 Ur Phencyclidine Scrn Presumptive negative 12/19/18 02:27 Ur Amphetamines Screen Presumptive negative 12/19/18 02:27 U Benzodiazepines Scrn Presumptive negative 12/19/18 02:27 Urine Cocaine Screen Presumptive negative 12/19/18 02:27 U Marijuana (THC) Screen Presumptive positive 12/19/18 02:27 Drugs of Abuse Note Disclamer 12/19/18 02:27 Plasma/Serum Alcohol < 0.01 % (0-0.07) 12/19/18 00:57 Immunofix Electrophor see below 12/23/18 10:46 Nutrition/Malnutrition Assess - Dietary Evaluation Nutrition/Malnutrition Findings: Nutrition Notes Start: 12/26/18 10:58 Freq: Status: Active Protocol: Document 01/01/19 15:15 RM (Rec: 01/01/19 15:16 RM [id number]) Nutrition Notes Initial or Follow up Brief Note Subjective/Other Information Consulted for poor oral intake . Pt already being followed. Nutrition Intervention Follow-Up By: 01/02/19 Additional Comments Follow for PO and ONS intakes
--- NOTE | 2019-01-02 13:52 | Ultrasound Report ---
ULTRASOUND RENAL BILATERAL HISTORY: Followup of hydronephrosis. TECHNIQUE: transabdominal ultrasound with color Doppler interrogation. FINDINGS: Moderate to severe right hydronephrosis is unchanged since the renal ultrasound dated 12/19/18. No left hydronephrosis. The renal parenchyma remains echogenic consistent with nonspecific renal parenchymal disease. A 2.6 cm simple cyst at the inferior pole of left kidney is also noted and unchanged. The bladder is collapsed and contains a [place] catheter. IMPRESSION: No change.
[2019-01-02] MEDS: APRESOLINE IV PRN ×2 (15:05→22:45)
--- NOTE | 2019-01-02 15:49 | Progress Note ---
Assessment and Plan - Patient Problems (1) Acute kidney injury superimposed on chronic kidney disease Current Visit: Yes Status: Acute Plan to address problem: Acute kidney injury superimposed on CKD :worsening - Creatinine slightly worse at 2.1 mg/dl previous creatinine was 1.9 mg/dl - BASELINE creatinine unknown - I reviewed renal ultrasound with severe right hydronephrosis and simple renal cysts. - etiology appears secondary to obstructive uropathy , per urology this appears to be chronic - Raza was placed by urology - Repeat renal Ultrasound shows persistent hydronephrosis - Follow up with urology on discharge. - remains on fluid hydration - limited fluid intake. - Avoid nephrotoxic medications. (2) Alcohol abuse Current Visit: Yes Status: Acute Plan to address problem: History of Alcohol Abuse - - has some encephalopathy - Fall precautions. (3) Obstructive uropathy Current Visit: Yes Status: Acute Plan to address problem: Obstructive uropathy - severe right hydronephrosis with obstruction with simple renal cysts - maintain raza in place, was placed by urology - Appreciate urology evaluation - Per urology obstruction appears to be chronic - Hydronephrosis persists. - Follow up with Dr. Casas on discharge . (4) Metabolic acidosis Current Visit: Yes Status: Acute (5) HTN (hypertension) Current Visit: Yes Status: Acute Qualifiers: Hypertension type: essential hypertension Qualified Code(s): I10 - Essential (primary) hypertension Plan to address problem: HTN : uncontrolled. Will add Labetalol 100mg bid uptitrate as tolerated. IV medications prn as needed if unable to tolerate oral blood pressure medications Thank you for this consultation . Subjective Principal diagnosis: madalyn on ckd Interval history: 68 year old with medical history of HTN controlled, Alcohol abuse, admitted with Acute kidney injury in the setting of obstructive uropathy Patient seen today , mostly non verbal review of systems is severely limited due to clinical status Raza catheter in place. has had some difficulty with oral intake intravenous fluids ongoing Blood pressure has been high. Objective - Vital Signs Vital signs: Vital Signs - 12hr 01/02/19 01/02/19 01/02/19 08:22 11:18 11:19 Temperature 98.9 F Pulse Rate 78 78 Respiratory 18 Rate Blood Pressure 193/108 170/82 170/82 01/02/19 15:05 Temperature Pulse Rate 76 Respiratory Rate Blood Pressure 172/93 - General Appearance General appearance: well-developed, well-nourished EENT: ATNC, PERRL, mucous membranes moist Neck: no JVD, JVD Respiratory: Present: Clear to Ascultation Cardiology: regular, S1S2 Gastrointestinal: normal, normoactive bowel sounds Integumentary: no rash, warm and dry Neurologic: confused, other (weakness. ) Musculoskeletal: deferred Psychiatric: mood/affect appropriate - Lab 12/28/18 04:58 01/02/19 06:34 Most recent lab results Calcium 9.6 mg/dL (8.4-10.2) 01/02/19 06:34 Magnesium 2.20 mg/dL (1.7-2.3) 12/21/18 04:27 Urine Creatinine 39.2 mg/dL (0.1-20.0) H 12/23/18 Unknown Ur Total Protein 24 Hr 60.00 mg/dL (2-200) 12/23/18 Unknown Urine Sodium 105 mmol/L 12/20/18 00:30 Urine Total Protein 12 mg/dL (5-11.8) H 12/23/18 Unknown - Imaging Chest x-ray: image reviewed Medications & Allergies - Medications Allergies/Adverse Reactions: Allergies No Known Allergies Allergy (Verified 12/19/18 03:17) Home Medications: Home Medications Medication Instructions Recorded Confirmed Last Taken Type No Known Home Medications [No 12/19/18 12/19/18 Unknown History Reported Home Medications] Active Medications: Generic Name Dose Route Start Last Admin Trade Name Freq PRN Reason Stop Dose Admin Acetaminophen 650 mg 12/19/18 03:06 Tylenol PO Q4H PRN Pain MILD(1-3)/Fever >100.5/M[place]OUGH Acetaminophen 650 mg 12/26/18 04:59 12/26/18 05:09 Tylenol [place] 650 mg Q4H PRN Administration Pain, Mild (1-3) Amlodipine Besylate 10 mg 12/22/18 16:00 01/02/19 11:18 Norvasc PO 10 mg QDAY MANOJ Administration Atorvastatin Calcium 40 mg 12/20/18 22:00 01/01/19 21:33 Lipitor PO 40 mg QHS MANOJ Administration Clonidine HCl 0.2 mg 12/23/18 12:04 12/23/18 16:41 Catapres PO 0.2 mg Q4H PRN Administration HTN SBP>160 Clonidine HCl 0.2 mg 12/30/18 10:00 12/30/18 10:13 Catapres-Tts Patch TD 0.2 mg Mo MANOJ Administration Enoxaparin Sodium 30 mg 01/02/19 12:00 01/02/19 11:18 Lovenox SUB-Q 30 mg QDAY MANOJ Administration Hydralazine HCl 100 mg 12/19/18 20:00 01/02/19 14:53 Apresoline PO Not Given TID MANOJ Hydralazine HCl 20 mg 12/25/18 11:36 01/02/19 15:05 Apresoline IV 20 mg Q4HR PRN Administration Hypertension Sodium Chloride 1,000 mls @ 100 mls/hr 01/02/19 08:00 01/02/19 09:16 Nacl 0.9% 1000 Ml IV 100 mls/hr DIRECT MANOJ Administration Labetalol HCl 10 mg 12/22/18 18:30 12/26/18 05:09 Normodyne IV 10 mg Q6HR PRN Administration Blood Pressure Labetalol HCl 100 mg 01/02/19 10:00 01/02/19 11:19 Normodyne PO 100 mg BID MANOJ Administration Lorazepam 2 mg 12/19/18 03:09 12/30/18 01:43 Ativan IV 2 mg Q1HR PRN Administration CIWA-Ar 8-15 Lorazepam 4 mg 12/19/18 03:09 Ativan IV Q1HR PRN CIWA-Ar 16-25 Metoprolol Tartrate 5 mg 12/22/18 23:38 12/23/18 16:44 Lopressor IV 5 mg Q6H PRN Administration elevated BP. Hold for HR <60 Minoxidil 5 mg 12/23/18 22:00 01/02/19 11:19 Loniten PO 5 mg BID MANOJ Administration Ondansetron HCl 4 mg 12/19/18 03:06 Zofran IV Q8H PRN Nausea And Vomiting Sodium Bicarbonate 1,300 mg 01/01/19 23:00 01/02/19 11:20 Sodium Bicarbonate PO 1,300 mg BID MANOJ Administration Sodium Chloride 10 ml 12/19/18 10:00 01/02/19 10:30 Sodium Chloride Flush Syringe 10 Ml IV 10 ml BID MANOJ Administration Sodium Chloride 10 ml 12/19/18 03:06 Sodium Chloride Flush Syringe 10 Ml IV PRN PRN LINE FLUSH Spironolactone 50 mg 12/19/18 22:00 01/02/19 11:19 Aldactone PO 50 mg BID MANOJ Administration Thiamine HCl 100 mg 12/21/18 14:00 01/02/19 11:19 Vitamin B-1 PO 100 mg QDAY MANOJ Administration
--- NOTE | 2019-01-02 18:18 | Gastroenterology Consultation ---
History of Present Illness - Reason for Consult Consult date: 01/02/19 Requesting physician: PATRICIA CABALLERO - History of Present Illness Mr. Rojo is a 68-year-old man with history of hypertension admitted with AMS, GI consulted for PEG placement as patient is not feeding himself and there is concern for permanent neurological damage. I spoke with Joshua Rojo, the brother (his cell is [phone]) The patient has not been completely altered like this for a prolonged period, only for about a week. No history of severe AMS like this in the past History obtained from chart/family PAST MEDICAL HISTORY:hypertension, PAST SURGICAL HISTORY: None SOCIAL HISTORY:+alcohol, + marijuana, no tobacco FAMILY HISTORY: Hypertension Past History Past Medical History: other (see above) Past Surgical History: Other (see above) Social history: other (see above) Family history: no significant family history Medications and Allergies Allergies Allergy/AdvReac Type Severity Reaction Status Date / Time No Known Allergies Allergy Verified 12/19/18 03:17 Home Medications Medication Instructions Recorded Confirmed Last Taken Type No Known Home Medications [No 12/19/18 12/19/18 Unknown History Reported Home Medications] Active Meds: Active Medications Acetaminophen (Tylenol) 650 mg PO Q4H PRN PRN Reason: Pain MILD(1-3)/Fever >100.5/[place] Acetaminophen (Tylenol) 650 mg [place] Q4H PRN PRN Reason: Pain, Mild (1-3) Last Admin: 12/26/18 05:09 Dose: 650 mg Documented by: Amlodipine Besylate (Norvasc) 10 mg PO QDAY [facility] Last Admin: 01/02/19 11:18 Dose: 10 mg Documented by: Atorvastatin Calcium (Lipitor) 40 mg PO QHS [facility] Last Admin: 01/01/19 21:33 Dose: 40 mg Documented by: Clonidine HCl (Catapres) 0.2 mg PO Q4H PRN PRN Reason: HTN SBP>160 Last Admin: 12/23/18 16:41 Dose: 0.2 mg Documented by: Clonidine HCl (Catapres-Tts Patch) 0.2 mg TD Mo [facility] Last Admin: 12/30/18 10:13 Dose: 0.2 mg Documented by: Enoxaparin Sodium (Lovenox) 30 mg SUB-Q QDAY [facility] Last Admin: 01/02/19 11:18 Dose: 30 mg Documented by: Hydralazine HCl (Apresoline) 100 mg PO TID [facility] Last Admin: 01/02/19 14:53 Dose: Not Given Documented by: Hydralazine HCl (Apresoline) 20 mg IV Q4HR PRN PRN Reason: Hypertension Last Admin: 01/02/19 15:05 Dose: 20 mg Documented by: Sodium Chloride (Nacl 0.9% 1000 Ml) 1,000 mls @ 100 mls/hr IV DIRECT [facility] Last Admin: 01/02/19 09:16 Dose: 100 mls/hr Documented by: Labetalol HCl (Normodyne) 10 mg IV Q6HR PRN PRN Reason: Blood Pressure Last Admin: 12/26/18 05:09 Dose: 10 mg Documented by: Labetalol HCl (Normodyne) 100 mg PO BID [facility] Last Admin: 01/02/19 11:19 Dose: 100 mg Documented by: Lorazepam (Ativan) 2 mg IV Q1HR PRN PRN Reason: CIWA-Ar 8-15 Last Admin: 12/30/18 01:43 Dose: 2 mg Documented by: Lorazepam (Ativan) 4 mg IV Q1HR PRN PRN Reason: CIWA-Ar 16-25 Metoprolol Tartrate (Lopressor) 5 mg IV Q6H PRN PRN Reason: elevated BP. Hold for HR <60 Last Admin: 12/23/18 16:44 Dose: 5 mg Documented by: Minoxidil (Loniten) 5 mg PO BID [facility] Last Admin: 01/02/19 11:19 Dose: 5 mg Documented by: Ondansetron HCl (Zofran) 4 mg IV Q8H PRN PRN Reason: Nausea And Vomiting Sodium Bicarbonate (Sodium Bicarbonate) 1,300 mg PO BID [facility] Last Admin: 01/02/19 11:20 Dose: 1,300 mg Documented by: Sodium Chloride (Sodium Chloride Flush Syringe 10 Ml) 10 ml IV BID [facility] Last Admin: 01/02/19 10:30 Dose: 10 ml Documented by: Sodium Chloride (Sodium Chloride Flush Syringe 10 Ml) 10 ml IV PRN PRN PRN Reason: LINE FLUSH Spironolactone (Aldactone) 50 mg PO BID [facility] Last Admin: 01/02/19 11:19 Dose: 50 mg Documented by: Thiamine HCl (Vitamin B-1) 100 mg PO QDAY MANOJ Last Admin: 01/02/19 11:19 Dose: 100 mg Documented by: Review of Systems - Review of Systems ROS unobtainable: due to mental status Exam - Constitutional Vital Signs: Temp Pulse Resp BP Pulse Ox 98.9 F 76 18 172/93 97 01/02/19 08:22 01/02/19 15:05 01/02/19 08:22 01/02/19 15:05 01/01/19 17:40 General appearance: other (not following commands, aimless movement of arms at times, no acute distress) - EENT Eyes: PERRL ENT: clear oral mucosa - Neck Neck: supple - Respiratory Respiratory effort: normal - Cardiovascular Rhythm: regular Extremities: No edema - Gastrointestinal General gastrointestinal: Present: soft Rectal Exam: deferred - Integumentary Integumentary: Present: warm - Musculoskeletal Musculoskeletal: normal - Neurologic Neurological: disoriented - Psychiatric Psychiatric: other (pt not responding to commands) - Labs CBC & Chem 7: 12/28/18 04:58 01/02/19 06:34 Lab Results: Laboratory Results - last 24 hr 01/02/19 06:34 Sodium 140 Potassium 4.5 Chloride 104.1 Carbon Dioxide 22 Anion Gap 18 BUN 36 H Creatinine 2.1 H Estimated GFR 38 BUN/Creatinine Ratio 17 Glucose 106 H Calcium 9.6 Assessment and Plan AMS Oropharyngeal dysphagia PEG consult Reviewed with Joshua, the brother, RBA of a PEG tube at length, all questions answered. He wishes to double check with the rest of the family and the hospitalist but is leaning towards PEG tube placement. I am checking coags now to ensure normal, and have tentatively placed patient on the schedule for PEG tube tomorrow in the afternoon if everyone agrees to the PEG tube placement.
[2019-01-02 19:07] LABS: INR 1.23 (0.87-1.13)
[2019-01-03] MEDS: NORMODYNE IV PRN ×3 (01:33→19:22)
[2019-01-03] MEDS: APRESOLINE IV PRN ×2 (05:25→23:11)
[2019-01-03 06:06] LABS: Basophils # (Auto) 0.1 K/mm3 (0.0-0.1); Basophils % (Auto) 0.6 % (0.0-1.8); Eosinophils # (Auto) 0.1 K/mm3 (0.0-0.4); Eosinophils % (Auto) 0.5 % (0.0-4.3); Hematocrit 30.5 % (35.5-45.6); Hemoglobin 10.1 gm/dl (11.8-15.2); Lymphocytes # (Auto) 1.1 K/mm3 (1.2-5.4); Lymphocytes % (Auto) 10.5 % (13.4-35.0); Mean Corpuscular HGB Conc 33 % (32-34); Mean Corpuscular Volume 81 fl (84-94); Monocytes # (Auto) 0.9 K/mm3 (0.0-0.8); Monocytes % (Auto) 9.1 % (0.0-7.3); Platelet Count 397 K/mm3 (140-440); Red Blood Count 3.77 M/mm3 (3.65-5.03); Red Cell Distribution Width 16.8 % (13.2-15.2)
[2019-01-03 06:31] LABS: Calcium 9.7 mg/dL (8.4-10.2)
[2019-01-03] MEDS: APRESOLINE PO SCH ×3 (08:40→21:44)
[2019-01-03] MEDS: LOVENOX SUB-Q SCH ×2 (09:31→21:45)
--- NOTE | 2019-01-03 11:58 | Progress Note ---
Assessment and Plan Assessment and plan: Acute Metabolic encephalopathy. ? Wernicke Korsakoff, neuro following. MRI showed dffuse small vessel infarcts discussed with neurologist and he explained to the families and recommended Hospice care Patient showed no improvement since admission. Acute on chronic renal failure likely vasomotor - nephrology is following Hypokalemia; corrected Right hydronephrosis. Urology consulted and believes it is chronic. Peraza placed. Obstructive uropathy. Hypertension. Controlled. Continue minoxidil, clonidine, hydralazine, Norvasc. Monitor and adjusted as needed. ETOH abuse. Cont. CIWA Prognosis poor Cachexia. Dietitian consulted. Patient with poor by mouth intake. Patient will likely need PEG placement. GI likely to perform this afternoon. Disposition; family does not want to pursue hospice at this time. I discussed the case in detail as well as the poor nutritional status with the brother. Physical therapy is recommending subacute rehabilitation. History Interval history: No new issues overnight. Patient remains confused. Hospitalist Physical - Constitutional Vitals: Temp Pulse Resp BP Pulse Ox 98.4 F 72 22 176/72 100 01/03/19 09:00 01/03/19 09:32 01/03/19 09:10 01/03/19 09:32 01/03/19 09:10 General appearance: Present: no acute distress, well-nourished - EENT Eyes: Present: PERRL, EOM intact ENT: hearing intact, clear oral mucosa, dentition normal - Neck Neck: Present: supple, normal ROM - Respiratory Respiratory effort: normal Respiratory: bilateral: CTA - Cardiovascular Rhythm: regular Heart Sounds: Present: S1 & S2. Absent: gallop, rub - Extremities Extremities: no ischemia, No edema, Full ROM - Abdominal General gastrointestinal: soft, non-tender, non-distended, normal bowel sounds - Integumentary Integumentary: Present: clear, warm, dry - Neurologic Neurologic: CNII-XII intact, moves all extremities Results - Labs CBC & Chem 7: 01/03/19 05:50 01/03/19 05:50 Labs: Laboratory Last Values WBC 10.0 K/mm3 (4.5-11.0) 01/03/19 05:50 RBC 3.77 M/mm3 (3.65-5.03) 01/03/19 05:50 Hgb 10.1 gm/dl (11.8-15.2) L 01/03/19 05:50 Hct 30.5 % (35.5-45.6) L 01/03/19 05:50 MCV 81 fl (84-94) L 01/03/19 05:50 MCH 27 pg (28-32) L 01/03/19 05:50 MCHC 33 % (32-34) 01/03/19 05:50 RDW 16.8 % (13.2-15.2) H 01/03/19 05:50 Plt Count 397 K/mm3 (140-440) 01/03/19 05:50 Lymph % (Auto) 10.5 % (13.4-35.0) L 01/03/19 05:50 [place] % (Auto) 9.1 % (0.0-7.3) H 01/03/19 05:50 Eos % (Auto) 0.5 % (0.0-4.3) 01/03/19 05:50 Baso % (Auto) 0.6 % (0.0-1.8) 01/03/19 05:50 Lymph # 1.1 K/mm3 (1.2-5.4) L 01/03/19 05:50 [place] # 0.9 K/mm3 (0.0-0.8) H 01/03/19 05:50 Eos # 0.1 K/mm3 (0.0-0.4) 01/03/19 05:50 Baso # 0.1 K/mm3 (0.0-0.1) 01/03/19 05:50 Seg Neutrophils % 79.3 % (40.0-70.0) H 01/03/19 05:50 Seg Neutrophils # 8.0 K/mm3 (1.8-7.7) H 01/03/19 05:50 PT 16.3 Sec. (12.2-14.9) H 01/02/19 18:33 INR 1.23 (0.87-1.13) H 01/02/19 18:33 Sodium 143 mmol/L (137-145) 01/03/19 05:50 Potassium 5.0 mmol/L (3.6-5.0) 01/03/19 05:50 Chloride 108.4 mmol/L (98-107) H 01/03/19 05:50 Carbon Dioxide 19 mmol/L (22-30) L 01/03/19 05:50 Anion Gap 21 mmol/L 01/03/19 05:50 BUN 40 mg/dL (9-20) H 01/03/19 05:50 Creatinine 2.0 mg/dL (0.8-1.5) H 01/03/19 05:50 Estimated GFR 41 ml/min 01/03/19 05:50 BUN/Creatinine Ratio 20 % 01/03/19 05:50 Glucose 91 mg/dL (75-100) 01/03/19 05:50 POC Glucose 88 (70-105) 12/24/18 05:47 Lactic Acid 1.30 mmol/L (0.7-2.0) 12/19/18 06:49 Calcium 9.7 mg/dL (8.4-10.2) 01/03/19 05:50 Magnesium 2.20 mg/dL (1.7-2.3) 12/21/18 04:27 Total Bilirubin 0.80 mg/dL (0.1-1.2) 12/26/18 05:18 AST 20 units/L (5-40) 12/26/18 05:18 ALT 7 units/L (7-56) 12/26/18 05:18 Alkaline Phosphatase 65 units/L (35-129) 12/26/18 05:18 Ammonia 23.0 umol/L (25-60) L 12/19/18 00:57 Total Protein 6.3 g/dL (6.3-8.2) 12/26/18 05:18 Albumin 3.3 g/dL (3.9-5) L 12/26/18 05:18 Albumin/Globulin Ratio 1.1 % 12/26/18 05:18 Renin 3.91 ng/mL/h (0.25-5.82) 12/25/18 11:55 Aldosterone 3 ng/dL () 12/25/18 11:55 Aldosterone/Renin Dir 0.8 Ratio (0.9-28.9) L 12/25/18 11:55 TSH 3.190 mlU/mL (0.270-4.200) 12/19/18 00:57 Urine Color [place] (Yellow) 12/19/18 02:27 Urine Turbidity Slightly-cloudy (Clear) 12/19/18 02:27 Urine pH 5.0 (5.0-7.0) 12/19/18 02:27 Ur Specific [place] 1.024 (1.003-1.030) 12/19/18 02:27 Urine Protein >500 mg/dL (Negative) 12/19/18 02:27 Urine Glucose (UA) Neg mg/dL (Negative) 12/19/18 02:27 Urine Ketones Neg mg/dL (Negative) 12/19/18 02:27 Urine Blood Neg (Negative) 12/19/18 02:27 Urine Nitrite Neg (Negative) 12/19/18 02:27 Urine Bilirubin Neg (Negative) 12/19/18 02:27 Urine Urobilinogen 4.0 mg/dL (<2.0) 12/19/18 02:27 Ur Leukocyte Esterase Neg (Negative) 12/19/18 02:27 Urine WBC (Auto) 4.0 /HPF (0.0-6.0) 12/19/18 02:27 Urine RBC (Auto) 2.0 /HPF (0.0-6.0) 12/19/18 02:27 U Epithel Cells (Auto) < 1.0 /HPF (0-13.0) 12/19/18 02:27 Urine Bacteria (Auto) 1+ /HPF (Negative) 12/19/18 02: Amorphous Crystals 1+ 12/19/18 02:27 Hyaline Casts 8 /LPF 12/19/18 02:27 Urine Mucus Few /HPF 12/19/18 02:27 Urine Eosinophils None seen (None Seen) 12/20/18 00:30 Urine Total Volume 500 ml 12/23/18 Unknown Urine Creatinine 39.2 mg/dL (0.1-20.0) H 12/23/18 Unknown Ur Creatinine 24 Hour 0.2 (0.8-2.8) L 12/23/18 Unknown Height (in) 72.0 inches 12/23/18 Unknown Weight (lb) 160.0 lbs 12/23/18 Unknown Creatinine Clearance 4 12/23/18 Unknown Ur Total Protein 24 Hr 60.00 mg/dL (2-200) 12/23/18 Unknown Protein/Creatinin Ratio 0.36 12/20/18 00:30 Urine Sodium 105 mmol/L 12/20/18 00:30 Urine Total Protein 12 mg/dL (5-11.8) H 12/23/18 Unknown Salicylates < 0.3 mg/dL (2.8-20.0) L 12/19/18 00:57 Urine Opiates Screen Presumptive negative 12/19/18 02:27 Urine Methadone Screen Presumptive negative 12/19/18 02:27 Acetaminophen < 5.0 ug/mL (10.0-30.0) L 12/19/18 00:57 Ur Barbiturates Screen Presumptive negative 12/19/18 02:27 Ur Phencyclidine Scrn Presumptive negative 12/19/18 02:27 Ur Amphetamines Screen Presumptive negative 12/19/18 02:27 U Benzodiazepines Scrn Presumptive negative 12/19/18 02:27 Urine Cocaine Screen Presumptive negative 12/19/18 02:27 U Marijuana (THC) Screen Presumptive positive 12/19/18 02:27 Drugs of Abuse Note Disclamer 12/19/18 02:27 Plasma/Serum Alcohol < 0.01 % (0-0.07) 12/19/18 00:57 Immunofix Electrophor see below 12/23/18 10:46 Nutrition/Malnutrition Assess - Dietary Evaluation Nutrition/Malnutrition Findings: Nutrition Notes Start: 12/26/18 10:58 Freq: Status: Active Protocol: Document 01/02/19 15:50 OL (Rec: 01/02/19 15:52 OL [id number]) Nutrition Notes Initial or Follow up Reassessment Current Diagnosis Acute Kidney Injury,CKD(stage I-IV),Hypertension Other Pertinent Diagnosis Wernicke Korsakoff, heavy EtOH use, boil on L upper back, AMS Current Diet Mechanical soft w/Ensure Enlive BID Labs/Tests BUN 36 Cr 2.1 Pertinent Medications Reviewed Height 6 ft Weight 77.2 kg [place] Body Weight (kg) 80.90 BMI 23.1 Subjective/Other Information Minimal intake continues. GI consulted for PEG placement. 75% of Ensure consumed Burn Absent Trauma Absent #1 Nutrition Diagnosis Malnutrition Diagnosis Progress(for reassessment Continues documentation) Is patient on ventilator? No Is Patient Ambulatory and/or Out of Bed No REE-([place]-confined to bed) [phone] Calculation Used for Recommendations [place] Additional Notes Pro needs: 94-118g/day (1.2-1. 5 g/kg BW) Fluid needs: 1 ml/kcal Nutrition Intervention Change Diet Order: Continue mechanical soft Add Supplement/Snack (indicate name/kcal Ensure Enlive BID /protein ) Provides kCal: 700 Provides Protein (gm) 40 Goal #1 Meet at least 75% of calorie and protein needs via PO and ONS intakes Goal #2 Weight maintenance Anticipated Discharge Needs: Unable to determine Follow-Up By: 01/06/19 Additional Comments f/u: TF consult, POC
[2019-01-03] MEDS ORDERED: NACL 0.9% 1000 ML 1,000 ML IV SCH (13:00)
[2019-01-03] MEDS ORDERED: ANCEF/STERILE WATER 2 GM/20 ML 2 GM/20 ML SYRINGE IV NR (13:00)
--- NOTE | 2019-01-03 14:11 | Anesthesia Day of Surgery ---
Anesthesia Day of Surgery - Day of Surgery Patient Examined: Yes Patient H&P Reviewed: Yes Patient is NPO: Yes Beta Blockers: No Cardiac Clearance: No Pulmonary Clearance: No
--- NOTE | 2019-01-03 14:16 | Anesthesia Consultation ---
Anesthesia Consult and Med Hx Date of service: 01/03/19 - Airway Anesthetic Teeth Evaluation: Good ROM Head & Neck: Adequate Mallampati Class: Class III Intubation Access Assessment: Good - Pulmonary Exam CTA: No - Cardiac Exam Cardiac Exam: RRR - Pre-Operative Health Status ASA Pre-Surgery Classification: ASA3 Proposed Anesthetic Plan: MAC (crackles and rales ) - Cardiovascular System Hx Hypertension: Yes - Other Systems Hx Alcohol Use: Yes (+ marijuana)
[2019-01-03] MEDS ORDERED: ANCEF/STERILE WATER 2 GM/20 ML 2 GM/20 ML SYRINGE IV ONE (14:50)
[2019-01-03] MEDS ORDERED: DIPRIVAN 10 MG/ML IV ONE ×2 (16:22)
--- NOTE | 2019-01-03 16:44 | Operative Report ---
Operative Report Operative Report: SURGEON: Alex Mcnamara MD EGD WITH PEG TUBE PLACEMENT REPORT PREOPERATIVE DIAGNOSIS and POSTOPERATIVE DIAGNOSIS: oropharyngeal dysphagia ESTIMATED BLOOD LOSS: Minimal DESCRIPTION OF PROCEDURE: A high-resolution EGD scope was passed through the oropharynx, esophagus, stomach, and second portion of duodenum. The scope was carefully withdrawn. Retroflexion was performed in the stomach. At the end of the procedure, the scope was cleaned using normal technique. Vital signs monitored continuously throughout. The stomach was transilluminated and an optimal position for the PEG tube was identified using the single poke method. The skin was infiltrated with local anesthesia and the needle and sheath were inserted through the abdomen into the stomach under direct visualization. The needle was removed and a guidewire was inserted through the sheath. The guidewire was grasped from above with a snare. It was removed completely and the PEG tube was secured to the guidewire. The guidewire and PEG tube were then pulled through the mouth and esophagus and snug to the abdominal wall. There was no evidence of bleeding. The Bolster was placed on the PEG site. SEDATION: Provided by Anesthesiology Services. COMPLICATIONS: None. FINDINGS: * Normal Second portion of the duodenum * Moderate inflammation and erosions of the duodenal bulb * Mild gastritis of the gastric antrum and body * GE junction at 38cm from the incisors * 2cm hiatal hernia * exam otherwise normal * Successful placement of the 20Fr pull type PEG without complication RECOMMENDATIONS: * May use PEG immediately for pills/water flushes * May use PEG tomorrow for bolus feeds (would not recommend continuous feeds due to risk of patient pulling the PEG) * Would use abdominal wall binder to secure the PEG tube to decrease risk of patient pulling it out * check HPylori Ab given gastroduodenitis (I am ordering) * Daily PPI for the gastroduodenitis
--- NOTE | 2019-01-03 17:00 | Progress Note ---
Assessment and Plan - Patient Problems (1) Acute kidney injury superimposed on chronic kidney disease Current Visit: Yes Status: Acute Plan to address problem: Acute kidney injury superimposed on CKD - Creatinine slightly at 2.0 mg/dl - BASELINE creatinine unknown - I reviewed renal ultrasound with severe right hydronephrosis and simple renal cysts. - etiology appears secondary to obstructive uropathy , per urology this appears to be chronic - Raza was placed by urology - Repeat renal Ultrasound shows persistent hydronephrosis - Follow up with urology on discharge. -Ensure fluid hydration - limited fluid intake. - Avoid nephrotoxic medications. (2) Alcohol abuse Current Visit: Yes Status: Acute Plan to address problem: History of Alcohol Abuse - - has some encephalopathy - Fall precautions. (3) Obstructive uropathy Current Visit: Yes Status: Acute Plan to address problem: Obstructive uropathy - severe right hydronephrosis with obstruction with simple renal cysts - maintain raza in place, was placed by urology - Appreciate urology evaluation - Per urology obstruction appears to be chronic - Hydronephrosis persists. - Follow up with Dr. Casas on discharge . (4) Metabolic acidosis Current Visit: Yes Status: Acute Plan to address problem: Metabolic Acidosis 2/2 Acute kidney injury - Hco3 : 20 Will start bicarbonate infusion for now resume oral sodium bicarbonate if needed once the PEG tube can be used (5) HTN (hypertension) Current Visit: Yes Status: Acute Qualifiers: Hypertension type: essential hypertension Qualified Code(s): I10 - Essential (primary) hypertension Plan to address problem: HTN : uncontrolled. Will increase clonidine patch 0.3 mg IV medications prn as needed if unable to tolerate oral blood pressure medications Resume oral medications with PEG tube Thank you for this consultation . Subjective Principal diagnosis: madalyn on ckd Interval history: 68 year old with medical history of HTN controlled, Alcohol abuse, admitted with Acute kidney injury in the setting of obstructive uropathy Patient seen today , mostly non verbal review of systems is severely limited due to clinical status Raza catheter in place. has had some difficulty with oral intake Plan for PEG tube placement today. Blood pressure has been high. Objective - Vital Signs Vital signs: Vital Signs - 12hr 01/03/19 01/03/19 01/03/19 08:18 09:00 09:10 Temperature 99.2 F 98.4 F Pulse Rate 75 78 Respiratory 22 22 Rate Blood Pressure 221/112 176/72 O2 Sat by Pulse 98 100 Oximetry 01/03/19 01/03/19 01/03/19 09:32 12:54 12:58 Temperature 97.9 F Pulse Rate 72 77 Respiratory 20 Rate Blood Pressure 176/72 178/99 O2 Sat by Pulse 100 Oximetry 01/03/19 01/03/19 01/03/19 14:36 14:39 16:41 Temperature 98.8 F 98.8 F 98.8 F Pulse Rate 76 76 77 Respiratory 26 H 26 H 16 Rate Blood Pressure 176/98 176/98 160/92 O2 Sat by Pulse 99 99 99 Oximetry - General Appearance General appearance: well-developed, well-nourished EENT: ATNC, PERRL Neck: no JVD Respiratory: Present: Clear to Ascultation Cardiology: regular, S1S2 Gastrointestinal: normal, normoactive bowel sounds Integumentary: no rash Neurologic: confused Musculoskeletal: deferred Psychiatric: mood/affect appropriate - Lab 01/03/19 05:50 01/03/19 05:50 Most recent lab results Calcium 9.7 mg/dL (8.4-10.2) 01/03/19 05:50 Magnesium 2.20 mg/dL (1.7-2.3) 12/21/18 04:27 Urine Creatinine 39.2 mg/dL (0.1-20.0) H 12/23/18 Unknown Ur Total Protein 24 Hr 60.00 mg/dL (2-200) 12/23/18 Unknown Urine Sodium 105 mmol/L 12/20/18 00:30 Urine Total Protein 12 mg/dL (5-11.8) H 12/23/18 Unknown - Imaging Other: other (reviewed her repeat renal ultrasound which showed was persistent hydronephrosis) Medications & Allergies - Medications Allergies/Adverse Reactions: Allergies No Known Allergies Allergy (Verified 12/19/18 03:17) Home Medications: Home Medications Medication Instructions Recorded Confirmed Last Taken Type No Known Home Medications [No 12/19/18 12/19/18 Unknown History Reported Home Medications] Active Medications: Generic Name Dose Route Start Last Admin Trade Name Freq PRN Reason Stop Dose Admin Acetaminophen 650 mg 12/19/18 03:06 Tylenol PO Q4H PRN Pain MILD(1-3)/Fever >100.5/M[place]OUGH Acetaminophen 650 mg 12/26/18 04:59 12/26/18 05:09 Tylenol [place] 650 mg Q4H PRN Administration Pain, Mild (1-3) Amlodipine Besylate 10 mg 12/22/18 16:00 01/02/19 11:18 Norvasc PO 10 mg QDAY MANOJ Administration Atorvastatin Calcium 40 mg 12/20/18 22:00 01/02/19 22:00 Lipitor PO Not Given QHS MANOJ Clonidine HCl 0.2 mg 12/23/18 12:04 12/23/18 16:41 Catapres PO 0.2 mg Q4H PRN Administration HTN SBP>160 Clonidine HCl 0.2 mg 12/30/18 10:00 12/30/18 10:13 Catapres-Tts Patch TD 0.2 mg Mo MANOJ Administration Enoxaparin Sodium 30 mg 01/02/19 12:00 01/03/19 09:31 Lovenox SUB-Q 30 mg QDAY MANOJ Administration Hydralazine HCl 100 mg 12/19/18 20:00 01/03/19 08:40 Apresoline PO Not Given TID MANOJ Hydralazine HCl 20 mg 12/25/18 11:36 01/03/19 05:25 Apresoline IV 20 mg Q4HR PRN Administration Hypertension Sodium Bicarbonate 150 meq/ 1,150 mls @ 75 mls/hr 01/03/19 09:30 Dextrose IV DIRECT MANOJ Cefazolin Sodium 2 gm in 20 mls @ 80 mls/hr 01/03/19 13:00 Ancef/Sterile Water 2 Gm/20 Ml IV 01/03/19 23:59 PREOP NR Protocol Sodium Chloride 1,000 mls @ 50 mls/hr 01/03/19 13:00 01/03/19 14:44 Nacl 0.9% 1000 Ml IV 50 mls/hr DIRECT MANOJ Administration Labetalol HCl 10 mg 12/22/18 18:30 01/03/19 09:32 Normodyne IV 10 mg Q6HR PRN Administration Blood Pressure Labetalol HCl 100 mg 01/02/19 10:00 01/02/19 22:00 Normodyne PO Not Given BID MANOJ Lorazepam 2 mg 12/19/18 03:09 12/30/18 01:43 Ativan IV 2 mg Q1HR PRN Administration [facility] 8-15 Lorazepam 4 mg 12/19/18 03:09 Ativan IV Q1HR PRN CIWA-Ar 16-25 Metoprolol Tartrate 5 mg 12/22/18 23:38 12/23/18 16:44 Lopressor IV 5 mg Q6H PRN Administration elevated BP. Hold for HR <60 Minoxidil 5 mg 12/23/18 22:00 01/02/19 22:00 Loniten PO Not Given BID MANOJ Ondansetron HCl 4 mg 12/19/18 03:06 Zofran IV Q8H PRN Nausea And Vomiting Pantoprazole Sodium 40 mg 01/04/19 10:00 Protonix IV QDAY MANOJ Sodium Chloride 10 ml 12/19/18 10:00 01/02/19 10:30 Sodium Chloride Flush Syringe 10 Ml IV 10 ml BID MANOJ Administration Sodium Chloride 10 ml 12/19/18 03:06 Sodium Chloride Flush Syringe 10 Ml IV PRN PRN LINE FLUSH Thiamine HCl 100 mg 12/21/18 14:00 01/02/19 11:19 Vitamin B-1 PO 100 mg QDAY MANOJ Administration
[2019-01-03] MEDS ORDERED: WATER FOR IRRIG STERILE IR ONE (18:31)
[2019-01-03] MEDS: NORMODYNE PO SCH ×2 (19:04→23:12)
[2019-01-03] MEDS: LONITEN PO SCH ×2 (19:04→23:12)
[2019-01-03] MEDS: NORVASC PO SCH (19:04)
[2019-01-03] MEDS: VITAMIN B-1 PO SCH (19:05)
[2019-01-03] MEDS: SODIUM BICARBONATE 150 MEQ in D5W 1,000 ML IV SCH (19:11)
[2019-01-03] MEDS: LOPRESSOR IV PRN (21:23)
[2019-01-03] MEDS: SODIUM CHLORIDE FLUSH SYRINGE 10 ML IV SCH ×2 (21:43→23:12)
[2019-01-04] MEDS: NORMODYNE IV PRN (05:24)
[2019-01-04] MEDS: CATAPRES PO PRN (05:25)
--- NOTE | 2019-01-04 10:19 | Progress Note ---
Subjective Principal diagnosis: madalyn on ckd Interval history: Patient was seen today for follow-up on multiple renal related issues Chronic kidney disease Blood pressure remains difficult to control Social history: Reviewed Allergies: Reviewed Family history: Reviewed Physical examination HEENT: Oral mucosa moist no pallor or icterus Neck: Supple no JVD Chest: Clear to auscultation anteriorly CVS: Regular rate and rhythm S1 and S2 heard Abdomen: Soft nontender no suprapubic masses no organomegaly appreciable Extremity: Dry skin less than 1+ peripheral edema Musculoskeletal: No joint effusion noted in knees and ankle Neurological:patient is alert awake Dermatology: No petechial rashes Psychiatry: No evidence of any agitation and aggression noted Assessment and plan Acute kidney injury with underlying chronic kidney disease continue to monitor renal function patient has multiple risk factor for progression of renal failure Etiology of renal failure appears to be complex and multifactorial, chronic kidney disease underlying, obstructive uropathy, uncontrolled hypertension, history of alcohol abuse needs to follow-up with urology, evidence of hydronephrosis simple renal cyst Creatinine is currently holding at 2.0 for last several days/ likely chronic kidney disease to follow Patient has very difficult to control hypertension, will need to change medication and follow Blood pressure is relatively better controlled with some fluctuations Consider increasing minoxidil to 10 mg twice a day and discontinue hydralazine oral we'll place parameters for labetalol use her heart rate Fever low-grade 100.4 to be followed by primary team Metabolic acidosis continue to follow bicarbonate for now, Will reduce the rate due to hypertension I may consider placing him on Bicitra Renal ultrasonogram showed echogenic kidneys Right-sided hydronephrosis, left renal cysts: Patient has seen urology and will need to follow-up with Dr. Casas in the outpatient setting We'll continue to follow and make recommendation from renal standpoint Objective - Vital Signs Vital signs: Vital Signs - 12hr 01/03/19 01/03/19 01/04/19 23:09 23:11 00:04 Temperature 98.6 F 99.2 F Pulse Rate 83 82 86 Respiratory 18 26 H Rate Blood Pressure 204/104 204/104 172/91 O2 Sat by Pulse 98 96 Oximetry 01/04/19 01/04/19 01/04/19 04:50 05:24 05:25 Temperature 100.4 F H Pulse Rate 89 91 H 91 H Respiratory 24 18 Rate Blood Pressure 186/104 186/104 186/104 O2 Sat by Pulse 98 Oximetry 01/04/19 01/04/19 01/04/19 05:31 06:24 08:26 Temperature 100.4 F H 98.2 F Pulse Rate 70 Respiratory 18 20 Rate Blood Pressure 154/88 O2 Sat by Pulse 100 Oximetry - Lab 01/03/19 05:50 01/03/19 05:50 Most recent lab results Calcium 9.7 mg/dL (8.4-10.2) 01/03/19 05:50 Magnesium 2.20 mg/dL (1.7-2.3) 12/21/18 04:27 Urine Creatinine 39.2 mg/dL (0.1-20.0) H 12/23/18 Unknown Ur Total Protein 24 Hr 60.00 mg/dL (2-200) 12/23/18 Unknown Urine Sodium 105 mmol/L 12/20/18 00:30 Urine Total Protein 12 mg/dL (5-11.8) H 12/23/18 Unknown Medications & Allergies - Medications Allergies/Adverse Reactions: Allergies No Known Allergies Allergy (Verified 12/19/18 03:17) Home Medications: Home Medications Medication Instructions Recorded Confirmed Last Taken Type No Known Home Medications [No 12/19/18 12/19/18 Unknown History Reported Home Medications] Active Medications: Generic Name Dose Route Start Last Admin Trade Name Freq PRN Reason Stop Dose Admin Acetaminophen 650 mg 12/19/18 03:06 01/04/19 05:24 Tylenol PO 650 mg Q4H PRN Administration Pain MILD(1-3)/Fever >100.5/[place] Acetaminophen 650 mg 12/26/18 04:59 12/26/18 05:09 Tylenol MT 650 mg Q4H PRN Administration Pain, Mild (1-3) Amlodipine Besylate 10 mg 12/22/18 16:00 01/03/19 19:04 Norvasc PO Not Given QDAY MANOJ Atorvastatin Calcium 40 mg 12/20/18 22:00 01/03/19 23:12 Lipitor PO Not Given QHS MANOJ Clonidine HCl 0.2 mg 12/23/18 12:04 01/04/19 05:25 Catapres PO 0.2 mg Q4H PRN Administration HTN SBP>160 Clonidine HCl 0.3 mg 01/09/19 10:00 Catapres-Tts Patch TD Mo MANOJ Enoxaparin Sodium 30 mg 01/02/19 12:00 01/03/19 09:31 Lovenox SUB-Q 30 mg QDAY MANOJ Administration Hydralazine HCl 20 mg 12/25/18 11:36 01/03/19 23:11 Apresoline IV 20 mg Q4HR PRN Administration Hypertension Sodium Bicarbonate 150 meq/ 1,150 mls @ 50 mls/hr 01/03/19 09:30 01/03/19 19:11 Dextrose IV 75 mls/hr DIRECT MANOJ Administration Labetalol HCl 10 mg 12/22/18 18:30 01/04/19 05:24 Normodyne IV 10 mg Q6HR PRN Administration Blood Pressure Labetalol HCl 100 mg 01/02/19 10:00 01/03/19 23:12 Normodyne PO Not Given BID MANOJ Lorazepam 2 mg 12/19/18 03:09 12/30/18 01:43 Ativan IV 2 mg Q1HR PRN Administration CIWA-Ar 8-15 Lorazepam 4 mg 12/19/18 03:09 Ativan IV Q1HR PRN CIWA-Ar 16-25 Metoprolol Tartrate 5 mg 12/22/18 23:38 01/03/19 21:23 Lopressor IV 5 mg Q6H PRN Administration elevated BP. Hold for HR <60 Minoxidil 10 mg 01/04/19 10:17 Loniten PO BID REPLACED BY [facility] Ondansetron HCl 4 mg 12/19/18 03:06 Zofran IV Q8H PRN Nausea And Vomiting Pantoprazole Sodium 40 mg 01/04/19 10:00 Protonix IV QDAY MANOJ Sodium Chloride 10 ml 12/19/18 10:00 01/03/19 23:12 Sodium Chloride Flush Syringe 10 Ml IV 10 ml BID MANOJ Administration Sodium Chloride 10 ml 12/19/18 03:06 Sodium Chloride Flush Syringe 10 Ml IV PRN PRN LINE FLUSH Thiamine HCl 100 mg 12/21/18 14:00 01/03/19 19:05 Vitamin B-1 PO Not Given QDAY REPLACED BY [facility]
--- NOTE | 2019-01-04 10:35 | Gastroenterology Progress Note ---
Assessment and Plan GI: s/p peg w/o obvious complications - continue meds - ok to use peg as needed - will sign off, call if needed Subjective Date of service: 01/04/19 Principal diagnosis: madalyn on ckd Interval history: - no GI issues overnight per staff Objective - Constitutional Vitals: Temp Pulse Resp BP Pulse Ox 98.2 F 70 20 154/88 100 01/04/19 08:26 01/04/19 08:26 01/04/19 08:26 01/04/19 08:26 01/04/19 08:26 General appearance: no acute distress - EENT Eyes: PERRL - Respiratory Respiratory: bilateral: CTA - Cardiovascular Rhythm: regular Heart Sounds: Present: S1 & S2 - Gastrointestinal General gastrointestinal: Present: soft, non-tender, non-distended (peg site intact) - Labs CBC & Chem 7: 01/03/19 05:50 01/03/19 05:50
[2019-01-04] MEDS: NORVASC PO SCH (11:13)
[2019-01-04] MEDS: PROTONIX IV SCH (11:13)
[2019-01-04] MEDS: VITAMIN B-1 PO SCH (11:14)
[2019-01-04] MEDS: NORMODYNE PO SCH ×2 (11:14→22:10)
[2019-01-04] MEDS: LOVENOX SUB-Q SCH (11:14)
[2019-01-04] MEDS: SODIUM CHLORIDE FLUSH SYRINGE 10 ML IV SCH ×2 (11:15→22:11)
--- NOTE | 2019-01-04 12:14 | Progress Note ---
Assessment and Plan Assessment and plan: Encephalopathy/Wernicke Korsakoff, neuro following. MRI showed dffuse small vessel infarcts discussed with neurologist and he explained to the families and recommended Hospice care Patient showed no improvement since admission. Acute on chronic renal failure likely vasomotor - nephrology is following Hypokalemia; corrected Right hydronephrosis. Urology consulted and believes it is chronic. Peraza placed. Obstructive uropathy. Hypertension. Controlled. Continue minoxidil, clonidine, hydralazine, Norvasc. Monitor and adjusted as needed. ETOH abuse. Cont. CIWA Prognosis poor Cachexia/severe oral pharyngeal dysphagia. Patient status post PEG placement on 01/03/19. Dietitian to begin tube feedings. Disposition; family does not want to pursue hospice at this time. Physical therapy is recommending subacute rehabilitation. History Interval history: No new issues overnight. Patient remains confused. Patient status post PEG placement without complications Hospitalist Physical - Constitutional Vitals: Temp Pulse Resp BP Pulse Ox 98.6 F 64 20 157/84 96 01/04/19 12:04 01/04/19 12:04 01/04/19 12:04 01/04/19 12:04 01/04/19 12:04 General appearance: Present: no acute distress, well-nourished - EENT Eyes: Present: PERRL, EOM intact ENT: hearing intact, clear oral mucosa, dentition normal - Neck Neck: Present: supple, normal ROM - Respiratory Respiratory effort: normal Respiratory: bilateral: CTA - Cardiovascular Rhythm: regular Heart Sounds: Present: S1 & S2. Absent: gallop, rub - Extremities Extremities: no ischemia, No edema, Full ROM - Abdominal General gastrointestinal: soft, non-tender, non-distended, normal bowel sounds - Integumentary Integumentary: Present: clear, warm, dry - Neurologic Neurologic: CNII-XII intact, moves all extremities Results - Labs CBC & Chem 7: 01/03/19 05:50 01/03/19 05:50 Labs: Laboratory Last Values WBC 10.0 K/mm3 (4.5-11.0) 01/03/19 05:50 RBC 3.77 M/mm3 (3.65-5.03) 01/03/19 05:50 Hgb 10.1 gm/dl (11.8-15.2) L 01/03/19 05:50 Hct 30.5 % (35.5-45.6) L 01/03/19 05:50 MCV 81 fl (84-94) L 01/03/19 05:50 MCH 27 pg (28-32) L 01/03/19 05:50 MCHC 33 % (32-34) 01/03/19 05:50 RDW 16.8 % (13.2-15.2) H 01/03/19 05:50 Plt Count 397 K/mm3 (140-440) 01/03/19 05:50 Lymph % (Auto) 10.5 % (13.4-35.0) L 01/03/19 05:50 Posey % (Auto) 9.1 % (0.0-7.3) H 01/03/19 05:50 Eos % (Auto) 0.5 % (0.0-4.3) 01/03/19 05:50 Baso % (Auto) 0.6 % (0.0-1.8) 01/03/19 05:50 Lymph # 1.1 K/mm3 (1.2-5.4) L 01/03/19 05:50 Posey # 0.9 K/mm3 (0.0-0.8) H 01/03/19 05:50 Eos # 0.1 K/mm3 (0.0-0.4) 01/03/19 05:50 Baso # 0.1 K/mm3 (0.0-0.1) 01/03/19 05:50 Seg Neutrophils % 79.3 % (40.0-70.0) H 01/03/19 05:50 Seg Neutrophils # 8.0 K/mm3 (1.8-7.7) H 01/03/19 05:50 PT 16.3 Sec. (12.2-14.9) H 01/02/19 18:33 INR 1.23 (0.87-1.13) H 01/02/19 18:33 Sodium 143 mmol/L (137-145) 01/03/19 05:50 Potassium 5.0 mmol/L (3.6-5.0) 01/03/19 05:50 Chloride 108.4 mmol/L (98-107) H 01/03/19 05:50 Carbon Dioxide 19 mmol/L (22-30) L 01/03/19 05:50 Anion Gap 21 mmol/L 01/03/19 05:50 BUN 40 mg/dL (9-20) H 01/03/19 05:50 Creatinine 2.0 mg/dL (0.8-1.5) H 01/03/19 05:50 Estimated GFR 41 ml/min 01/03/19 05:50 BUN/Creatinine Ratio 20 % 01/03/19 05:50 Glucose 91 mg/dL (75-100) 01/03/19 05:50 POC Glucose 88 (70-105) 12/24/18 05:47 Lactic Acid 1.30 mmol/L (0.7-2.0) 12/19/18 06:49 Calcium 9.7 mg/dL (8.4-10.2) 01/03/19 05:50 Magnesium 2.20 mg/dL (1.7-2.3) 12/21/18 04:27 Total Bilirubin 0.80 mg/dL (0.1-1.2) 12/26/18 05:18 AST 20 units/L (5-40) 12/26/18 05:18 ALT 7 units/L (7-56) 12/26/18 05:18 Alkaline Phosphatase 65 units/L (35-129) 12/26/18 05:18 Ammonia 23.0 umol/L (25-60) L 12/19/18 00:57 Total Protein 6.3 g/dL (6.3-8.2) 12/26/18 05:18 Albumin 3.3 g/dL (3.9-5) L 12/26/18 05:18 Albumin/Globulin Ratio 1.1 % 12/26/18 05:18 Renin 3.91 ng/mL/h (0.25-5.82) 12/25/18 11:55 Aldosterone 3 ng/dL () 12/25/18 11:55 Aldosterone/Renin Dir 0.8 Ratio (0.9-28.9) L 12/25/18 11:55 TSH 3.190 mlU/mL (0.270-4.200) 12/19/18 00:57 Urine Color Carmen (Yellow) 12/19/18 02:27 Urine Turbidity Slightly-cloudy (Clear) 12/19/18 02:27 Urine pH 5.0 (5.0-7.0) 12/19/18 02:27 Ur Specific [place] 1.024 (1.003-1.030) 12/19/18 02:27 Urine Protein >500 mg/dL (Negative) 12/19/18 02:27 Urine Glucose (UA) Neg mg/dL (Negative) 12/19/18 02:27 Urine Ketones Neg mg/dL (Negative) 12/19/18 02:27 Urine Blood Neg (Negative) 12/19/18 02:27 Urine Nitrite Neg (Negative) 12/19/18 02:27 Urine Bilirubin Neg (Negative) 12/19/18 02:27 Urine Urobilinogen 4.0 mg/dL (<2.0) 12/19/18 02:27 Ur Leukocyte Esterase Neg (Negative) 12/19/18 02:27 Urine WBC (Auto) 4.0 /HPF (0.0-6.0) 12/19/18 02:27 Urine RBC (Auto) 2.0 /HPF (0.0-6.0) 12/19/18 02:27 U Epithel Cells (Auto) < 1.0 /HPF (0-13.0) 12/19/18 02:27 Urine Bacteria (Auto) 1+ /HPF (Negative) 12/19/18 02:27 Amorphous Crystals 1+ 12/19/18 02:27 Hyaline Casts 8 /LPF 12/19/18 02:27 Urine Mucus Few /HPF 12/19/18 02:27 Urine Eosinophils None seen (None Seen) 12/20/18 00:30 Urine Total Volume 500 ml 12/23/18 Unknown Urine Creatinine 39.2 mg/dL (0.1-20.0) H 12/23/18 Unknown Ur Creatinine 24 Hour 0.2 (0.8-2.8) L 12/23/18 Unknown Height (in) 72.0 inches 12/23/18 Unknown Weight (lb) 160.0 lbs 12/23/18 Unknown Creatinine Clearance 4 12/23/18 Unknown Ur Total Protein 24 Hr 60.00 mg/dL (2-200) 12/23/18 Unknown Protein/Creatinin Ratio 0.36 12/20/18 00:30 Urine Sodium 105 mmol/L 12/20/18 00:30 Urine Total Protein 12 mg/dL (5-11.8) H 12/23/18 Unknown Salicylates < 0.3 mg/dL (2.8-20.0) L 12/19/18 00:57 Urine Opiates Screen Presumptive negative 12/19/18 02:27 Urine Methadone Screen Presumptive negative 12/19/18 02:27 Acetaminophen < 5.0 ug/mL (10.0-30.0) L 12/19/18 00:57 Ur Barbiturates Screen Presumptive negative 12/19/18 02:27 Ur Phencyclidine Scrn Presumptive negative 12/19/18 02:27 Ur Amphetamines Screen Presumptive negative 12/19/18 02:27 U Benzodiazepines Scrn Presumptive negative 12/19/18 02:27 Urine Cocaine Screen Presumptive negative 12/19/18 02:27 U Marijuana (THC) Screen Presumptive positive 12/19/18 02:27 Drugs of Abuse Note Disclamer 12/19/18 02:27 Plasma/Serum Alcohol < 0.01 % (0-0.07) 12/19/18 00:57 Immunofix Electrophor see below 12/23/18 10:46 Nutrition/Malnutrition Assess - Dietary Evaluation Nutrition/Malnutrition Findings: Nutrition Notes Start: 12/26/18 10:58 Freq: Status: Active Protocol: Document 01/02/19 15:50 OL (Rec: 01/02/19 15:52 OL [email or web address]) Nutrition Notes Initial or Follow up Reassessment Current Diagnosis Acute Kidney Injury,CKD(stage I-IV),Hypertension Other Pertinent Diagnosis Wernicke Korsakoff, heavy EtOH use, boil on L upper back, AMS Current Diet Mechanical soft w/Ensure Enlive BID Labs/Tests BUN 36 Cr 2.1 Pertinent Medications Reviewed Height 6 ft Weight 77.2 kg [place] Body Weight (kg) 80.90 BMI 23.1 Subjective/Other Information Minimal intake continues. GI consulted for PEG placement. 75% of Ensure consumed Burn Absent Trauma Absent #1 Nutrition Diagnosis Malnutrition Diagnosis Progress(for reassessment Continues documentation) Is patient on ventilator? No Is Patient Ambulatory and/or Out of Bed No REE-([facility]-confined to bed) [phone] Calculation Used for Recommendations [facility] Additional Notes Pro needs: 94-118g/day (1.2-1. 5 g/kg BW) Fluid needs: 1 ml/kcal Nutrition Intervention Change Diet Order: Continue mechanical soft Add Supplement/Snack (indicate name/kcal Ensure Enlive BID /protein ) Provides kCal: 700 Provides Protein (gm) 40 Goal #1 Meet at least 75% of calorie and protein needs via PO and ONS intakes Goal #2 Weight maintenance Anticipated Discharge Needs: Unable to determine Follow-Up By: 01/06/19 Additional Comments f/u: TF consult, POC
--- NOTE | 2019-01-04 12:30 | Progress Note ---
Subjective Date of service: 01/04/19 Principal diagnosis: madalyn on ckd Interval history: continues to improve and show good progress speaking a little and limbb movements are recovering- brother not in the room to speak to... nxt sunday plan MRI to assess recovery potential Objective - Vital Sign Vital Signs - 12hr 01/04/19 01/04/19 01/04/19 04:50 05:24 05:25 Temperature 100.4 F H Pulse Rate 89 91 H 91 H Respiratory 24 18 Rate Blood Pressure 186/104 186/104 186/104 O2 Sat by Pulse 98 Oximetry 01/04/19 01/04/19 01/04/19 05:31 06:24 08:26 Temperature 100.4 F H 98.2 F Pulse Rate 70 Respiratory 18 20 Rate Blood Pressure 154/88 O2 Sat by Pulse 100 Oximetry 01/04/19 01/04/19 01/04/19 11:13 11:14 12:04 Temperature 98.6 F Pulse Rate 72 72 64 Respiratory 20 Rate Blood Pressure 154/88 154/88 157/84 O2 Sat by Pulse 96 Oximetry - Laboratory Findings CBC and BMP: 01/03/19 05:50 01/03/19 05:50 Abnormal Lab Findings: Abnormal Labs 12/19/18 12/19/18 12/19/18 00:57 00:57 00:57 WBC RBC 5.05 H Hgb Hct MCV 82 L MCH 27 L RDW 17.5 H Plt Count Lymph % (Auto) 10.7 L Keith % (Auto) Lymph # 0.9 L Keith # Seg Neutrophils % 84.1 H Seg Neutrophils # PT INR Sodium Potassium Chloride Carbon Dioxide BUN Creatinine 2.2 H Glucose POC Glucose Lactic Acid 2.30 H* Magnesium Total Bilirubin 1.60 H ALT Ammonia Total Protein Albumin Renin Aldosterone/Renin Dir Urine Creatinine Ur Creatinine 24 Hour Urine Total Protein Salicylates Acetaminophen 12/19/18 12/19/18 12/19/18 00:57 00:57 00:57 WBC RBC Hgb Hct MCV MCH RDW Plt Count Lymph % (Auto) Keith % (Auto) Lymph # Keith # Seg Neutrophils % Seg Neutrophils # PT INR Sodium Potassium Chloride Carbon Dioxide BUN Creatinine Glucose POC Glucose Lactic Acid Magnesium Total Bilirubin ALT Ammonia 23.0 L Total Protein Albumin Renin Aldosterone/Renin Dir Urine Creatinine Ur Creatinine 24 Hour Urine Total Protein Salicylates < 0.3 L Acetaminophen < 5.0 L 12/19/18 12/19/18 12/19/18 00:58 06:49 06:49 WBC 11.7 H RBC Hgb Hct MCV 81 L MCH 27 L RDW 18.0 H Plt Count Lymph % (Auto) 10.5 L [place] % (Auto) Lymph # Keith # Seg Neutrophils % 83.8 H Seg Neutrophils # 9.8 H PT INR Sodium Potassium 3.4 L Chloride Carbon Dioxide BUN Creatinine 2.0 H Glucose 105 H POC Glucose 110 H Lactic Acid Magnesium Total Bilirubin ALT Ammonia Total Protein Albumin Renin Aldosterone/Renin Dir Urine Creatinine Ur Creatinine 24 Hour Urine Total Protein Salicylates Acetaminophen 12/19/18 12/20/18 12/20/18 10:56 00:30 05:15 WBC RBC Hgb Hct MCV 82 L MCH 27 L RDW 17.5 H Plt Count 133 L Lymph % (Auto) Keith % (Auto) 7.8 H Lymph # Keith # Seg Neutrophils % Seg Neutrophils # PT INR Sodium Potassium Chloride Carbon Dioxide BUN Creatinine Glucose POC Glucose Lactic Acid Magnesium Total Bilirubin ALT Ammonia Total Protein Albumin Renin 0.10 L Aldosterone/Renin Dir Urine Creatinine 157.1 H Ur Creatinine 24 Hour Urine Total Protein 57 H Salicylates Acetaminophen 12/20/18 12/20/18 12/20/18 05:15 05:15 16:46 WBC RBC Hgb Hct MCV MCH RDW Plt Count Lymph % (Auto) [place] % (Auto) Lymph # Keith # Seg Neutrophils % Seg Neutrophils # PT INR Sodium Potassium 3.5 L Chloride Carbon Dioxide BUN Creatinine 2.1 H Glucose 109 H POC Glucose 109 H Lactic Acid Magnesium 1.60 L Total Bilirubin 1.50 H ALT Ammonia Total Protein 6.2 L D Albumin 3.8 L Renin Aldosterone/Renin Dir Urine Creatinine Ur Creatinine 24 Hour Urine Total Protein Salicylates Acetaminophen 12/20/18 12/21/18 12/21/18 20:38 04:27 04:27 WBC RBC Hgb 11.4 L Hct 34.2 L MCV 82 L MCH 27 L RDW 17.8 H Plt Count 130 L Lymph % (Auto) Keith % (Auto) 7.5 H Lymph # Keith # Seg Neutrophils % 73.3 H Seg Neutrophils # PT INR Sodium Potassium Chloride Carbon Dioxide BUN Creatinine 1.9 H Glucose 102 H POC Glucose 110 H Lactic Acid Magnesium Total Bilirubin 1.30 H ALT 6 L Ammonia Total Protein 5.7 L Albumin 3.4 L Renin Aldosterone/Renin Dir Urine Creatinine Ur Creatinine 24 Hour Urine Total Protein Salicylates Acetaminophen 12/22/18 12/22/18 12/22/18 04:25 04:25 04:25 WBC RBC Hgb 11.3 L Hct 34.3 L MCV 83 L MCH 27 L RDW 18.0 H Plt Count Lymph % (Auto) [place] % (Auto) 7.7 H Lymph # Keith # Seg Neutrophils % 70.5 H Seg Neutrophils # PT INR Sodium Potassium Chloride Carbon Dioxide BUN Creatinine 2.4 H 2.4 H Glucose POC Glucose Lactic Acid Magnesium Total Bilirubin ALT 6 L Ammonia Total Protein 6.0 L Albumin 3.4 L Renin Aldosterone/Renin Dir Urine Creatinine Ur Creatinine 24 Hour Urine Total Protein Salicylates Acetaminophen 12/23/18 12/23/18 12/23/18 04:41 04:41 Unknown WBC RBC Hgb 11.3 L Hct 33.7 L MCV 83 L MCH RDW 17.5 H Plt Count Lymph % (Auto) [place] % (Auto) 8.2 H Lymph # Keith # Seg Neutrophils % 71.4 H Seg Neutrophils # PT INR Sodium Potassium Chloride Carbon Dioxide BUN Creatinine 2.4 H Glucose POC Glucose Lactic Acid Magnesium Total Bilirubin ALT 6 L Ammonia Total Protein 6.1 L Albumin 3.3 L Renin Aldosterone/Renin Dir Urine Creatinine 39.2 H Ur Creatinine 24 Hour 0.2 L Urine Total Protein 12 H Salicylates Acetaminophen 12/23/18 12/24/18 12/24/18 Unknown 06:25 06:25 WBC RBC Hgb Hct MCV 82 L MCH 27 L RDW 18.0 H Plt Count Lymph % (Auto) [place] % (Auto) 8.5 H Lymph # Keith # Seg Neutrophils % Seg Neutrophils # PT INR Sodium Potassium Chloride Carbon Dioxide BUN Creatinine 2.1 H Glucose 109 H POC Glucose Lactic Acid Magnesium Total Bilirubin ALT 6 L Ammonia Total Protein Albumin 3.5 L Renin Aldosterone/Renin Dir Urine Creatinine 37.1 H Ur Creatinine 24 Hour Urine Total Protein Salicylates Acetaminophen 12/25/18 12/25/18 12/25/18 05:32 05:32 11:55 WBC RBC Hgb 11.5 L Hct 35.1 L MCV 83 L MCH 27 L RDW 17.7 H Plt Count Lymph % (Auto) [place] % (Auto) 10.1 H Lymph # Keith # Seg Neutrophils % 71.2 H Seg Neutrophils # PT INR Sodium Potassium Chloride Carbon Dioxide BUN Creatinine 2.4 H Glucose 113 H POC Glucose Lactic Acid Magnesium Total Bilirubin ALT 6 L Ammonia Total Protein Albumin 3.6 L Renin Aldosterone/Renin Dir 0.8 L Urine Creatinine Ur Creatinine 24 Hour Urine Total Protein Salicylates Acetaminophen 12/26/18 12/26/18 12/28/18 05:18 05:18 04:58 WBC RBC Hgb 10.9 L 10.7 L Hct 32.9 L 32.1 L MCV 82 L 81 L MCH 27 L 27 L RDW 17.2 H 16.8 H Plt Count Lymph % (Auto) Keith % (Auto) 14.9 H 11.1 H Lymph # Keith # 0.9 H 0.9 H Seg Neutrophils % 72.3 H Seg Neutrophils # PT INR Sodium Potassium Chloride Carbon Dioxide 21 L BUN Creatinine 2.1 H Glucose 111 H POC Glucose Lactic Acid Magnesium Total Bilirubin ALT Ammonia Total Protein Albumin 3.3 L Renin Aldosterone/Renin Dir Urine Creatinine Ur Creatinine 24 Hour Urine Total Protein Salicylates Acetaminophen 12/28/18 12/29/18 12/30/18 04:58 06:41 05:39 WBC RBC Hgb Hct MCV MCH RDW Plt Count Lymph % (Auto) [place] % (Auto) Lymph # Keith # Seg Neutrophils % Seg Neutrophils # PT INR Sodium 135 L Potassium Chloride Carbon Dioxide 21 L BUN 26 H 26 H 30 H Creatinine 1.9 H 2.0 H 1.8 H Glucose 111 H 111 H 112 H POC Glucose Lactic Acid Magnesium Total Bilirubin ALT Ammonia Total Protein Albumin Renin Aldosterone/Renin Dir Urine Creatinine Ur Creatinine 24 Hour Urine Total Protein Salicylates Acetaminophen 12/31/18 01/01/19 01/02/19 05:48 05:57 06:34 WBC RBC Hgb Hct MCV MCH RDW Plt Count Lymph % (Auto) [place] % (Auto) Lymph # Keith # Seg Neutrophils % Seg Neutrophils # PT INR Sodium Potassium Chloride Carbon Dioxide 21 L 20 L BUN 30 H 33 H 36 H Creatinine 2.0 H 1.9 H 2.1 H Glucose 109 H 110 H 106 H POC Glucose Lactic Acid Magnesium Total Bilirubin ALT Ammonia Total Protein Albumin Renin Aldosterone/Renin Dir Urine Creatinine Ur Creatinine 24 Hour Urine Total Protein Salicylates Acetaminophen 01/02/19 01/03/19 01/03/19 18:33 05:50 05:50 WBC RBC Hgb 10.1 L Hct 30.5 L MCV 81 L MCH 27 L RDW 16.8 H Plt Count Lymph % (Auto) 10.5 L [place] % (Auto) 9.1 H Lymph # 1.1 L Keith # 0.9 H Seg Neutrophils % 79.3 H Seg Neutrophils # 8.0 H PT 16.3 H INR 1.23 H Sodium Potassium Chloride 108.4 H Carbon Dioxide 19 L BUN 40 H Creatinine 2.0 H Glucose POC Glucose Lactic Acid Magnesium Total Bilirubin ALT Ammonia Total Protein Albumin Renin Aldosterone/Renin Dir Urine Creatinine Ur Creatinine 24 Hour Urine Total Protein Salicylates Acetaminophen
[2019-01-04] MEDS: SODIUM BICARBONATE 150 MEQ in D5W 1,000 ML IV SCH (16:19)
[2019-01-04] MEDS: APRESOLINE PO SCH (19:25)
[2019-01-04] MEDS: LONITEN PO SCH ×2 (19:25→22:10)
[2019-01-05] MEDS: SODIUM BICARBONATE 150 MEQ in D5W 1,000 ML IV SCH ×2 (05:53→11:21)
--- NOTE | 2019-01-05 10:00 | Progress Note ---
Subjective Principal diagnosis: madalyn on ckd Interval history: Patient was seen today for follow-up on multiple renal related issues Chronic kidney disease According to the nurse patient does wake up Blood pressure is currently much better today Social history: Reviewed Allergies: Reviewed Family history: Reviewed Physical examination HEENT: Oral mucosa moist no pallor or icterus Neck: Supple no JVD Chest: Clear to auscultation anteriorly CVS: Regular rate and rhythm S1 and S2 heard Abdomen: Soft nontender no suprapubic masses no organomegaly appreciable Extremity: Dry skin less than 1+ peripheral edema Musculoskeletal: No joint effusion noted in knees and ankle Neurological: Fluctuating level of mental status Dermatology: No petechial rashes Psychiatry: No evidence of any agitation and aggression noted Assessment and plan Acute kidney injury with underlying chronic kidney disease continue to monitor renal function patient has multiple risk factor for progression of renal failure Etiology of renal failure appears to be complex and multifactorial, chronic kidney disease underlying, obstructive uropathy, uncontrolled hypertension, history of alcohol abuse Dr. linda needs to follow-up with urology, evidence of hydronephrosis simple renal cyst Accelerated hypertension currently much better controlled with increasing minoxidil, patient has difficult to control hypertension Aldosterone and plasma renin ratio normal as of November 2018 Multiple other comorbidities, add hydrochlorothiazide 25 mg once a day Overall prognosis guarded to poor Metabolic acidosis continue to follow bicarbonate for now, Will reduce the rate due to hypertension Renal ultrasonogram showed echogenic kidneys Right-sided hydronephrosis, left renal cysts: Patient has seen urology and will need to follow-up with Dr. Casas in the outpatient setting We'll continue to follow and make recommendation from renal standpoint Objective - Vital Signs Vital signs: Vital Signs - 12hr 01/04/19 01/04/19 01/04/19 22:00 22:10 23:09 Temperature Pulse Rate 72 Respiratory 18 Rate Blood Pressure 172/105 162/113 O2 Sat by Pulse 100 Oximetry 01/04/19 01/05/19 01/05/19 23:11 04:26 08:32 Temperature 98.3 F 98.3 F 98.2 F Pulse Rate 71 75 Respiratory 18 18 18 Rate Blood Pressure 176/104 128/73 138/74 O2 Sat by Pulse 98 98 Oximetry 01/05/19 08:33 Temperature Pulse Rate 75 Respiratory Rate Blood Pressure O2 Sat by Pulse 98 Oximetry - Lab 01/03/19 05:50 01/03/19 05:50 Most recent lab results Calcium 9.7 mg/dL (8.4-10.2) 01/03/19 05:50 Magnesium 2.20 mg/dL (1.7-2.3) 12/21/18 04:27 Urine Creatinine 39.2 mg/dL (0.1-20.0) H 12/23/18 Unknown Ur Total Protein 24 Hr 60.00 mg/dL (2-200) 12/23/18 Unknown Urine Sodium 105 mmol/L 12/20/18 00:30 Urine Total Protein 12 mg/dL (5-11.8) H 12/23/18 Unknown Medications & Allergies - Medications Allergies/Adverse Reactions: Allergies No Known Allergies Allergy (Verified 12/19/18 03:17) Home Medications: Home Medications Medication Instructions Recorded Confirmed Last Taken Type No Known Home Medications [No 12/19/18 12/19/18 Unknown History Reported Home Medications] Active Medications: Generic Name Dose Route Start Last Admin Trade Name Freq PRN Reason Stop Dose Admin Acetaminophen 650 mg 12/19/18 03:06 01/04/19 05:24 Tylenol PO 650 mg Q4H PRN Administration Pain MILD(1-3)/Fever >100.5/[place] Acetaminophen 650 mg 12/26/18 04:59 12/26/18 05:09 Tylenol CA 650 mg Q4H PRN Administration Pain, Mild (1-3) Amlodipine Besylate 10 mg 12/22/18 16:00 01/04/19 11:13 Norvasc PO 10 mg QDAY MANOJ Administration Atorvastatin Calcium 40 mg 12/20/18 22:00 01/04/19 22:10 Lipitor PO 40 mg QHS MANOJ Administration Clonidine HCl 0.2 mg 12/23/18 12:04 01/04/19 05:25 Catapres PO 0.2 mg Q4H PRN Administration HTN SBP>160 Clonidine HCl 0.3 mg 01/09/19 10:00 Catapres-Tts Patch TD Mo MANOJ Enoxaparin Sodium 30 mg 01/02/19 12:00 01/04/19 11:14 Lovenox SUB-Q 30 mg QDAY MANOJ Administration Hydralazine HCl 20 mg 12/25/18 11:36 01/03/19 23:11 Apresoline IV 20 mg Q4HR PRN Administration Hypertension Sodium Bicarbonate 150 meq/ 1,150 mls @ 50 mls/hr 01/03/19 09:30 01/05/19 05:53 Dextrose IV 75 mls/hr DIRECT MANOJ Administration Labetalol HCl 10 mg 12/22/18 18:30 01/04/19 05:24 Normodyne IV 10 mg Q6HR PRN Administration Blood Pressure Labetalol HCl 100 mg 01/02/19 10:00 01/04/19 22:10 Normodyne PO 100 mg BID MANOJ Administration Lorazepam 2 mg 12/19/18 03:09 12/30/18 01:43 Ativan IV 2 mg Q1HR PRN Administration CIWA-Ar 8-15 Lorazepam 4 mg 12/19/18 03:09 Ativan IV Q1HR PRN CIWA-Ar 16-25 Metoprolol Tartrate 5 mg 12/22/18 23:38 01/03/19 21:23 Lopressor IV 5 mg Q6H PRN Administration elevated BP. Hold for HR <60 Minoxidil 10 mg 01/04/19 10:17 01/04/19 22:10 Loniten PO 10 mg BID MANOJ Administration Ondansetron HCl 4 mg 12/19/18 03:06 Zofran IV Q8H PRN Nausea And Vomiting Pantoprazole Sodium 40 mg 01/04/19 10:00 01/04/19 11:13 Protonix IV 40 mg QDAY MANOJ Administration Sodium Chloride 10 ml 12/19/18 10:00 01/04/19 22:11 Sodium Chloride Flush Syringe 10 Ml IV 10 ml BID MANOJ Administration Sodium Chloride 10 ml 12/19/18 03:06 Sodium Chloride Flush Syringe 10 Ml IV PRN PRN LINE FLUSH Thiamine HCl 100 mg 12/21/18 14:00 01/04/19 11:14 Vitamin B-1 PO 100 mg QDAY MANOJ Administration
--- NOTE | 2019-01-05 10:29 | Progress Note ---
Subjective Date of service: 01/05/19 Principal diagnosis: madalyn on ckd Interval history: plan repeat MRI of brain tomorrow the labs are noted will follow up patient is showing gradual recovery Objective - Vital Sign Vital Signs - 12hr 01/04/19 01/04/19 01/04/19 22:00 22:10 23:09 Temperature Pulse Rate 72 Respiratory 18 Rate Blood Pressure 172/105 162/113 O2 Sat by Pulse 100 Oximetry 01/04/19 01/05/19 01/05/19 23:11 04:26 08:32 Temperature 98.3 F 98.3 F 98.2 F Pulse Rate 71 75 Respiratory 18 18 18 Rate Blood Pressure 176/104 128/73 138/74 O2 Sat by Pulse 98 98 Oximetry 01/05/19 08:33 Temperature Pulse Rate 75 Respiratory Rate Blood Pressure O2 Sat by Pulse 98 Oximetry - Laboratory Findings CBC and BMP: 01/03/19 05:50 01/03/19 05:50 Abnormal Lab Findings: Abnormal Labs 12/19/18 12/19/18 12/19/18 00:57 00:57 00:57 WBC RBC 5.05 H Hgb Hct MCV 82 L MCH 27 L RDW 17.5 H Plt Count Lymph % (Auto) 10.7 L [place] % (Auto) Lymph # 0.9 L [place] # Seg Neutrophils % 84.1 H Seg Neutrophils # PT INR Sodium Potassium Chloride Carbon Dioxide BUN Creatinine 2.2 H Glucose POC Glucose Lactic Acid 2.30 H* Magnesium Total Bilirubin 1.60 H ALT Ammonia Total Protein Albumin Renin Aldosterone/Renin Dir Urine Creatinine Ur Creatinine 24 Hour Urine Total Protein Salicylates Acetaminophen 12/19/18 12/19/18 12/19/18 00:57 00:57 00:57 WBC RBC Hgb Hct MCV MCH RDW Plt Count Lymph % (Auto) [place] % (Auto) Lymph # [place] # Seg Neutrophils % Seg Neutrophils # PT INR Sodium Potassium Chloride Carbon Dioxide BUN Creatinine Glucose POC Glucose Lactic Acid Magnesium Total Bilirubin ALT Ammonia 23.0 L Total Protein Albumin Renin Aldosterone/Renin Dir Urine Creatinine Ur Creatinine 24 Hour Urine Total Protein Salicylates < 0.3 L Acetaminophen < 5.0 L 12/19/18 12/19/18 12/19/18 00:58 06:49 06:49 WBC 11.7 H RBC Hgb Hct MCV 81 L MCH 27 L RDW 18.0 H Plt Count Lymph % (Auto) 10.5 L [place] % (Auto) Lymph # [place] # Seg Neutrophils % 83.8 H Seg Neutrophils # 9.8 H PT INR Sodium Potassium 3.4 L Chloride Carbon Dioxide BUN Creatinine 2.0 H Glucose 105 H POC Glucose 110 H Lactic Acid Magnesium Total Bilirubin ALT Ammonia Total Protein Albumin Renin Aldosterone/Renin Dir Urine Creatinine Ur Creatinine 24 Hour Urine Total Protein Salicylates Acetaminophen 12/19/18 12/20/18 12/20/18 10:56 00:30 05:15 WBC RBC Hgb Hct MCV 82 L MCH 27 L RDW 17.5 H Plt Count 133 L Lymph % (Auto) [place] % (Auto) 7.8 H Lymph # [place] # Seg Neutrophils % Seg Neutrophils # PT INR Sodium Potassium Chloride Carbon Dioxide BUN Creatinine Glucose POC Glucose Lactic Acid Magnesium Total Bilirubin ALT Ammonia Total Protein Albumin Renin 0.10 L Aldosterone/Renin Dir Urine Creatinine 157.1 H Ur Creatinine 24 Hour Urine Total Protein 57 H Salicylates Acetaminophen 12/20/18 12/20/18 12/20/18 05:15 05:15 16:46 WBC RBC Hgb Hct MCV MCH RDW Plt Count Lymph % (Auto) [place] % (Auto) Lymph # [place] # Seg Neutrophils % Seg Neutrophils # PT INR Sodium Potassium 3.5 L Chloride Carbon Dioxide BUN Creatinine 2.1 H Glucose 109 H POC Glucose 109 H Lactic Acid Magnesium 1.60 L Total Bilirubin 1.50 H ALT Ammonia Total Protein 6.2 L D Albumin 3.8 L Renin Aldosterone/Renin Dir Urine Creatinine Ur Creatinine 24 Hour Urine Total Protein Salicylates Acetaminophen 12/20/18 12/21/18 12/21/18 20:38 04:27 04:27 WBC RBC Hgb 11.4 L Hct 34.2 L MCV 82 L MCH 27 L RDW 17.8 H Plt Count 130 L Lymph % (Auto) [place] % (Auto) 7.5 H Lymph # [place] # Seg Neutrophils % 73.3 H Seg Neutrophils # PT INR Sodium Potassium Chloride Carbon Dioxide BUN Creatinine 1.9 H Glucose 102 H POC Glucose 110 H Lactic Acid Magnesium Total Bilirubin 1.30 H ALT 6 L Ammonia Total Protein 5.7 L Albumin 3.4 L Renin Aldosterone/Renin Dir Urine Creatinine Ur Creatinine 24 Hour Urine Total Protein Salicylates Acetaminophen 12/22/18 12/22/18 12/22/18 04:25 04:25 04:25 WBC RBC Hgb 11.3 L Hct 34.3 L MCV 83 L MCH 27 L RDW 18.0 H Plt Count Lymph % (Auto) [place] % (Auto) 7.7 H Lymph # [place] # Seg Neutrophils % 70.5 H Seg Neutrophils # PT INR Sodium Potassium Chloride Carbon Dioxide BUN Creatinine 2.4 H 2.4 H Glucose POC Glucose Lactic Acid Magnesium Total Bilirubin ALT 6 L Ammonia Total Protein 6.0 L Albumin 3.4 L Renin Aldosterone/Renin Dir Urine Creatinine Ur Creatinine 24 Hour Urine Total Protein Salicylates Acetaminophen 12/23/18 12/23/18 12/23/18 04:41 04:41 Unknown WBC RBC Hgb 11.3 L Hct 33.7 L MCV 83 L MCH RDW 17.5 H Plt Count Lymph % (Auto) [place] % (Auto) 8.2 H Lymph # [place] # Seg Neutrophils % 71.4 H Seg Neutrophils # PT INR Sodium Potassium Chloride Carbon Dioxide BUN Creatinine 2.4 H Glucose POC Glucose Lactic Acid Magnesium Total Bilirubin ALT 6 L Ammonia Total Protein 6.1 L Albumin 3.3 L Renin Aldosterone/Renin Dir Urine Creatinine 39.2 H Ur Creatinine 24 Hour 0.2 L Urine Total Protein 12 H Salicylates Acetaminophen 12/23/18 12/24/18 12/24/18 Unknown 06:25 06:25 WBC RBC Hgb Hct MCV 82 L MCH 27 L RDW 18.0 H Plt Count Lymph % (Auto) [place] % (Auto) 8.5 H Lymph # [place] # Seg Neutrophils % Seg Neutrophils # PT INR Sodium Potassium Chloride Carbon Dioxide BUN Creatinine 2.1 H Glucose 109 H POC Glucose Lactic Acid Magnesium Total Bilirubin ALT 6 L Ammonia Total Protein Albumin 3.5 L Renin Aldosterone/Renin Dir Urine Creatinine 37.1 H Ur Creatinine 24 Hour Urine Total Protein Salicylates Acetaminophen 12/25/18 12/25/18 12/25/18 05:32 05:32 11:55 WBC RBC Hgb 11.5 L Hct 35.1 L MCV 83 L MCH 27 L RDW 17.7 H Plt Count Lymph % (Auto) [place] % (Auto) 10.1 H Lymph # [place] # Seg Neutrophils % 71.2 H Seg Neutrophils # PT INR Sodium Potassium Chloride Carbon Dioxide BUN Creatinine 2.4 H Glucose 113 H POC Glucose Lactic Acid Magnesium Total Bilirubin ALT 6 L Ammonia Total Protein Albumin 3.6 L Renin Aldosterone/Renin Dir 0.8 L Urine Creatinine Ur Creatinine 24 Hour Urine Total Protein Salicylates Acetaminophen 12/26/18 12/26/18 12/28/18 05:18 05:18 04:58 WBC RBC Hgb 10.9 L 10.7 L Hct 32.9 L 32.1 L MCV 82 L 81 L MCH 27 L 27 L RDW 17.2 H 16.8 H Plt Count Lymph % (Auto) [place] % (Auto) 14.9 H 11.1 H Lymph # [place] # 0.9 H 0.9 H Seg Neutrophils % 72.3 H Seg Neutrophils # PT INR Sodium Potassium Chloride Carbon Dioxide 21 L BUN Creatinine 2.1 H Glucose 111 H POC Glucose Lactic Acid Magnesium Total Bilirubin ALT Ammonia Total Protein Albumin 3.3 L Renin Aldosterone/Renin Dir Urine Creatinine Ur Creatinine 24 Hour Urine Total Protein Salicylates Acetaminophen 12/28/18 12/29/18 12/30/18 04:58 06:41 05:39 WBC RBC Hgb Hct MCV MCH RDW Plt Count Lymph % (Auto) [place] % (Auto) Lymph # [place] # Seg Neutrophils % Seg Neutrophils # PT INR Sodium 135 L Potassium Chloride Carbon Dioxide 21 L BUN 26 H 26 H 30 H Creatinine 1.9 H 2.0 H 1.8 H Glucose 111 H 111 H 112 H POC Glucose Lactic Acid Magnesium Total Bilirubin ALT Ammonia Total Protein Albumin Renin Aldosterone/Renin Dir Urine Creatinine Ur Creatinine 24 Hour Urine Total Protein Salicylates Acetaminophen 12/31/18 01/01/19 01/02/19 05:48 05:57 06:34 WBC RBC Hgb Hct MCV MCH RDW Plt Count Lymph % (Auto) [place] % (Auto) Lymph # [place] # Seg Neutrophils % Seg Neutrophils # PT INR Sodium Potassium Chloride Carbon Dioxide 21 L 20 L BUN 30 H 33 H 36 H Creatinine 2.0 H 1.9 H 2.1 H Glucose 109 H 110 H 106 H POC Glucose Lactic Acid Magnesium Total Bilirubin ALT Ammonia Total Protein Albumin Renin Aldosterone/Renin Dir Urine Creatinine Ur Creatinine 24 Hour Urine Total Protein Salicylates Acetaminophen 01/02/19 01/03/19 01/03/19 18:33 05:50 05:50 WBC RBC Hgb 10.1 L Hct 30.5 L MCV 81 L MCH 27 L RDW 16.8 H Plt Count Lymph % (Auto) 10.5 L [place] % (Auto) 9.1 H Lymph # 1.1 L [place] # 0.9 H Seg Neutrophils % 79.3 H Seg Neutrophils # 8.0 H PT 16.3 H INR 1.23 H Sodium Potassium Chloride 108.4 H Carbon Dioxide 19 L BUN 40 H Creatinine 2.0 H Glucose POC Glucose Lactic Acid Magnesium Total Bilirubin ALT Ammonia Total Protein Albumin Renin Aldosterone/Renin Dir Urine Creatinine Ur Creatinine 24 Hour Urine Total Protein Salicylates Acetaminophen
[2019-01-05] MEDS: LOVENOX SUB-Q SCH (11:06)
[2019-01-05] MEDS: NORVASC PO SCH (11:07)
[2019-01-05] MEDS: VITAMIN B-1 PO SCH (11:07)
[2019-01-05] MEDS: HCTZ PO SCH (11:07)
[2019-01-05] MEDS: PROTONIX IV SCH (11:10)
[2019-01-05] MEDS: NORMODYNE PO SCH ×2 (11:10→21:37)
[2019-01-05] MEDS: SODIUM CHLORIDE FLUSH SYRINGE 10 ML IV SCH ×2 (11:11→21:37)
[2019-01-05] MEDS: LONITEN PO SCH ×2 (11:12→21:36)
--- NOTE | 2019-01-05 11:23 | Progress Note ---
Assessment and Plan Assessment and plan: Encephalopathy/Wernicke Korsakoff, neuro following. MRI showed dffuse small vessel infarcts discussed with neurologist and he explained to the families and recommended Hospice care Patient showed no improvement since admission. Acute on chronic renal failure likely vasomotor - nephrology is following Hypokalemia; corrected Right hydronephrosis. Urology consulted and believes it is chronic. Peraza placed. Obstructive uropathy. Hypertension. Controlled. Continue minoxidil, clonidine, hydralazine, Norvasc. Monitor and adjusted as needed. ETOH abuse. Cont. CIWA Prognosis poor Cachexia/severe oral pharyngeal dysphagia. Patient status post PEG placement on 01/03/19. Dietitian to begin tube feedings. Disposition; family does not want to pursue hospice at this time. Physical therapy is recommending subacute rehabilitation. History Interval history: No new issues overnight. Patient remains confused. No family at the bedside Hospitalist Physical - Constitutional Vitals: Temp Pulse Resp BP Pulse Ox 98.2 F 75 18 138/74 98 01/05/19 08:32 01/05/19 11:10 01/05/19 08:32 01/05/19 11:10 01/05/19 08:33 General appearance: Present: no acute distress, well-nourished - EENT Eyes: Present: PERRL, EOM intact ENT: hearing intact, clear oral mucosa, dentition normal - Neck Neck: Present: supple, normal ROM - Respiratory Respiratory effort: normal Respiratory: bilateral: CTA - Cardiovascular Rhythm: regular Heart Sounds: Present: S1 & S2. Absent: gallop, rub - Extremities Extremities: no ischemia, No edema, Full ROM - Abdominal General gastrointestinal: soft, non-tender, non-distended, normal bowel sounds - Integumentary Integumentary: Present: clear, warm, dry - Neurologic Neurologic: CNII-XII intact, moves all extremities Results - Labs CBC & Chem 7: 01/03/19 05:50 01/03/19 05:50 Labs: Laboratory Last Values WBC 10.0 K/mm3 (4.5-11.0) 01/03/19 05:50 RBC 3.77 M/mm3 (3.65-5.03) 01/03/19 05:50 Hgb 10.1 gm/dl (11.8-15.2) L 01/03/19 05:50 Hct 30.5 % (35.5-45.6) L 01/03/19 05:50 MCV 81 fl (84-94) L 01/03/19 05:50 MCH 27 pg (28-32) L 01/03/19 05:50 MCHC 33 % (32-34) 01/03/19 05:50 RDW 16.8 % (13.2-15.2) H 01/03/19 05:50 Plt Count 397 K/mm3 (140-440) 01/03/19 05:50 Lymph % (Auto) 10.5 % (13.4-35.0) L 01/03/19 05:50 [place] % (Auto) 9.1 % (0.0-7.3) H 01/03/19 05:50 Eos % (Auto) 0.5 % (0.0-4.3) 01/03/19 05:50 Baso % (Auto) 0.6 % (0.0-1.8) 01/03/19 05:50 Lymph # 1.1 K/mm3 (1.2-5.4) L 01/03/19 05:50 [place] # 0.9 K/mm3 (0.0-0.8) H 01/03/19 05:50 Eos # 0.1 K/mm3 (0.0-0.4) 01/03/19 05:50 Baso # 0.1 K/mm3 (0.0-0.1) 01/03/19 05:50 Seg Neutrophils % 79.3 % (40.0-70.0) H 01/03/19 05:50 Seg Neutrophils # 8.0 K/mm3 (1.8-7.7) H 01/03/19 05:50 PT 16.3 Sec. (12.2-14.9) H 01/02/19 18:33 INR 1.23 (0.87-1.13) H 01/02/19 18:33 Sodium 143 mmol/L (137-145) 01/03/19 05:50 Potassium 5.0 mmol/L (3.6-5.0) 01/03/19 05:50 Chloride 108.4 mmol/L (98-107) H 01/03/19 05:50 Carbon Dioxide 19 mmol/L (22-30) L 01/03/19 05:50 Anion Gap 21 mmol/L 01/03/19 05:50 BUN 40 mg/dL (9-20) H 01/03/19 05:50 Creatinine 2.0 mg/dL (0.8-1.5) H 01/03/19 05:50 Estimated GFR 41 ml/min 01/03/19 05:50 BUN/Creatinine Ratio 20 % 01/03/19 05:50 Glucose 91 mg/dL (75-100) 01/03/19 05:50 POC Glucose 88 (70-105) 12/24/18 05:47 Lactic Acid 1.30 mmol/L (0.7-2.0) 12/19/18 06:49 Calcium 9.7 mg/dL (8.4-10.2) 01/03/19 05:50 Magnesium 2.20 mg/dL (1.7-2.3) 12/21/18 04:27 Total Bilirubin 0.80 mg/dL (0.1-1.2) 12/26/18 05:18 AST 20 units/L (5-40) 12/26/18 05:18 ALT 7 units/L (7-56) 12/26/18 05:18 Alkaline Phosphatase 65 units/L (35-129) 12/26/18 05:18 Ammonia 23.0 umol/L (25-60) L 12/19/18 00:57 Total Protein 6.3 g/dL (6.3-8.2) 12/26/18 05:18 Albumin 3.3 g/dL (3.9-5) L 12/26/18 05:18 Albumin/Globulin Ratio 1.1 % 12/26/18 05:18 Renin 3.91 ng/mL/h (0.25-5.82) 12/25/18 11:55 Aldosterone 3 ng/dL () 12/25/18 11:55 Aldosterone/Renin Dir 0.8 Ratio (0.9-28.9) L 12/25/18 11:55 TSH 3.190 mlU/mL (0.270-4.200) 12/19/18 00:57 Urine Color Carm[place] (Yellow) 12/19/18 02:27 Urine Turbidity Slightly-cloudy (Clear) 12/19/18 02:27 Urine pH 5.0 (5.0-7.0) 12/19/18 02:27 Ur Specific [place] 1.024 (1.003-1.030) 12/19/18 02:27 Urine Protein >500 mg/dL (Negative) 12/19/18 02:27 Urine Glucose (UA) Neg mg/dL (Negative) 12/19/18 02:27 Urine Ketones Neg mg/dL (Negative) 12/19/18 02:27 Urine Blood Neg (Negative) 12/19/18 02:27 Urine Nitrite Neg (Negative) 12/19/18 02:27 Urine Bilirubin Neg (Negative) 12/19/18 02:27 Urine Urobilinogen 4.0 mg/dL (<2.0) 12/19/18 02:27 Ur Leukocyte Esterase Neg (Negative) 12/19/18 02:27 Urine WBC (Auto) 4.0 /HPF (0.0-6.0) 12/19/18 02:27 Urine RBC (Auto) 2.0 /HPF (0.0-6.0) 12/19/18 02:27 U Epithel Cells (Auto) < 1.0 /HPF (0-13.0) 12/19/18 02:27 Urine Bacteria (Auto) 1+ /HPF (Negative) 12/19/18 02: Amorphous Crystals 1+ 12/19/18 02:27 Hyaline Casts 8 /LPF 12/19/18 02:27 Urine Mucus Few /HPF 12/19/18 02:27 Urine Eosinophils None seen (None Seen) 12/20/18 00:30 Urine Total Volume 500 ml 12/23/18 Unknown Urine Creatinine 39.2 mg/dL (0.1-20.0) H 12/23/18 Unknown Ur Creatinine 24 Hour 0.2 (0.8-2.8) L 12/23/18 Unknown Height (in) 72.0 inches 12/23/18 Unknown Weight (lb) 160.0 lbs 12/23/18 Unknown Creatinine Clearance 4 12/23/18 Unknown Ur Total Protein 24 Hr 60.00 mg/dL (2-200) 12/23/18 Unknown Protein/Creatinin Ratio 0.36 12/20/18 00:30 Urine Sodium 105 mmol/L 12/20/18 00:30 Urine Total Protein 12 mg/dL (5-11.8) H 12/23/18 Unknown Salicylates < 0.3 mg/dL (2.8-20.0) L 12/19/18 00:57 Urine Opiates Screen Presumptive negative 12/19/18 02:27 Urine Methadone Screen Presumptive negative 12/19/18 02:27 Acetaminophen < 5.0 ug/mL (10.0-30.0) L 12/19/18 00:57 Ur Barbiturates Screen Presumptive negative 12/19/18 02:27 Ur Phencyclidine Scrn Presumptive negative 12/19/18 02:27 Ur Amphetamines Screen Presumptive negative 12/19/18 02:27 U Benzodiazepines Scrn Presumptive negative 12/19/18 02:27 Urine Cocaine Screen Presumptive negative 12/19/18 02:27 U Marijuana (THC) Screen Presumptive positive 12/19/18 02:27 Drugs of Abuse Note Disclamer 12/19/18 02:27 Plasma/Serum Alcohol < 0.01 % (0-0.07) 12/19/18 00:57 Immunofix Electrophor see below 12/23/18 10:46 Nutrition/Malnutrition Assess - Dietary Evaluation Nutrition/Malnutrition Findings: Nutrition Notes Start: 12/26/18 10:58 Freq: Status: Active Protocol: Document 01/02/19 15:50 OL (Rec: 01/02/19 15:52 OL [id number]) Nutrition Notes Initial or Follow up Reassessment Current Diagnosis Acute Kidney Injury,CKD(stage I-IV),Hypertension Other Pertinent Diagnosis Wernicke Korsakoff, heavy EtOH use, boil on L upper back, AMS Current Diet Mechanical soft w/Ensure Enlive BID Labs/Tests BUN 36 Cr 2.1 Pertinent Medications Reviewed Height 6 ft Weight 77.2 kg [place] Body Weight (kg) 80.90 BMI 23.1 Subjective/Other Information Minimal intake continues. GI consulted for PEG placement. 75% of Ensure consumed Burn Absent Trauma Absent #1 Nutrition Diagnosis Malnutrition Diagnosis Progress(for reassessment Continues documentation) Is patient on ventilator? No Is Patient Ambulatory and/or Out of Bed No REE-([facility]-confined to bed) 9631.124 Calculation Used for Recommendations [facility] Additional Notes Pro needs: 94-118g/day (1.2-1. 5 g/kg BW) Fluid needs: 1 ml/kcal Nutrition Intervention Change Diet Order: Continue mechanical soft Add Supplement/Snack (indicate name/kcal Ensure Enlive BID /protein ) Provides kCal: 700 Provides Protein (gm) 40 Goal #1 Meet at least 75% of calorie and protein needs via PO and ONS intakes Goal #2 Weight maintenance Anticipated Discharge Needs: Unable to determine Follow-Up By: 01/06/19 Additional Comments f/u: TF consult, POC
[2019-01-05] MEDS ORDERED: PANCREAZE DR 10,500 UNIT FEEDTUBE PRN (13:07)
[2019-01-05] MEDS ORDERED: SIMPLE SYRUP FEEDTUBE PRN ×2 (13:07)
[2019-01-05] MEDS ORDERED: SODIUM BICARBONATE FEEDTUBE PRN (13:07)
[2019-01-06] MEDS: SODIUM BICARBONATE 150 MEQ in D5W 1,000 ML IV SCH ×2 (05:02→22:41)
[2019-01-06] MEDS: LONITEN PO SCH ×2 (09:11→22:42)
[2019-01-06] MEDS: VITAMIN B-1 PO SCH (09:12)
[2019-01-06] MEDS: NORMODYNE PO SCH ×2 (09:12→22:42)
[2019-01-06] MEDS: LOVENOX SUB-Q SCH (09:12)
[2019-01-06] MEDS: HCTZ PO SCH (09:12)
[2019-01-06] MEDS: SODIUM CHLORIDE FLUSH SYRINGE 10 ML IV SCH ×2 (09:12→22:45)
[2019-01-06] MEDS: NORVASC PO SCH (09:15)
--- NOTE | 2019-01-06 10:04 | Progress Note ---
Subjective Principal diagnosis: madalyn on ckd Interval history: Patient was seen today for follow-up on multiple renal related issues Creatinine was stable patient needs new labs Blood pressure is well-controlled now Social history: Reviewed Allergies: Reviewed Family history: Reviewed Physical examination HEENT: Oral mucosa moist no pallor or icterus Neck: Supple no JVD Chest: Clear to auscultation anteriorly CVS: Regular rate and rhythm S1 and S2 heard Abdomen: Soft nontender no suprapubic masses no organomegaly appreciable Extremity: Dry skin less than 1+ peripheral edema Musculoskeletal: No joint effusion noted in knees and ankle Neurological:patient is alert awake Dermatology: No petechial rashes Psychiatry: No evidence of any agitation and aggression noted Assessment and plan Acute kidney injury with chronic kidney disease Continue to monitor renal function patient has multiple risk factor for progression of renal failure Etiology of renal failure appears to be complex and multifactorial, chronic kidney disease underlying, obstructive uropathy, uncontrolled hypertension, history of alcohol abuse needs to follow-up with urology, evidence of hydronephrosis simple renal cyst Chronic kidney disease: Continue to monitor creatinine avoid nephrotoxic medication Fluctuating mental status: To be followed by neurology Difficult to control hypertension continue to monitor and adjust medications as needed With adjustment of medications blood pressure is much better controlled heart rate is stable Metabolic acidosis currently and sodium bicarbonate Patient will need some labs today which will be ordered Overall prognosis guarded to poor Metabolic acidosis continue to follow bicarbonate for now, Will reduce the rate due to hypertension I may consider placing him on Bicitra Renal ultrasonogram showed echogenic kidneys Right-sided hydronephrosis, left renal cysts: Patient has seen urology and will need to follow-up with Dr. Casas in the outpatient setting We'll continue to follow and make recommendation from renal standpoint Objective - Vital Signs Vital signs: Vital Signs - 12hr 01/05/19 01/06/19 01/06/19 23:29 04:30 08:00 Temperature 97.4 F L 97.6 F 98.1 F Pulse Rate 81 84 94 H Respiratory 18 18 18 Rate Blood Pressure 136/67 137/69 132/69 O2 Sat by Pulse 99 100 83 L Oximetry - Lab 01/03/19 05:50 01/03/19 05:50 Most recent lab results Calcium 9.7 mg/dL (8.4-10.2) 01/03/19 05:50 Magnesium 2.20 mg/dL (1.7-2.3) 12/21/18 04:27 Urine Creatinine 39.2 mg/dL (0.1-20.0) H 12/23/18 Unknown Ur Total Protein 24 Hr 60.00 mg/dL (2-200) 12/23/18 Unknown Urine Sodium 105 mmol/L 12/20/18 00:30 Urine Total Protein 12 mg/dL (5-11.8) H 12/23/18 Unknown Medications & Allergies - Medications Allergies/Adverse Reactions: Allergies No Known Allergies Allergy (Verified 12/19/18 03:17) Home Medications: Home Medications Medication Instructions Recorded Confirmed Last Taken Type No Known Home Medications [No 12/19/18 12/19/18 Unknown History Reported Home Medications] Active Medications: Generic Name Dose Route Start Last Admin Trade Name Freq PRN Reason Stop Dose Admin Acetaminophen 650 mg 12/19/18 03:06 01/04/19 05:24 Tylenol PO 650 mg Q4H PRN Administration Pain MILD(1-3)/Fever >100.5/[place] Acetaminophen 650 mg 12/26/18 04:59 12/26/18 05:09 Tylenol [place] 650 mg Q4H PRN Administration Pain, Mild (1-3) Amlodipine Besylate 10 mg 12/22/18 16:00 01/06/19 09:15 Norvasc PO 10 mg QDAY MANOJ Administration Lipase/Protease/Amylase 1 each 01/05/19 13:[address] 10,500 Unit FEEDTUBE PRN PRN For Clogged Feeding Tube Atorvastatin Calcium 40 mg 12/20/18 22:00 01/05/19 21:36 Lipitor PO 40 mg QHS MANOJ Administration Clonidine HCl 0.2 mg 12/23/18 12:04 01/04/19 05:25 Catapres PO 0.2 mg Q4H PRN Administration HTN SBP>160 Clonidine HCl 0.3 mg 01/09/19 10:00 Catapres-Tts Patch TD Mo MANOJ Enoxaparin Sodium 30 mg 01/02/19 12:00 01/06/19 09:12 Lovenox SUB-Q 30 mg QDAY MANOJ Administration Hydralazine HCl 20 mg 12/25/18 11:36 01/03/19 23:11 Apresoline IV 20 mg Q4HR PRN Administration Hypertension Hydrochlorothiazide 25 mg 01/05/19 10:00 01/06/19 09:12 Hctz PO 25 mg QDAY MANOJ Administration Sodium Bicarbonate 150 meq/ 1,150 mls @ 50 mls/hr 01/03/19 09:30 01/06/19 05:02 Dextrose IV 75 mls/hr DIRECT MANOJ Administration Labetalol HCl 10 mg 12/22/18 18:30 01/04/19 05:24 Normodyne IV 10 mg Q6HR PRN Administration Blood Pressure Labetalol HCl 100 mg 01/02/19 10:00 01/06/19 09:12 Normodyne PO 100 mg BID MANOJ Administration Lorazepam 2 mg 12/19/18 03:09 12/30/18 01:43 Ativan IV 2 mg Q1HR PRN Administration CIWA-Ar 8-15 Lorazepam 4 mg 12/19/18 03:09 Ativan IV Q1HR PRN CIWA-Ar 16-25 Metoprolol Tartrate 5 mg 12/22/18 23:38 01/03/19 21:23 Lopressor IV 5 mg Q6H PRN Administration elevated BP. Hold for HR <60 Minoxidil 10 mg 01/04/19 10:17 01/06/19 09:11 Loniten PO 10 mg BID MANOJ Administration Ondansetron HCl 4 mg 12/19/18 03:06 Zofran IV Q8H PRN Nausea And Vomiting Pantoprazole Sodium 40 mg 01/04/19 10:00 01/05/19 11:10 Protonix IV 40 mg QDAY MANOJ Administration Simple Syrup 15 ml 01/05/19 13:07 Simple Syrup FEEDTUBE PRN PRN Hypoglycemia Simple Syrup 30 ml 01/05/19 13:07 Simple Syrup FEEDTUBE PRN PRN Hypoglycemia Sodium Bicarbonate 325 mg 01/05/19 13:07 Sodium Bicarbonate FEEDTUBE PRN PRN For Clogged Feeding Tube Sodium Chloride 10 ml 12/19/18 10:00 01/06/19 09:12 Sodium Chloride Flush Syringe 10 Ml IV 10 ml BID MANOJ Administration Sodium Chloride 10 ml 12/19/18 03:06 Sodium Chloride Flush Syringe 10 Ml IV PRN PRN LINE FLUSH Thiamine HCl 100 mg 12/21/18 14:00 01/06/19 09:12 Vitamin B-1 PO 100 mg QDAY MANOJ Administration
[2019-01-06 10:55] LABS: Basophils % (Auto) 0.4 % (0.0-1.8); Eosinophils # (Auto) 0.1 K/mm3 (0.0-0.4); Eosinophils % (Auto) 1.3 % (0.0-4.3); Hematocrit 25.9 % (35.5-45.6); Hemoglobin 8.7 gm/dl (11.8-15.2); Lymphocytes # (Auto) 0.8 K/mm3 (1.2-5.4); Lymphocytes % (Auto) 10.1 % (13.4-35.0); Mean Corpuscular HGB Conc 34 % (32-34); Mean Corpuscular Volume 80 fl (84-94); Monocytes # (Auto) 0.6 K/mm3 (0.0-0.8); Monocytes % (Auto) 7.5 % (0.0-7.3); Platelet Count 370 K/mm3 (140-440); Red Blood Count 3.23 M/mm3 (3.65-5.03); Red Cell Distribution Width 16.5 % (13.2-15.2)
--- NOTE | 2019-01-06 11:07 | Progress Note ---
Assessment and Plan Assessment and plan: Encephalopathy/Wernicke Korsakoff, neuro following. MRI showed dffuse small vessel infarcts discussed with neurologist and he explained to the family and recommended Hospice care Patient showed no improvement since admission. Acute on chronic renal failure likely vasomotor +/- hydronephrosis - nephrology is following Hypokalemia; corrected Right hydronephrosis. Urology consulted and believes it is chronic. Peraza placed. Obstructive uropathy. Hypertension. Controlled. Continue minoxidil, clonidine, hydralazine, Norvasc. Monitor and adjusted as needed. ETOH abuse. Cont. CIWA Prognosis poor Cachexia/severe oral pharyngeal dysphagia. Patient status post PEG placement on 01/03/19. Dietitian started to feeding. Disposition; family does not want to pursue hospice at this time. Physical therapy is recommending subacute rehabilitation. History Interval history: No new issues overnight. Patient remains confused. No family at the bedside Hospitalist Physical - Constitutional Vitals: Temp Pulse Resp BP Pulse Ox 98.1 F 94 H 18 132/69 83 L 01/06/19 08:00 01/06/19 08:00 01/06/19 08:00 01/06/19 08:00 01/06/19 08:00 General appearance: Present: no acute distress, well-nourished - EENT Eyes: Present: PERRL, EOM intact ENT: hearing intact, clear oral mucosa, dentition normal - Neck Neck: Present: supple, normal ROM - Respiratory Respiratory effort: normal Respiratory: bilateral: CTA - Cardiovascular Rhythm: regular Heart Sounds: Present: S1 & S2. Absent: gallop, rub - Extremities Extremities: no ischemia, No edema, Full ROM - Abdominal General gastrointestinal: soft, non-tender, non-distended, normal bowel sounds - Integumentary Integumentary: Present: clear, warm, dry - Neurologic Neurologic: CNII-XII intact, moves all extremities Results - Labs CBC & Chem 7: 01/06/19 10:06 01/03/19 05:50 Labs: Laboratory Last Values WBC 8.1 K/mm3 (4.5-11.0) 01/06/19 10:06 RBC 3.23 M/mm3 (3.65-5.03) L 01/06/19 10:06 Hgb 8.7 gm/dl (11.8-15.2) L 01/06/19 10:06 Hct 25.9 % (35.5-45.6) L 01/06/19 10:06 MCV 80 fl (84-94) L 01/06/19 10:06 MCH 27 pg (28-32) L 01/06/19 10:06 MCHC 34 % (32-34) 01/06/19 10:06 RDW 16.5 % (13.2-15.2) H 01/06/19 10:06 Plt Count 370 K/mm3 (140-440) 01/06/19 10:06 Lymph % (Auto) 10.1 % (13.4-35.0) L 01/06/19 10:06 [place] % (Auto) 7.5 % (0.0-7.3) H 01/06/19 10:06 Eos % (Auto) 1.3 % (0.0-4.3) 01/06/19 10:06 Baso % (Auto) 0.4 % (0.0-1.8) 01/06/19 10:06 Lymph # 0.8 K/mm3 (1.2-5.4) L 01/06/19 10:06 [place] # 0.6 K/mm3 (0.0-0.8) 01/06/19 10:06 Eos # 0.1 K/mm3 (0.0-0.4) 01/06/19 10:06 Baso # 0.0 K/mm3 (0.0-0.1) 01/06/19 10:06 Seg Neutrophils % 80.7 % (40.0-70.0) H 01/06/19 10:06 Seg Neutrophils # 6.6 K/mm3 (1.8-7.7) 01/06/19 10:06 PT 16.3 Sec. (12.2-14.9) H 01/02/19 18:33 INR 1.23 (0.87-1.13) H 01/02/19 18:33 Sodium 143 mmol/L (137-145) 01/03/19 05:50 Potassium 5.0 mmol/L (3.6-5.0) 01/03/19 05:50 Chloride 108.4 mmol/L (98-107) H 01/03/19 05:50 Carbon Dioxide 19 mmol/L (22-30) L 01/03/19 05:50 Anion Gap 21 mmol/L 01/03/19 05:50 BUN 40 mg/dL (9-20) H 01/03/19 05:50 Creatinine 2.0 mg/dL (0.8-1.5) H 01/03/19 05:50 Estimated GFR 41 ml/min 01/03/19 05:50 BUN/Creatinine Ratio 20 % 01/03/19 05:50 Glucose 91 mg/dL (75-100) 01/03/19 05:50 POC Glucose 88 (70-105) 12/24/18 05:47 Lactic Acid 1.30 mmol/L (0.7-2.0) 12/19/18 06:49 Calcium 9.7 mg/dL (8.4-10.2) 01/03/19 05:50 Magnesium 2.20 mg/dL (1.7-2.3) 12/21/18 04:27 Total Bilirubin 0.80 mg/dL (0.1-1.2) 12/26/18 05:18 AST 20 units/L (5-40) 12/26/18 05:18 ALT 7 units/L (7-56) 12/26/18 05:18 Alkaline Phosphatase 65 units/L (35-129) 12/26/18 05:18 Ammonia 23.0 umol/L (25-60) L 12/19/18 00:57 Total Protein 6.3 g/dL (6.3-8.2) 12/26/18 05:18 Albumin 3.3 g/dL (3.9-5) L 12/26/18 05:18 Albumin/Globulin Ratio 1.1 % 12/26/18 05:18 Renin 3.91 ng/mL/h (0.25-5.82) 12/25/18 11:55 Aldosterone 3 ng/dL () 12/25/18 11:55 Aldosterone/Renin Dir 0.8 Ratio (0.9-28.9) L 12/25/18 11:55 TSH 3.190 mlU/mL (0.270-4.200) 12/19/18 00:57 Urine Color Carmen (Yellow) 12/19/18 02:27 Urine Turbidity Slightly-cloudy (Clear) 12/19/18 02:27 Urine pH 5.0 (5.0-7.0) 12/19/18 02:27 Ur Specific [place] 1.024 (1.003-1.030) 12/19/18 02:27 Urine Protein >500 mg/dL (Negative) 12/19/18 02:27 Urine Glucose (UA) Neg mg/dL (Negative) 12/19/18 02:27 Urine Ketones Neg mg/dL (Negative) 12/19/18 02:27 Urine Blood Neg (Negative) 12/19/18 02:27 Urine Nitrite Neg (Negative) 12/19/18 02:27 Urine Bilirubin Neg (Negative) 12/19/18 02:27 Urine Urobilinogen 4.0 mg/dL (<2.0) 12/19/18 02:27 Ur Leukocyte Esterase Neg (Negative) 12/19/18 02:27 Urine WBC (Auto) 4.0 /HPF (0.0-6.0) 12/19/18 02:27 Urine RBC (Auto) 2.0 /HPF (0.0-6.0) 12/19/18 02:27 U Epithel Cells (Auto) < 1.0 /HPF (0-13.0) 12/19/18 02:27 Urine Bacteria (Auto) 1+ /HPF (Negative) 12/19/18 02: Amorphous Crystals 1+ 12/19/18 02: Hyaline Casts 8 /LPF 12/19/18 02:27 Urine Mucus Few /HPF 12/19/18 02:27 Urine Eosinophils None seen (None Seen) 12/20/18 00:30 Urine Total Volume 500 ml 12/23/18 Unknown Urine Creatinine 39.2 mg/dL (0.1-20.0) H 12/23/18 Unknown Ur Creatinine 24 Hour 0.2 (0.8-2.8) L 12/23/18 Unknown Height (in) 72.0 inches 12/23/18 Unknown Weight (lb) 160.0 lbs 12/23/18 Unknown Creatinine Clearance 4 12/23/18 Unknown Ur Total Protein 24 Hr 60.00 mg/dL (2-200) 12/23/18 Unknown Protein/Creatinin Ratio 0.36 12/20/18 00:30 Urine Sodium 105 mmol/L 12/20/18 00:30 Urine Total Protein 12 mg/dL (5-11.8) H 12/23/18 Unknown Salicylates < 0.3 mg/dL (2.8-20.0) L 12/19/18 00:57 Urine Opiates Screen Presumptive negative 12/19/18 02:27 Urine Methadone Screen Presumptive negative 12/19/18 02:27 Acetaminophen < 5.0 ug/mL (10.0-30.0) L 12/19/18 00:57 Ur Barbiturates Screen Presumptive negative 12/19/18 02:27 Ur Phencyclidine Scrn Presumptive negative 12/19/18 02:27 Ur Amphetamines Screen Presumptive negative 12/19/18 02:27 U Benzodiazepines Scrn Presumptive negative 12/19/18 02:27 Urine Cocaine Screen Presumptive negative 12/19/18 02:27 U Marijuana (THC) Screen Presumptive positive 12/19/18 02:27 Drugs of Abuse Note Disclamer 12/19/18 02:27 Plasma/Serum Alcohol < 0.01 % (0-0.07) 12/19/18 00:57 Immunofix Electrophor see below 12/23/18 10:46 Nutrition/Malnutrition Assess - Dietary Evaluation Nutrition/Malnutrition Findings: Nutrition Notes Start: 12/26/18 10:58 Freq: Status: Active Protocol: Document 01/05/19 12:59 DERRICK (Rec: 01/05/19 13:07 DERRICK [email or web address] [email or web address]) Nutrition Notes Need for Assessment generated from: MD Order Initial or Follow up Reassessment Current Diagnosis Acute Kidney Injury, Hypertension Other Pertinent Diagnosis Wernicke Korsakoff syndrome, ( R) hydronephrosis, EtOH abuse, Dysphagia Current Diet Mechanical soft w/Ensure Enlive BID Labs/Tests BUN 40 Cr 2 Pertinent Medications Na bicarb in D5W at 50ml/hr Height 6 ft Weight 79.7 kg [place] Body Weight (kg) 80.90 BMI 23.8 Subjective/Other Information RD consulted for TF. PEG placed on 01/03/19. Burn Absent Trauma Absent #1 Nutrition Diagnosis Malnutrition Diagnosis Progress(for reassessment Continues documentation) Is patient on ventilator? No Is Patient Ambulatory and/or Out of Bed No REE-([facility]-confined to bed) 1937.472 Calculation Used for Recommendations [facility] Additional Notes Pro needs 1-1.2-1.5g/k- 120g/day Fluid needs 1ml/kcal Nutrition Intervention Change Diet Order: D/C [facility] soft diet Nutrition Support: Jevity 1.2 at 65ml/hr with 100ml water flush q4h. Kcal 1,872 Protein (gm) 87 Fluid (mL) 1,259 Fiber (gm) 28 Add Supplement/Snack (indicate name/kcal D/C Ensure /protein ) Goal #1 TF tolerance Goal #2 TF to meet 90-100% energy and pro needs Goal #3 Wt maintenance Follow-Up By: 01/07/19 Additional Comments F/U: new TF
[2019-01-06] MEDS: LOPRESSOR IV PRN (18:29)
[2019-01-06] MEDS: PREVACID SOLUTAB FEEDTUBE SCH (18:39)
[2019-01-07 07:03] LABS: Basophils # (Auto) 0.1 K/mm3 (0.0-0.1); Basophils % (Auto) 0.9 % (0.0-1.8); Eosinophils # (Auto) 0.1 K/mm3 (0.0-0.4); Eosinophils % (Auto) 1.5 % (0.0-4.3); Hematocrit 28.6 % (35.5-45.6); Hemoglobin 9.3 gm/dl (11.8-15.2); Lymphocytes # (Auto) 1.1 K/mm3 (1.2-5.4); Lymphocytes % (Auto) 13.8 % (13.4-35.0); Mean Corpuscular HGB Conc 33 % (32-34); Mean Corpuscular Volume 80 fl (84-94); Monocytes # (Auto) 0.6 K/mm3 (0.0-0.8); Monocytes % (Auto) 7.8 % (0.0-7.3); Platelet Count 414 K/mm3 (140-440); Red Blood Count 3.57 M/mm3 (3.65-5.03); Red Cell Distribution Width 16.4 % (13.2-15.2)
[2019-01-07 07:24] LABS: Calcium 9.2 mg/dL (8.4-10.2)
--- NOTE | 2019-01-07 09:49 | Progress Note ---
Subjective Principal diagnosis: madalyn on ckd Interval history: Patient was seen today for follow-up on multiple renal related issues Creatinine was stable patient needs new labs Sodium noted to be elevated Blood pressure is well-controlled now Social history: Reviewed Allergies: Reviewed Family history: Reviewed Physical examination HEENT: Oral mucosa moist no pallor or icterus Neck: Supple no JVD Chest: Clear to auscultation anteriorly CVS: Regular rate and rhythm S1 and S2 heard Abdomen: Soft nontender no suprapubic masses no organomegaly appreciable Extremity: Dry skin less than 1+ peripheral edema Musculoskeletal: No joint effusion noted in knees and ankle Neurological:patient is alert awake Dermatology: No petechial rashes Psychiatry: No evidence of any agitation and aggression noted Assessment and plan Acute kidney injury with chronic kidney disease Continue to monitor renal function patient has multiple risk factor for progression of renal failure Hypernatremia: Discontinue hydrochlorothiazide for now, Patient will need free water 250 mL every 4 hours for at least 48 hours, if possible Etiology of renal failure appears to be complex and multifactorial, chronic kidney disease underlying, obstructive uropathy, uncontrolled hypertension, history of alcohol abuse needs to follow-up with urology, evidence of hydronephrosis simple renal cyst Chronic kidney disease: Continue to monitor creatinine avoid nephrotoxic medication Fluctuating mental status: To be followed by neurology Difficult to control hypertension continue to monitor and adjust medications as needed Continue with sodium bicarbonate Renal ultrasonogram showed echogenic kidneys Right-sided hydronephrosis, left renal cysts: Patient has seen urology and will need to follow-up with Dr. Casas in the outpatient setting We'll continue to follow and make recommendation from renal standpoint Objective - Vital Signs Vital signs: Vital Signs - 12hr 01/06/19 01/07/19 01/07/19 23:21 04:18 04:57 Temperature 97.7 F 99.0 F Respiratory 18 20 Rate Blood Pressure 143/87 136/70 O2 Sat by Pulse 95 90 Oximetry 01/07/19 08:27 Temperature 99.1 F Respiratory 18 Rate Blood Pressure 149/75 O2 Sat by Pulse Oximetry - Lab 01/07/19 05:40 01/07/19 05:40 Most recent lab results Calcium 9.2 mg/dL (8.4-10.2) 01/07/19 05:40 Magnesium 2.20 mg/dL (1.7-2.3) 12/21/18 04:27 Urine Creatinine 39.2 mg/dL (0.1-20.0) H 12/23/18 Unknown Ur Total Protein 24 Hr 60.00 mg/dL (2-200) 12/23/18 Unknown Urine Sodium 105 mmol/L 12/20/18 00:30 Urine Total Protein 12 mg/dL (5-11.8) H 12/23/18 Unknown Medications & Allergies - Medications Allergies/Adverse Reactions: Allergies No Known Allergies Allergy (Verified 12/19/18 03:17) Home Medications: Home Medications Medication Instructions Recorded Confirmed Last Taken Type No Known Home Medications [No 12/19/18 12/19/18 Unknown History Reported Home Medications] Active Medications: Generic Name Dose Route Start Last Admin Trade Name Freq PRN Reason Stop Dose Admin Acetaminophen 650 mg 12/19/18 03:06 01/04/19 05:24 Tylenol PO 650 mg Q4H PRN Administration Pain MILD(1-3)/Fever >100.5/[place] Acetaminophen 650 mg 12/26/18 04:59 12/26/18 05:09 Tylenol [place] 650 mg Q4H PRN Administration Pain, Mild (1-3) Amlodipine Besylate 10 mg 12/22/18 16:00 01/06/19 09:15 Norvasc PO 10 mg QDAY MANOJ Administration Lipase/Protease/Amylase 1 each 01/05/19 13:07 Pancreazchevy [place] 10,500 Unit FEEDTUBE PRN PRN For Clogged Feeding Tube Atorvastatin Calcium 40 mg 12/20/18 22:00 01/06/19 22:42 Lipitor PO 40 mg QHS MANOJ Administration Clonidine HCl 0.2 mg 12/23/18 12:04 01/04/19 05:25 Catapres PO 0.2 mg Q4H PRN Administration HTN SBP>160 Clonidine HCl 0.3 mg 01/09/19 10:00 Catapres-Tts Patch TD Mo MANOJ Enoxaparin Sodium 30 mg 01/02/19 12:00 01/06/19 09:12 Lovenox SUB-Q 30 mg QDAY MANOJ Administration Hydralazine HCl 20 mg 12/25/18 11:36 01/03/19 23:11 Apresoline IV 20 mg Q4HR PRN Administration Hypertension Sodium Bicarbonate 150 meq/ 1,150 mls @ 50 mls/hr 01/03/19 09:30 01/06/19 22:41 Dextrose IV 75 mls/hr DIRECT MANOJ Administration Labetalol HCl 10 mg 12/22/18 18:30 01/04/19 05:24 Normodyne IV 10 mg Q6HR PRN Administration Blood Pressure Labetalol HCl 100 mg 01/02/19 10:00 01/06/19 22:42 Normodyne PO 100 mg BID MANOJ Administration Lansoprazole 30 mg 01/06/19 14:00 01/06/19 18:39 Prevacid Solutab FEEDTUBE 30 mg QDAY MANOJ Administration Lorazepam 2 mg 12/19/18 03:09 12/30/18 01:43 Ativan IV 2 mg Q1HR PRN Administration CIWA-Ar 8-15 Lorazepam 4 mg 12/19/18 03:09 Ativan IV Q1HR PRN CIWA-Ar 16-25 Metoprolol Tartrate 5 mg 12/22/18 23:38 01/06/19 18:29 Lopressor IV 5 mg Q6H PRN Administration elevated BP. Hold for HR <60 Minoxidil 10 mg 01/04/19 10:17 01/06/19 22:42 Loniten PO 10 mg BID MANOJ Administration Ondansetron HCl 4 mg 12/19/18 03:06 Zofran IV Q8H PRN Nausea And Vomiting Simple Syrup 15 ml 01/05/19 13:07 Simple Syrup FEEDTUBE PRN PRN Hypoglycemia Simple Syrup 30 ml 01/05/19 13:07 Simple Syrup FEEDTUBE PRN PRN Hypoglycemia Sodium Bicarbonate 325 mg 01/05/19 13:07 Sodium Bicarbonate FEEDTUBE PRN PRN For Clogged Feeding Tube Sodium Chloride 10 ml 12/19/18 10:00 01/06/19 22:45 Sodium Chloride Flush Syringe 10 Ml IV 10 ml BID MANOJ Administration Sodium Chloride 10 ml 12/19/18 03:06 Sodium Chloride Flush Syringe 10 Ml IV PRN PRN LINE FLUSH Thiamine HCl 100 mg 12/21/18 14:00 01/06/19 09:12 Vitamin B-1 PO 100 mg QDAY MANOJ Administration
[2019-01-07] MEDS: NORVASC PO SCH (12:26)
[2019-01-07] MEDS: PREVACID SOLUTAB FEEDTUBE SCH (12:26)
[2019-01-07] MEDS: VITAMIN B-1 PO SCH (12:26)
[2019-01-07] MEDS: NORMODYNE PO SCH ×2 (12:26→22:26)
[2019-01-07] MEDS: LOVENOX SUB-Q SCH (12:26)
[2019-01-07] MEDS: LONITEN PO SCH ×2 (12:26→22:26)
[2019-01-07] MEDS: SODIUM CHLORIDE FLUSH SYRINGE 10 ML IV SCH ×2 (12:27→22:26)
--- NOTE | 2019-01-07 15:31 | Progress Note ---
Assessment and Plan Assessment and plan: Acute Metabolic encephalopathy. ? 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 Urology consulted and believes it is chronic. [place] placed. Obstructive uropathy. Hypertensive urgency; continue minoxidil, clonidine, hydralazine, Norvasc. Monitor and adjusted as needed. Controlled ETOH abuse. Cont. CIWA patient had episode of fever and blood culture ordered Nutrition; patient can drink sips, will put an order for ensure. Prognosis; poor disposition; pending SNF placement. History Interval history: Patient was seen and evaluated this morning. patient was alert but doesn't foll ow commands. Hospitalist Physical - Physical exam Narrative exam: Not in cardiopulmonary distress. The patient appeared well nourished and normally developed. Vital signs as documented. Head exam is unremarkable. No scleral icterus . Neck is without jugular venous distension, thyromegaly, or carotid bruits. Lungs are clear to auscultation. Cardiac exam reveals regular rate and Rhythm. First and second heart sounds normal. No murmurs, rubs or gallops. Abdominal exam reveals normal bowel sounds, no masses, no organomegaly and no aortic enlargement. Extremities are nonedematous and both femoral and pedal pulses are normal. 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 - Constitutional Vitals: Temp Pulse Resp BP Pulse Ox 99.1 F 74 18 149/75 90 01/07/19 08:27 01/06/19 19:39 01/07/19 08:27 01/07/19 08:27 01/07/19 04:57 General appearance: Present: no acute distress, well-nourished Results - Labs CBC & Chem 7: 01/07/19 05:40 01/07/19 05:40 Labs: Laboratory Last Values WBC 8.3 K/mm3 (4.5-11.0) 01/07/19 05:40 RBC 3.57 M/mm3 (3.65-5.03) L 01/07/19 05:40 Hgb 9.3 gm/dl (11.8-15.2) L 01/07/19 05:40 Hct 28.6 % (35.5-45.6) L 01/07/19 05:40 MCV 80 fl (84-94) L 01/07/19 05:40 MCH 26 pg (28-32) L 01/07/19 05:40 MCHC 33 % (32-34) 01/07/19 05:40 RDW 16.4 % (13.2-15.2) H 01/07/19 05:40 Plt Count 414 K/mm3 (140-440) 01/07/19 05:40 Lymph % (Auto) 13.8 % (13.4-35.0) 01/07/19 05:40 [place] % (Auto) 7.8 % (0.0-7.3) H 01/07/19 05:40 Eos % (Auto) 1.5 % (0.0-4.3) 01/07/19 05:40 Baso % (Auto) 0.9 % (0.0-1.8) 01/07/19 05:40 Lymph # 1.1 K/mm3 (1.2-5.4) L 01/07/19 05:40 [place] # 0.6 K/mm3 (0.0-0.8) 01/07/19 05:40 Eos # 0.1 K/mm3 (0.0-0.4) 01/07/19 05:40 Baso # 0.1 K/mm3 (0.0-0.1) 01/07/19 05:40 Seg Neutrophils % 76.0 % (40.0-70.0) H 01/07/19 05:40 Seg Neutrophils # 6.3 K/mm3 (1.8-7.7) 01/07/19 05:40 PT 16.3 Sec. (12.2-14.9) H 01/02/19 18:33 INR 1.23 (0.87-1.13) H 01/02/19 18:33 Sodium 150 mmol/L (137-145) H 01/07/19 05:40 Potassium 4.1 mmol/L (3.6-5.0) 01/07/19 05:40 Chloride 110.8 mmol/L (98-107) H 01/07/19 05:40 Carbon Dioxide 32 mmol/L (22-30) H 01/07/19 05:40 Anion Gap -3 mmol/L 01/07/19 05:40 BUN 34 mg/dL (9-20) H 01/07/19 05:40 Creatinine 2.0 mg/dL (0.8-1.5) H 01/07/19 05:40 Estimated GFR 41 ml/min 01/07/19 05:40 BUN/Creatinine Ratio 17 % 01/07/19 05:40 Glucose 121 mg/dL (75-100) H 01/07/19 05:40 POC Glucose 88 (70-105) 12/24/18 05:47 Lactic Acid 1.30 mmol/L (0.7-2.0) 12/19/18 06:49 Calcium 9.2 mg/dL (8.4-10.2) 01/07/19 05:40 Magnesium 2.20 mg/dL (1.7-2.3) 12/21/18 04:27 Total Bilirubin 0.80 mg/dL (0.1-1.2) 12/26/18 05:18 AST 20 units/L (5-40) 12/26/18 05:18 ALT 7 units/L (7-56) 12/26/18 05:18 Alkaline Phosphatase 65 units/L (35-129) 12/26/18 05:18 Ammonia 23.0 umol/L (25-60) L 12/19/18 00:57 Total Protein 6.3 g/dL (6.3-8.2) 12/26/18 05:18 Albumin 3.3 g/dL (3.9-5) L 12/26/18 05:18 Albumin/Globulin Ratio 1.1 % 12/26/18 05:18 Renin 3.91 ng/mL/h (0.25-5.82) 12/25/18 11:55 Aldosterone 3 ng/dL () 12/25/18 11:55 Aldosterone/Renin Dir 0.8 Ratio (0.9-28.9) L 12/25/18 11:55 TSH 3.190 mlU/mL (0.270-4.200) 12/19/18 00:57 Urine Color [place] (Yellow) 12/19/18 02:27 Urine Turbidity Slightly-cloudy (Clear) 12/19/18 02:27 Urine pH 5.0 (5.0-7.0) 12/19/18 02:27 Ur Specific [place] 1.024 (1.003-1.030) 12/19/18 02:27 Urine Protein >500 mg/dL (Negative) 12/19/18 02:27 Urine Glucose (UA) Neg mg/dL (Negative) 12/19/18 02:27 Urine Ketones Neg mg/dL (Negative) 12/19/18 02:27 Urine Blood Neg (Negative) 12/19/18 02:27 Urine Nitrite Neg (Negative) 12/19/18 02:27 Urine Bilirubin Neg (Negative) 12/19/18 02:27 Urine Urobilinogen 4.0 mg/dL (<2.0) 12/19/18 02:27 Ur Leukocyte Esterase Neg (Negative) 12/19/18 02:27 Urine WBC (Auto) 4.0 /HPF (0.0-6.0) 12/19/18 02:27 Urine RBC (Auto) 2.0 /HPF (0.0-6.0) 12/19/18 02:27 U Epithel Cells (Auto) < 1.0 /HPF (0-13.0) 12/19/18 02:27 Urine Bacteria (Auto) 1+ /HPF (Negative) 12/19/18 02:27 Amorphous Crystals 1+ 12/19/18 02:27 Hyaline Casts 8 /LPF 12/19/18 02:27 Urine Mucus Few /HPF 12/19/18 02:27 Urine Eosinophils None seen (None Seen) 12/20/18 00:30 Urine Total Volume 500 ml 12/23/18 Unknown Urine Creatinine 39.2 mg/dL (0.1-20.0) H 12/23/18 Unknown Ur Creatinine 24 Hour 0.2 (0.8-2.8) L 12/23/18 Unknown Height (in) 72.0 inches 12/23/18 Unknown Weight (lb) 160.0 lbs 12/23/18 Unknown Creatinine Clearance 4 12/23/18 Unknown Ur Total Protein 24 Hr 60.00 mg/dL (2-200) 12/23/18 Unknown Protein/Creatinin Ratio 0.36 12/20/18 00:30 Urine Sodium 105 mmol/L 12/20/18 00:30 Urine Total Protein 12 mg/dL (5-11.8) H 12/23/18 Unknown Salicylates < 0.3 mg/dL (2.8-20.0) L 12/19/18 00:57 Urine Opiates Screen Presumptive negative 12/19/18 02:27 Urine Methadone Screen Presumptive negative 12/19/18 02:27 Acetaminophen < 5.0 ug/mL (10.0-30.0) L 12/19/18 00:57 Ur Barbiturates Screen Presumptive negative 12/19/18 02:27 Ur Phencyclidine Scrn Presumptive negative 12/19/18 02:27 Ur Amphetamines Screen Presumptive negative 12/19/18 02:27 U Benzodiazepines Scrn Presumptive negative 12/19/18 02:27 Urine Cocaine Screen Presumptive negative 12/19/18 02:27 U Marijuana (THC) Screen Presumptive positive 12/19/18 02:27 Drugs of Abuse Note Disclamer 12/19/18 02:27 Plasma/Serum Alcohol < 0.01 % (0-0.07) 12/19/18 00:57 Immunofix Electrophor see below 12/23/18 10:46 Nutrition/Malnutrition Assess - Dietary Evaluation Nutrition/Malnutrition Findings: Nutrition Notes Start: 12/26/18 10:58 Freq: Status: Active Protocol: Document 01/07/19 13:48 RM (Rec: 01/07/19 13:53 RM [email or web address]) Nutrition Notes Initial or Follow up Reassessment Current Diagnosis Acute Kidney Injury, Hypertension Other Pertinent Diagnosis S/P PEG,Wernicke Korsakoff,(R) hydronephrosis, EtOH abuse, Dysphagia Current Diet Jevity 1.2 at 65 ml/hr Labs/Tests Na 150 Pertinent Medications Reviewed Height 6 ft Weight 83.1 kg [place] Body Weight (kg) 80.90 BMI 24.8 Weight change and time frame [facility] Subject[facility]Other Information Observed empty Nepro container hanging in room. Nurse stated that TF had been at goal rate and that pt was tolerating it . Percent of energy/protein needs met: 95%/88% Burn Absent Trauma Absent #1 Nutrition Diagnosis Malnutrition Diagnosis Progress(for reassessment Continues documentation) Is patient on ventilator? No Is Patient Ambulatory and/or Out of Bed No REE-([place]-confined to bed) [phone] Calculation Used for Recommendations [facility] Additional Notes Pro needs 1.2-1.5g/k-125g /day Fluid needs 1ml/kcal Nutrition Intervention Nutrition Support: Jevity 1.2 at 65ml/hr. Water flush of 150 mls q 4 hrs until hypernatremia resolves. Water flush of 100 mls after hypernatremia resolves Kcal 1,872 Protein (gm) 87 Goal #1 TF tolerance Goal #2 TF to continue to meet at least 75% of calorie and protein needs Goal #3 Wt maintenance Anticipated Discharge Needs: Unable to determine Follow-Up By: 01/09/19 Additional Comments Follow for TF tolerance, Na lab
[2019-01-08] MEDS: LONITEN PO SCH ×2 (09:43→22:56)
[2019-01-08] MEDS: LOVENOX SUB-Q SCH (09:43)
[2019-01-08] MEDS: SODIUM CHLORIDE FLUSH SYRINGE 10 ML IV SCH ×2 (09:44→22:57)
[2019-01-08] MEDS: NORVASC PO SCH (09:44)
[2019-01-08] MEDS: VITAMIN B-1 PO SCH (09:44)
[2019-01-08] MEDS: PREVACID SOLUTAB FEEDTUBE SCH (09:44)
[2019-01-08] MEDS: NORMODYNE PO SCH ×2 (09:44→22:57)
--- NOTE | 2019-01-08 09:57 | Progress Note ---
Subjective Principal diagnosis: madalyn on ckd Interval history: Patient was seen today for follow-up on multiple renal related issues Creatinine was stable patient needs new labs Noted to be alkalotic Sodium mildly elevated Blood pressure is well-controlled now Social history: Reviewed Allergies: Reviewed Family history: Reviewed Physical examination HEENT: Oral mucosa moist no pallor or icterus Neck: Supple no JVD Chest: Clear to auscultation anteriorly CVS: Regular rate and rhythm S1 and S2 heard Abdomen: Soft nontender no suprapubic masses no organomegaly appreciable Extremity: Dry skin less than 1+ peripheral edema Musculoskeletal: No joint effusion noted in knees and ankle Neurological:patient is alert awake Dermatology: No petechial rashes Psychiatry: No evidence of any agitation and aggression noted Assessment and plan Acute kidney injury with chronic kidney disease Continue to monitor renal functi on patient has multiple risk factor for progression of renal failure Renal function appears to be stable but patient is hypernatremic, has metabolic alkalosis currently on bicarbonate drip Follow basic metabolic profile tomorrow, blood pressure appears to be much better controlled Etiology of renal failure appears to be complex and multifactorial, chronic kidney disease underlying, obstructive uropathy, uncontrolled hypertension, history of alcohol abuse needs to follow-up with urology, evidence of hydronephrosis simple renal cyst Discontinue sodium bicarbonate infusion, follow-up on bicarbonate as well as sodium level Change IV fluid to D5 water only as tolerated Chronic kidney disease: Continue to monitor creatinine avoid nephrotoxic medication Fluctuating mental status: To be followed by neurology Difficult to control hypertension continue to monitor and adjust medications as needed With adjustment of medications blood pressure is much better controlled heart rate is stable Renal ultrasonogram showed echogenic kidneys Right-sided hydronephrosis, left renal cysts: Patient has seen urology and will need to follow-up with Dr. Casas in the outpatient setting We'll continue to follow and make recommendation from renal standpoint Objective - Vital Signs Vital signs: Vital Signs - 12hr 01/07/19 01/08/19 01/08/19 22:26 00:17 03:42 Temperature 98.1 F 99.0 F Pulse Rate 70 Respiratory 20 20 Rate Blood Pressure 134/59 131/68 126/63 O2 Sat by Pulse 100 Oximetry 01/08/19 09:07 Temperature 100.0 F H Pulse Rate 79 Respiratory 28 H Rate Blood Pressure 131/66 O2 Sat by Pulse 100 Oximetry - Lab 01/07/19 05:40 01/07/19 05:40 Most recent lab results Calcium 9.2 mg/dL (8.4-10.2) 01/07/19 05:40 Magnesium 2.20 mg/dL (1.7-2.3) 12/21/18 04:27 Urine Creatinine 39.2 mg/dL (0.1-20.0) H 12/23/18 Unknown Ur Total Protein 24 Hr 60.00 mg/dL (2-200) 12/23/18 Unknown Urine Sodium 105 mmol/L 12/20/18 00:30 Urine Total Protein 12 mg/dL (5-11.8) H 12/23/18 Unknown Medications & Allergies - Medications Allergies/Adverse Reactions: Allergies No Known Allergies Allergy (Verified 12/19/18 03:17) Home Medications: Home Medications Medication Instructions Recorded Confirmed Last Taken Type No Known Home Medications [No 12/19/18 12/19/18 Unknown History Reported Home Medications] Active Medications: Generic Name Dose Route Start Last Admin Trade Name Freq PRN Reason Stop Dose Admin Acetaminophen 650 mg 12/19/18 03:06 01/04/19 05:24 Tylenol PO 650 mg Q4H PRN Administration Pain MILD(1-3)/Fever >100.5/[place] Acetaminophen 650 mg 12/26/18 04:59 12/26/18 05:09 Tylenol [place] 650 mg Q4H PRN Administration Pain, Mild (1-3) Amlodipine Besylate 10 mg 12/22/18 16:00 01/08/19 09:44 Norvasc PO 10 mg QDAY MANOJ Administration Lipase/Protease/Amylase 1 each 01/05/19 13:07 Pancrealexandria [place] 10,500 Unit FEEDTUBE PRN PRN For Clogged Feeding Tube Atorvastatin Calcium 40 mg 12/20/18 22:00 01/07/19 22:26 Lipitor PO 40 mg QHS MANOJ Administration Clonidine HCl 0.2 mg 12/23/18 12:04 01/04/19 05:25 Catapres PO 0.2 mg Q4H PRN Administration HTN SBP>160 Clonidine HCl 0.3 mg 01/09/19 10:00 Catapres-Tts Patch TD Mo MANOJ Enoxaparin Sodium 30 mg 01/02/19 12:00 01/08/19 09:43 Lovenox SUB-Q 30 mg QDAY MANOJ Administration Hydralazine HCl 20 mg 12/25/18 11:36 01/03/19 23:11 Apresoline IV 20 mg Q4HR PRN Administration Hypertension Sodium Bicarbonate 150 meq/ 1,150 mls @ 50 mls/hr 01/03/19 09:30 01/06/19 22:41 Dextrose IV 75 mls/hr DIRECT MANOJ Administration Labetalol HCl 10 mg 12/22/18 18:30 01/04/19 05:24 Normodyne IV 10 mg Q6HR PRN Administration Blood Pressure Labetalol HCl 100 mg 01/02/19 10:00 01/08/19 09:44 Normodyne PO 100 mg BID MANOJ Administration Lansoprazole 30 mg 01/06/19 14:00 01/08/19 09:44 Prevacid Solutab FEEDTUBE 30 mg QDAY MANOJ Administration Lorazepam 2 mg 12/19/18 03:09 12/30/18 01:43 Ativan IV 2 mg Q1HR PRN Administration CIWA-Ar 8-15 Lorazepam 4 mg 12/19/18 03:09 Ativan IV Q1HR PRN CIWA-Ar 16-25 Metoprolol Tartrate 5 mg 12/22/18 23:38 01/06/19 18:29 Lopressor IV 5 mg Q6H PRN Administration elevated BP. Hold for HR <60 Minoxidil 10 mg 01/04/19 10:17 01/08/19 09:43 Loniten PO 10 mg BID MANOJ Administration Ondansetron HCl 4 mg 12/19/18 03:06 Zofran IV Q8H PRN Nausea And Vomiting Simple Syrup 15 ml 01/05/19 13:07 Simple Syrup FEEDTUBE PRN PRN Hypoglycemia Simple Syrup 30 ml 01/05/19 13:07 Simple Syrup FEEDTUBE PRN PRN Hypoglycemia Sodium Bicarbonate 325 mg 01/05/19 13:07 Sodium Bicarbonate FEEDTUBE PRN PRN For Clogged Feeding Tube Sodium Chloride 10 ml 12/19/18 10:00 01/08/19 09:44 Sodium Chloride Flush Syringe 10 Ml IV 10 ml BID MANOJ Administration Sodium Chloride 10 ml 12/19/18 03:06 Sodium Chloride Flush Syringe 10 Ml IV PRN PRN LINE FLUSH Thiamine HCl 100 mg 12/21/18 14:00 01/08/19 09:44 Vitamin B-1 PO 100 mg QDAY MANOJ Administration
[2019-01-08] MEDS: D5W 1,000 ML IV SCH (14:11)
--- NOTE | 2019-01-08 15:45 | Progress Note ---
Assessment and Plan Assessment and plan: Acute Metabolic encephalopathy. ? 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 Urology consulted and believes it is chronic. [place]aza placed. Obstructive uropathy. Hypertensive urgency; continue minoxidil, clonidine, hydralazine, Norvasc. Monitor and adjusted as needed. Controlled ETOH abuse. Cont. CIWA patient had episode of fever and blood culture ordered Nutrition; patient can drink sips, will put an order for ensure. Prognosis; poor disposition; pending SNF placement. History Interval history: Patient was seen and evaluated this morning. patient was alert but doesn't foll ow commands. Hospitalist Physical - Physical exam Narrative exam: Not in cardiopulmonary distress. The patient appeared well nourished and normally developed. Vital signs as documented. Head exam is unremarkable. No scleral icterus . Neck is without jugular venous distension, thyromegaly, or carotid bruits. Lungs are clear to auscultation. Cardiac exam reveals regular rate and Rhythm. First and second heart sounds normal. No murmurs, rubs or gallops. Abdominal exam reveals normal bowel sounds, no masses, no organomegaly and no aortic enlargement. Extremities are nonedematous and both femoral and pedal pulses are normal. 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 - Constitutional Vitals: Temp Pulse Resp BP Pulse Ox 99.0 F 74 24 141/68 96 01/08/19 14:30 01/08/19 14:30 01/08/19 14:30 01/08/19 14:30 01/08/19 14:30 General appearance: Present: no acute distress, well-nourished Results - Labs CBC & Chem 7: 01/07/19 05:40 01/07/19 05:40 Labs: Laboratory Last Values WBC 8.3 K/mm3 (4.5-11.0) 01/07/19 05:40 RBC 3.57 M/mm3 (3.65-5.03) L 01/07/19 05:40 Hgb 9.3 gm/dl (11.8-15.2) L 01/07/19 05:40 Hct 28.6 % (35.5-45.6) L 01/07/19 05:40 MCV 80 fl (84-94) L 01/07/19 05:40 MCH 26 pg (28-32) L 01/07/19 05:40 MCHC 33 % (32-34) 01/07/19 05:40 RDW 16.4 % (13.2-15.2) H 01/07/19 05:40 Plt Count 414 K/mm3 (140-440) 01/07/19 05:40 Lymph % (Auto) 13.8 % (13.4-35.0) 01/07/19 05:40 [place] % (Auto) 7.8 % (0.0-7.3) H 01/07/19 05:40 Eos % (Auto) 1.5 % (0.0-4.3) 01/07/19 05:40 Baso % (Auto) 0.9 % (0.0-1.8) 01/07/19 05:40 Lymph # 1.1 K/mm3 (1.2-5.4) L 01/07/19 05:40 [place] # 0.6 K/mm3 (0.0-0.8) 01/07/19 05:40 Eos # 0.1 K/mm3 (0.0-0.4) 01/07/19 05:40 Baso # 0.1 K/mm3 (0.0-0.1) 01/07/19 05:40 Seg Neutrophils % 76.0 % (40.0-70.0) H 01/07/19 05:40 Seg Neutrophils # 6.3 K/mm3 (1.8-7.7) 01/07/19 05:40 PT 16.3 Sec. (12.2-14.9) H 01/02/19 18:33 INR 1.23 (0.87-1.13) H 01/02/19 18:33 Sodium 150 mmol/L (137-145) H 01/07/19 05:40 Potassium 4.1 mmol/L (3.6-5.0) 01/07/19 05:40 Chloride 110.8 mmol/L (98-107) H 01/07/19 05:40 Carbon Dioxide 32 mmol/L (22-30) H 01/07/19 05:40 Anion Gap -3 mmol/L 01/07/19 05:40 BUN 34 mg/dL (9-20) H 01/07/19 05:40 Creatinine 2.0 mg/dL (0.8-1.5) H 01/07/19 05:40 Estimated GFR 41 ml/min 01/07/19 05:40 BUN/Creatinine Ratio 17 % 01/07/19 05:40 Glucose 121 mg/dL (75-100) H 01/07/19 05:40 POC Glucose 88 (70-105) 12/24/18 05:47 Lactic Acid 1.30 mmol/L (0.7-2.0) 12/19/18 06:49 Calcium 9.2 mg/dL (8.4-10.2) 01/07/19 05:40 Magnesium 2.20 mg/dL (1.7-2.3) 12/21/18 04:27 Total Bilirubin 0.80 mg/dL (0.1-1.2) 12/26/18 05:18 AST 20 units/L (5-40) 12/26/18 05:18 ALT 7 units/L (7-56) 12/26/18 05:18 Alkaline Phosphatase 65 units/L (35-129) 12/26/18 05:18 Ammonia 23.0 umol/L (25-60) L 12/19/18 00:57 Total Protein 6.3 g/dL (6.3-8.2) 12/26/18 05:18 Albumin 3.3 g/dL (3.9-5) L 12/26/18 05:18 Albumin/Globulin Ratio 1.1 % 12/26/18 05:18 Renin 3.91 ng/mL/h (0.25-5.82) 12/25/18 11:55 Aldosterone 3 ng/dL () 12/25/18 11:55 Aldosterone/Renin Dir 0.8 Ratio (0.9-28.9) L 12/25/18 11:55 TSH 3.190 mlU/mL (0.270-4.200) 12/19/18 00:57 Urine Color [place]en (Yellow) 12/19/18 02:27 Urine Turbidity Slightly-cloudy (Clear) 12/19/18 02:27 Urine pH 5.0 (5.0-7.0) 12/19/18 02:27 Ur Specific [place] 1.024 (1.003-1.030) 12/19/18 02:27 Urine Protein >500 mg/dL (Negative) 12/19/18 02:27 Urine Glucose (UA) Neg mg/dL (Negative) 12/19/18 02:27 Urine Ketones Neg mg/dL (Negative) 12/19/18 02:27 Urine Blood Neg (Negative) 12/19/18 02:27 Urine Nitrite Neg (Negative) 12/19/18 02:27 Urine Bilirubin Neg (Negative) 12/19/18 02:27 Urine Urobilinogen 4.0 mg/dL (<2.0) 12/19/18 02:27 Ur Leukocyte Esterase Neg (Negative) 12/19/18 02:27 Urine WBC (Auto) 4.0 /HPF (0.0-6.0) 12/19/18 02:27 Urine RBC (Auto) 2.0 /HPF (0.0-6.0) 12/19/18 02:27 U Epithel Cells (Auto) < 1.0 /HPF (0-13.0) 12/19/18 02:27 Urine Bacteria (Auto) 1+ /HPF (Negative) 12/19/18 02:27 Amorphous Crystals 1+ 12/19/18 02:27 Hyaline Casts 8 /LPF 12/19/18 02:27 Urine Mucus Few /HPF 12/19/18 02:27 Urine Eosinophils None seen (None Seen) 12/20/18 00:30 Urine Total Volume 500 ml 12/23/18 Unknown Urine Creatinine 39.2 mg/dL (0.1-20.0) H 12/23/18 Unknown Ur Creatinine 24 Hour 0.2 (0.8-2.8) L 12/23/18 Unknown Height (in) 72.0 inches 12/23/18 Unknown Weight (lb) 160.0 lbs 12/23/18 Unknown Creatinine Clearance 4 12/23/18 Unknown Ur Total Protein 24 Hr 60.00 mg/dL (2-200) 12/23/18 Unknown Protein/Creatinin Ratio 0.36 12/20/18 00:30 Urine Sodium 105 mmol/L 12/20/18 00:30 Urine Total Protein 12 mg/dL (5-11.8) H 12/23/18 Unknown Salicylates < 0.3 mg/dL (2.8-20.0) L 12/19/18 00:57 Urine Opiates Screen Presumptive negative 12/19/18 02:27 Urine Methadone Screen Presumptive negative 12/19/18 02:27 Acetaminophen < 5.0 ug/mL (10.0-30.0) L 12/19/18 00:57 Ur Barbiturates Screen Presumptive negative 12/19/18 02:27 Ur Phencyclidine Scrn Presumptive negative 12/19/18 02:27 Ur Amphetamines Screen Presumptive negative 12/19/18 02:27 U Benzodiazepines Scrn Presumptive negative 12/19/18 02:27 Urine Cocaine Screen Presumptive negative 12/19/18 02:27 U Marijuana (THC) Screen Presumptive positive 12/19/18 02:27 Drugs of Abuse Note Disclamer 12/19/18 02:27 Plasma/Serum Alcohol < 0.01 % (0-0.07) 12/19/18 00:57 Immunofix Electrophor see below 12/23/18 10:46 Nutrition/Malnutrition Assess - Dietary Evaluation Nutrition/Malnutrition Findings: Nutrition Notes Start: 12/26/18 10:58 Freq: Status: Active Protocol: Document 01/07/19 13:48 RM (Rec: 01/07/19 13:53 RM [id number]) Nutrition Notes Initial or Follow up Reassessment Current Diagnosis Acute Kidney Injury, Hypertension Other Pertinent Diagnosis S/P PEG,Wernicke Korsakoff,(R) hydronephrosis, EtOH abuse, Dysphagia Current Diet Jevity 1.2 at 65 ml/hr Labs/Tests Na 150 Pertinent Medications Reviewed Height 6 ft Weight 83.1 kg [place] Body Weight (kg) 80.90 BMI 24.8 Weight change and time frame [facility] Subjective/Other Information Observed empty Nepro container hanging in room. Nurse stated that TF had been at goal rate and that pt was tolerating it . Percent of energy/protein needs met: 95%/88% Burn Absent Trauma Absent #1 Nutrition Diagnosis Malnutrition Diagnosis Progress(for reassessment Continues documentation) Is patient on ventilator? No Is Patient Ambulatory and/or Out of Bed No REE-([place]-confined to bed) 1977.236 Calculation Used for Recommendations [facility] Additional Notes Pro needs 1.2-1.5g/k-125g /day Fluid needs 1ml/kcal Nutrition Intervention Nutrition Support: Jevity 1.2 at 65ml/hr. Water flush of 150 mls q 4 hrs until hypernatremia resolves. Water flush of 100 mls after hypernatremia resolves Kcal 1,872 Protein (gm) 87 Goal #1 TF tolerance Goal #2 TF to continue to meet at least 75% of calorie and protein needs Goal #3 Wt maintenance Anticipated Discharge Needs: Unable to determine Follow-Up By: 01/09/19 Additional Comments Follow for TF tolerance, Na lab
--- NOTE | 2019-01-09 08:56 | Progress Note ---
Subjective Principal diagnosis: madalyn on ckd Interval history: Patient was seen today for follow-up on multiple renal related issues Patient needs new labs today Will order for basic metabolic profile Social history: Reviewed Allergies: Reviewed Family history: Reviewed Physical examination HEENT: Oral mucosa moist no pallor or icterus Neck: Supple no JVD Chest: Clear to auscultation anteriorly CVS: Regular rate and rhythm S1 and S2 heard Abdomen: Soft nontender no suprapubic masses no organomegaly appreciable Extremity: Dry skin less than 1+ peripheral edema Musculoskeletal: No joint effusion noted in knees and ankle Neurological:patient is alert awake Dermatology: No petechial rashes Psychiatry: No evidence of any agitation and aggression noted Assessment and plan Acute kidney injury with chronic kidney disease Continue to monitor renal function patient has multiple risk factor for progression of renal failure Renal function appears to be stable but patient is hypernatremic will need follow-up labs , Follow basic metabolic profile tomorrow, blood pressure appears to be much better controlled Etiology of renal failure appears to be complex and multifactorial, chronic kidney disease underlying, obstructive uropathy, uncontrolled hypertension, history of alcohol abuse needs to follow-up with urology, evidence of hydronephrosis simple renal cyst Free water as tolerated, her hypernatremia patient does not tolerate hydrochlorothiazide well, Chronic kidney disease: Continue to monitor creatinine avoid nephrotoxic medication Fluctuating mental status: To be followed by neurology Difficult to control hypertension finally much better controlled with the current regimen Renal ultrasonogram showed echogenic kidneys Right-sided hydronephrosis, left renal cysts: Patient has seen urology and will need to follow-up with Dr. Casas in the outpatient setting We'll continue to follow and make recommendation from renal standpoint Objective - Vital Signs Vital signs: Vital Signs - 12hr 01/08/19 01/09/19 01/09/19 21:55 03:06 06:00 Temperature 97.6 F Pulse Rate 74 69 Respiratory 150 H 20 Rate Blood Pressure 132/69 O2 Sat by Pulse 95 95 Oximetry 01/09/19 07:46 Temperature 97.5 F L Pulse Rate 70 Respiratory 20 Rate Blood Pressure 137/76 O2 Sat by Pulse 95 Oximetry - Lab 01/07/19 05:40 01/07/19 05:40 Most recent lab results Calcium 9.2 mg/dL (8.4-10.2) 01/07/19 05:40 Magnesium 2.20 mg/dL (1.7-2.3) 12/21/18 04:27 Urine Creatinine 39.2 mg/dL (0.1-20.0) H 12/23/18 Unknown Ur Total Protein 24 Hr 60.00 mg/dL (2-200) 12/23/18 Unknown Urine Sodium 105 mmol/L 12/20/18 00:30 Urine Total Protein 12 mg/dL (5-11.8) H 12/23/18 Unknown Medications & Allergies - Medications Allergies/Adverse Reactions: Allergies No Known Allergies Allergy (Verified 12/19/18 03:17) Home Medications: Home Medications Medication Instructions Recorded Confirmed Last Taken Type No Known Home Medications [No 12/19/18 12/19/18 Unknown History Reported Home Medications] Active Medications: Generic Name Dose Route Start Last Admin Trade Name Freq PRN Reason Stop Dose Admin Acetaminophen 650 mg 12/19/18 03:06 01/04/19 05:24 Tylenol PO 650 mg Q4H PRN Administration Pain MILD(1-3)/Fever >100.5/[place] Acetaminophen 650 mg 12/26/18 04:59 12/26/18 05:09 Tylenol IA 650 mg Q4H PRN Administration Pain, Mild (1-3) Amlodipine Besylate 10 mg 12/22/18 16:00 01/08/19 09:44 Norvasc PO 10 mg QDAY MANOJ Administration Lipase/Protease/Amylase 1 each 01/05/19 13:[address] 10,500 Unit FEEDTUBE PRN PRN For Clogged Feeding Tube Atorvastatin Calcium 40 mg 12/20/18 22:00 01/08/19 22:55 Lipitor PO 40 mg QHS MANOJ Administration Clonidine HCl 0.2 mg 12/23/18 12:04 01/04/19 05:25 Catapres PO 0.2 mg Q4H PRN Administration HTN SBP>160 Clonidine HCl 0.3 mg 01/09/19 10:00 Catapres-Tts Patch TD Mo MANOJ Enoxaparin Sodium 30 mg 01/02/19 12:00 01/08/19 09:43 Lovenox SUB-Q 30 mg QDAY MANOJ Administration Hydralazine HCl 20 mg 12/25/18 11:36 01/03/19 23:11 Apresoline IV 20 mg Q4HR PRN Administration Hypertension Dextrose 1,000 mls @ 75 mls/hr 01/08/19 11:00 01/08/19 14:11 D5w IV 75 mls/hr DIRECT MANOJ Administration Labetalol HCl 10 mg 12/22/18 18:30 01/04/19 05:24 Normodyne IV 10 mg Q6HR PRN Administration Blood Pressure Labetalol HCl 100 mg 01/02/19 10:00 01/08/19 22:57 Normodyne PO 100 mg BID MANOJ Administration Lansoprazole 30 mg 01/06/19 14:00 01/08/19 09:44 Prevacid Solutab FEEDTUBE 30 mg QDAY MANOJ Administration Lorazepam 2 mg 12/19/18 03:09 12/30/18 01:43 Ativan IV 2 mg Q1HR PRN Administration CIWA-Ar 8-15 Lorazepam 4 mg 12/19/18 03:09 Ativan IV Q1HR PRN CIWA-Ar 16-25 Metoprolol Tartrate 5 mg 12/22/18 23:38 01/06/19 18:29 Lopressor IV 5 mg Q6H PRN Administration elevated BP. Hold for HR <60 Minoxidil 10 mg 01/04/19 10:17 01/08/19 22:56 Loniten PO 10 mg BID MANOJ Administration Ondansetron HCl 4 mg 12/19/18 03:06 Zofran IV Q8H PRN Nausea And Vomiting Simple Syrup 15 ml 01/05/19 13:07 Simple Syrup FEEDTUBE PRN PRN Hypoglycemia Simple Syrup 30 ml 01/05/19 13:07 Simple Syrup FEEDTUBE PRN PRN Hypoglycemia Sodium Bicarbonate 325 mg 01/05/19 13:07 Sodium Bicarbonate FEEDTUBE PRN PRN For Clogged Feeding Tube Sodium Chloride 10 ml 12/19/18 10:00 01/08/19 22:57 Sodium Chloride Flush Syringe 10 Ml IV 10 ml BID MANOJ Administration Sodium Chloride 10 ml 12/19/18 03:06 Sodium Chloride Flush Syringe 10 Ml IV PRN PRN LINE FLUSH Thiamine HCl 100 mg 12/21/18 14:00 01/08/19 09:44 Vitamin B-1 PO 100 mg QDAY MANOJ Administration
[2019-01-09] MEDS ORDERED: CATAPRES-TTS PATCH TD SCH ×2 (10:00→12:00)
[2019-01-09] MEDS: PREVACID SOLUTAB FEEDTUBE SCH (10:30)
[2019-01-09] MEDS: VITAMIN B-1 PO SCH (10:30)
[2019-01-09] MEDS: NORMODYNE PO SCH ×2 (10:30→22:12)
[2019-01-09] MEDS: LOVENOX SUB-Q SCH (10:30)
[2019-01-09] MEDS: SODIUM CHLORIDE FLUSH SYRINGE 10 ML IV SCH ×2 (10:31→22:12)
[2019-01-09] MEDS: NORVASC PO SCH (10:31)
[2019-01-09] MEDS: LONITEN PO SCH ×2 (11:00→22:11)
--- NOTE | 2019-01-09 13:49 | Progress Note ---
Assessment and Plan Assessment and plan: Acute Metabolic encephalopathy. ? 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 Urology consulted and believes it is chronic. Peraza placed. Obstructive uropathy. Hypertensive urgency; continue minoxidil, clonidine, hydralazine, Norvasc. Monitor and adjusted as needed. Controlled ETOH abuse. Cont. CIWA patient had episode of fever and blood culture ordered Nutrition; patient can drink sips, will put an order for ensure. Prognosis; poor disposition; pending SNF placement. Discussed with case management. History Interval history: Patient was seen and evaluated this morning. patient was alert but doesn't follow commands. Hospitalist Physical - Physical exam Narrative exam: Not in cardiopulmonary distress. The patient appeared well nourished and normally developed. Vital signs as documented. Head exam is unremarkable. No scleral icterus . Neck is without jugular venous distension, thyromegaly, or carotid bruits. Lungs are clear to auscultation. Cardiac exam reveals regular rate and Rhythm. First and second heart sounds normal. No murmurs, rubs or gallops. Abdominal exam reveals normal bowel sounds, no masses, no organomegaly and no aortic enlargement. Extremities are nonedematous and both femoral and pedal pulses are normal. 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 - Constitutional Vitals: Temp Pulse Resp BP Pulse Ox 98.0 F 68 22 128/77 95 01/09/19 13:11 01/09/19 13:18 01/09/19 13:11 01/09/19 13:18 01/09/19 07:46 General appearance: Present: no acute distress, well-nourished Results - Labs CBC & Chem 7: 01/07/19 05:40 01/09/19 09:02 Labs: Laboratory Last Values WBC 8.3 K/mm3 (4.5-11.0) 01/07/19 05:40 RBC 3.57 M/mm3 (3.65-5.03) L 01/07/19 05:40 Hgb 9.3 gm/dl (11.8-15.2) L 01/07/19 05:40 Hct 28.6 % (35.5-45.6) L 01/07/19 05:40 MCV 80 fl (84-94) L 01/07/19 05:40 MCH 26 pg (28-32) L 01/07/19 05:40 MCHC 33 % (32-34) 01/07/19 05:40 RDW 16.4 % (13.2-15.2) H 01/07/19 05:40 Plt Count 414 K/mm3 (140-440) 01/07/19 05:40 Lymph % (Auto) 13.8 % (13.4-35.0) 01/07/19 05:40 [place] % (Auto) 7.8 % (0.0-7.3) H 01/07/19 05:40 Eos % (Auto) 1.5 % (0.0-4.3) 01/07/19 05:40 Baso % (Auto) 0.9 % (0.0-1.8) 01/07/19 05:40 Lymph # 1.1 K/mm3 (1.2-5.4) L 01/07/19 05:40 [place] # 0.6 K/mm3 (0.0-0.8) 01/07/19 05:40 Eos # 0.1 K/mm3 (0.0-0.4) 01/07/19 05:40 Baso # 0.1 K/mm3 (0.0-0.1) 01/07/19 05:40 Seg Neutrophils % 76.0 % (40.0-70.0) H 01/07/19 05:40 Seg Neutrophils # 6.3 K/mm3 (1.8-7.7) 01/07/19 05:40 PT 16.3 Sec. (12.2-14.9) H 01/02/19 18:33 INR 1.23 (0.87-1.13) H 01/02/19 18:33 Sodium 141 mmol/L (137-145) D 01/09/19 09:02 Potassium 4.1 mmol/L (3.6-5.0) 01/09/19 09:02 Chloride 96.3 mmol/L (98-107) L 01/09/19 09:02 Carbon Dioxide 32 mmol/L (22-30) H 01/09/19 09:02 Anion Gap 17 mmol/L 01/09/19 09:02 BUN 37 mg/dL (9-20) H 01/09/19 09:02 Creatinine 2.2 mg/dL (0.8-1.5) H 01/09/19 09:02 Estimated GFR 36 ml/min 01/09/19 09:02 BUN/Creatinine Ratio 17 % 01/09/19 09:02 Glucose 137 mg/dL (75-100) H 01/09/19 09:02 POC Glucose 134 (70-105) H 01/09/19 12:59 Lactic Acid 1.30 mmol/L (0.7-2.0) 12/19/18 06:49 Calcium 9.0 mg/dL (8.4-10.2) 01/09/19 09:02 Magnesium 2.20 mg/dL (1.7-2.3) 12/21/18 04:27 Total Bilirubin 0.80 mg/dL (0.1-1.2) 12/26/18 05:18 AST 20 units/L (5-40) 12/26/18 05:18 ALT 7 units/L (7-56) 12/26/18 05:18 Alkaline Phosphatase 65 units/L (35-129) 12/26/18 05:18 Ammonia 23.0 umol/L (25-60) L 12/19/18 00:57 Total Protein 6.3 g/dL (6.3-8.2) 12/26/18 05:18 Albumin 3.3 g/dL (3.9-5) L 12/26/18 05:18 Albumin/Globulin Ratio 1.1 % 12/26/18 05:18 Renin 3.91 ng/mL/h (0.25-5.82) 12/25/18 11:55 Aldosterone 3 ng/dL () 12/25/18 11:55 Aldosterone/Renin Dir 0.8 Ratio (0.9-28.9) L 12/25/18 11:55 TSH 3.190 mlU/mL (0.270-4.200) 12/19/18 00:57 Urine Color Carmen (Yellow) 12/19/18 02:27 Urine Turbidity Slightly-cloudy (Clear) 12/19/18 02:27 Urine pH 5.0 (5.0-7.0) 12/19/18 02:27 Ur Specific [place] 1.024 (1.003-1.030) 12/19/18 02:27 Urine Protein >500 mg/dL (Negative) 12/19/18 02:27 Urine Glucose (UA) Neg mg/dL (Negative) 12/19/18 02:27 Urine Ketones Neg mg/dL (Negative) 12/19/18 02:27 Urine Blood Neg (Negative) 12/19/18 02:27 Urine Nitrite Neg (Negative) 12/19/18 02:27 Urine Bilirubin Neg (Negative) 12/19/18 02:27 Urine Urobilinogen 4.0 mg/dL (<2.0) 12/19/18 02:27 Ur Leukocyte Esterase Neg (Negative) 12/19/18 02:27 Urine WBC (Auto) 4.0 /HPF (0.0-6.0) 12/19/18 02:27 Urine RBC (Auto) 2.0 /HPF (0.0-6.0) 12/19/18 02:27 U Epithel Cells (Auto) < 1.0 /HPF (0-13.0) 12/19/18 02:27 Urine Bacteria (Auto) 1+ /HPF (Negative) 12/19/18 02:27 Amorphous Crystals 1+ 12/19/18 02:27 Hyaline Casts 8 /LPF 12/19/18 02:27 Urine Mucus Few /HPF 12/19/18 02:27 Urine Eosinophils None seen (None Seen) 12/20/18 00:30 Urine Total Volume 500 ml 12/23/18 Unknown Urine Creatinine 39.2 mg/dL (0.1-20.0) H 12/23/18 Unknown Ur Creatinine 24 Hour 0.2 (0.8-2.8) L 12/23/18 Unknown Height (in) 72.0 inches 12/23/18 Unknown Weight (lb) 160.0 lbs 12/23/18 Unknown Creatinine Clearance 4 12/23/18 Unknown Ur Total Protein 24 Hr 60.00 mg/dL (2-200) 12/23/18 Unknown Protein/Creatinin Ratio 0.36 12/20/18 00:30 Urine Sodium 105 mmol/L 12/20/18 00:30 Urine Total Protein 12 mg/dL (5-11.8) H 12/23/18 Unknown Salicylates < 0.3 mg/dL (2.8-20.0) L 12/19/18 00:57 Urine Opiates Screen Presumptive negative 12/19/18 02:27 Urine Methadone Screen Presumptive negative 12/19/18 02:27 Acetaminophen < 5.0 ug/mL (10.0-30.0) L 12/19/18 00:57 Ur Barbiturates Screen Presumptive negative 12/19/18 02:27 Ur Phencyclidine Scrn Presumptive negative 12/19/18 02:27 Ur Amphetamines Screen Presumptive negative 12/19/18 02:27 U Benzodiazepines Scrn Presumptive negative 12/19/18 02:27 Urine Cocaine Screen Presumptive negative 12/19/18 02:27 U Marijuana (THC) Screen Presumptive positive 12/19/18 02:27 Drugs of Abuse Note Disclamer 12/19/18 02:27 Plasma/Serum Alcohol < 0.01 % (0-0.07) 12/19/18 00:57 Immunofix Electrophor see below 12/23/18 10:46 Nutrition/Malnutrition Assess - Dietary Evaluation Nutrition/Malnutrition Findings: Nutrition Notes Start: 12/26/18 10:58 Freq: Status: Active Protocol: Document 01/07/19 13:48 RM (Rec: 01/07/19 13:53 RM [id number]) Nutrition Notes Initial or Follow up Reassessment Current Diagnosis Acute Kidney Injury, Hypertension Other Pertinent Diagnosis S/P PEG,Wernicke Korsakoff,(R) hydronephrosis, EtOH abuse, Dysphagia Current Diet Jevity 1.2 at 65 ml/hr Labs/Tests Na 150 Pertinent Medications Reviewed Height 6 ft Weight 83.1 kg [place] Body Weight (kg) 80.90 BMI 24.8 Weight change and time frame [facility] Subjective/Other Information Observed empty Nepro container hanging in room. Nurse stated that TF had been at goal rate and that pt was tolerating it . Percent of energy/protein needs met: 95%/88% Burn Absent Trauma Absent #1 Nutrition Diagnosis Malnutrition Diagnosis Progress(for reassessment Continues documentation) Is patient on ventilator? No Is Patient Ambulatory and/or Out of Bed No REE-([place]-[facility] Jeor-confined to bed) 1977.236 Calculation Used for Recommendations [place]-[facility] Additional Notes Pro needs 1.2-1.5g/k-125g /day Fluid needs 1ml/kcal Nutrition Intervention Nutrition Support: Jevity 1.2 at 65ml/hr. Water flush of 150 mls q 4 hrs until hypernatremia resolves. Water flush of 100 mls after hypernatremia resolves Kcal 1,872 Protein (gm) 87 Goal #1 TF tolerance Goal #2 TF to continue to meet at least 75% of calorie and protein needs Goal #3 Wt maintenance Anticipated Discharge Needs: Unable to determine Follow-Up By: 01/09/19 Additional Comments Follow for TF tolerance, Na lab
[2019-01-09] MEDS: D5W 1,000 ML IV SCH (18:04)
[2019-01-10] MEDS: D5W 1,000 ML IV SCH (06:45)
[2019-01-10] MEDS ORDERED: CATAPRES-TTS PATCH TD SCH (10:00)
[2019-01-10] MEDS: PREVACID SOLUTAB FEEDTUBE SCH (10:16)
[2019-01-10] MEDS: LOVENOX SUB-Q SCH (10:16)
[2019-01-10] MEDS: VITAMIN B-1 PO SCH (10:17)
[2019-01-10] MEDS: SODIUM CHLORIDE FLUSH SYRINGE 10 ML IV SCH (10:17)
[2019-01-10] MEDS: NORMODYNE PO SCH (10:45)
[2019-01-10] MEDS: NORVASC PO SCH (10:45)
[2019-01-10] MEDS: LONITEN PO SCH (10:47)
--- NOTE | 2019-01-10 13:47 | Progress Note ---
Assessment and Plan Assessment and plan: Acute Metabolic encephalopathy. ? 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 Urology consulted and believes it is chronic. [place] placed. Obstructive uropathy. Hypertensive urgency; continue minoxidil, clonidine, hydralazine, Norvasc. Monitor and adjusted as needed. Controlled ETOH abuse. Cont. CIWA patient had episode of fever and blood culture ordered Nutrition; patient can drink sips, will put an order for ensure. Prognosis; poor disposition; pending SNF placement. Discussed with case management. History Interval history: Patient was seen and evaluated this morning. patient was alert but doesn't follow commands. Hospitalist Physical - Physical exam Narrative exam: Not in cardiopulmonary distress. The patient appeared well nourished and normally developed. Vital signs as documented. Head exam is unremarkable. No scleral icterus . Neck is without jugular venous distension, thyromegaly, or carotid bruits. Lungs are clear to auscultation. Cardiac exam reveals regular rate and Rhythm. First and second heart sounds normal. No murmurs, rubs or gallops. Abdominal exam reveals normal bowel sounds, no masses, no organomegaly and no aortic enlargement. Extremities are nonedematous and both femoral and pedal pulses are normal. 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 - Constitutional Vitals: Temp Pulse Resp BP Pulse Ox 99.0 F 71 20 131/65 99 01/10/19 08:15 01/10/19 10:45 01/10/19 10:00 01/10/19 10:45 01/10/19 10:00 General appearance: Present: no acute distress, well-nourished Results - Labs CBC & Chem 7: 01/07/19 05:40 01/09/19 09:02 Labs: Laboratory Last Values WBC 8.3 K/mm3 (4.5-11.0) 01/07/19 05:40 RBC 3.57 M/mm3 (3.65-5.03) L 01/07/19 05:40 Hgb 9.3 gm/dl (11.8-15.2) L 01/07/19 05:40 Hct 28.6 % (35.5-45.6) L 01/07/19 05:40 MCV 80 fl (84-94) L 01/07/19 05:40 MCH 26 pg (28-32) L 01/07/19 05:40 MCHC 33 % (32-34) 01/07/19 05:40 RDW 16.4 % (13.2-15.2) H 01/07/19 05:40 Plt Count 414 K/mm3 (140-440) 01/07/19 05:40 Lymph % (Auto) 13.8 % (13.4-35.0) 01/07/19 05:40 [place] % (Auto) 7.8 % (0.0-7.3) H 01/07/19 05:40 Eos % (Auto) 1.5 % (0.0-4.3) 01/07/19 05:40 Baso % (Auto) 0.9 % (0.0-1.8) 01/07/19 05:40 Lymph # 1.1 K/mm3 (1.2-5.4) L 01/07/19 05:40 [place] # 0.6 K/mm3 (0.0-0.8) 01/07/19 05:40 Eos # 0.1 K/mm3 (0.0-0.4) 01/07/19 05:40 Baso # 0.1 K/mm3 (0.0-0.1) 01/07/19 05:40 Seg Neutrophils % 76.0 % (40.0-70.0) H 01/07/19 05:40 Seg Neutrophils # 6.3 K/mm3 (1.8-7.7) 01/07/19 05:40 PT 16.3 Sec. (12.2-14.9) H 01/02/19 18:33 INR 1.23 (0.87-1.13) H 01/02/19 18:33 Sodium 141 mmol/L (137-145) D 01/09/19 09:02 Potassium 4.1 mmol/L (3.6-5.0) 01/09/19 09:02 Chloride 96.3 mmol/L (98-107) L 01/09/19 09:02 Carbon Dioxide 32 mmol/L (22-30) H 01/09/19 09:02 Anion Gap 17 mmol/L 01/09/19 09:02 BUN 37 mg/dL (9-20) H 01/09/19 09:02 Creatinine 2.2 mg/dL (0.8-1.5) H 01/09/19 09:02 Estimated GFR 36 ml/min 01/09/19 09:02 BUN/Creatinine Ratio 17 % 01/09/19 09:02 Glucose 137 mg/dL (75-100) H 01/09/19 09:02 POC Glucose 153 (70-105) H 01/10/19 12:12 Lactic Acid 1.30 mmol/L (0.7-2.0) 12/19/18 06:49 Calcium 9.0 mg/dL (8.4-10.2) 01/09/19 09:02 Magnesium 2.20 mg/dL (1.7-2.3) 12/21/18 04:27 Total Bilirubin 0.80 mg/dL (0.1-1.2) 12/26/18 05:18 AST 20 units/L (5-40) 12/26/18 05:18 ALT 7 units/L (7-56) 12/26/18 05:18 Alkaline Phosphatase 65 units/L (35-129) 12/26/18 05:18 Ammonia 23.0 umol/L (25-60) L 12/19/18 00:57 Total Protein 6.3 g/dL (6.3-8.2) 12/26/18 05:18 Albumin 3.3 g/dL (3.9-5) L 12/26/18 05:18 Albumin/Globulin Ratio 1.1 % 12/26/18 05:18 Renin 3.91 ng/mL/h (0.25-5.82) 12/25/18 11:55 Aldosterone 3 ng/dL () 12/25/18 11:55 Aldosterone/Renin Dir 0.8 Ratio (0.9-28.9) L 12/25/18 11:55 TSH 3.190 mlU/mL (0.270-4.200) 12/19/18 00:57 Urine Color Carmen (Yellow) 12/19/18 02:27 Urine Turbidity Slightly-cloudy (Clear) 12/19/18 02:27 Urine pH 5.0 (5.0-7.0) 12/19/18 02:27 Ur Specific [place] 1.024 (1.003-1.030) 12/19/18 02:27 Urine Protein >500 mg/dL (Negative) 12/19/18 02:27 Urine Glucose (UA) Neg mg/dL (Negative) 12/19/18 02:27 Urine Ketones Neg mg/dL (Negative) 12/19/18 02:27 Urine Blood Neg (Negative) 12/19/18 02:27 Urine Nitrite Neg (Negative) 12/19/18 02:27 Urine Bilirubin Neg (Negative) 12/19/18 02:27 Urine Urobilinogen 4.0 mg/dL (<2.0) 12/19/18 02:27 Ur Leukocyte Esterase Neg (Negative) 12/19/18 02:27 Urine WBC (Auto) 4.0 /HPF (0.0-6.0) 12/19/18 02:27 Urine RBC (Auto) 2.0 /HPF (0.0-6.0) 12/19/18 02:27 U Epithel Cells (Auto) < 1.0 /HPF (0-13.0) 12/19/18 02:27 Urine Bacteria (Auto) 1+ /HPF (Negative) 12/19/18 02:27 Amorphous Crystals 1+ 12/19/18 02:27 Hyaline Casts 8 /LPF 12/19/18 02:27 Urine Mucus Few /HPF 12/19/18 02:27 Urine Eosinophils None seen (None Seen) 12/20/18 00:30 Urine Total Volume 500 ml 12/23/18 Unknown Urine Creatinine 39.2 mg/dL (0.1-20.0) H 12/23/18 Unknown Ur Creatinine 24 Hour 0.2 (0.8-2.8) L 12/23/18 Unknown Height (in) 72.0 inches 12/23/18 Unknown Weight (lb) 160.0 lbs 12/23/18 Unknown Creatinine Clearance 4 12/23/18 Unknown Ur Total Protein 24 Hr 60.00 mg/dL (2-200) 12/23/18 Unknown Protein/Creatinin Ratio 0.36 12/20/18 00:30 Urine Sodium 105 mmol/L 12/20/18 00:30 Urine Total Protein 12 mg/dL (5-11.8) H 12/23/18 Unknown Salicylates < 0.3 mg/dL (2.8-20.0) L 12/19/18 00:57 Urine Opiates Screen Presumptive negative 12/19/18 02:27 Urine Methadone Screen Presumptive negative 12/19/18 02:27 Acetaminophen < 5.0 ug/mL (10.0-30.0) L 12/19/18 00:57 Ur Barbiturates Screen Presumptive negative 12/19/18 02:27 Ur Phencyclidine Scrn Presumptive negative 12/19/18 02:27 Ur Amphetamines Screen Presumptive negative 12/19/18 02:27 U Benzodiazepines Scrn Presumptive negative 12/19/18 02:27 Urine Cocaine Screen Presumptive negative 12/19/18 02:27 U Marijuana (THC) Screen Presumptive positive 12/19/18 02:27 Drugs of Abuse Note Disclamer 12/19/18 02:27 Plasma/Serum Alcohol < 0.01 % (0-0.07) 12/19/18 00:57 Immunofix Electrophor see below 12/23/18 10:46 Nutrition/Malnutrition Assess - Dietary Evaluation Nutrition/Malnutrition Findings: Nutrition Notes Start: 12/26/18 10:58 Freq: Status: Active Protocol: Document 01/09/19 16:04 OL (Rec: 01/09/19 16:06 OL [id number]) Nutrition Notes Initial or Follow up Reassessment Current Diagnosis Acute Kidney Injury, Hypertension Other Pertinent Diagnosis S/P PEG,Wernicke Korsakoff,(R) hydronephrosis, EtOH abuse, Dysphagia Current Diet Jevity 1.2 at 65 ml/hr Labs/Tests BUN 37 Cr 2.2 Pertinent Medications Reviewed Height 6 ft Weight 85 kg [place] Body Weight (kg) 80.90 BMI 25.4 Subjective/Other Information Jevity 1.2 infusing at 65mL/hr at goal rate. Percent of energy/protein needs met: 94%/85% Burn Absent Trauma Absent #1 Nutrition Diagnosis Malnutrition Diagnosis Progress(for reassessment Continues documentation) Is patient on ventilator? No Is Patient Ambulatory and/or Out of Bed No REE-([facility]. Jeor-confined to bed) 2000.012 [facility]culation [facility] Additional Notes Pro needs 1.2-1.5g/k- 128g/day Fluid needs 1ml/kcal Nutrition Intervention Nutrition Support: Jevity 1.2 at 65ml/hr. Water flush of 150 mls q 4 hrs until hypernatremia resolves. Water flush of 100 mls after hypernatremia resolves Kcal 1,872 Protein (gm) 87 Fluid (mL) 1,259 Fiber (gm) 28 Goal #1 TF tolerance Goal #2 TF to continue to meet at least 75% of calorie and protein needs Goal #3 Wt maintenance Follow-Up By: 01/14/19 Additional Comments f/u: stable TF
[2019-01-10 14:42] VITALS: BP 115/64
--- NOTE | 2019-01-10 16:54 | Progress Note ---
Subjective Date of service: 01/10/19 Principal diagnosis: madalyn on ckd Interval history: agree with d/c to [place] hospice care given severity of illness and poor prognosisi have had many conversations with family Objective - Vital Sign Vital Signs - 12hr 01/10/19 01/10/19 01/10/19 08:02 08:15 10:00 Temperature 99.0 F Pulse Rate 73 Pulse Rate [ 70 From Monitor] Respiratory 20 20 Rate Blood Pressure 124/69 O2 Sat by Pulse 99 Oximetry 01/10/19 01/10/19 01/10/19 10:45 10:50 13:17 Temperature 99.1 F Pulse Rate 71 68 Pulse Rate [ From Monitor] Respiratory 20 Rate Blood Pressure 131/65 131/65 115/64 O2 Sat by Pulse 95 Oximetry - Laboratory Findings CBC and BMP: 01/07/19 05:40 01/09/19 09:02 Abnormal Lab Findings: Abnormal Labs 12/19/18 12/19/18 12/19/18 00:57 00:57 00:57 WBC RBC 5.05 H Hgb Hct MCV 82 L MCH 27 L RDW 17.5 H Plt Count Lymph % (Auto) 10.7 L [place] % (Auto) Lymph # 0.9 L [place] # Seg Neutrophils % 84.1 H Seg Neutrophils # PT INR Sodium Potassium Chloride Carbon Dioxide BUN Creatinine 2.2 H Glucose POC Glucose Lactic Acid 2.30 H* Magnesium Total Bilirubin 1.60 H ALT Ammonia Total Protein Albumin Renin Aldosterone/Renin Dir Urine Creatinine Ur Creatinine 24 Hour Urine Total Protein Salicylates Acetaminophen 12/19/18 12/19/18 12/19/18 00:57 00:57 00:57 WBC RBC Hgb Hct MCV MCH RDW Plt Count Lymph % (Auto) [place] % (Auto) Lymph # [place] # Seg Neutrophils % Seg Neutrophils # PT INR Sodium Potassium Chloride Carbon Dioxide BUN Creatinine Glucose POC Glucose Lactic Acid Magnesium Total Bilirubin ALT Ammonia 23.0 L Total Protein Albumin Renin Aldosterone/Renin Dir Urine Creatinine Ur Creatinine 24 Hour Urine Total Protein Salicylates < 0.3 L Acetaminophen < 5.0 L 12/19/18 12/19/18 12/19/18 00:58 06:49 06:49 WBC 11.7 H RBC Hgb Hct MCV 81 L MCH 27 L RDW 18.0 H Plt Count Lymph % (Auto) 10.5 L [place] % (Auto) Lymph # [place] # Seg Neutrophils % 83.8 H Seg Neutrophils # 9.8 H PT INR Sodium Potassium 3.4 L Chloride Carbon Dioxide BUN Creatinine 2.0 H Glucose 105 H POC Glucose 110 H Lactic Acid Magnesium Total Bilirubin ALT Ammonia Total Protein Albumin Renin Aldosterone/Renin Dir Urine Creatinine Ur Creatinine 24 Hour Urine Total Protein Salicylates Acetaminophen 12/19/18 12/20/18 12/20/18 10:56 00:30 05:15 WBC RBC Hgb Hct MCV 82 L MCH 27 L RDW 17.5 H Plt Count 133 L Lymph % (Auto) [place] % (Auto) 7.8 H Lymph # [place] # Seg Neutrophils % Seg Neutrophils # PT INR Sodium Potassium Chloride Carbon Dioxide BUN Creatinine Glucose POC Glucose Lactic Acid Magnesium Total Bilirubin ALT Ammonia Total Protein Albumin Renin 0.10 L Aldosterone/Renin Dir Urine Creatinine 157.1 H Ur Creatinine 24 Hour Urine Total Protein 57 H Salicylates Acetaminophen 12/20/18 12/20/18 12/20/18 05:15 05:15 16:46 WBC RBC Hgb Hct MCV MCH RDW Plt Count Lymph % (Auto) [place] % (Auto) Lymph # [place] # Seg Neutrophils % Seg Neutrophils # PT INR Sodium Potassium 3.5 L Chloride Carbon Dioxide BUN Creatinine 2.1 H Glucose 109 H POC Glucose 109 H Lactic Acid Magnesium 1.60 L Total Bilirubin 1.50 H ALT Ammonia Total Protein 6.2 L D Albumin 3.8 L Renin Aldosterone/Renin Dir Urine Creatinine Ur Creatinine 24 Hour Urine Total Protein Salicylates Acetaminophen 12/20/18 12/21/18 12/21/18 20:38 04:27 04:27 WBC RBC Hgb 11.4 L Hct 34.2 L MCV 82 L MCH 27 L RDW 17.8 H Plt Count 130 L Lymph % (Auto) [place] % (Auto) 7.5 H Lymph # [place] # Seg Neutrophils % 73.3 H Seg Neutrophils # PT INR Sodium Potassium Chloride Carbon Dioxide BUN Creatinine 1.9 H Glucose 102 H POC Glucose 110 H Lactic Acid Magnesium Total Bilirubin 1.30 H ALT 6 L Ammonia Total Protein 5.7 L Albumin 3.4 L Renin Aldosterone/Renin Dir Urine Creatinine Ur Creatinine 24 Hour Urine Total Protein Salicylates Acetaminophen 12/22/18 12/22/18 12/22/18 04:25 04:25 04:25 WBC RBC Hgb 11.3 L Hct 34.3 L MCV 83 L MCH 27 L RDW 18.0 H Plt Count Lymph % (Auto) [place] % (Auto) 7.7 H Lymph # [place] # Seg Neutrophils % 70.5 H Seg Neutrophils # PT INR Sodium Potassium Chloride Carbon Dioxide BUN Creatinine 2.4 H 2.4 H Glucose POC Glucose Lactic Acid Magnesium Total Bilirubin ALT 6 L Ammonia Total Protein 6.0 L Albumin 3.4 L Renin Aldosterone/Renin Dir Urine Creatinine Ur Creatinine 24 Hour Urine Total Protein Salicylates Acetaminophen 12/23/18 12/23/18 12/23/18 04:41 04:41 Unknown WBC RBC Hgb 11.3 L Hct 33.7 L MCV 83 L MCH RDW 17.5 H Plt Count Lymph % (Auto) [place] % (Auto) 8.2 H Lymph # [place] # Seg Neutrophils % 71.4 H Seg Neutrophils # PT INR Sodium Potassium Chloride Carbon Dioxide BUN Creatinine 2.4 H Glucose POC Glucose Lactic Acid Magnesium Total Bilirubin ALT 6 L Ammonia Total Protein 6.1 L Albumin 3.3 L Renin Aldosterone/Renin Dir Urine Creatinine 39.2 H Ur Creatinine 24 Hour 0.2 L Urine Total Protein 12 H Salicylates Acetaminophen 12/23/18 12/24/18 12/24/18 Unknown 06:25 06:25 WBC RBC Hgb Hct MCV 82 L MCH 27 L RDW 18.0 H Plt Count Lymph % (Auto) [place] % (Auto) 8.5 H Lymph # [place] # Seg Neutrophils % Seg Neutrophils # PT INR Sodium Potassium Chloride Carbon Dioxide BUN Creatinine 2.1 H Glucose 109 H POC Glucose Lactic Acid Magnesium Total Bilirubin ALT 6 L Ammonia Total Protein Albumin 3.5 L Renin Aldosterone/Renin Dir Urine Creatinine 37.1 H Ur Creatinine 24 Hour Urine Total Protein Salicylates Acetaminophen 12/25/18 12/25/18 12/25/18 05:32 05:32 11:55 WBC RBC Hgb 11.5 L Hct 35.1 L MCV 83 L MCH 27 L RDW 17.7 H Plt Count Lymph % (Auto) [place] % (Auto) 10.1 H Lymph # [place] # Seg Neutrophils % 71.2 H Seg Neutrophils # PT INR Sodium Potassium Chloride Carbon Dioxide BUN Creatinine 2.4 H Glucose 113 H POC Glucose Lactic Acid Magnesium Total Bilirubin ALT 6 L Ammonia Total Protein Albumin 3.6 L Renin Aldosterone/Renin Dir 0.8 L Urine Creatinine Ur Creatinine 24 Hour Urine Total Protein Salicylates Acetaminophen 12/26/18 12/26/18 12/28/18 05:18 05:18 04:58 WBC RBC Hgb 10.9 L 10.7 L Hct 32.9 L 32.1 L MCV 82 L 81 L MCH 27 L 27 L RDW 17.2 H 16.8 H Plt Count Lymph % (Auto) [place] % (Auto) 14.9 H 11.1 H Lymph # [place] # 0.9 H 0.9 H Seg Neutrophils % 72.3 H Seg Neutrophils # PT INR Sodium Potassium Chloride Carbon Dioxide 21 L BUN Creatinine 2.1 H Glucose 111 H POC Glucose Lactic Acid Magnesium Total Bilirubin ALT Ammonia Total Protein Albumin 3.3 L Renin Aldosterone/Renin Dir Urine Creatinine Ur Creatinine 24 Hour Urine Total Protein Salicylates Acetaminophen 12/28/18 12/29/18 12/30/18 04:58 06:41 05:39 WBC RBC Hgb Hct MCV MCH RDW Plt Count Lymph % (Auto) [place] % (Auto) Lymph # [place] # Seg Neutrophils % Seg Neutrophils # PT INR Sodium 135 L Potassium Chloride Carbon Dioxide 21 L BUN 26 H 26 H 30 H Creatinine 1.9 H 2.0 H 1.8 H Glucose 111 H 111 H 112 H POC Glucose Lactic Acid Magnesium Total Bilirubin ALT Ammonia Total Protein Albumin Renin Aldosterone/Renin Dir Urine Creatinine Ur Creatinine 24 Hour Urine Total Protein Salicylates Acetaminophen 12/31/18 01/01/19 01/02/19 05:48 05:57 06:34 WBC RBC Hgb Hct MCV MCH RDW Plt Count Lymph % (Auto) [place] % (Auto) Lymph # [place] # Seg Neutrophils % Seg Neutrophils # PT INR Sodium Potassium Chloride Carbon Dioxide 21 L 20 L BUN 30 H 33 H 36 H Creatinine 2.0 H 1.9 H 2.1 H Glucose 109 H 110 H 106 H POC Glucose Lactic Acid Magnesium Total Bilirubin ALT Ammonia Total Protein Albumin Renin Aldosterone/Renin Dir Urine Creatinine Ur Creatinine 24 Hour Urine Total Protein Salicylates Acetaminophen 01/02/19 01/03/19 01/03/19 18:33 05:50 05:50 WBC RBC Hgb 10.1 L Hct 30.5 L MCV 81 L MCH 27 L RDW 16.8 H Plt Count Lymph % (Auto) 10.5 L [place] % (Auto) 9.1 H Lymph # 1.1 L M[place] # 0.9 H Seg Neutrophils % 79.3 H Seg Neutrophils # 8.0 H PT 16.3 H INR 1.23 H Sodium Potassium Chloride 108.4 H Carbon Dioxide 19 L BUN 40 H Creatinine 2.0 H Glucose POC Glucose Lactic Acid Magnesium Total Bilirubin ALT Ammonia Total Protein Albumin Renin Aldosterone/Renin Dir Urine Creatinine Ur Creatinine 24 Hour Urine Total Protein Salicylates Acetaminophen 01/06/19 01/06/19 01/07/19 10:06 10:06 05:40 WBC RBC 3.23 L 3.57 L Hgb 8.7 L 9.3 L Hct 25.9 L 28.6 L MCV 80 L 80 L MCH 27 L 26 L RDW 16.5 H 16.4 H Plt Count Lymph % (Auto) 10.1 L [place] % (Auto) 7.5 H 7.8 H Lymph # 0.8 L 1.1 L M[place] # Seg Neutrophils % 80.7 H 76.0 H Seg Neutrophils # PT INR Sodium 148 H Potassium Chloride 109.2 H Carbon Dioxide 31 H D BUN 37 H Creatinine 2.0 H Glucose 115 H POC Glucose Lactic Acid Magnesium Total Bilirubin ALT Ammonia Total Protein Albumin Renin Aldosterone/Renin Dir Urine Creatinine Ur Creatinine 24 Hour Urine Total Protein Salicylates Acetaminophen 01/07/19 01/09/19 01/09/19 05:40 09:02 12:59 WBC RBC Hgb Hct MCV MCH RDW Plt Count Lymph % (Auto) [place] % (Auto) Lymph # [place] # Seg Neutrophils % Seg Neutrophils # PT INR Sodium 150 H Potassium Chloride 110.8 H 96.3 L Carbon Dioxide 32 H 32 H BUN 34 H 37 H Creatinine 2.0 H 2.2 H Glucose 121 H 137 H POC Glucose 134 H Lactic Acid Magnesium Total Bilirubin ALT Ammonia Total Protein Albumin Renin Aldosterone/Renin Dir Urine Creatinine Ur Creatinine 24 Hour Urine Total Protein Salicylates Acetaminophen 01/09/19 01/09/19 01/10/19 17:04 22:00 06:15 WBC RBC Hgb Hct MCV MCH RDW Plt Count Lymph % (Auto) [place] % (Auto) Lymph # Moff[place] # Seg Neutrophils % Seg Neutrophils # PT INR Sodium Potassium Chloride Carbon Dioxide BUN Creatinine Glucose POC Glucose 138 H 114 H 132 H Lactic Acid Magnesium Total Bilirubin ALT Ammonia Total Protein Albumin Renin Aldosterone/Renin Dir Urine Creatinine Ur Creatinine 24 Hour Urine Total Protein Salicylates Acetaminophen 01/10/19 12:12 WBC RBC Hgb Hct MCV MCH RDW Plt Count Lymph % (Auto) [place] % (Auto) Lymph # Moff[place] # Seg Neutrophils % Seg Neutrophils # PT INR Sodium Potassium Chloride Carbon Dioxide BUN Creatinine Glucose POC Glucose 153 H Lactic Acid Magnesium Total Bilirubin ALT Ammonia Total Protein Albumin Renin Aldosterone/Renin Dir Urine Creatinine Ur Creatinine 24 Hour Urine Total Protein Salicylates Acetaminophen
--- NOTE | 2019-01-10 17:05 | Discharge Summary ---
Providers - Providers Date of Admission: 12/19/18 03:06 Attending physician: NURY BOYER MD 12/19/18 07:33 Consult to Physician [CONS] Routine Comment: Consulting Provider: SARAH WORRELL Physician Instructions: Reason For Exam: renal failure 12/20/18 16:47 Occupational Therapy Evaluate and Treat [CONS] Routine Comment: Reason For Exam: Neuro deficits Physical Therapy Evaluation and Treat [CONS] Routine Comment: Reason For Exam: Neuro deficits Speech Therapy Evaluation and Treat [CONS] Routine Reason For Exam: swallow eval 12/21/18 09:52 Consult to Physician [CONS] Routine Comment: Consulting Provider: CHATA LEE Physician Instructions: Reason For Exam: AMS 12/21/18 22:11 Speech Therapy Evaluation and Treat [CONS] Routine Reason For Exam: Failed swallow screen 01/01/19 11:26 Consult to Dietitian/Nutrition [CONS] Routine Physician Instructions: Reason For Exam: Reason for Consult: Poor oral intake 01/02/19 11:23 Consult to Physician [CONS] Routine Comment: Consulting Provider: RENARD LOPEZ Physician Instructions: Reason For Exam: PEG placement 01/05/19 11:22 Consult to Dietitian/Nutrition [CONS] Routine Physician Instructions: Reason For Exam: Reason for Consult: Write/Manage Tube Feeding 01/06/19 00:08 Consult to Wound/ET Nurse [CONS] Routine Reason For Exam: wound eval [facility] Condition: Good Pertinent studies: MRI IMPRESSION: There are numerous foci of diffusion restriction throughout both cerebral hemispheres as described. This pattern suggests an embolic process or hypoperfusion episode such as cardiac arrest. Please correlate with the patient's clinical presentation. Volume loss. Severe, advanced chronic white matter changes. Pericallosal lesions are identified which could be related to ischemia or demyelination. renal U/S Echogenic kidneys consistent with nonspecific renal parenchymal disease. Right hydronephrosis. Left renal cyst. Hospital course: 68-year-old man with history of hypertension, have not seen a physician in over a year, heavy alcohol use was brought to the emergency room by family for evaluation. He's been having memory decline over the last 6 months but it has worsened over the last 2 months. They saw the patient fidgeting with the couch, took him 45 minutes to the door, he had urinated on himself. Family thinks that he's been drinking too much to eat, he has lost weight. They're concerned about him living alone. patient was admitted to the floor and work up was done and patient had small vessel disease and no hemorrhage or infarction seen. patient has wornikie Korsakooff syndrome. Patient was treated appropriately without much improvement in his mentation. patient open his eyes, giggle incomprehensible voices and not able to follow commands. Patient was seen by neurology and recommend Hospice but the family declined hospice. PEG tube was placed and patient was discharged to SNF. patient's BP was controlled with multiple BP meds. CATRACHITO persisted and Nephrology consult appreciated. Urology consulted and placed raza catheter. Patient didn't have any improvement in his mentation in his stay and believe patient has permanent brain damage. Disposition: [id number] [facility] Time spent for discharge: 34 - Discharge Diagnoses (1) Acute kidney injury superimposed on chronic kidney disease Status: Acute (2) Alcohol abuse Status: Acute (3) Cognitive decline Status: Acute (4) HTN (hypertension) Status: Acute Qualifiers: Hypertension type: essential hypertension Qualified Code(s): I10 - Essential (primary) hypertension (5) Hypertensive urgency Status: Acute (6) Metabolic acidosis Status: Acute (7) Obstructive uropathy Status: Acute Core Measure Documentation - Palliative Care Palliative Care/ Comfort Measures: Not Applicable - Core Measures Any of the following diagnoses?: none Exam - Physical Exam Narrative exam: Not in cardiopulmonary distress. The patient appeared well nourished and normally developed. Vital signs as documented. Head exam is unremarkable. No scleral icterus . Neck is without jugular venous distension, thyromegaly, or carotid bruits. Lungs are clear to auscultation. Cardiac exam reveals regular rate and Rhythm. First and second heart sounds normal. No murmurs, rubs or gallops. Abdominal exam reveals normal bowel sounds, no masses, no organomegaly and no aortic enlargement. Extremities are nonedematous and both femoral and pedal pulses are normal. 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 - Constitutional Vitals: Temp Pulse Resp BP Pulse Ox 99.1 F 68 20 115/64 95 01/10/19 13:17 01/10/19 13:17 01/10/19 13:17 01/10/19 13:17 01/10/19 13:17 Plan Activity: no restrictions Weight Bearing Status: Full Weight Bearing Diet: per dietitian instruction Follow up with: TRICIA BISHOP MD [Primary Care Provider] - 3-5 Days Prescriptions: AtorvaSTATin [Lipitor] 40 mg PO QHS #30 tablet cloNIDine [Catapres] 0.2 mg PO Q4H PRN #60 tablet PRN Reason: HTN SBP>160 Minoxidil [Loniten] 10 mg PO BID #60 tablet Labetalol [Normodyne TAB] 100 mg PO BID #60 tablet amLODIPine [Norvasc] 10 mg PO QDAY #30 tablet Lansoprazole Solutab [Prevacid Solutab] 30 mg FEEDTUBE QDAY #60 tab.rapdis Thiamine [Vitamin B-1] 100 mg PO QDAY #30 tablet
== END 2019-01-10 17:55 | DRG 682 ==
LOC: ED 00:31 → 4A 03:06 → 2B-ACE 01-08 18:46
PROVIDERS: ADMIT Internal Medicine; ATTEND Internal Medicine
PROC: 0DH63UZ Insertion of Feeding Device into Stomach, Percutaneous Approach (ICD-10-PCS; principal; 2019-01-03)
DX: N17.9 Acute kidney failure, unspecified (principal); G93.41 Metabolic encephalopathy; E87.2 Acidosis; E46 Unspecified protein-calorie malnutrition; E87.0 Hyperosmolality and hypernatremia; R13.12 Dysphagia, oropharyngeal phase; I16.0 Hypertensive urgency; F04 Amnestic disorder due to known physiological condition; R41.81 Age-related cognitive decline; N13.30 Unspecified hydronephrosis; F10.10 Alcohol abuse, uncomplicated; E87.6 Hypokalemia; F12.90 Cannabis use, unspecified, uncomplicated; K29.70 Gastritis, unspecified, without bleeding; K44.9 Diaphragmatic hernia without obstruction or gangrene; I12.9 Hypertensive chronic kidney disease with stage 1 through stage 4 chronic kidney disease, or unspecified chronic kidney disease; N18.9 Chronic kidney disease, unspecified; N28.1 Cyst of kidney, acquired; D63.1 Anemia in chronic kidney disease; Z68.25 Body mass index [BMI] 25.0-25.9, adult; Z82.49 Family history of ischemic heart disease and other diseases of the circulatory system
CPT/HCPCS: 36415; 70450; 70544; 70551; 71045; 74176; 76770; 80048; 80053; 80307; 80320; 81001; 82088; 82140; 82565; 82570; 82575; 82962; 83735; 84156; 84300; 84443; 85025; 85610; 86334; 87040; 87086; 89050; 93005; 93010; 93306; 93880; 95819; G0378; A9270-GY; C9113; G0480; J0360; J0690; J1650; J2060; J2704; J3411; J3475; J7030; J7040; J7070